=== PATIENT | male | born 1975 | race Caucasian/White ===

== ENCOUNTER 2020-02-21 22:51 | Emergency (ER) | payer MEDICAID, SELFPAY ==
--- NOTE | 2020-02-21 | XR_ITS ---
EXAMINATION: XR CHEST CLINICAL INFORMATION: Chest wall pain COMPARISON: 12/21/2005 TECHNIQUE: 2 views of the chest were obtained. FINDINGS: No significant abnormality is noted involving the heart, lungs, mediastinum, bony thorax or soft tissues. A linear scar or atelectasis is present at the left lung base, new since 2005. XR/XR chest 2V IMPRESSION: Unremarkable examination. Left basilar scar or atelectasis.
[2020-02-21 23:09] VITALS: BP 125/94; PULSE 109; RESP 16; TEMP 37.1; O2SAT 96; BMI 30.7
--- NOTE | 2020-02-21 23:28 | ECG_ITS ---
Test Reason : CHEST PAIN Blood Pressure : / mmHG Vent. Rate : 124 BPM Atrial Rate : 124 BPM P-R Int : 138 ms QRS Dur : 078 ms QT Int : 310 ms P-R-T Axes : 068 022 043 degrees QTc Int : 445 ms Sinus tachycardia Possible Left atrial enlargement Borderline ECG No previous ECGs available Referred By: Generic ED Physician Electronically Signed By:FLAVIA EUBANKS MD
[2020-02-21 23:59] LABS: MANUAL DIFF FLAG NO
[2020-02-22 00:01] LABS: Basophils Percent Auto 0.5 % (0-2); Eosinophils Absolute Auto 0.8 X10*3/uL (0.0-0.4); Eosinophils Percent Auto 9.7 % (0-4); Hematocrit 41.8 % (42-52); Hemoglobin 14.1 g/dl (14.0-18.0); Imm Gran Abs Auto 0.05 X10*3/uL (0.00-0.03); Imm Gran Pct Auto 0.6 % (0.0-0.4); Lymphocytes Absolute Auto 2.1 X10*3/uL (1.2-4.9); Lymphocytes Percent Auto 26.5 % (20-40); Mean Corpuscular HGB Conc 33.7 g/dl (31.0-36.0); Mean Corpuscular Volume 83.1 fL (80-98); Mean Platelet Volume 9.7 fL (9.4-12.4); Monocytes Absolute Auto 0.7 X10*3/uL (0.1-1.2); Monocytes Percent Auto 8.6 % (2-11); Neutrophils Absolute Auto 4.2 X10*3/uL (2.0-8.3); Neutrophils Percent Auto 54.1 % (45-73); Platelet Count 261 X10*3/uL (160-400); Red Blood Count 5.03 X10*6/uL (4.60-5.80); White Blood Count 7.8 X10*3/uL (4.8-10.8)
[2020-02-22 00:30] LABS: Anion Gap 15 (12-20); Blood Urea Nitrogen 15 mg/dL (9-16); Calcium 8.7 mg/dL (8.4-10.2); Carbon Dioxide 24 mmol/L (22-29); Chloride 105 mmol/L (96-108); Estimated Glomerular Filt Rate > 60; Glucose Random 114 mg/dL (60-115); Potassium 4.6 mmol/l (3.3-5.1); Sodium 139 mmol/L (135-145)
[2020-02-22 01:03] LABS: Troponin-I High Sensitivity < 3.5 ng/L (<3.5-35.0)
--- NOTE | 2020-02-22 03:35 | ED.GENADULT ---
HPI - General Adult General Chief complaint: General Medical Stated complaint: CHEST PAIN Time Seen by Provider: 02/22/20 03:34 Source: patient Mode of arrival: ambulatory History of Present Illness HPI narrative: This is a 44-year-old male with significant history of IVDA who presents with sudden onset of right upper chest pain increased with palpation, nonradiating, but stating that he had difficulty breathing that has since improved and states that this does not feel like his asthma. He denies any cough, fever, sore throat, chills, and denies any trauma to the area. Related Data Allergies Allergy/AdvReac Type Severity Reaction Status Date / Time fish derived [FISH] Allergy Unknown UNKNOWN Verified 02/21/20 23:08 Review of Systems Review of Systems: Pertinent positives and negatives as stated in HPI 10 point review systems is otherwise negative. [facility] Past Medical History Source: nursing notes reviewed Medical History Asthma Social History Social History Advance Directives: No Advance Directives Information Provided: No Physical Exam Vital Signs: Vital Signs: Last Vital Signs Temp 98.3 F 02/22/20 04:00 Pulse 82 02/22/20 07:40 Resp 16 02/22/20 07:40 BP 109/71 02/22/20 07:40 Pulse Ox 94 02/22/20 07:40 Body Mass Index 30.7 VITAL SIGNS: Reviewed. GENERAL: Well developed, well nourished, in no acute distress. HEAD: Normocephalic/atraumatic, EYES: PERRLA, EOMI EARS: Ext canals without abnormality, TMs non-bulging and non-erythematous NOSE: Nares patent bilateral OROPHARYNX: no oral lesions noted, posterior pharynx clear and non-erythematous without noted tonsillar enlargement/erythema/exudates NECK: Supple, no adenopathy LUNGS: Normal breath sounds. No adventitious sounds or accessory muscle use. SpO2<94> CARDIOVASCULAR: Regular rate and rhythm without noted murmurs, no JVD or lower extremity edema. ABDOMEN: Soft, non-tender, non-distended with bowel sounds. No rigidity. No guarding. No palpable masses or hernias noted MUSCULOSKELETAL: No tenderness, deformities, or effusions noted on gross inspection. EXTREMITIES: No cyanosis, clubbing or edema. SKIN: Inspection of the skin reveals multiple track bills and scarring consistent with history of IVDA NEUROLOGIC: Alert and oriented x 4. Strength and sensation to light touch were grossly intact x 4. Course Course Course Narrative: This is a 44-year-old male with history and clinical presentation concerning for pneumonia, cardiac ischemia, PE given his history of IVDA. Review of all investigations is significant for an elevated D-dimer and in conjunction with oxygenation of 94% and complaints of right-sided chest discomfort will pursue evaluation by imaging for PE. Unable to obtain adequate IV access for CTA of the chest with PE protocol, therefore will pursue V/Q scan and if negative patient can be discharged. Signed out to Dr. Moralez with plan to f/u V/Q scan and if negative can be discharged with Atypical chest pain . Medical Decision Making Lab Data Result diagrams: 02/21/20 23:53 02/21/20 23:53 Labs: Lab Results 02/21/20 02/21/20 02/21/20 Range/Units 23:53 23:53 23:53 WBC 7.8 (4.8-10.8) X10*3/uL RBC 5.03 (4.60-5.80) X10*6/uL Hgb 14.1 (14.0-18.0) g/dl Hct 41.8 L (42-52) % MCV 83.1 (80-98) fL MCH 28.0 (27.0-33.0) pg MCHC 33.7 (31.0-36.0) g/dl RDW 14.0 (11.0-16.0) % Plt Count 261 (160-400) X10*3/uL MPV 9.7 (9.4-12.4) fL Immature Gran % (Auto) 0.6 H (0.0-0.4) % Neut % (Auto) 54.1 (45-73) % Lymph % (Auto) 26.5 (20-40) % Garden % (Auto) 8.6 (2-11) % Eos % (Auto) 9.7 H (0-4) % Baso % (Auto) 0.5 (0-2) % Lymph # (Auto) 2.1 (1.2-4.9) X10*3/uL Garden # (Auto) 0.7 (0.1-1.2) X10*3/uL Eos # (Auto) 0.8 H (0.0-0.4) X10*3/uL Baso # (Auto) 0.0 (0.0-0.2) X10*3/uL Abs Immat Gran (auto) 0.05 H (0.00-0.03) X10*3/uL Absolute Neuts (auto) 4.2 (2.0-8.3) X10*3/uL Absolute Nucleated RBC 0.000 (0.0-0.012) X10*3/uL Nucleated RBC % (auto) 0.0 (0.0-0.2) /100WBC D-Dimer 441 NG/ML Hold Blue Top SEE NOTE Sodium 139 (135-145) mmol/L Potassium 4.6 (3.3-5.1) mmol/l Chloride 105 (96-108) mmol/L Carbon Dioxide 24 (22-29) mmol/L Anion Gap 15 (12-20) BUN 15 (9-16) mg/dL Creatinine 1.01 (0.5-1.4) mg/dL Estim Creat Clear Calc 97.0 Estimated GFR > 60 Random Glucose 114 (60-115) mg/dL Calcium 8.7 (8.4-10.2) mg/dL Troponin I High Sens (<3.5-35.0) ng/L 02/21/20 Range/Units 23:53 WBC (4.8-10.8) X10*3/uL RBC (4.60-5.80) X10*6/uL Hgb (14.0-18.0) g/dl Hct (42-52) % MCV (80-98) fL MCH (27.0-33.0) pg MCHC (31.0-36.0) g/dl RDW (11.0-16.0) % Plt Count (160-400) X10*3/uL MPV (9.4-12.4) fL Immature Gran % (Auto) (0.0-0.4) % Neut % (Auto) (45-73) % Lymph % (Auto) (20-40) % Garden % (Auto) (2-11) % Eos % (Auto) (0-4) % Baso % (Auto) (0-2) % Lymph # (Auto) (1.2-4.9) X10*3/uL Garden # (Auto) (0.1-1.2) X10*3/uL Eos # (Auto) (0.0-0.4) X10*3/uL Baso # (Auto) (0.0-0.2) X10*3/uL Abs Immat Gran (auto) (0.00-0.03) X10*3/uL Absolute Neuts (auto) (2.0-8.3) X10*3/uL Absolute Nucleated RBC (0.0-0.012) X10*3/uL Nucleated RBC % (auto) (0.0-0.2) /100WBC D-Dimer NG/ML Hold Blue Top Sodium (135-145) mmol/L Potassium (3.3-5.1) mmol/l Chloride (96-108) mmol/L Carbon Dioxide (22-29) mmol/L Anion Gap (12-20) BUN (9-16) mg/dL Creatinine (0.5-1.4) mg/dL Estim Creat Clear Calc Estimated GFR Random Glucose (60-115) mg/dL Calcium (8.4-10.2) mg/dL Troponin I High Sens < 3.5 (<3.5-35.0) ng/L ECG Data Attestation: I personally reviewed and interpreted this ECG as follows: Prior ECG tracings: not available for review Interpretation: Sinus tachycardia, HR-124, no evidence of acute ischemia, NE/QRS/QTC are within normal limits.
[2020-02-22 03:55] LABS: D Dimer 441 NG/ML
[2020-02-22 04:00] VITALS: BP 108/60; PULSE 91; RESP 12; TEMP 36.8; O2SAT 94
--- NOTE | 2020-02-22 05:27 | PC.NURSE ---
DR RUELAS AT BEDSIDE TO ATTEMPT US GUIDED LINE AFTER 2 FAILED PERIPHAL IVS.
--- NOTE | 2020-02-22 06:00 | PC.NURSE ---
IV ESTABLISHED. WENT TO CT IV INFILTRATED ON TEST INJECTION.
--- NOTE | 2020-02-22 06:45 | NM_ITS ---
EXAMINATION: NM LUNG IMAGE PERFUSION CLINICAL INFORMATION: Shortness of breath and chest pain. COMPARISON: Previous chest x-ray from yesterday. TECHNIQUE: Perfusion imaging was performed. The patient was administered 4 mCi technetium 99m labeled MAA and perfusion imaging was performed in multiple projections. No ventilation imaging was performed. FINDINGS: No perfusion defect is seen to suggest pulmonary embolism. NM/NM pul perfusion IMPRESSION: No perfusion defect seen to suggest pulmonary embolism.
[2020-02-22] MEDS: 0.9 % Sodium Chloride 1,000 ML 999 ML IV (06:51)
[2020-02-22 07:40] VITALS: BP 109/71; PULSE 82; RESP 16; O2SAT 94
== END 2020-02-22 10:46 | disposition home or self-care (01) ==
PROVIDERS: Emergency Provider Student in an Organized Health Care Education/Training Program
DX: R07.9 Chest pain, unspecified (principal); R06.02 Shortness of breath; Z20.822 Contact with and (suspected) exposure to COVID-19
CPT/HCPCS: 36415; 71046; 78580; 80048; 84484; 85025; 85379; 93005; 96360; 99283; 99284; A9540

== ENCOUNTER 2023-01-16 10:48 | Inpatient (IN) | payer MEDICAID, SELFPAY ==
[2023-01-16] VITALS (10 sets, daily range): BP systolic 100–138; BP diastolic 63–83; PULSE 100–126; RESP 14–20; TEMP 35.7–37.2; O2SAT 98–100; BMI 19.5
--- NOTE | ~2023-01-16 | CT_ITS ---
EXAMINATION: CT HEAD WITHOUT CONTRAST CLINICAL INFORMATION: HIV with headache COMPARISON: None available. TECHNIQUE: Contiguous axial imaging was performed from the skull base to vertex without intravenous administration of contrast. This CT examination was performed using dose optimization techniques as appropriate, variously including the following: *Automated exposure control *Adjustment of mA and/or kV according to patient size (this includes techniques or standardized protocols for targeted exams where dose is matched to indication/reason for exam; i.e. extremities or head) *Use of iterative reconstruction technique DLP: 707 mGy-cm FINDINGS: Schmitz-white matter differentiation is preserved. No evolving infarct, mass lesion, mass effect or midline shift. No intracranial hemorrhage or extra-axial fluid collections. Disconjugate gaze. Partially calcified total opacification of the left frontal sinus. Near total opacification right maxillary antrum. Sinus mucosal disease sphenoid and left maxillary sinuses. Mastoids are free of disease. Bony structures are intact. Soft tissues are unremarkable. CT/CT head/brain wo IV con IMPRESSION: No acute intracranial pathology. Extensive sinus disease, especially left frontal and right maxillary sinuses.
--- NOTE | ~2023-01-16 | CT_ITS ---
EXAMINATION: CT CHEST WITHOUT CONTRAST CLINICAL INFORMATION: 1.4 cm subpleural density left upper lobe. COMPARISON: CT abdomen and pelvis 01/16/2023. TECHNIQUE: Multidetector volumetric CT imaging of the chest was done. Axial MIP volume rendering provided. Sagittal and coronal reformatted images were obtained. This CT examination was performed using dose optimization techniques as appropriate, variously including the following: *Automated exposure control *Adjustment of mA and/or kV according to patient size (this includes techniques or standardized protocols for targeted exams where dose is matched to indication/reason for exam; i.e. extremities or head) *Use of iterative reconstruction technique DLP: 187 mGy-cm FINDINGS: The exam is suboptimal as there is continuos breathing artifact during the entire exam. BOX WORKER: Well-expanded lungs. LUNGS: The lungs are expanded with a groundglass density a 1.5 cm with a central solid nodule measuring 5 mm right upper lobe axial image 99/5. There is a 1.4 cm pleural-based nodule left upper lobe axial image 29/4. Some nodules seen. The lungs are otherwise clear.. Focal atelectatic changes seen in the superior segment of right lower lobe. There is dependent bibasilar atelectasis. MEDIASTINUM: Heart size and the great vessels are normal caliber. There is no pericardial effusion. The central trachea and the bronchi widely patent. Thyroid lobes are symmetrical and normal. Small shotty lymph nodes are seen in the mediastinum. CORONARY ARTERY CALCIFICATION: None visualized on this study. PLEURA: There are small bilateral pleural effusions. AXILLA: There are small bilateral axillary lymph nodes. Chest wall is unremarkable. UPPER ABDOMEN: Liver is normal size and diffusely attenuated. No focal lesion is seen. Spleen is mildly enlarged. OSSEOUS STRUCTURES: No aggressive lytic or sclerotic process seen. CT/CT chest wo IV con IMPRESSION: 1. Bilateral upper lobe pulmonary nodules as described above. The largest subpleural nodule is 1.4 cm pleural-based and a 5 mm nodule in the right upper lobe. Per the 2017 revised Fleischner Society guidelines, recommend CT follow-up at 3-6 months. If stable, consider CT at 2 and 4 years. 2. Small bilateral pleural effusions with dependent bibasilar atelectasis. 3. Mild splenomegaly. 4. Diffuse fatty infiltration of liver without focal lesion. Fleischner guidelines were followed.
--- NOTE | ~2023-01-16 | CT_ITS ---
EXAMINATION: CT ABDOMEN AND PELVIS WITHOUT CONTRAST CLINICAL INFORMATION: Evaluate for renal obstruction. COMPARISON: Abdominal ultrasound 11/02/2009 TECHNIQUE: Multidetector volumetric imaging was performed from the superior aspect of the liver through the pubic symphysis. Sagittal and coronal reformatted images were obtained on the technologist's workstation. This CT examination was performed using dose optimization techniques as appropriate, variously including the following: *Automated exposure control *Adjustment of mA and/or kV according to patient size (this includes techniques or standardized protocols for targeted exams where dose is matched to indication/reason for exam; i.e. extremities or head) *Use of iterative reconstruction technique DLP: 569 mGy-cm FINDINGS: Motion artifact technically degrades image quality. LUNG BASES: 1.4 cm subpleural density in the left upper lobe on image 1 of series 7. LIVER, GALLBLADDER, AND BILIARY TREE: The noncontrast liver is enlarged and diffusely decreased in attenuation. No biliary ductal dilatation is present. Gallstones. PANCREAS: No ductal dilatation. SPLEEN: Enlarged. ADRENAL GLANDS: Left adrenal thickening. KIDNEYS AND URETERS: The kidneys are symmetric in size. 3 mm nonobstructing right renal calculus. No hydronephrosis or perinephric stranding. BLADDER: Unremarkable. GASTROINTESTINAL TRACT: The colon is distended with fluid and gas. No small bowel obstruction. ABDOMINAL WALL: No significant hernia is appreciated. LYMPH NODES: Enlarged bilateral inguinal lymph nodes. Enlarged portacaval lymph node measures 2.5 x 2.3 x 3.4 cm.. VASCULAR: Normal caliber abdominal aorta. PELVIC VISCERA: Unremarkable. OSSEOUS STRUCTURES: No destructive bone lesions. CT/CT abdomen pelvis wo IV con IMPRESSION: Colonic distention with gas and fluid. This may represent colitis. Evaluation is limited by motion artifact. Advise clinical correlation. Hepatosplenomegaly. Hepatic steatosis. Enlarged portacaval lymph node is possibly reactive basis. Cholelithiasis. 3 mm nonobstructing right renal calculus. No hydronephrosis. 1.4 cm subpleural density in the left upper lobe. Dedicated chest CT is recommended for further characterization.
--- NOTE | ~2023-01-16 | XR_ITS ---
EXAMINATION: XR FOOT, LEFT CLINICAL INFORMATION: Left ankle pain COMPARISON: None available. TECHNIQUE: AP, lateral, and oblique views of the left foot. FINDINGS: The small calcaneal heel enthesophyte. No visible acute fracture or dislocation seen. Ankle mortise and subtalar joints are normal. The soft tissues are normal. XR/XR foot LT 2V IMPRESSION: Small calcaneal heel enthesophyte. No visible acute fracture or dislocation seen.
--- NOTE | ~2023-01-16 | XR_ITS ---
EXAMINATION: XR CHEST CLINICAL INFORMATION: Bilateral rib pain. COMPARISON: Chest radiograph dated 02/21/2020. TECHNIQUE: Frontal view of the chest was obtained. FINDINGS: The lungs are clear. The cardiomediastinal silhouette is normal in size. There is no pleural effusion or pneumothorax. No acute osseous abnormality. XR/XR chest 1V IMPRESSION: No acute cardiopulmonary findings.
--- NOTE | ~2023-01-16 | CT_ITS ---
EXAMINATION: CT EXTREMITY WITHOUT CONTRAST, LEFT LOWER CLINICAL INFORMATION: Left lower extremity pain COMPARISON: None available. TECHNIQUE: Multidetector CT imaging of the left lower extremity was performed without the use of intravenous contrast. Coronal and sagittal reformats created on an independent workstation were reviewed. This CT examination was performed using dose optimization techniques as appropriate, variously including the following: *Automated exposure control *Adjustment of mA and/or kV according to patient size (this includes techniques or standardized protocols for targeted exams where dose is matched to indication/reason for exam; i.e. extremities or head) *Use of iterative reconstruction technique DLP: 382 mGy-cm FINDINGS: No fractures. No periosteal reaction or cortical destruction to suggest osteomyelitis. There is subcutaneous fat stranding anterior and lateral to the calf along the anterior tibialis and peroneal musculature. This subcutaneous fat stranding extends inferiorly along the medial and lateral aspects of the ankle and along the dorsum of the foot where the edema becomes coalescent. No drainable collection. No soft tissue gas to suggest necrotizing fasciitis. There is no fluid deep to the superficial muscular fascia. No intramuscular or intermuscular fluid collections. CT/CT lower leg LT wo IV con IMPRESSION: * No acute osseous abnormalities. * No evidence of osteomyelitis. * Subcutaneous fat stranding along the anterior and lateral aspects of the calf extending inferiorly along the medial and lateral aspects of the ankle and along the dorsum of the foot where the edema becomes coalescent. No drainable collection. * No intermuscular fluid or soft tissue gas to suggest necrotizing fasciitis.
--- NOTE | ~2023-01-16 | US_ITS ---
EXAMINATION: US VENOUS ULTRASOUND WITH DOPPLER LOWER EXTREMITY, LEFT CLINICAL INFORMATION: Left lower extremity edema and pain COMPARISON: CT abdomen pelvis 01/16/2023 TECHNIQUE: Ultrasound of the deep veins is performed from the hip to the calf with compression sonography and color and pulse Doppler assessment. Spectral analysis with color-flow imaging is performed. FINDINGS: There is normal venous compression and respiratory variation and augmented flow. The visualized common femoral vein, superficial femoral vein, profunda femoral vein, popliteal vein, and the trifurcation region shows no evidence of deep venous thrombosis. There is no significant popliteal fossa cyst. The contralateral right common femoral vein appears normal. There are some mildly prominent left groin lymph nodes present that appear morphologically normal, similar to the CT scan performed earlier today. If the patient's symptoms persist, followup ultrasound in 5 days 7 days might be of value to exclude proximal propagation from a non-visualized calf vein. US/US venous duplex LE LT IMPRESSION: No DVT demonstrated in the left lower extremity.
--- NOTE | ~2023-01-16 | XR_ITS ---
EXAMINATION: XR FOOT, LEFT CLINICAL INFORMATION: Pain COMPARISON: None available. TECHNIQUE: AP, lateral, and oblique views of the left foot. FINDINGS: No acute visible fracture or dislocation. Slight enthesopathy at the Achilles tendon insertion site. Joint spaces and alignment are maintained. Prominent soft tissue swelling along the dorsum of the forefoot. XR/XR foot LT min 3V IMPRESSION: 1. No acute visible fracture or dislocation. 2. Slight enthesopathy at the Achilles tendon insertion site. 3. Prominent soft tissue swelling along the dorsum of the forefoot.
--- NOTE | 2023-01-16 11:22 | ED.EXTPRO ---
HPI - Extremity Problem General Chief complaint: Extremity Problem Stated complaint: L leg infection Time Seen by Provider: 01/16/23 13:19 Source: patient Mode of arrival: ambulatory Limitations: no limitations History of Present Illness HPI Narrative: Patient comes to the emergency room accompanied by his mother and brother. Patient reports that for 4 days, patient has been having left lower extremity pain. Patient admits to IV drug use. Patient states that his foot and extremity below the knee on the left side has gradually become more red swollen and very painful to touch. Patient denies any fever or chills. However, patient states that the pain is intolerable. Patient also states that for couple of days he has been having bilateral rib pain. Patient denies any falls or injuries Related Data Allergies Allergy/AdvReac Type Severity Reaction Status Date / Time fish derived [FISH] Allergy Unknown UNKNOWN Verified 01/16/23 11:09 Review of Systems Review of Systems: Constitutional : No Weight loss, No Fever, No Chills, No Night Sweats, No Fatigue, No Malaise ENT/Mouth : No Hearing loss, No Ear Pain, No Nasal Congestion, No Sinus Pain, No Hoarseness, No sore throat, No Rhinorrhea, No Swallowing Difficulty Eyes: No Eye Pain, No Swelling, No Redness, No Foreign Body, No Discharge, No Vision Changes Cardiovascular : No Chest Pain, No SOB, No Dyspnea on Exertion, No Orthopnea, No Edema, No Palpitations Respiratory : No Cough, No Sputum, No Wheezing, No Smoke Exposure, No Dyspnea Gastrointestinal : No Nausea, No Vomiting, No Diarrhea, No Constipation, No abdominal Pain, No Hematochezia, No Melena Genitourinary : no irregular bleeding, No Dysuria, No Urinary Frequency, No Hematuria, No Urinary Incontinence, No Urgency, No Flank Pain, No Urinary Flow Changes, No Hesitancy Musculoskeletal : Complaining of bilateral rib pain, no joint pain, No Myalgias, No Joint Swelling Skin : Complaining of left lower extremity pain, swelling, erythema Neuro : No Weakness, No Numbness, No Paresthesias, No Loss of Consciousness, No Dizziness, No Headache Psych : No Anxiety/Panic, No Depression, No SI/HI/AH/VH, No Social Issues, Heme/Lymph: No Bruising, No Bleeding,No Lymphadenopathy Endocrine : No Polyuria, No Polydipsia, No Temperature Intolerance PMFSH Past Medical History Medical History Asthma Social History Social History Smoked in Last 30 Days: Yes Use of substances other than those prescribed or required for medical reasons: Yes Substance Use Type: Heroin Substance Use Frequency: Daily Last Used Substance: Hours (ago) Advance Directives: No Physical Exam Vital Signs: Vital Signs: Last Vital Signs Temp 98.3 F 01/16/23 14:35 Pulse 100 01/16/23 14:35 Resp 18 01/16/23 14:35 BP 112/70 01/16/23 14:35 Pulse Ox 100 01/16/23 14:35 O2 Del Method Room Air 01/16/23 14:35 BMI result Body Mass Index 19.5 Const: Other: Appearance: Alert. Oriented X3. No acute distress. Eyes: Pupils equal, round and reactive to light. ENT: Pharynx normal. Neck: Normal inspection. Neck supple. No lymph nodes noted. No crepitus CVS: Normal heart rate and rhythm. Pulses normal. Normal S1 and S2 Respiratory: No respiratory distress. Breath sounds normal. No Wheezing. No rales Abdomen: Soft and nontender. No rigidity. No distention. Skin: Skin warm and dry. Normal skin color. Normal skin turgor. Extremities: Patient's left foot is swollen, erythematous from the toes to below the knee, pain to palpation on the calf, +2 pitting edema Neuro: Oriented X 3. No motor deficit. No sensory deficit. Moving all extremities. No slurred speech. CN 2 through 12 grossly intact Psych: calm, cooperative, normal affect Course Course Course Narrative: I did not see this patient but I ordered the labs based on the description of patient history and brief exam comes from the nurse who described the patient experiencing left foot pain and swelling for several days as well as a pulse of 130 in triage but no fever recorded here x-ray and labs ordered by me The patient was seen by the nurse prior to my arrival in the ER who asked me to do with lab entry as she had no computer at that time Medications Administered Discontinued Medications Generic Name Dose Route Start Last Admin Trade Name Freq PRN Reason Stop Dose Admin Sodium Chloride 2,000 mls @ 999 mls/hr 01/16/23 13:40 01/16/23 16:20 Ns IVCONT 01/16/23 15:40 Infused .Q2H1M ONE Infusion Vancomycin HCl 1,250 mg/ 250 mls @ 166.667 mls/hr 01/16/23 13:40 01/16/23 16:50 Sodium Chloride IV 01/16/23 15:09 Infused ONCE ONE Infusion Piperacillin Sod/Tazobactam 50 mls @ 100 mls/hr 01/16/23 13:43 01/16/23 15:15 Sod 3.375 gm/ Sodium Chloride IV 01/16/23 14:12 Infused ONCE ONE Infusion Medical Decision Making Medical Decision Making [facility] Narrative: -all of patient's labs pending -my interpretation of x-ray of the foot: No obvious fracture, soft tissue swelling on the dorsum of the foot -ultrasound of the Left lower extremity is pending -patients hemoglobin level is 7.1. Patient states that he does not recall seeing any black stool or blood in the stool. Patient agreeable to a digital rectal exam. -also, patient's creatinine 4.28. Patient states that he has never had any kidney inches to his knowledge. However, patient states that he has noted bilateral back pain/flank pain for a few days now. CT scan of the abdomen pelvis pending -fluids and antibiotics ordered empirically for lower extremity cellulitis, at this time, 140, sepsis is not suspected. -patient receiving IV fluids, vancomycin, Zosyn, patient likely has cellulitis of left lower extremity, no fever, no hypotension. It was reported the patient's temperature is 96.2 degrees with a forehead thermometer, we will obtai also a rectal temperature -patient requested to get tested for HIV and hepatitis. Patient states that he has lost about 20 lb in the last couple of months. Patient requesting to not tell his family that he is being tested for HIV and hepatitis -patient has CT scan done of the chest and abdomen -patient looks pale, weak, I discussed the hemoglobin levels with the patient, patient agreeable to get a blood transfusion. The only previous hemoglobin that we have from the patient was approximately 2 years ago which was 14.1. I discussed with the patient risks versus benefits of a blood transfusion, patient agreeable, consent signed. -radiology report of the CT scan shows a mass in the lung. Patient will need a dedicated CT scan of the lung. However, patient's creatinine is too elevated at this time to do a CT scan with contrast. Discussed this issue with Radiology, recommendations, patient will be hydrated first, then if the creatinine levels improve, contrast may be used. Otherwise, alternative imaging/MRI may have to be used. -my interpretation of ultrasound of the lower extremity negative for DVT -discussed with the patient that he will be admitted, patient agreeable with plan. -I discussed the patient with Dr. Liu, patient to be admitted Differential Diagnosis Differential Diagnoses: The differential diagnosis associated with the presentation includes (Acute kidney injury, upper GI bleed, lower GI bleed, iron deficiency anemia, HIV, hepatitis, lung cancer) Admission/Observation Consideration of admission/observation: Escalation of care including admission/observation considered Consult Healthcare Provider Management of the patient was discussed with: Hospitalist Lab Data MDM Lab Attestation statement: I reviewed the patient's lab results. 01/16/23 13:11 01/16/23 13:11 Labs: Lab Results 01/16/23 01/16/23 01/16/23 Range/Units 13:11 14:14 14:29 WBC 5.7 (4.8-10.8) X10*3/uL RBC 2.54 L (4.60-5.80) X10*6/uL Hgb 7.1 L (14.0-18.0) g/dl Hct 23.3 L (42.0-52.0) % MCV 91.7 (80.0-98.0) fL MCH 28.0 (27.0-33.0) pg MCHC 30.5 L (31.0-36.0) g/dl RDW 22.0 H (11.0-16.0) % Plt Count 135 L (160-400) X10*3/uL MPV 10.9 (9.4-12.4) fL Immature Gran % (Auto) Cancelled Neut % (Auto) Cancelled Lymph % (Auto) Cancelled Newton % (Auto) Cancelled Eos % (Auto) Cancelled Baso % (Auto) Cancelled Lymph # (Auto) Cancelled Newton # (Auto) Cancelled Eos # (Auto) Cancelled Baso # (Auto) Cancelled Abs Immat Gran (auto) Cancelled Absolute Neuts (auto) Cancelled Absolute Nucleated RBC 0.000 (0.0-0.012) X10*3/uL Nucleated RBC % (auto) 0.0 (0.0-0.2) /100WBC Neutrophils % (Manual) 73 (45-73) % Band Neutrophils % 19 H (3-5) % Lymphocytes % (Manual) 3 L (20-40) % Monocytes % (Manual) 5 (2-11) % Abs Neuts (Manual) 5.2 (2.0-8.3) X10*3/uL Lymphocytes # (Manual) 0.2 L (1.2-4.9) X10*3/uL Monocytes # (Manual) 0.3 (0.1-1.2) X10*3/uL Toxic Vacuolation PRESENT Dohle Bodies PRESENT Platelet Estimate SLIGHTLY DECREASED (NORMAL) Plt Morphology Comment NORMAL RBC Morphology NOTED Polychromasia 1+ (0-2) /OIF Hypochromasia 1+ (5-14) /OIF Rouleaux PRESENT ESR > 140 H (0-15) MM/HR Sodium 137 (135-145) mmol/L Potassium 3.5 (3.3-5.1) mmol/L Chloride 106 (96-108) mmol/L Carbon Dioxide 19 L (22-29) mmol/L Anion Gap 16 (12-20) BUN 75 H (9-16) mg/dL Creatinine 4.28 H* (0.5-1.4) mg/dL Estim Creat Clear Calc 16.6 Estimated GFR 15 Random Glucose 129 H (60-115) mg/dL Lactic Acid 2.3 H* (0.5-2.0) mmol/L Lactic Acid F/U @ 2Hr (0.5-2.0) mmol/L Calcium 8.1 L D (8.4-10.2) mg/dL Magnesium 1.8 (1.6-2.6) mg/dL C-Reactive Protein 19.63 H (< or = 0.50) mg/dL Stool Occult Blood NEGATIVE (NEGATIVE) Ethyl Alcohol < 10 mg/dL Crossmatch 01/16/23 01/16/23 Range/Units 15:08 18:23 WBC (4.8-10.8) X10*3/uL RBC (4.60-5.80) X10*6/uL Hgb (14.0-18.0) g/dl Hct (42.0-52.0) % MCV (80.0-98.0) fL MCH (27.0-33.0) pg MCHC (31.0-36.0) g/dl RDW (11.0-16.0) % Plt Count (160-400) X10*3/uL MPV (9.4-12.4) fL Immature Gran % (Auto) Neut % (Auto) Lymph % (Auto) Newton % (Auto) Eos % (Auto) Baso % (Auto) Lymph # (Auto) Newton # (Auto) Eos # (Auto) Baso # (Auto) Abs Immat Gran (auto) Absolute Neuts (auto) Absolute Nucleated RBC (0.0-0.012) X10*3/uL Nucleated RBC % (auto) (0.0-0.2) /100WBC Neutrophils % (Manual) (45-73) % Band Neutrophils % (3-5) % Lymphocytes % (Manual) (20-40) % Monocytes % (Manual) (2-11) % Abs Neuts (Manual) (2.0-8.3) X10*3/uL Lymphocytes # (Manual) (1.2-4.9) X10*3/uL Monocytes # (Manual) (0.1-1.2) X10*3/uL Toxic Vacuolation Dohle Bodies Platelet Estimate (NORMAL) Plt Morphology Comment RBC Morphology Polychromasia /OIF Hypochromasia /OIF Rouleaux ESR (0-15) MM/HR Sodium (135-145) mmol/L Potassium (3.3-5.1) mmol/L Chloride (96-108) mmol/L Carbon Dioxide (22-29) mmol/L Anion Gap (12-20) BUN (9-16) mg/dL Creatinine (0.5-1.4) mg/dL Estim Creat Clear Calc Estimated GFR Random Glucose (60-115) mg/dL Lactic Acid (0.5-2.0) mmol/L Lactic Acid F/U @ 2Hr 0.7 (0.5-2.0) mmol/L Calcium (8.4-10.2) mg/dL Magnesium (1.6-2.6) mg/dL C-Reactive Protein (< or = 0.50) mg/dL Stool Occult Blood (NEGATIVE) Ethyl Alcohol mg/dL Crossmatch See Detail Independent Interpretation I performed an independent interpretation of an: Ultrasound and CT Scan Radiology Impression Discussion of test interpretation with radiology: I have reviewed the radiologist's reading. Radiologist Impression: FINDINGS: Motion artifact technically degrades image quality. LUNG BASES: 1.4 cm subpleural density in the left upper lobe on image 1 of series 7. LIVER, GALLBLADDER, AND BILIARY TREE: The noncontrast liver is enlarged and diffusely decreased in attenuation. No biliary ductal dilatation is present. Gallstones. PANCREAS: No ductal dilatation. SPLEEN: Enlarged. ADRENAL GLANDS: Left adrenal thickening. KIDNEYS AND URETERS: The kidneys are symmetric in size. 3 mm nonobstructing right renal calculus. No hydronephrosis or perinephric stranding. BLADDER: Unremarkable. GASTROINTESTINAL TRACT: The colon is distended with fluid and gas. No small bowel obstruction. ABDOMINAL WALL: No significant hernia is appreciated. LYMPH NODES: Enlarged bilateral inguinal lymph nodes. Enlarged portacaval lymph node measures 2.5 x 2.3 x 3.4 cm.. VASCULAR: Normal caliber abdominal aorta. PELVIC VISCERA: Unremarkable. OSSEOUS STRUCTURES: No destructive bone lesions. CT/CT abdomen pelvis wo IV con IMPRESSION: Colonic distention with gas and fluid. This may represent colitis. Evaluation is limited by motion artifact. Advise clinical correlation. Hepatosplenomegaly. Hepatic steatosis. Enlarged portacaval lymph node is possibly reactive basis. Cholelithiasis. 3 mm nonobstructing right renal calculus. No hydronephrosis. 1.4 cm subpleural density in the left upper lobe. Dedicated chest CT is recommended for further characterization. FINDINGS: There is normal venous compression and respiratory variation and augmented flow. The visualized common femoral vein, superficial femoral vein, profunda femoral vein, popliteal vein, and the trifurcation region shows no evidence of deep venous thrombosis. There is no significant popliteal fossa cyst. The contralateral right common femoral vein appears normal. There are some mildly prominent left groin lymph nodes present that appear morphologically normal, similar to the CT scan performed earlier today. If the patient's symptoms persist, followup ultrasound in 5 days 7 days might be of value to exclude proximal propagation from a non-visualized calf vein. US/US venous duplex LE LT IMPRESSION: No DVT demonstrated in the left lower extremity. Critical Care Time Critical Care Time Critical Care Time: Yes Total Critical Care Time: 90 Attestation: I have personally provided critical care time. Time includes review of lab data, radiology results, discussion with consultants, and monitoring for potential decompensation. Intervention performed as documented. Discharge Plan Discharge Clinical Impression: Cellulitis of lower leg, Anemia, Acute kidney injury, Abnormal weight loss, Lung mass Patient Disposition: Admitted As Inpatient
--- NOTE | 2023-01-16 13:02 | PC.NURSE ---
pt from home reporting 10/10 left foot pain. pt reports this pain started 3 days ago. pt denies trauma to the area. pt reports that he is unable to bear wait on the foot. pt reports pain upon palpation to the area. pt denies fevers and chills. positive pedal pulses noted.
[2023-01-16 13:17] LABS: Hematocrit 23.3 % (42.0-52.0); Hemoglobin 7.1 g/dl (14.0-18.0); Mean Corpuscular HGB Conc 30.5 g/dl (31.0-36.0); Mean Corpuscular Volume 91.7 fL (80.0-98.0); Red Blood Count 2.54 X10*6/uL (4.60-5.80); White Blood Count 5.7 X10*3/uL (4.8-10.8)
[2023-01-16 13:35] LABS: Mean Platelet Volume 10.9 fL (9.4-12.4); Platelet Count 135 X10*3/uL (160-400)
[2023-01-16 13:37] LABS: Anion Gap 16 (12-20); Blood Urea Nitrogen 75 mg/dL (9-16); Calcium 8.1 mg/dL (8.4-10.2); Carbon Dioxide 19 mmol/L (22-29); Chloride 106 mmol/L (96-108); Creatinine Clr Calc Pharmacy 16.6; Estimated Glomerular Filt Rate 15; Glucose Random 129 mg/dL (60-115); Lactic Acid 2.3 mmol/L (0.5-2.0); Potassium 3.5 mmol/L (3.3-5.1); Sodium 137 mmol/L (135-145)
[2023-01-16 13:41] LABS: Band Neutrophils Percent 19 % (3-5); Lymphocytes Absolute Manual 0.2 X10*3/uL (1.2-4.9); Lymphocytes Percent Manual 3 % (20-40); Monocytes Absolute Manual 0.3 X10*3/uL (0.1-1.2); Monocytes Percent Manual 5 % (2-11); Neutrophils Absolute Manual 5.2 X10*3/uL (2.0-8.3)
[2023-01-16 13:42] LABS: Dohle Bodies PRESENT; Hypochromasia 1+ (5-14) /OIF; Platelet Estimate SLIGHTLY DECREASED (NORMAL); Platelet Morphology Comment NORMAL; Polychromasia 1+ (0-2) /OIF; RBC Morphology NOTED; Rouleau PRESENT
[2023-01-16 13:43] LABS: Neutrophils Percent Manual 73 % (45-73); Toxic Vacuolation PRESENT
--- NOTE | 2023-01-16 14:17 | PC.NURSE ---
Patient is difficult stick, IV established with US guidance by Edward CEE.
[2023-01-16] MEDS: 0.9 % Sodium Chloride 2,000 ML 999 ML IVCONT (14:19)
[2023-01-16] MEDS: Piperacillin Sodium/Tazobactam 3.375 GM in 0.9 % Sodium Chloride 50 ML IV (14:21)
--- NOTE | 2023-01-16 14:32 | PC.NURSE ---
this rn at bedside with dr. Goodson. stool occult obtained and sent to lab. pt tolerated well.
[2023-01-16 14:36] LABS: C Reactive Protein 19.63 mg/dL (< or = 0.50)
[2023-01-16 14:38] LABS: OBS Int Ctl Valid YES; OBS1 NEGATIVE (NEGATIVE)
[2023-01-16 14:42] LABS: Ethanol < 10 mg/dL; Magnesium 1.8 mg/dL (1.6-2.6)
--- NOTE | 2023-01-16 14:46 | PC.NURSE ---
US at the bedside at this time.
--- NOTE | 2023-01-16 14:50 | PC.NURSE ---
Patient refusing US at this time.
[2023-01-16 15:14] LABS: Reflex Lactate? Lactic Acid Added
[2023-01-16] MEDS: vancomycin HCL 1,250 MG in 0.9 % Sodium Chloride 250 ML 166.67 MG IV (15:16)
--- NOTE | 2023-01-16 15:16 | PC.NURSE ---
pt medicated per mar.
[2023-01-16 15:29] LABS: Erythrocyte Sedimentation Rate > 140 MM/HR (0-15)
--- NOTE | 2023-01-16 16:54 | PC.NURSE ---
pt type and screen rejected x2 by blood bank. lactic rejected for accidental unsaved scan by tech. pt hard stick, already has on ultrasound guided IV. was advised by special agent in charge not to draw off existing IV line. awaiting for Dr. Goodson or DHARA Dowell to put another ultrasound guided line or IJ in. provider, tech, and special agent in charge aware.
--- NOTE | 2023-01-16 18:27 | PC.NURSE ---
barney tech able to obtain labs/type and screen on pt. still waiting for ultrasound guided line by provider.
--- NOTE | 2023-01-16 18:40 | PC.NURSE ---
DHARA joya able to place 20G IV to left bicep. pt now has bilateral 20s to ACs. pt resting quietly on stretcher in no apparent distress. visitor at bedside. rr even/unlabored. call mckeon within reach. plan of care ongoing.
[2023-01-16 18:45] LABS: ~Lactic Acid-LAB USE ONLY 0.7 mmol/L (0.5-2.0)
--- NOTE | 2023-01-16 19:25 | PHA.MEDREC ---
Pharmacy Consult ? Medication Reconciliation Pharmacy has completed the medication reconciliation. Patient reported ne medications. Elsie Reeder, MaryD
--- NOTE | 2023-01-16 19:32 | PC.NURSE ---
ASSUMED CARE OF PT
[2023-01-16 19:48] LABS: Appearance Urine Clear; Color Urine Dark Yellow; Glucose Urine UA Negative (Negative); Leukocyte Esterase Urine Trace (Negative); Nitrite Urine Negative (Negative); PH 7.5 (5.0-9.0); Specific Gravity - Urine 1.015 (1.005-1.025); UMIC TRIGGER UACC YES; Urine Blood Trace (Negative); Urine Ketones Negative (Negative); Urine Protein 100 (2+) mg/dL (Neg-Trace)
[2023-01-16 19:50] LABS: Bacteria Urine None Seen (None Seen); RBC Urine 0-2 /HPF (0-2); WBC Urine 0-5 /HPF (0-5)
[2023-01-16 19:54] LABS: Amphetamine Screen Urine Not Detected (Not Detect); Barbiturates, Urine Not Detected (Not Detect); Benzodiazepines Screen Urine Not Detected (Not Detect); Cannabinoid Screen Urine Not Detected (Not Detect); Cocaine Screen Urine POSITIVE (Not Detect); Fentanyl, urine POSITIVE (Not Detect); Opiate Screen Urine POSITIVE (Not Detect); Phencyclidine Screen Urine Not Detected (Not Detect)
[2023-01-16] MEDS: Docusate Sodium 100 MG CAPSULE PO (22:19)
--- NOTE | 2023-01-16 22:28 | PHA.PROG ---
Admission Date/Time: January 16, 2023 21:05 Indication: cellulitis Weight in k.683 kg Adjusted body weight in Kg: [place] body weight in Kg: Obesity Dosing Indication % IBW: n/a Serum Creatinine - Last 168 Hours 01/16/23 13:11 Creatinine 4.28 H* Estimated CrCl and GFR - Last 168 Hours 01/16/23 13:11 Estim Creat Clear Calc 16.6 Estimated GFR 15 Vancomycin Loading Dose: 1250 mg Current Vancomycin Dosing Regimen: 500 mg Q24H (pending AM random and SCr) Date and Time for next Vancomycin Level to be drawn: 01/17 @ 0500 Pharmacist Comments on Vancomycin Plan: patient received an adequate load dose in the ER 01/16 @ 1516 Dose pended due to renal function. Will wait for random level and updated SCr. Based on current value, vanco 500 mg Q24H is predicted to have an AUC of 516 with a trough of 18.3 Patient currently with GIL - patient reported to provider no history of kidney issues Since no history of renal disfunction, will have a random level first thing is the morning. If level is subtherapeutic and renal function improves, next dose can be started earlier. However, if renal function continues to be the same or worsens, random level will most likely but supratherpaeutic and dose can re-evaluated with potentially being held another 24 hours with random levels daily. Elsie Reeder PharmD Vancomycin dosing will take advantage of [employer] as a clinical decision support tool that uses Bayesian modeling to calculate individual patient's pharmacokinetic parameters and forecast the patient's drug concentration time course with the target goal AUC 24 range of 400 - 600 mg/L/hr.
[2023-01-16] MEDS: 0.9 % Sodium Chloride Flush 3 ML SYRINGE IVFLUSH (23:17)
--- NOTE | 2023-01-17 00:01 | PM.IMHP ---
History of Present Illness Date of Service: 01/16/23 Attending physician on admission: Rajinder Patterson Chief Complaint: Pain in the lef leg x 4 days Patient is a 47-year-old Pashto-speaking man who is an active IV heroin and cocaine abuse and who otherwise has no other medical problems who presented to the emergency room accompanied by his mother and brother complaining of severe pain involving his left leg - from the knee to the foot - for the last 3-4 days. He admits to injecting drugs everyday in all his extremities including the left leg. He describes spontaneous onset of his symptoms that have become progressively worse to a point where he cannot bear weight. He denies any preceding trauma or any associated fever or chills. Initial vital signs obtained on arrival to the emergency room ere notable for tachycardia with a heart rate of 104 beats per minute. He however is afebrile. Initial blood work revealed a bandemia of 19%, elevated ESR of >140, CRP of 19.63, elevated lactic acid at 2.3, mild hypokalemia with a serum potassium of 3.5 and severe renal insufficiency a BUN of 75 and serum creatinine of 4.28. Of note, he has no known history of renal injury. A plain x-ray of the affected limb showed prominent soft tissue swelling along the dorsum of the forefoot. He was was started on intravenous vancomycin and Zosyn and admission request. Review of Systems Review of Systems: Yes all other systems are reviewed and are negative [facility] Medical History (Updated 01/17/23 @ 00:34 by Rajinder Patterson MD) Polysubstance (including opioids) dependence w/o physiol dependence Asthma Pertinent family history: This was reviewed with the patient and is not relevant to current admission. Social History Patient Tobacco Use Status: Tobacco use Unknown Smoked in Last 30 Days: Yes Use of substances other than those prescribed or required for medical reasons: Yes Substance Use Type: Heroin Substance Use Frequency: Daily Last Used Substance: Hours (ago) Advance Directives: No Nutrition Risks: No Nutritional Risk Meds Allergies Allergy/AdvReac Type Severity Reaction Status Date / Time fish derived [FISH] Allergy Unknown UNKNOWN Verified 01/16/23 11:09 Home Medications Medication Instructions Recorded Confirmed Last Taken Type No Known Home Meds 01/16/23 01/16/23 Unknown History Physical Exam Vital Signs and Narrative: Vital Signs: Last Vital Signs Temp 97.8 F 01/16/23 23:15 Pulse 104 H 01/16/23 23:15 Resp 15 01/16/23 23:15 BP 107/64 01/16/23 23:15 Pulse Ox 100 01/16/23 22:11 O2 Del Method Room Air 01/16/23 22:11 BMI result Body Mass Index 19.5 General: Welll nourished. Awake, alert and oriented x 4. No apparent distress Eyes: No pallor or jaundice. PERRLA, EOMI HENT: Moist oral mucus membranes. No oropharyngeal lesions. Neck: Supple. No cervical adenopathy. No JVD Cardiovascular: Regular rate and rhythm. Normal heart sounds. No murmurs, rubs or gallops. No JVD. No peripheral edema. Respiratory: Normal respiratory effort with no accessory muscle use. CTAB. Gastrointestinal: Abdomen is soft, non-tender, non-distended. Normoactive bowel sounds. No hepatosplenomegaly Extremities: LLE is swollen and exquisitely tender to touch plus with limited ROM. Good peripheral pulses Skin: Warm/Dry. No rashes. No mottling. Capillary refill is < 2 seconds Neurological: AAOx4. Intact speech & cognition. Normal gait & balance. CN II - XII grossly intact but not individually tested. No motor or sensory deficits Hematologic: No bleeding. No ecchymosis. No swollen or tender lymph nodes. Psychiatric: Cooperative. Appropriate mood and affect . Results Labs 01/16/23 13:11 01/16/23 13:11 Labs: Laboratory Results - last 24 hr 01/16/23 01/16/23 01/16/23 13:11 14:14 14:29 MCV 91.7 MCH 28.0 MCHC 30.5 L RDW 22.0 H Plt Count 135 L MPV 10.9 Immature Gran % (Auto) Cancelled Neut % (Auto) Cancelled Lymph % (Auto) Cancelled [place] % (Auto) Cancelled Eos % (Auto) Cancelled Baso % (Auto) Cancelled Lymph # (Auto) Cancelled [place] # (Auto) Cancelled Eos # (Auto) Cancelled Baso # (Auto) Cancelled Abs Immat Gran (auto) Cancelled Absolute Neuts (auto) Cancelled Absolute Nucleated RBC 0.000 Nucleated RBC % (auto) 0.0 Neutrophils % (Manual) 73 Band Neutrophils % 19 H Lymphocytes % (Manual) 3 L Monocytes % (Manual) 5 Abs Neuts (Manual) 5.2 Lymphocytes # (Manual) 0.2 L Monocytes # (Manual) 0.3 Toxic Vacuolation PRESENT Dohle Bodies PRESENT Platelet Estimate SLIGHTLY DECREASED Plt Morphology Comment NORMAL RBC Morphology NOTED Polychromasia 1+ (0-2) Hypochromasia 1+ (5-14) Rouleaux PRESENT ESR > 140 H Anion Gap 16 Estim Creat Clear Calc 16.6 Estimated GFR 15 Random Glucose 129 H Lactic Acid 2.3 H* Lactic Acid F/U @ 2Hr Calcium 8.1 L D Magnesium 1.8 Total Creatine Kinase 30 L C-Reactive Protein 19.63 H Urine Color Urine Appearance Urine pH Ur Specific [place] Urine Protein Urine Glucose (UA) Urine Ketones Urine Blood Urine Nitrite Ur Leukocyte Esterase Urine RBC Urine WBC Ur Squamous Epith Cells Urine Bacteria Hyaline Casts Stool Occult Blood NEGATIVE Urine Opiates Screen Urine Fentanyl Screen Ur Barbiturates Screen Ur Phencyclidine Scrn Ur Amphetamines Screen U Benzodiazepines Scrn Urine Cocaine Screen U Marijuana (THC) Screen Ethyl Alcohol < 10 Blood Type Antibody Screen Crossmatch 01/16/23 01/16/23 01/16/23 18:23 18:26 19:37 MCV MCH MCHC RDW Plt Count MPV Immature Gran % (Auto) Neut % (Auto) Lymph % (Auto) [place] % (Auto) Eos % (Auto) Baso % (Auto) Lymph # (Auto) [place] # (Auto) Eos # (Auto) Baso # (Auto) Abs Immat Gran (auto) Absolute Neuts (auto) Absolute Nucleated RBC Nucleated RBC % (auto) Neutrophils % (Manual) Band Neutrophils % Lymphocytes % (Manual) Monocytes % (Manual) Abs Neuts (Manual) Lymphocytes # (Manual) Monocytes # (Manual) Toxic Vacuolation Dohle Bodies Platelet Estimate Plt Morphology Comment RBC Morphology Polychromasia Hypochromasia Rouleaux ESR Anion Gap Estim Creat Clear Calc Estimated GFR Random Glucose Lactic Acid Lactic Acid F/U @ 2Hr 0.7 Calcium Magnesium Total Creatine Kinase C-Reactive Protein Urine Color Dark Yellow Urine Appearance Clear Urine pH 7.5 Ur Specific [place] 1.015 Urine Protein 100 (2+) H Urine Glucose (UA) Negative Urine Ketones Negative Urine Blood Trace H Urine Nitrite Negative Ur Leukocyte Esterase Trace H Urine RBC 0-2 Urine WBC 0-5 Ur Squamous Epith Cells 3-5 Urine Bacteria None Seen Hyaline Casts 3-5 Stool Occult Blood Urine Opiates Screen Urine Fentanyl Screen Ur Barbiturates Screen Ur Phencyclidine Scrn Ur Amphetamines Screen U Benzodiazepines Scrn Urine Cocaine Screen U Marijuana (THC) Screen Ethyl Alcohol Blood Type A Positive Antibody Screen NEGATIVE Crossmatch See Detail 01/16/23 19:38 MCV MCH MCHC RDW Plt Count MPV Immature Gran % (Auto) Neut % (Auto) Lymph % (Auto) [place] % (Auto) Eos % (Auto) Baso % (Auto) Lymph # (Auto) [place] # (Auto) Eos # (Auto) Baso # (Auto) Abs Immat Gran (auto) Absolute Neuts (auto) Absolute Nucleated RBC Nucleated RBC % (auto) Neutrophils % (Manual) Band Neutrophils % Lymphocytes % (Manual) Monocytes % (Manual) Abs Neuts (Manual) Lymphocytes # (Manual) Monocytes # (Manual) Toxic Vacuolation Dohle Bodies Platelet Estimate Plt Morphology Comment RBC Morphology Polychromasia Hypochromasia Rouleaux ESR Anion Gap Estim Creat Clear Calc Estimated GFR Random Glucose Lactic Acid Lactic Acid F/U @ 2Hr Calcium Magnesium Total Creatine Kinase C-Reactive Protein Urine Color Urine Appearance Urine pH Ur Specific [place] Urine Protein Urine Glucose (UA) Urine Ketones Urine Blood Urine Nitrite Ur Leukocyte Esterase Urine RBC Urine WBC Ur Squamous Epith Cells Urine Bacteria Hyaline Casts Stool Occult Blood Urine Opiates Screen POSITIVE H Urine Fentanyl Screen POSITIVE H Ur Barbiturates Screen Not Detected Ur Phencyclidine Scrn Not Detected Ur Amphetamines Screen Not Detected U Benzodiazepines Scrn Not Detected Urine Cocaine Screen POSITIVE H U Marijuana (THC) Screen Not Detected Ethyl Alcohol Blood Type Antibody Screen Crossmatch Imaging Radiologist's Impressions: Impressions Foot X-Ray 01/16/23 11:44 IMPRESSION: 1. No acute visible fracture or dislocation. 2. Slight enthesopathy at the Achilles tendon insertion site. 3. Prominent soft tissue swelling along the dorsum of the forefoot. Chest X-Ray 01/16/23 13:48 IMPRESSION: No acute cardiopulmonary findings. Abdomen/Pelvis CT 01/16/23 14:06 IMPRESSION: Colonic distention with gas and fluid. This may represent colitis. Evaluation is limited by motion artifact. Advise clinical correlation. Hepatosplenomegaly. Hepatic steatosis. Enlarged portacaval lymph node is possibly reactive basis. Cholelithiasis. 3 mm nonobstructing right renal calculus. No hydronephrosis. 1.4 cm subpleural density in the left upper lobe. Dedicated chest CT is recommended for further characterization. Venous Duplex 01/16/23 17:00 IMPRESSION: No DVT demonstrated in the left lower extremity. Assessment and Plan (1) Cellulitis of lower leg: Status: Acute (2) Acute kidney injury: Status: Acute (3) Anemia: Status: Acute (4) Abnormal weight loss: Status: Acute (5) Lung mass: Status: Acute (6) Smoker unmotivated to quit: Status: Acute Plan 47-year-old Pashto-speaking man who is an active IV heroin and cocaine abuse here with: 1. Cellulites of left leg - likely secondary to IV drug injection - admit for IV antibiotics - CT to r/o deep seated abscesses - consider 2 D echo 2. Acute renal failure - noted with elevated BUN and creatinine to 75 and 4.28 respectively - he has no h/o renal failure - CT scan with normal renal morphology - consult Nephhrology 3. Anemia - noted with significant anemia with hemoglobin of 7.1 and hematocrit of 23.3 - likely with AOCD - will however need to r/o GI blood loss especially given significant unintentional weight loss - recheck in Am and if still low transfuse to keep Hct >24 4. Unintentional weight loss - he reports 20 lb unintentional weight loss in several weeks - encourage caloric intake and discourage drug use - 5. Active IVDA - currently actively injecting Heroine and Cocaine - will benefit from SATP consult - consider starting on Methadone while admitted 6. Active smoker - unmotivated to quit - declines NRT DVT: SC Lovenox CODE STATUS: Full code Admission for at least 2 midnights for management of cellulitis of the left leg, acute renal failure and anemia Total time managing care of this patient today: 75 minutes. Quality Stroke Does the patient have a stroke diagnosis?: No VTE Prior VTE?: No VTE Risk Level:: Medical - moderate - high VTE Device Contraindication: Treatment Not Tolerated VTE Drug Contraindication: N/A - Med Ordered
--- NOTE | 2023-01-17 00:38 | PC.NURSE ---
Found needle found on patient when helping him change, called security and they searched the pt where another needle was found in his blanket . All belongings searched and placed in bag. New blankets given
[2023-01-17 02:00] VITALS: BP 142/85; PULSE 96; RESP 18; TEMP 36.3; O2SAT 100
[2023-01-17] MEDS: Piperacillin Sodium/Tazobactam 4.5 GM in 0.9 % Sodium Chloride 100 ML IV ×2 (03:00→14:45)
[2023-01-17 03:30] VITALS: BP 135/82; PULSE 92; RESP 18; TEMP 36.4; O2SAT 96
[2023-01-17 05:25] VITALS: BMI 20.4
--- NOTE | 2023-01-17 05:58 | PC.NURSE ---
Pt arrived to the unit around 1am. Finished blood transfusion that was started in ED. Pt tolerated well. Refused heparin shot this morning and morning labs.
[2023-01-17 07:30] VITALS: BP 92/52; PULSE 86; RESP 16; TEMP 36.3; O2SAT 98
[2023-01-17 07:47] LABS: Hematocrit 28.2 % (42.0-52.0); Hemoglobin 8.8 g/dl (14.0-18.0); Mean Corpuscular HGB Conc 31.2 g/dl (31.0-36.0); Mean Corpuscular Hemoglobin 27.6 pg (27.0-33.0); Mean Corpuscular Volume 88.4 fL (80.0-98.0); Mean Platelet Volume 10.8 fL (9.4-12.4); Platelet Count 118 X10*3/uL (160-400); Red Blood Count 3.19 X10*6/uL (4.60-5.80); Red Cell Distribution Width 21.4 % (11.0-16.0)
[2023-01-17 07:50] LABS: WBC ABN SCTR FOR CBC 1
[2023-01-17 07:57] LABS: Vancomycin Random 18.5 mcg/mL (15-20)
[2023-01-17 08:09] LABS: Anion Gap 10 (12-20); Blood Urea Nitrogen 60 mg/dL (9-16); Calcium 7.5 mg/dL (8.4-10.2); Carbon Dioxide 20 mmol/L (22-29); Chloride 112 mmol/L (96-108); Creatinine Clr Calc Pharmacy 29.2; Estimated Glomerular Filt Rate 27; Glucose Random 120 mg/dL (60-115); Iron 39 mcg/dL (45-160); Percent Iron Saturation 45 % (15-50); Potassium 3.3 mmol/L (3.3-5.1); Sodium 139 mmol/L (135-145); Total Iron Binding Capacity 87 mcg/dL (228-428); Unsaturated Iron Binding 48 ug/dL
[2023-01-17 08:26] LABS: Ferritin 970 ng/mL (20-250)
[2023-01-17 08:39] LABS: HBS Num1 266.63 mIU/mL (0-7.99); HBc Num1 0.45 S/CO (0.00-0.79); HBsAGNum1 0.33 S/CO (0.00-0.99); Hepatitis A Antibody IgM 0.21 Index (0-0.79); Hepatitis B Core Antibody Nonreactive (Nonreactive); Hepatitis B Surface Antigen Negative (Negative); ~HepC Num1 9.07 S/CO (0.00-0.79); ~Hepatitis A Antibody IgM Nonreactive (Nonreactive); ~Hepatitis B Surface Antibody REACTIVE (Nonreactive); ~Hepatitis C Antibody Reactive (Nonreactive)
--- NOTE | 2023-01-17 08:42 | HE.PHANOTE ---
RE BRITTNEY TROUGH WAS 18.5. TROUGH SUSPECTED FROM INSIGHT WAS 15. WILL LOWER DOSE TO START TONIGHT. PATIENT IS STILL THERAPUETIC SO HAS TIME TO CLEAR MEDICATION. PUT IN A RANDOM LEVEL FOR TOMORROW. PATIENTS RENAL FUNCTION IS RAPIDLY CHANGING WILD
--- NOTE | 2023-01-17 08:45 | PC.NURSE ---
Upon assessment of patient found to be incontinent of stool, Upon cleaning Pt up with VACCINE KEY CUSTOMER LEADER, this nurse found a needle under the patient when rolling, security was called to search patient and room, additional paraphernalia was found by security and confiscated. Camera was put in patients room. Judit Muir EYEWEAR CONSULTANT and commercial center manager notified, per EYEWEAR CONSULTANT, Pt is no longer allowed to have visitors, family at bedside escorted out.
[2023-01-17] MEDS: 0.9 % Sodium Chloride 1,000 ML 100 ML IVCONT ×2 (09:18→19:29)
[2023-01-17] MEDS: Docusate Sodium 100 MG CAPSULE PO ×2 (09:23→19:36)
[2023-01-17 09:53] LABS: Band Neutrophils Percent 17 % (3-5); Lymphocytes Percent Manual 4 % (20-40); Metamyelocytes Percent 5 %; Monocytes Percent Manual 4 % (2-11); Neutrophils Percent Manual 70 % (45-73)
[2023-01-17 09:58] LABS: RBC Morphology NOTED
[2023-01-17 09:59] LABS: Burr Cells 2+ (3-5) /OIF; Dohle Bodies PRESENT; Hypochromasia 1+ (5-14) /OIF; Platelet Estimate DECREASED (NORMAL); Platelet Morphology Comment NORMAL; Polychromasia 1+ (0-2) /OIF; Rouleau PRESENT; Toxic Vacuolation PRESENT
[2023-01-17 10:00] LABS: Lymphocytes Absolute Manual 0.2 X10*3/uL (1.2-4.9); Metamyelocytes Absolute 0.2 X10*3/uL; Monocytes Absolute Manual 0.2 X10*3/uL (0.1-1.2); Neutrophils Absolute Manual 3.9 X10*3/uL (2.0-8.3); White Blood Count 4.5 X10*3/uL (4.8-10.8)
[2023-01-17 10:01] LABS: HIV Num 3 653.79 S/CO
[2023-01-17] MEDS: HYDROmorphone HCl 1 MG/ML SYRINGE IVPUSH (10:25)
--- NOTE | 2023-01-17 10:47 | MHC.CM.PN ---
CM MET WITH PATIENT AT BEDSIDE. PT LIVES ALONE. +THRIVE ASSESSMENT, RESOURCE GUIDE GIVEN. NO PCP, [facility] BROCHURE PROVIDED. INDEPENDENT AT BASELINE. WILLING TO COMPLETE A HCP. WOULD ALSO LIKE TO START METHADONE WHILE HERE. PT STATES HE ACTIVELY USES IV DRUGS. DP: HOME, NO SERVICES. PT HAS OWN RIDE HOME. CM WILL CONTINUE TO FOLLOW FOR ANY CHANGE IN DC NEEDS/PLAN
[2023-01-17 11:09] LABS: HIV AB/AG Reactive (Nonreactive)
--- NOTE | 2023-01-17 14:18 | P.PNIM_ITS ---
Subjective Subjective Date of Service: 01/17/23 Review of Systems Follow up cellulitis, GIL. Anemia Agitated, had episode of stool incont Physical Exam 2 Vital Signs: Vital Signs: Last Vital Signs Temp 97.3 F 01/17/23 07:30 Pulse 86 01/17/23 07:30 Resp 16 01/17/23 07:30 BP 92/52 L 01/17/23 07:30 Pulse Ox 98 01/17/23 07:30 O2 Del Method Room Air 01/17/23 07:30 BMI result Body Mass Index 20.4 Appearing in no acute distress, thin and frail lung sounds are clear to auscultation heart regular rate rhythm, clear S1, S2 positive bowel sounds, abdomen is soft, nontender neuro patient is alert , some agitation noted Left LE edema Objective Data Active Medications Acetaminophen (Acetaminophen 325 Mg Tablet) 650 mg PO Q6H PRN PRN Reason: Pain, Mild (Pain Scale 1-3) Al Hydroxide/Mg Hydroxide (Magnesium Hydrox/Alum Hydrox 30 Ml Oral.Susp) 30 ml PO Q4H PRN PRN Reason: Heartburn/Nausea Docusate Sodium (Docusate Sodium 100 Mg Capsule) 100 mg PO BID [facility] Last Admin: 01/17/23 09:23 Dose: 100 mg Documented By: NONA Heparin Sodium (Porcine) (Heparin Sodium,Porcine 5,000 Unit/Ml Vial) 5,000 unit SUBCUT Q8H [facility] Last Admin: 01/17/23 14:04 Dose: Not Given Documented By: NONA Non-Admin Reason: Patient Refused Hydromorphone HCl (Hydromorphone Hcl 1 Mg/Ml Syringe) 1 mg IVPUSH Q4H PRN; Protocol PRN Reason: Pain, Severe (Pain Scale 7-10) Last Admin: 01/17/23 10:25 Dose: 1 mg Documented By: NONA Piperacillin Sod/Tazobactam (Sod 4.5 gm/ Sodium Chloride) 100 mls @ 200 mls/hr IV Q12H [facility] Last Infusion: 01/17/23 03:40 Dose: Infused Documented By: LISETTE Vancomycin HCl 500 mg/ Sodium (Chloride) 110 mls @ 110 mls/hr IV Q24H [facility] Sodium Chloride (Ns) 1,000 mls @ 100 mls/hr IVCONT .Q10H [facility] Last Admin: 01/17/23 09:18 Dose: 100 mls/hr Documented By: NONA Naloxone HCl (Naloxone Hcl 0.4 Mg/Ml Vial) 0.1 mg IVPUSH Q2M PRN PRN Reason: Respiratory Rate < 10 Ondansetron HCl (Ondansetron Hcl 4 Mg/2 Ml Vial) 4 mg IVPUSH Q8H PRN PRN Reason: Nausea and Vomiting Oxycodone HCl (Oxycodone Hcl Immed Release 5 Mg Tablet) 5 mg PO Q6H PRN PRN Reason: Pain, Moderate(Pain Scale 4-6) Pharmacy Consult (Consult Rx Vancomycin Dosing) 1 each MISCELLANE DAILY PRN PRN Reason: Consult order Senna (Sennosides 8.6 Mg Tablet) 17.2 mg PO BEDTIME PRN PRN Reason: Constipation Sodium Chloride (0.9 % Sodium Chloride Flush 3 Ml Syringe) 3 ml IVFLUSH QSHIFT [facility] Last Admin: 01/17/23 08:36 Dose: Not Given Documented By: NONA Non-Admin Reason: IV Running Temazepam (Temazepam 15 Mg Capsule) 15 mg PO BEDTIME PRN PRN Reason: Insomnia Labs 01/17/23 07:29 01/17/23 07:29 Labs: Laboratory Results - last 24 hr 01/16/23 01/16/23 01/16/23 13:11 14:14 14:29 MCV MCH MCHC RDW Plt Count MPV Immature Gran % (Auto) Neut % (Auto) Lymph % (Auto) [place] % (Auto) Eos % (Auto) Baso % (Auto) Lymph # (Auto) [place] # (Auto) Eos # (Auto) Baso # (Auto) Abs Immat Gran (auto) Absolute Neuts (auto) Absolute Nucleated RBC Nucleated RBC % (auto) Neutrophils % (Manual) Band Neutrophils % Lymphocytes % (Manual) Monocytes % (Manual) Metamyelocytes % Abs Neuts (Manual) Lymphocytes # (Manual) Monocytes # (Manual) Metamyelocytes # Toxic Vacuolation Dohle Bodies Platelet Estimate Plt Morphology Comment RBC Morphology Polychromasia Hypochromasia [place] Cells Rouleaux ESR > 140 H Anion Gap Estim Creat Clear Calc Estimated GFR Random Glucose Lactic Acid F/U @ 2Hr Calcium Magnesium 1.8 Iron TIBC % Saturation Unsat Iron Binding Ferritin Total Creatine Kinase 30 L C-Reactive Protein 19.63 H Urine Color Urine Appearance Urine pH Ur Specific [place] Urine Protein Urine Glucose (UA) Urine Ketones Urine Blood Urine Nitrite Ur Leukocyte Esterase Urine RBC Urine WBC Ur Squamous Epith Cells Urine Bacteria Hyaline Casts Stool Occult Blood NEGATIVE Random Vancomycin Urine Opiates Screen Urine Fentanyl Screen Ur Barbiturates Screen Ur Phencyclidine Scrn Ur Amphetamines Screen U Benzodiazepines Scrn Urine Cocaine Screen U Marijuana (THC) Screen Ethyl Alcohol < 10 Hepatitis A IgM Ab Hep Bs Antigen Hep Bs Antibody Hep B Core Total Ab Hepatitis C Ab (EIA) HIV 1&2 Ab/P24 Ag 4thGn Blood Type Antibody Screen Crossmatch 01/16/23 01/16/23 01/16/23 15:08 18:23 18:26 MCV MCH MCHC RDW Plt Count MPV Immature Gran % (Auto) Neut % (Auto) Lymph % (Auto) [place] % (Auto) Eos % (Auto) Baso % (Auto) Lymph # (Auto) [place] # (Auto) Eos # (Auto) Baso # (Auto) Abs Immat Gran (auto) Absolute Neuts (auto) Absolute Nucleated RBC Nucleated RBC % (auto) Neutrophils % (Manual) Band Neutrophils % Lymphocytes % (Manual) Monocytes % (Manual) Metamyelocytes % Abs Neuts (Manual) Lymphocytes # (Manual) Monocytes # (Manual) Metamyelocytes # Toxic Vacuolation Dohle Bodies Platelet Estimate Plt Morphology Comment RBC Morphology Polychromasia Hypochromasia [place] Cells Rouleaux ESR Anion Gap Estim Creat Clear Calc Estimated GFR Random Glucose Lactic Acid F/U @ 2Hr 0.7 Calcium Magnesium Iron TIBC % Saturation Unsat Iron Binding Ferritin Total Creatine Kinase C-Reactive Protein Urine Color Urine Appearance Urine pH Ur Specific [place] Urine Protein Urine Glucose (UA) Urine Ketones Urine Blood Urine Nitrite Ur Leukocyte Esterase Urine RBC Urine WBC Ur Squamous Epith Cells Urine Bacteria Hyaline Casts Stool Occult Blood Random Vancomycin Urine Opiates Screen Urine Fentanyl Screen Ur Barbiturates Screen Ur Phencyclidine Scrn Ur Amphetamines Screen U Benzodiazepines Scrn Urine Cocaine Screen U Marijuana (THC) Screen Ethyl Alcohol Hepatitis A IgM Ab Nonreactive Hep Bs Antigen Negative Hep Bs Antibody REACTIVE Hep B Core Total Ab Nonreactive Hepatitis C Ab (EIA) Reactive H HIV 1&2 Ab/P24 Ag 4thGn Reactive H Blood Type A Positive Antibody Screen NEGATIVE Crossmatch See Detail 01/16/23 01/16/23 01/17/23 19:37 19:38 07:29 MCV 88.4 MCH 27.6 MCHC 31.2 RDW 21.4 H Plt Count 118 L MPV 10.8 Immature Gran % (Auto) Cancelled Neut % (Auto) Cancelled Lymph % (Auto) Cancelled [place] % (Auto) Cancelled Eos % (Auto) Cancelled Baso % (Auto) Cancelled Lymph # (Auto) Cancelled [place] # (Auto) Cancelled Eos # (Auto) Cancelled Baso # (Auto) Cancelled Abs Immat Gran (auto) Cancelled Absolute Neuts (auto) Cancelled Absolute Nucleated RBC 0.000 Nucleated RBC % (auto) 0.0 Neutrophils % (Manual) 70 Band Neutrophils % 17 H Lymphocytes % (Manual) 4 L Monocytes % (Manual) 4 Metamyelocytes % 5 Abs Neuts (Manual) 3.9 Lymphocytes # (Manual) 0.2 L Monocytes # (Manual) 0.2 Metamyelocytes # 0.2 Toxic Vacuolation PRESENT Dohle Bodies PRESENT Platelet Estimate DECREASED Plt Morphology Comment NORMAL RBC Morphology NOTED Polychromasia 1+ (0-2) Hypochromasia 1+ (5-14) [place] Cells 2+ (3-5) Rouleaux PRESENT ESR Anion Gap Cancelled Estim Creat Clear Calc Estimated GFR Random Glucose Lactic Acid F/U @ 2Hr Calcium Magnesium Iron TIBC % Saturation Unsat Iron Binding Ferritin Total Creatine Kinase C-Reactive Protein Urine Color Dark Yellow Urine Appearance Clear Urine pH 7.5 Ur Specific [place] 1.015 Urine Protein 100 (2+) H Urine Glucose (UA) Negative Urine Ketones Negative Urine Blood Trace H Urine Nitrite Negative Ur Leukocyte Esterase Trace H Urine RBC 0-2 Urine WBC 0-5 Ur Squamous Epith Cells 3-5 Urine Bacteria None Seen Hyaline Casts 3-5 Stool Occult Blood Random Vancomycin Urine Opiates Screen POSITIVE H Urine Fentanyl Screen POSITIVE H Ur Barbiturates Screen Not Detected Ur Phencyclidine Scrn Not Detected Ur Amphetamines Screen Not Detected U Benzodiazepines Scrn Not Detected Urine Cocaine Screen POSITIVE H U Marijuana (THC) Screen Not Detected Ethyl Alcohol Hepatitis A IgM Ab Hep Bs Antigen Hep Bs Antibody Hep B Core Total Ab Hepatitis C Ab (EIA) HIV 1&2 Ab/P24 Ag 4thGn Blood Type Antibody Screen Crossmatch 01/17/23 01/17/23 01/17/23 07:29 07:29 07:29 MCV MCH MCHC RDW Plt Count MPV Immature Gran % (Auto) Neut % (Auto) Lymph % (Auto) [place] % (Auto) Eos % (Auto) Baso % (Auto) Lymph # (Auto) [place] # (Auto) Eos # (Auto) Baso # (Auto) Abs Immat Gran (auto) Absolute Neuts (auto) Absolute Nucleated RBC Nucleated RBC % (auto) Neutrophils % (Manual) Band Neutrophils % Lymphocytes % (Manual) Monocytes % (Manual) Metamyelocytes % Abs Neuts (Manual) Lymphocytes # (Manual) Monocytes # (Manual) Metamyelocytes # Toxic Vacuolation Dohle Bodies Platelet Estimate Plt Morphology Comment RBC Morphology Polychromasia Hypochromasia [place] Cells Rouleaux ESR Anion Gap 10 L Estim Creat Clear Calc Cancelled 29.2 Estimated GFR Cancelled 27 Random Glucose Cancelled Lactic Acid F/U @ 2Hr Calcium Magnesium Iron TIBC % Saturation Unsat Iron Binding Ferritin Total Creatine Kinase C-Reactive Protein Urine Color Urine Appearance Urine pH Ur Specific [place] Urine Protein Urine Glucose (UA) Urine Ketones Urine Blood Urine Nitrite Ur Leukocyte Esterase Urine RBC Urine WBC Ur Squamous Epith Cells Urine Bacteria Hyaline Casts Stool Occult Blood Random Vancomycin Urine Opiates Screen Urine Fentanyl Screen Ur Barbiturates Screen Ur Phencyclidine Scrn Ur Amphetamines Screen U Benzodiazepines Scrn Urine Cocaine Screen U Marijuana (THC) Screen Ethyl Alcohol Hepatitis A IgM Ab Hep Bs Antigen Hep Bs Antibody Hep B Core Total Ab Hepatitis C Ab (EIA) HIV 1&2 Ab/P24 Ag 4thGn Blood Type Antibody Screen Crossmatch 01/17/23 01/17/23 07:29 07:29 MCV MCH MCHC RDW Plt Count MPV Immature Gran % (Auto) Neut % (Auto) Lymph % (Auto) [place] % (Auto) Eos % (Auto) Baso % (Auto) Lymph # (Auto) [place] # (Auto) Eos # (Auto) Baso # (Auto) Abs Immat Gran (auto) Absolute Neuts (auto) Absolute Nucleated RBC Nucleated RBC % (auto) Neutrophils % (Manual) Band Neutrophils % Lymphocytes % (Manual) Monocytes % (Manual) Metamyelocytes % Abs Neuts (Manual) Lymphocytes # (Manual) Monocytes # (Manual) Metamyelocytes # Toxic Vacuolation Dohle Bodies Platelet Estimate Plt Morphology Comment RBC Morphology Polychromasia Hypochromasia [place] Cells Rouleaux ESR Anion Gap Estim Creat Clear Calc Estimated GFR Random Glucose 120 H Lactic Acid F/U @ 2Hr Calcium Cancelled 7.5 L D Magnesium Iron 39 L TIBC 87 L % Saturation 45 Unsat Iron Binding 48 Ferritin 970 H Total Creatine Kinase C-Reactive Protein Urine Color Urine Appearance Urine pH Ur Specific [place] Urine Protein Urine Glucose (UA) Urine Ketones Urine Blood Urine Nitrite Ur Leukocyte Esterase Urine RBC Urine WBC Ur Squamous Epith Cells Urine Bacteria Hyaline Casts Stool Occult Blood Random Vancomycin 18.5 Urine Opiates Screen Urine Fentanyl Screen Ur Barbiturates Screen Ur Phencyclidine Scrn Ur Amphetamines Screen U Benzodiazepines Scrn Urine Cocaine Screen U Marijuana (THC) Screen Ethyl Alcohol Hepatitis A IgM Ab Hep Bs Antigen Hep Bs Antibody Hep B Core Total Ab Hepatitis C Ab (EIA) HIV 1&2 Ab/P24 Ag 4thGn Blood Type Antibody Screen Crossmatch Assessment and Plan (1) Cellulitis of lower leg: Status: Acute Plan 47-year-old Beninese-speaking man who is an active IV heroin and cocaine abuse admitted with cellulitis GPC bacteremia 1/2 continue Vancomycin echo ordered ID following Cellulites of left leg likely secondary to IV drug injection Continue vancomycin and Zosyn CT neg for abscess blood cx pending Id consult Unintentional weight loss, new HIV, Hep C he reports 20 lb unintentional weight loss in several weeks encourage caloric intake and discourage drug use HIV positive, looks like new diagnosis, ID consult Acute renal failure ? GN secondary to Hep c Creatinine down significantly after IV fluids CT scan with normal renal morphology consult Nephrology Anemia, unspecified noted with significant anemia with hemoglobin of 7.1 and hematocrit of 23.3 on admission s/p 2 units PRBC GI consult Active IVDA currently actively injecting Heroine and Cocaine Addiction med team consult Active smoker declines NRT DVT: SC Lovenox Attending Dr. Hernandez CODE STATUS: Full code continue hospital stay for management of cellulitis of the left leg, acute renal failure and anemia requiring close monitoring and because patient is an active IV drug user and homeless he is likely to decompensate quickly without hospital level treatment Quality Stroke Does the patient have a stroke diagnosis?: No VTE Prior VTE?: No VTE Risk Level:: Medical - moderate - high VTE Device Contraindication: Treatment Not Tolerated VTE Drug Contraindication: N/A - Med Ordered
--- NOTE | 2023-01-17 14:59 | P.CONNP_ITS ---
History of Present Illness Reason for Consult Consult date: 01/17/23 Reason for consult: GIL Chief Complaint Chief complaint: Severe sepsis; cellulitis of left leg; IVDA History of Present Illness Narrative: 47-year-old Northern Irish-speaking man who is an active IV heroin and cocaine abuse and who otherwise has no other medical problems who presented to the emergency room accompanied by his mother and brother complaining of severe pain involving his left leg - from the knee to the foot - for the last 3-4 days. He admits to injecting drugs everyday in all his extremities including the left leg. He describes spontaneous onset of his symptoms that have become progressively worse to a point where he cannot bear weight. He denies any preceding trauma or any associated fever or chills. Initial vital signs obtained on arrival to the emergency room ere notable for tachycardia with a heart rate of 104 beats per minute. He however is afebrile. Initial blood work revealed a bandemia of 19%, elevated ESR of >140, CRP of 19.63, elevated lactic acid at 2.3, mild hypokalemia with a serum potassium of 3.5 and severe renal insufficiency a BUN of 75 and serum creatinine of 4.28. Of note, he has no known history of renal injury. A plain x-ray of the affected limb showed prominent soft tissue swelling along the dorsum of the forefoot. Review of Systems Constitutional: Reports as per HPI, Reports fatigue, Denies fever(s) and Reports weakness Cardiovascular: Denies chest pain, Denies rapid heart rate, Denies lightheadedness and Denies dyspnea Respiratory: Denies pain on inspiration and Denies dyspnea Gastrointestinal: Denies loose stools, Reports nausea and Denies vomiting Reports weakness Endocrine: Reports fatigue PMFSH Past Medical History Medical History (Updated 01/17/23 @ 00:34 by Rajinder Patterson MD) Polysubstance (including opioids) dependence w/o physiol dependence Asthma Social History Social History Household Members: Family Unable to assess alcohol history related to: Refusing to respond Patient Tobacco Use Status: Tobacco use Unknown Substance Use Type: Heroin service: No Meds Allergies Allergy/AdvReac Type Severity Reaction Status Date / Time fish derived [FISH] Allergy Unknown UNKNOWN Verified 01/16/23 11:09 Active Medications: Current Medications Acetaminophen (Acetaminophen 325 Mg Tablet) 650 mg PO Q6H PRN PRN Reason: Pain, Mild (Pain Scale 1-3) Al Hydroxide/Mg Hydroxide (Magnesium Hydrox/Alum Hydrox 30 Ml Oral.Susp) 30 ml PO Q4H PRN PRN Reason: Heartburn/Nausea Docusate Sodium (Docusate Sodium 100 Mg Capsule) 100 mg PO BID [facility] Last Admin: 01/17/23 09:23 Dose: 100 mg Heparin Sodium (Porcine) (Heparin Sodium,Porcine 5,000 Unit/Ml Vial) 5,000 unit SUBCUT Q8H [facility] Last Admin: 01/17/23 14:04 Dose: Not Given Hydromorphone HCl (Hydromorphone Hcl 1 Mg/Ml Syringe) 1 mg IVPUSH Q4H PRN; Protocol PRN Reason: Pain, Severe (Pain Scale 7-10) Last Admin: 01/17/23 10:25 Dose: 1 mg Piperacillin Sod/Tazobactam (Sod 4.5 gm/ Sodium Chloride) 100 mls @ 200 mls/hr IV Q12H [facility] Last Admin: 01/17/23 14:45 Dose: 200 mls/hr Vancomycin HCl 500 mg/ Sodium (Chloride) 110 mls @ 110 mls/hr IV Q24H [facility] Sodium Chloride (Ns) 1,000 mls @ 100 mls/hr IVCONT .Q10H [facility] Last Admin: 01/17/23 09:18 Dose: 100 mls/hr Naloxone HCl (Naloxone Hcl 0.4 Mg/Ml Vial) 0.1 mg IVPUSH Q2M PRN PRN Reason: Respiratory Rate < 10 Ondansetron HCl (Ondansetron Hcl 4 Mg/2 Ml Vial) 4 mg IVPUSH Q8H PRN PRN Reason: Nausea and Vomiting Oxycodone HCl (Oxycodone Hcl Immed Release 5 Mg Tablet) 5 mg PO Q6H PRN PRN Reason: Pain, Moderate(Pain Scale 4-6) Pharmacy Consult (Consult Rx Vancomycin Dosing) 1 each MISCELLANE DAILY PRN PRN Reason: Consult order Senna (Sennosides 8.6 Mg Tablet) 17.2 mg PO BEDTIME PRN PRN Reason: Constipation Sodium Chloride (0.9 % Sodium Chloride Flush 3 Ml Syringe) 3 ml IVFLUSH QSHIFT [facility] Last Admin: 01/17/23 08:36 Dose: Not Given Temazepam (Temazepam 15 Mg Capsule) 15 mg PO BEDTIME PRN PRN Reason: Insomnia Home Medications Medication Instructions Recorded Confirmed Last Taken Type No Known Home Meds 01/16/23 01/16/23 Unknown History Physical Exam Vital Signs: Last Vital Signs Temp 97.3 F 01/17/23 07:30 Pulse 86 01/17/23 07:30 Resp 16 01/17/23 07:30 BP 92/52 L 01/17/23 07:30 Pulse Ox 98 01/17/23 07:30 O2 Del Method Room Air 01/17/23 07:30 BMI result Body Mass Index 20.4 Ill-appearing. Cachectic. Mucosa dry. Lungs are scattered rhonchi. Heart S1-S2 heard no gallop. Abdomen soft nontender. Extremity with trace edema. This note is constructed using voice recognition software. While every effort has been made to ensure accuracy, hog feeder errors may have been included. Results Lab Results 01/17/23 07:29 01/17/23 07:29 Lab results: Chemistry 01/16/23 01/17/23 01/17/23 13:11 07:29 07:29 Sodium 137 Cancelled 139 Potassium 3.5 Cancelled Carbon Dioxide 19 L BUN 75 H Creatinine 4.28 H* Calcium 8.1 L D 01/17/23 01/17/23 01/17/23 07:29 07:29 07:29 Sodium Potassium 3.3 Carbon Dioxide Cancelled 20 L BUN Cancelled 60 H Creatinine Cancelled Calcium 01/17/23 01/17/23 07:29 07:29 Sodium Potassium Carbon Dioxide BUN Creatinine 2.55 H Calcium Cancelled 7.5 L D Hematology 01/16/23 01/17/23 13:11 07:29 WBC 5.7 4.5 L Hgb 7.1 L 8.8 L D Plt Count 135 L 118 L Urinalysis 01/16/23 19:37 Urine Color Dark Yellow Urine Appearance Clear Urine pH 7.5 Ur Specific [place] 1.015 Urine Protein 100 (2+) H Urine Glucose (UA) Negative Urine Ketones Negative Urine Blood Trace H Urine Nitrite Negative Ur Leukocyte Esterase Trace H Urine RBC 0-2 Urine WBC 0-5 Ur Squamous Epith Cells 3-5 Hyaline Casts 3-5 Assessment and Plan (1) Acute kidney injury: Status: Acute Plan 47-year-old man with IV drug abuse and a history of hep C and recently diagnosed HIV positivity now with acute kidney injury. There is a wide fluctuation in serum creatinine. Acute lumbar nephritis should be ruled out. Other possibilities including hypoperfusion will be considered. No evidence of obstructive uropathy based on the CT scan done on Recommendation Check urine for protein creatinine ratio. Ordered. Repeat urinalysis. I ordered Check serum complement C3 and C4 along with serologies. For now I would our nephrotoxic agents including NSAIDs. Keep intake more the output. Monitor urine output. No absolute indication for dialysis. Further workup will be based on the outcome of the above based indications and will follow him closely. Procedures Date of Service Date of Service: 01/17/23
--- NOTE | 2023-01-17 15:09 | PM.GICN ---
History of Present Illness Data of Consult Service Date: 01/17/23 Primary Care Provider: None Physician HPI Reason for consult: anemia 47-year-old m w/ hx of active active IV heroin and cocaine abuse, Hep C who I am seeing for anemia evaluation Patient intially presented with severe left foot pain for last several days, worse with pressure and walking along with whole body aches and chills. He last injected drugs few days ago. His initial lab work revealed significant anemia HGB 7, having been 14 g/dl few yrs back, he is also found to be HIV pos. with severe renal insufficiency and BUN of 75 and serum creatinine of 4.28. HIV was also pos--not known to have this in the past He denies melena, rectal bleeding, hematuria, nose or gum bleeding. He had EGD in [place] several years ago but has no idea on the findings and why it was done. Review of Systems Review of Systems: Constitutional : + Weight loss, + Fever, No Chills ENT/Mouth : No sore throat, No Rhinorrhea Eyes: No Swelling, No Redness Cardiovascular : No Chest Pain, No SOB, No Edema Respiratory : No Cough, No Sputum, No Wheezing Gastrointestinal : see HPI Genitourinary : NO Dysuria, No Urinary Frequency, No Hematuria, No Urgency Musculoskeletal : No joint pain, + Myalgias, No Joint Swelling Skin : No Skin Lesions, No rash Neuro : + Weakness, No Numbness, No Dizziness, No Headache Psych : No Anxiety/Panic, No Depression Heme/Lymph: No Bruising, No Lymphadenopathy Endocrine : No Polyuria, No Polydipsia All other systems reviewed and are negative. [facility], [facility] Past Medical History Medical History (Updated 01/17/23 @ 18:47 by Alexa Angel MD) Polysubstance (including opioids) dependence w/o physiol dependence Asthma Family History Pertinent family history: denies fh of crc or GI malignancy Social History Social History Household Members: Family Unable to assess alcohol history related to: Refusing to respond Patient Tobacco Use Status: Tobacco use Unknown Substance Use Type: Heroin service: No Meds Allergies Allergy/AdvReac Type Severity Reaction Status Date / Time fish derived [FISH] Allergy Unknown UNKNOWN Verified 01/16/23 11:09 Active Medications: Current Medications Acetaminophen (Acetaminophen 325 Mg Tablet) 650 mg PO Q6H PRN PRN Reason: Pain, Mild (Pain Scale 1-3) Al Hydroxide/Mg Hydroxide (Magnesium Hydrox/Alum Hydrox 30 Ml Oral.Susp) 30 ml PO Q4H PRN PRN Reason: Heartburn/Nausea Docusate Sodium (Docusate Sodium 100 Mg Capsule) 100 mg PO BID [facility] Last Admin: 01/17/23 09:23 Dose: 100 mg Heparin Sodium (Porcine) (Heparin Sodium,Porcine 5,000 Unit/Ml Vial) 5,000 unit SUBCUT Q8H [facility] Last Admin: 01/17/23 14:04 Dose: Not Given Hydromorphone HCl (Hydromorphone Hcl 1 Mg/Ml Syringe) 1 mg IVPUSH Q4H PRN; Protocol PRN Reason: Pain, Severe (Pain Scale 7-10) Last Admin: 01/17/23 10:25 Dose: 1 mg Piperacillin Sod/Tazobactam (Sod 4.5 gm/ Sodium Chloride) 100 mls @ 200 mls/hr IV Q12H [facility] Last Admin: 01/17/23 14:45 Dose: 200 mls/hr Vancomycin HCl 500 mg/ Sodium (Chloride) 110 mls @ 110 mls/hr IV Q24H [facility] Sodium Chloride (Ns) 1,000 mls @ 100 mls/hr IVCONT .Q10H [facility] Last Admin: 01/17/23 09:18 Dose: 100 mls/hr Naloxone HCl (Naloxone Hcl 0.4 Mg/Ml Vial) 0.1 mg IVPUSH Q2M PRN PRN Reason: Respiratory Rate < 10 Ondansetron HCl (Ondansetron Hcl 4 Mg/2 Ml Vial) 4 mg IVPUSH Q8H PRN PRN Reason: Nausea and Vomiting Oxycodone HCl (Oxycodone Hcl Immed Release 5 Mg Tablet) 5 mg PO Q6H PRN PRN Reason: Pain, Moderate(Pain Scale 4-6) Pharmacy Consult (Consult Rx Vancomycin Dosing) 1 each MISCELLANE DAILY PRN PRN Reason: Consult order Senna (Sennosides 8.6 Mg Tablet) 17.2 mg PO BEDTIME PRN PRN Reason: Constipation Sodium Chloride (0.9 % Sodium Chloride Flush 3 Ml Syringe) 3 ml IVFLUSH QSHIFT [facility] Last Admin: 01/17/23 08:36 Dose: Not Given Temazepam (Temazepam 15 Mg Capsule) 15 mg PO BEDTIME PRN PRN Reason: Insomnia Home Medications Medication Instructions Recorded Confirmed Last Taken Type No Known Home Meds 01/16/23 01/16/23 Unknown History Physical Exam Vital Signs: Vital Signs: Last Vital Signs Temp 97.3 F 01/17/23 07:30 Pulse 86 01/17/23 07:30 Resp 16 01/17/23 07:30 BP 92/52 L 01/17/23 07:30 Pulse Ox 98 01/17/23 07:30 O2 Del Method Room Air 01/17/23 07:30 BMI result Body Mass Index 20.4 EXAM: GENERAL: The patient is frail and weak VITAL SIGNS:see workflow HEENT: Nonicteric sclerae, PERRLA, EOMI. Oropharynx clear. Moist mucous membranes. Conjunctivae appear well perfused. No thyroid mass. CHEST: Chest wall is nontender. HEART: Regular rate and rhythm without murmurs. LUNGS: Clear to auscultation bilaterally. ABDOMEN: Soft, positive bowel sounds, nontender, no organomegaly.no flank tenderness SKIN: left foot swollen with bruising and dry skin NEUROLOGIC: Cranial nerves II-XII intact without motor/sensory deficit. Psych-nml Results Labs 01/17/23 07:29 01/17/23 07:29 Labs: Short CBC 01/17/23 Range/Units 07:29 WBC 4.5 L (4.8-10.8) X10*3/uL Hgb 8.8 L D (14.0-18.0) g/dl Hct 28.2 L D (42.0-52.0) % Plt Count 118 L (160-400) X10*3/uL BMP 01/17/23 01/17/23 01/17/23 07:29 07:29 07:29 Sodium Cancelled 139 Potassium Cancelled 3.3 Chloride Cancelled Carbon Dioxide BUN Creatinine Calcium 01/17/23 01/17/23 01/17/23 07:29 07:29 07:29 Sodium Potassium Chloride 112 H Carbon Dioxide Cancelled 20 L BUN Cancelled 60 H Creatinine Cancelled Calcium 01/17/23 01/17/23 07:29 07:29 Sodium Potassium Chloride Carbon Dioxide BUN Creatinine 2.55 H Calcium Cancelled 7.5 L D Cardiac Enzymes 01/16/23 Range/Units 14:14 Total Creatine Kinase 30 L (38-174) U/L Urine 01/16/23 Range/Units 19:37 Urine Color Dark Yellow Urine Appearance Clear Urine pH 7.5 (5.0-9.0) Ur Specific [place] 1.015 (1.005-1.025) Urine Protein 100 (2+) H (Neg-Trace) mg/dL Urine Glucose (UA) Negative (Negative) mg/dL Imaging CT scan - abdomen: Attestation: I personally reviewed and interpreted this imaging study as follows: (hepatomegaly, thickened stomach and colon ) Assessment and Plan (1) Anemia: Qualifiers: Anemia type: other cause Status: Acute Plan 1/ Anemia, likely chronic and multifactorial from CKD< anemia of chronic disease, malnutrition and hepatosplenomegal from Hep C. No evidence of overt GI bleeding at this time, and HGB incremented appropriately with 2 units of PRBC PLAN: 1/ await ID consult for HIV assessment 2/ EGD and colonoscopy at future date once stabilized unless he has overt GI bleeding 3/ check hemolysis screen Procedures Date of Service Date of Service: 01/17/23
[2023-01-17 15:15] VITALS: BP 105/64; PULSE 92; RESP 18; TEMP 37; O2SAT 97
--- NOTE | 2023-01-17 16:06 | MHC.RECOVRN ---
T/W checked in on pt. per provider Roseanne Carter's request. Pt was sitting up in bed. He was twitching in his upper extremities and increasingly agitated. He was reporting severe discomfort. He did have difficulty staying awake at times during the conversation but woke easily and continues to become increasingly uncomfortable/agitated with conversation. T/W reported back to Roseanne Carter for medication recommendations. Pt is requesting methadone for W/D.
[2023-01-17] MEDS: methADONE HCl 20 MG/2 ML ORAL.CONC 10 MG PO ×2 (18:13→22:53)
[2023-01-17 19:35] VITALS: BP 112/65; PULSE 92; RESP 18; TEMP 36.4; O2SAT 98
[2023-01-17] MEDS: 0.9 % Sodium Chloride Flush 3 ML SYRINGE IVFLUSH (19:36)
[2023-01-17] MEDS: vancomycin HCL 500 MG in 0.9 % Sodium Chloride 100 ML 110 MG IV (19:36)
[2023-01-17] MEDS: oxyCODONE HCl Immed Release 5 MG TABLET PO (19:45)
--- NOTE | 2023-01-17 19:46 | HO.ADDICT_ITS ---
History of Present Illness Date of Service: 01/17/23 Chief Complaint: Severe sepsis; cellulitis of left leg; IVDA Reason for Consult: opiate use Sources of Information: patient interviewed and chart reviewed HPI Narrative: Patient is a 47 year old male currently medically admitted with cellulitis of the leg and mass on lung found via ultrasound. Labwork showed anemia (improving with transfusion), GIL, and HIV and Hepatitis C positive. UDS + fentanyl, opiates and cocaine. Chart review shows that a needle was found in patient bed. Patient seen in room 353. Sitting up in bed, covers pulled over his head,initially not responding to this appeals writer, until covers were moved from his head. Patient appearing quite thin and frail. Most of his head shaved with random pieces much longer than the rest. Irritable, but providing brief responses to questions. Long pauses btwn responses. He states he has been using 1/2 to 1 bundle IV daily. Unsure when he last used. He reports being on methadone about a year ago when he was [place]. Unsure of his dose. Required prompting several times during interview as he appeared to nod off. He reports withdrawal sx, but unable to identify what he is feeling. No overt sx of withdrawal appreciated during interview. He would like to start methadone. Review of Systems Review of Systems Yes Unobtainable due to mental status Diagnostics Vital Signs (24Hr): Vital Signs - 24 hr 01/16/23 20:07 01/16/23 22:11 01/16/23 22:47 Temperature 98.8 F 98.4 F 98.8 F Pulse Rate 107 H 105 H 109 H Respiratory Rate 15 18 16 Blood Pressure 124/76 130/83 130/83 Pulse Oximetry 100 Oxygen Delivery Method Room Air 01/16/23 22:48 01/16/23 22:55 01/16/23 23:15 Temperature 98.3 F 98.9 F 97.8 F Pulse Rate 107 H 102 H 104 H Respiratory Rate 16 15 15 Blood Pressure 130/83 138/80 107/64 Pulse Oximetry Oxygen Delivery Method 01/17/23 02:00 01/17/23 02:00 01/17/23 03:30 Temperature 97.4 F 97.5 F Pulse Rate 96 92 Respiratory Rate 18 18 Blood Pressure 142/85 H 135/82 Pulse Oximetry 100 96 Oxygen Delivery Method Room Air Room Air 01/17/23 07:30 01/17/23 15:15 01/17/23 19:35 Temperature 97.3 F 98.6 F 97.6 F Pulse Rate 86 92 92 Respiratory Rate 16 18 18 Blood Pressure 92/52 L 105/64 112/65 Pulse Oximetry 98 97 98 Oxygen Delivery Method Room Air Room Air Room Air BMI result Body Mass Index 20.4 Labs 01/17/23 07:29 01/17/23 07:29 Labs: Laboratory Results - last 48 hr 01/16/23 01/16/23 01/16/23 13:11 14:14 14:29 WBC 5.7 RBC 2.54 L Hgb 7.1 L Hct 23.3 L MCV 91.7 MCH 28.0 MCHC 30.5 L RDW 22.0 H Plt Count 135 L MPV 10.9 Immature Gran % (Auto) Cancelled Neut % (Auto) Cancelled Lymph % (Auto) Cancelled [place] % (Auto) Cancelled Eos % (Auto) Cancelled Baso % (Auto) Cancelled Lymph # (Auto) Cancelled [place] # (Auto) Cancelled Eos # (Auto) Cancelled Baso # (Auto) Cancelled Abs Immat Gran (auto) Cancelled Absolute Neuts (auto) Cancelled Absolute Nucleated RBC 0.000 Nucleated RBC % (auto) 0.0 Neutrophils % (Manual) 73 Band Neutrophils % 19 H Lymphocytes % (Manual) 3 L Monocytes % (Manual) 5 Metamyelocytes % Abs Neuts (Manual) 5.2 Lymphocytes # (Manual) 0.2 L Monocytes # (Manual) 0.3 Metamyelocytes # Toxic Vacuolation PRESENT Dohle Bodies PRESENT Platelet Estimate SLIGHTLY DECREASED Plt Morphology Comment NORMAL RBC Morphology NOTED Polychromasia 1+ (0-2) Hypochromasia 1+ (5-14) [place] Cells Rouleaux PRESENT ESR > 140 H Sodium 137 Potassium 3.5 Chloride 106 Carbon Dioxide 19 L Anion Gap 16 BUN 75 H Creatinine 4.28 H* Estim Creat Clear Calc 16.6 Estimated GFR 15 Random Glucose 129 H Lactic Acid 2.3 H* Lactic Acid F/U @ 2Hr Calcium 8.1 L D Magnesium 1.8 Iron TIBC % Saturation Unsat Iron Binding Ferritin Total Creatine Kinase 30 L C-Reactive Protein 19.63 H Urine Color Urine Appearance Urine pH Ur Specific [place] Urine Protein Urine Glucose (UA) Urine Ketones Urine Blood Urine Nitrite Ur Leukocyte Esterase Urine RBC Urine WBC Ur Squamous Epith Cells Urine Bacteria Hyaline Casts Stool Occult Blood NEGATIVE Random Vancomycin Urine Opiates Screen Urine Fentanyl Screen Ur Barbiturates Screen Ur Phencyclidine Scrn Ur Amphetamines Screen U Benzodiazepines Scrn Urine Cocaine Screen U Marijuana (THC) Screen Ethyl Alcohol < 10 Hepatitis A IgM Ab Hep Bs Antigen Hep Bs Antibody Hep B Core Total Ab Hepatitis C Ab (EIA) HIV 1&2 Ab/P24 Ag 4thGn Blood Type Antibody Screen Crossmatch 01/16/23 01/16/23 01/16/23 15:08 18:23 18:26 WBC RBC Hgb Hct MCV MCH MCHC RDW Plt Count MPV Immature Gran % (Auto) Neut % (Auto) Lymph % (Auto) [place] % (Auto) Eos % (Auto) Baso % (Auto) Lymph # (Auto) [place] # (Auto) Eos # (Auto) Baso # (Auto) Abs Immat Gran (auto) Absolute Neuts (auto) Absolute Nucleated RBC Nucleated RBC % (auto) Neutrophils % (Manual) Band Neutrophils % Lymphocytes % (Manual) Monocytes % (Manual) Metamyelocytes % Abs Neuts (Manual) Lymphocytes # (Manual) Monocytes # (Manual) Metamyelocytes # Toxic Vacuolation Dohle Bodies Platelet Estimate Plt Morphology Comment RBC Morphology Polychromasia Hypochromasia Shaina Cells Rouleaux ESR Sodium Potassium Chloride Carbon Dioxide Anion Gap BUN Creatinine Estim Creat Clear Calc Estimated GFR Random Glucose Lactic Acid Lactic Acid F/U @ 2Hr 0.7 Calcium Magnesium Iron TIBC % Saturation Unsat Iron Binding Ferritin Total Creatine Kinase C-Reactive Protein Urine Color Urine Appearance Urine pH Ur Specific [place] Urine Protein Urine Glucose (UA) Urine Ketones Urine Blood Urine Nitrite Ur Leukocyte Esterase Urine RBC Urine WBC Ur Squamous Epith Cells Urine Bacteria Hyaline Casts Stool Occult Blood Random Vancomycin Urine Opiates Screen Urine Fentanyl Screen Ur Barbiturates Screen Ur Phencyclidine Scrn Ur Amphetamines Screen U Benzodiazepines Scrn Urine Cocaine Screen U Marijuana (THC) Screen Ethyl Alcohol Hepatitis A IgM Ab Nonreactive Hep Bs Antigen Negative Hep Bs Antibody REACTIVE Hep B Core Total Ab Nonreactive Hepatitis C Ab (EIA) Reactive H HIV 1&2 Ab/P24 Ag 4thGn Reactive H Blood Type A Positive Antibody Screen NEGATIVE Crossmatch See Detail 01/16/23 01/16/23 01/17/23 19:37 19:38 07:29 WBC 4.5 L RBC 3.19 L D Hgb 8.8 L D Hct 28.2 L D MCV 88.4 MCH 27.6 MCHC 31.2 RDW 21.4 H Plt Count 118 L MPV 10.8 Immature Gran % (Auto) Cancelled Neut % (Auto) Cancelled Lymph % (Auto) Cancelled [place] % (Auto) Cancelled Eos % (Auto) Cancelled Baso % (Auto) Cancelled Lymph # (Auto) Cancelled [place] # (Auto) Cancelled Eos # (Auto) Cancelled Baso # (Auto) Cancelled Abs Immat Gran (auto) Cancelled Absolute Neuts (auto) Cancelled Absolute Nucleated RBC 0.000 Nucleated RBC % (auto) 0.0 Neutrophils % (Manual) 70 Band Neutrophils % 17 H Lymphocytes % (Manual) 4 L Monocytes % (Manual) 4 Metamyelocytes % 5 Abs Neuts (Manual) 3.9 Lymphocytes # (Manual) 0.2 L Monocytes # (Manual) 0.2 Metamyelocytes # 0.2 Toxic Vacuolation PRESENT Dohle Bodies PRESENT Platelet Estimate DECREASED Plt Morphology Comment NORMAL RBC Morphology NOTED Polychromasia 1+ (0-2) Hypochromasia 1+ (5-14) [place] Cells 2+ (3-5) Rouleaux PRESENT ESR Sodium Cancelled Potassium Chloride Carbon Dioxide Anion Gap BUN Creatinine Estim Creat Clear Calc Estimated GFR Random Glucose Lactic Acid Lactic Acid F/U @ 2Hr Calcium Magnesium Iron TIBC % Saturation Unsat Iron Binding Ferritin Total Creatine Kinase C-Reactive Protein Urine Color Dark Yellow Urine Appearance Clear Urine pH 7.5 Ur Specific [place] 1.015 Urine Protein 100 (2+) H Urine Glucose (UA) Negative Urine Ketones Negative Urine Blood Trace H Urine Nitrite Negative Ur Leukocyte Esterase Trace H Urine RBC 0-2 Urine WBC 0-5 Ur Squamous Epith Cells 3-5 Urine Bacteria None Seen Hyaline Casts 3-5 Stool Occult Blood Random Vancomycin Urine Opiates Screen POSITIVE H Urine Fentanyl Screen POSITIVE H Ur Barbiturates Screen Not Detected Ur Phencyclidine Scrn Not Detected Ur Amphetamines Screen Not Detected U Benzodiazepines Scrn Not Detected Urine Cocaine Screen POSITIVE H U Marijuana (THC) Screen Not Detected Ethyl Alcohol Hepatitis A IgM Ab Hep Bs Antigen Hep Bs Antibody Hep B Core Total Ab Hepatitis C Ab (EIA) HIV 1&2 Ab/P24 Ag 4thGn Blood Type Antibody Screen Crossmatch 01/17/23 01/17/23 01/17/23 07:29 07:29 07:29 WBC RBC Hgb Hct MCV MCH MCHC RDW Plt Count MPV Immature Gran % (Auto) Neut % (Auto) Lymph % (Auto) [place] % (Auto) Eos % (Auto) Baso % (Auto) Lymph # (Auto) [place] # (Auto) Eos # (Auto) Baso # (Auto) Abs Immat Gran (auto) Absolute Neuts (auto) Absolute Nucleated RBC Nucleated RBC % (auto) Neutrophils % (Manual) Band Neutrophils % Lymphocytes % (Manual) Monocytes % (Manual) Metamyelocytes % Abs Neuts (Manual) Lymphocytes # (Manual) Monocytes # (Manual) Metamyelocytes # Toxic Vacuolation Dohle Bodies Platelet Estimate Plt Morphology Comment RBC Morphology Polychromasia Hypochromasia Shaina Cells Rouleaux ESR Sodium 139 Potassium Cancelled 3.3 Chloride Cancelled 112 H Carbon Dioxide Cancelled Anion Gap BUN Creatinine Estim Creat Clear Calc Estimated GFR Random Glucose Lactic Acid Lactic Acid F/U @ 2Hr Calcium Magnesium Iron TIBC % Saturation Unsat Iron Binding Ferritin Total Creatine Kinase C-Reactive Protein Urine Color Urine Appearance Urine pH Ur Specific [place] Urine Protein Urine Glucose (UA) Urine Ketones Urine Blood Urine Nitrite Ur Leukocyte Esterase Urine RBC Urine WBC Ur Squamous Epith Cells Urine Bacteria Hyaline Casts Stool Occult Blood Random Vancomycin Urine Opiates Screen Urine Fentanyl Screen Ur Barbiturates Screen Ur Phencyclidine Scrn Ur Amphetamines Screen U Benzodiazepines Scrn Urine Cocaine Screen U Marijuana (THC) Screen Ethyl Alcohol Hepatitis A IgM Ab Hep Bs Antigen Hep Bs Antibody Hep B Core Total Ab Hepatitis C Ab (EIA) HIV 1&2 Ab/P24 Ag 4thGn Blood Type Antibody Screen Crossmatch 01/17/23 01/17/23 01/17/23 07:29 07:29 07:29 WBC RBC Hgb Hct MCV MCH MCHC RDW Plt Count MPV Immature Gran % (Auto) Neut % (Auto) Lymph % (Auto) [place] % (Auto) Eos % (Auto) Baso % (Auto) Lymph # (Auto) [place] # (Auto) Eos # (Auto) Baso # (Auto) Abs Immat Gran (auto) Absolute Neuts (auto) Absolute Nucleated RBC Nucleated RBC % (auto) Neutrophils % (Manual) Band Neutrophils % Lymphocytes % (Manual) Monocytes % (Manual) Metamyelocytes % Abs Neuts (Manual) Lymphocytes # (Manual) Monocytes # (Manual) Metamyelocytes # Toxic Vacuolation Dohle Bodies Platelet Estimate Plt Morphology Comment RBC Morphology Polychromasia Hypochromasia Shaina Cells Rouleaux ESR Sodium Potassium Chloride Carbon Dioxide 20 L Anion Gap Cancelled 10 L BUN Cancelled 60 H Creatinine Cancelled Estim Creat Clear Calc Estimated GFR Random Glucose Lactic Acid Lactic Acid F/U @ 2Hr Calcium Magnesium Iron TIBC % Saturation Unsat Iron Binding Ferritin Total Creatine Kinase C-Reactive Protein Urine Color Urine Appearance Urine pH Ur Specific [place] Urine Protein Urine Glucose (UA) Urine Ketones Urine Blood Urine Nitrite Ur Leukocyte Esterase Urine RBC Urine WBC Ur Squamous Epith Cells Urine Bacteria Hyaline Casts Stool Occult Blood Random Vancomycin Urine Opiates Screen Urine Fentanyl Screen Ur Barbiturates Screen Ur Phencyclidine Scrn Ur Amphetamines Screen U Benzodiazepines Scrn Urine Cocaine Screen U Marijuana (THC) Screen Ethyl Alcohol Hepatitis A IgM Ab Hep Bs Antigen Hep Bs Antibody Hep B Core Total Ab Hepatitis C Ab (EIA) HIV 1&2 Ab/P24 Ag 4thGn Blood Type Antibody Screen Crossmatch 01/17/23 01/17/23 01/17/23 07:29 07:29 07:29 WBC RBC Hgb Hct MCV MCH MCHC RDW Plt Count MPV Immature Gran % (Auto) Neut % (Auto) Lymph % (Auto) [place] % (Auto) Eos % (Auto) Baso % (Auto) Lymph # (Auto) [place] # (Auto) Eos # (Auto) Baso # (Auto) Abs Immat Gran (auto) Absolute Neuts (auto) Absolute Nucleated RBC Nucleated RBC % (auto) Neutrophils % (Manual) Band Neutrophils % Lymphocytes % (Manual) Monocytes % (Manual) Metamyelocytes % Abs Neuts (Manual) Lymphocytes # (Manual) Monocytes # (Manual) Metamyelocytes # Toxic Vacuolation Dohle Bodies Platelet Estimate Plt Morphology Comment RBC Morphology Polychromasia Hypochromasia Shaina Cells Rouleaux ESR Sodium Potassium Chloride Carbon Dioxide Anion Gap BUN Creatinine 2.55 H Estim Creat Clear Calc Cancelled 29.2 Estimated GFR Cancelled 27 Random Glucose Cancelled Lactic Acid Lactic Acid F/U @ 2Hr Calcium Magnesium Iron TIBC % Saturation Unsat Iron Binding Ferritin Total Creatine Kinase C-Reactive Protein Urine Color Urine Appearance Urine pH Ur Specific [place] Urine Protein Urine Glucose (UA) Urine Ketones Urine Blood Urine Nitrite Ur Leukocyte Esterase Urine RBC Urine WBC Ur Squamous Epith Cells Urine Bacteria Hyaline Casts Stool Occult Blood Random Vancomycin Urine Opiates Screen Urine Fentanyl Screen Ur Barbiturates Screen Ur Phencyclidine Scrn Ur Amphetamines Screen U Benzodiazepines Scrn Urine Cocaine Screen U Marijuana (THC) Screen Ethyl Alcohol Hepatitis A IgM Ab Hep Bs Antigen Hep Bs Antibody Hep B Core Total Ab Hepatitis C Ab (EIA) HIV 1&2 Ab/P24 Ag 4thGn Blood Type Antibody Screen Crossmatch 01/17/23 01/17/23 07:29 07:29 WBC RBC Hgb Hct MCV MCH MCHC RDW Plt Count MPV Immature Gran % (Auto) Neut % (Auto) Lymph % (Auto) [place] % (Auto) Eos % (Auto) Baso % (Auto) Lymph # (Auto) [place] # (Auto) Eos # (Auto) Baso # (Auto) Abs Immat Gran (auto) Absolute Neuts (auto) Absolute Nucleated RBC Nucleated RBC % (auto) Neutrophils % (Manual) Band Neutrophils % Lymphocytes % (Manual) Monocytes % (Manual) Metamyelocytes % Abs Neuts (Manual) Lymphocytes # (Manual) Monocytes # (Manual) Metamyelocytes # Toxic Vacuolation Dohle Bodies Platelet Estimate Plt Morphology Comment RBC Morphology Polychromasia Hypochromasia Shaina Cells Rouleaux ESR Sodium Potassium Chloride Carbon Dioxide Anion Gap BUN Creatinine Estim Creat Clear Calc Estimated GFR Random Glucose 120 H Lactic Acid Lactic Acid F/U @ 2Hr Calcium Cancelled 7.5 L D Magnesium Iron 39 L TIBC 87 L % Saturation 45 Unsat Iron Binding 48 Ferritin 970 H Total Creatine Kinase C-Reactive Protein Urine Color Urine Appearance Urine pH Ur Specific [place] Urine Protein Urine Glucose (UA) Urine Ketones Urine Blood Urine Nitrite Ur Leukocyte Esterase Urine RBC Urine WBC Ur Squamous Epith Cells Urine Bacteria Hyaline Casts Stool Occult Blood Random Vancomycin 18.5 Urine Opiates Screen Urine Fentanyl Screen Ur Barbiturates Screen Ur Phencyclidine Scrn Ur Amphetamines Screen U Benzodiazepines Scrn Urine Cocaine Screen U Marijuana (THC) Screen Ethyl Alcohol Hepatitis A IgM Ab Hep Bs Antigen Hep Bs Antibody Hep B Core Total Ab Hepatitis C Ab (EIA) HIV 1&2 Ab/P24 Ag 4thGn Blood Type Antibody Screen Crossmatch Imaging Radiology Impressions: ITS Impressions Foot X-Ray 01/16/23 11:44 IMPRESSION: 1. No acute visible fracture or dislocation. 2. Slight enthesopathy at the Achilles tendon insertion site. 3. Prominent soft tissue swelling along the dorsum of the forefoot. Chest X-Ray 01/16/23 13:48 IMPRESSION: No acute cardiopulmonary findings. Abdomen/Pelvis CT 01/16/23 14:06 IMPRESSION: Colonic distention with gas and fluid. This may represent colitis. Evaluation is limited by motion artifact. Advise clinical correlation. Hepatosplenomegaly. Hepatic steatosis. Enlarged portacaval lymph node is possibly reactive basis. Cholelithiasis. 3 mm nonobstructing right renal calculus. No hydronephrosis. 1.4 cm subpleural density in the left upper lobe. Dedicated chest CT is recommended for further characterization. Venous Duplex 01/16/23 17:00 IMPRESSION: No DVT demonstrated in the left lower extremity. Lower Extremity CT 01/16/23 22:23 IMPRESSION: * No acute osseous abnormalities. * No evidence of osteomyelitis. * Subcutaneous fat stranding along the anterior and lateral aspects of the calf extending inferiorly along the medial and lateral aspects of the ankle and along the dorsum of the foot where the edema becomes coalescent. No drainable collection. * No intermuscular fluid or soft tissue gas to suggest necrotizing fasciitis. Mental Status Exam Mental Status Exam Patient Appearance: Unkempt (frail, weak ) Level of Consciousness: Drowsy Patient Behavior: Guarded Medications Medications Current Medications Acetaminophen (Acetaminophen 325 Mg Tablet) 650 mg PO Q6H PRN PRN Reason: Pain, Mild (Pain Scale 1-3) Al Hydroxide/Mg Hydroxide (Magnesium Hydrox/Alum Hydrox 30 Ml Oral.Susp) 30 ml PO Q4H PRN PRN Reason: Heartburn/Nausea Docusate Sodium (Docusate Sodium 100 Mg Capsule) 100 mg PO BID [facility] Last Admin: 01/17/23 19:36 Dose: 100 mg Heparin Sodium (Porcine) (Heparin Sodium,Porcine 5,000 Unit/Ml Vial) 5,000 unit SUBCUT Q8H [facility] Last Admin: 01/17/23 14:04 Dose: Not Given Hydromorphone HCl (Hydromorphone Hcl 1 Mg/Ml Syringe) 1 mg IVPUSH Q4H PRN; Protocol PRN Reason: Pain, Severe (Pain Scale 7-10) Last Admin: 01/17/23 10:25 Dose: 1 mg Piperacillin Sod/Tazobactam (Sod 4.5 gm/ Sodium Chloride) 100 mls @ 200 mls/hr IV Q12H [facility] Last Infusion: 01/17/23 15:21 Dose: Infused Vancomycin HCl 500 mg/ Sodium (Chloride) 110 mls @ 110 mls/hr IV Q24H [facility] Last Admin: 01/17/23 19:36 Dose: 110 mls/hr Sodium Chloride (Ns) 1,000 mls @ 100 mls/hr IVCONT .Q10H [facility] Last Admin: 01/17/23 19:29 Dose: 100 mls/hr Methadone HCl (Methadone Hcl 20 Mg/2 Ml Oral.Conc) 10 mg PO Q4H PRN PRN Reason: Opiate Withdrawal Last Admin: 01/17/23 18:13 Dose: 10 mg Naloxone HCl (Naloxone Hcl 0.4 Mg/Ml Vial) 0.1 mg IVPUSH Q2M PRN PRN Reason: Respiratory Rate < 10 Ondansetron HCl (Ondansetron Hcl 4 Mg/2 Ml Vial) 4 mg IVPUSH Q8H PRN PRN Reason: Nausea and Vomiting Oxycodone HCl (Oxycodone Hcl Immed Release 5 Mg Tablet) 5 mg PO Q6H PRN PRN Reason: Pain, Moderate(Pain Scale 4-6) Pharmacy Consult (Consult Rx Vancomycin Dosing) 1 each MISCELLANE DAILY PRN PRN Reason: Consult order Senna (Sennosides 8.6 Mg Tablet) 17.2 mg PO BEDTIME PRN PRN Reason: Constipation Sodium Chloride (0.9 % Sodium Chloride Flush 3 Ml Syringe) 3 ml IVFLUSH QSHIFT [facility] Last Admin: 01/17/23 19:36 Dose: 3 ml Temazepam (Temazepam 15 Mg Capsule) 15 mg PO BEDTIME PRN PRN Reason: Insomnia Allergies Allergies Allergy/AdvReac Type Severity Reaction Status Date / Time fish derived [FISH] Allergy Unknown UNKNOWN Verified 01/16/23 11:09 Assessment & Plan Assessment & Plan (1) Opioid use disorder: Status: Acute Code(s): F11.90 - Opioid use, unspecified, uncomplicated Assessment and Plan: * based on difficulty remaining awake, methadone 10mg q4H PRN ordered * will continue to follow and increase dose as necessary * once more alert, will collect more complete [place] history. Total time managing care of this patient today __30__ minutes. PMFSH Past Medical History Medical History (Updated 01/17/23 @ 20:14 by Roseanne Carter CNP) Polysubstance (including opioids) dependence w/o physiol dependence Asthma Social History Social History Household Members: Family Unable to assess alcohol history related to: Refusing to respond Patient Tobacco Use Status: Tobacco use Unknown Substance Use Type: Heroin service: No
[2023-01-17] MEDS: Temazepam 15 MG CAPSULE PO (22:53)
[2023-01-17 22:57] LABS: Creatinine Urine 77.56 mg/dL; Sodium Urine Random < 20.0 mmol/L; Total Protein Urine Random 75 mg/dL (<12)
[2023-01-18] MEDS: Piperacillin Sodium/Tazobactam 4.5 GM in 0.9 % Sodium Chloride 100 ML IV ×2 (03:11→14:35)
[2023-01-18 03:17] VITALS: BP 124/73; PULSE 92; RESP 18; TEMP 36.5; O2SAT 100
[2023-01-18] MEDS: methADONE HCl 20 MG/2 ML ORAL.CONC 10 MG PO ×2 (04:43→09:24)
[2023-01-18] MEDS: 0.9 % Sodium Chloride 1,000 ML 100 ML IVCONT ×2 (05:42→19:31)
[2023-01-18 05:58] LABS: Appearance Urine Turbid; Color Urine Dark Yellow; Glucose Urine UA Negative (Negative); Leukocyte Esterase Urine Negative (Negative); Nitrite Urine Negative (Negative); PH 7.5 (5.0-9.0); UMIC TRIGGER UA YES; Urine Blood Negative (Negative); Urine Ketones Negative (Negative); Urine Protein 30 (1+) mg/dL (Neg-Trace)
[2023-01-18 06:12] LABS: Bacteria Urine None Seen (None Seen); Hyaline Casts Urine 0-2 /LPF (0-2); Other Crystals Urine Present; RBC Urine 0-2 /HPF (0-2); Squamous Epithelial Cell Urine 0-2 /HPF (0-2); WBC Urine 0-5 /HPF (0-5)
--- NOTE | 2023-01-18 07:00 | CA_ITS ---
Transthoracic Echocardiogram Patient (Last, First, Middle): Casey Da Silva, Gender: Male Date of : 1975 Age: 47 Procedure Date: 01/18/2023 Procedure Type: Transthoracic Echocardiogram Location: S3E Height: 167.64 cm Weight: 57.15 kg BSA: 1.64 m2 Heart Rate: bpm BP: 124 / 73 mmHg Steward/Stewardess Bath: TO Referring MD: Judit Muir NP Symptoms: GPC bacteremia Study Quality: Technically Difficult Conclusions: - Normal left ventricular size, thickness, systolic function, and wall motion. The visually estimated ejection fraction is between 55-60%. Diastolic function is normal for age. - Normal right ventricular cavity size and systolic function. - There is mild dilatation of the sinuses of Valsalva measuring 3.77 cm. Findings Procedure Information The study quality is limited by the patients inability to tolerate the test and an uncooperative patient. Left Ventricle Normal left ventricular size, thickness, systolic function, and wall motion. The visually estimated ejection fraction is between 55-60%. Diastolic function is normal for age. Right Ventricle Normal right ventricular cavity size and systolic function. Atria The left atrium is normal in size. The right atrium is normal in size. Aortic Valve Normal aortic valve structure and function. There is no aortic valve stenosis. There is no aortic valve regurgitation. Mitral Valve Normal mitral valve structure and function. There is no mitral valve regurgitation. There is no mitral valve stenosis. Pulmonic Valve Normal pulmonic valve structure and function. Tricuspid Valve Normal tricuspid valve structure and function. There is trace tricuspid valve regurgitation. Tricuspid regurgitation envelope is inadequate for calculation of right ventricular systolic pressure. Indeterminate right atrial pressure. Great Vessels There is mild dilatation of the sinuses of Valsalva measuring 3.77 cm. The visualized portions of the pulmonary artery and branches are normal. Venous The inferior vena cava was not well visualized. Pericardium/Pleural There is no evidence of pericardial effusion. Prior Study Comparison No prior study available for comparison. Measurements 2D Linear Measurements IVSd: 0.87 0.6-0.9/0.6-1.0 cm LVIDd: 4.75 3.9-5.3/4.2-5.9 cm LVIDd Index: 2.90 2.4-3.2/2.2-3.1 cm/m2 LVIDs: 3.12 2.0-3.6 cm LVPWd: 0.88 0.7-1.1 cm LA Diam: 3.20 2.7-3.8/3.0-4.0 cm LAIDs Index: 1.95 1.5-2.3 cm/m2 LV Mass: 173.49 67-162/88-224 g LV Mass Index: 105.79 43-95/49-115 g/m2 LVOT Diam: 2.40 3.0+(-)1.3 cm Mitral Valve MV Pk E: 0.64 MV PK A: 0.42 MV Decel Time: 230.00 E/A: 1.50 E'Lateral: 13.70 E'Medial: 9.25 E/E' Med: 6.90 E/E' Lat: 4.70 PHT: 67.00 MVA PHT: 3.28 Decel [place]: 2.78 Aortic Valve AoV Pk Aditya: 1.13 AoV Mn Aditya: 0.77 AoV VTI: 0.23 AoV Pk Grad: 5.00 Aov Mn Grad: 3.00 SUDHAKAR Cont.VTI: 3.44 LVOT LVOT Pk Aditya: 0.83 LVOT Mn Aditya: 0.56 LVOT VTI: 0.17 LVOT Pk Grad: 3.00 LVOT Mn Grad: 1.00 LVOT Diam: 2.40 LVOT Area: 4.52 Diastolic Function MV Pk E: 0.64 MV Pk A: 0.42 E/A: 1.50 E'Medial: 9.25 E/E' Med: 6.90 E' Laterial: 13.70 E/E' Lat: 4.70 Right Ventricle TAPSE (mm): 25.20 Tricuspid Valve TR Pk Aditya: 1.38 TR Pk Grad: 8.00 Great Vessels Aorta Sinus of Valsalva: 3.77 2.0-3.[address] [place]: 2.46 1.7-3.4 cm Ao Asc: 3.30 2.1-3.4 cm Updated in Other Vendor System with Status of Final [employer] MD electronically signed on 01/18/2023 1:35:20 PM with status of Final
[2023-01-18 07:52] VITALS: BP 117/70; PULSE 75; RESP 16; TEMP 37; O2SAT 99
[2023-01-18 08:00] VITALS: PULSE 75
--- NOTE | 2023-01-18 10:06 | MHC.RECOVRN ---
Met with pt to check in after receiving 4 10 mg doses of methadone throughout the night and this morning. Pt sitting in bed, awake but appears drowsy, does not speak to t/w only responds with a so so hand gesture when asked how he is feeling and then closes his eyes. Will continue to follow.
--- NOTE | 2023-01-18 11:26 | P.PNIM_ITS ---
Subjective Subjective Date of Service: 01/18/23 Interval History: No acute issues overnight. Still complaining diffuse leg pain Review of Systems Denies chest pain Denies shortness of breath Denies nausea vomiting diarrhea Admits to left leg pain Physical Exam 2 Vital Signs: Vital Signs: Last Vital Signs Temp 98.6 F 01/18/23 07:52 Pulse 75 01/18/23 07:52 Resp 16 01/18/23 07:52 BP 117/70 01/18/23 07:52 Pulse Ox 99 01/18/23 07:52 O2 Del Method Room Air 01/18/23 07:52 BMI result Body Mass Index 20.4 Const: Other: Ill-appearing; no acute distress Resp: Other: Clear to auscultation bilaterally no rales rhonchi or wheezes Cardio: Other: No S4; positive S1-S2; no S3 murmurs rubs or gallops GI: Other: Soft nontender nondistended normoactive bowel sounds Extrem: Other: See admission photos Objective Data Active Medications Acetaminophen (Acetaminophen 325 Mg Tablet) 650 mg PO Q6H PRN PRN Reason: Pain, Mild (Pain Scale 1-3) Al Hydroxide/Mg Hydroxide (Magnesium Hydrox/Alum Hydrox 30 Ml Oral.Susp) 30 ml PO Q4H PRN PRN Reason: Heartburn/Nausea Docusate Sodium (Docusate Sodium 100 Mg Capsule) 100 mg PO BID [facility] Last Admin: 01/18/23 09:05 Dose: Not Given Documented By: ALE Non-Admin Reason: loose stools Heparin Sodium (Porcine) (Heparin Sodium,Porcine 5,000 Unit/Ml Vial) 5,000 unit SUBCUT Q8H [facility] Last Admin: 01/18/23 05:43 Dose: Not Given Documented By: LISETTE Non-Admin Reason: Patient Refused Hydromorphone HCl (Hydromorphone Hcl 1 Mg/Ml Syringe) 1 mg IVPUSH Q4H PRN; Protocol PRN Reason: Pain, Severe (Pain Scale 7-10) Last Admin: 01/17/23 10:25 Dose: 1 mg Documented By: NONA Piperacillin Sod/Tazobactam (Sod 4.5 gm/ Sodium Chloride) 100 mls @ 200 mls/hr IV Q12H [facility] Last Infusion: 01/18/23 03:55 Dose: Infused Documented By: LISETTE Vancomycin HCl 500 mg/ Sodium (Chloride) 110 mls @ 110 mls/hr IV Q24H [facility] Last Infusion: 01/17/23 20:50 Dose: Infused Documented By: LISETTE Sodium Chloride (Ns) 1,000 mls @ 100 mls/hr IVCONT .Q10H [facility] Last Admin: 01/18/23 05:42 Dose: 100 mls/hr Documented By: LISETTE Naloxone HCl (Naloxone Hcl 0.4 Mg/Ml Vial) 0.1 mg IVPUSH Q2M PRN PRN Reason: Respiratory Rate < 10 Ondansetron HCl (Ondansetron Hcl 4 Mg/2 Ml Vial) 4 mg IVPUSH Q8H PRN PRN Reason: Nausea and Vomiting Oxycodone HCl (Oxycodone Hcl Immed Release 5 Mg Tablet) 5 mg PO Q6H PRN PRN Reason: Pain, Moderate(Pain Scale 4-6) Last Admin: 01/17/23 19:45 Dose: 5 mg Documented By: LISETTE Pharmacy Consult (Consult Rx Vancomycin Dosing) 1 each MISCELLANE DAILY PRN PRN Reason: Consult order Senna (Sennosides 8.6 Mg Tablet) 17.2 mg PO BEDTIME PRN PRN Reason: Constipation Sodium Chloride (0.9 % Sodium Chloride Flush 3 Ml Syringe) 3 ml IVFLUSH QSHIFT [facility] Last Admin: 01/18/23 09:05 Dose: Not Given Documented By: ALE Non-Admin Reason: IV Running Temazepam (Temazepam 15 Mg Capsule) 15 mg PO BEDTIME PRN PRN Reason: Insomnia Last Admin: 01/17/23 22:53 Dose: 15 mg Documented By: LISETTE Labs 01/17/23 07:29 01/17/23 07:29 Labs: Laboratory Results - last 24 hr 01/17/23 01/18/23 22:24 Unknown Urine Color Dark Yellow Urine Appearance Turbid Urine pH 7.5 Ur Specific [place] 1.020 Urine Protein 30 (1+) H Urine Glucose (UA) Negative Urine Ketones Negative Urine Blood Negative Urine Nitrite Negative Ur Leukocyte Esterase Negative Urine RBC 0-2 Urine WBC 0-5 Ur Squamous Epith Cells 0-2 Other Crystals Present Urine Bacteria None Seen Hyaline Casts 0-2 U Random Total Protein 75 H Ur Random Sodium < 20.0 Urine Creatinine 77.56 Microbiology Microbiology Results: Microbiology 01/16/23 13:11 Blood Culture - Preliminary Blood - Venous Gram positive cocci 01/16/23 14:14 Blood Culture - Preliminary Blood - Venous No growth after 24 hours. Assessment and Plan (1) Cellulitis of lower leg: Status: Acute (2) Acute kidney injury: Status: Acute Plan 47-year-old Welsh-speaking man who is an active IV heroin and cocaine abuse admitted with cellulitis; minimal improvement since admission 1.GPC bacteremia /Sepsis(resolved) -/2 positive; await formal ID -Vancomycin/Zosyn (2) -echo pending -ID consult pending 2.Cellulites of left leg -Vancomycin/Zosyn (2) -CT neg for abscess 3.HIV/ Hep C (new diagnosis) -ID consult pending 4.Acute renal failure -responded to volume -renal input appreciated -follow renals/divalents 5.Anemia, unspecified -appropriate response to transfusion -follow daily CBC -GI consult 6.Active IVDA -Addiction med team consult appreciated [place] Ancelmo Full code continue hospital stay for management of cellulitis of the left leg, acute renal failure and anemia requiring close monitoring and because patient is an active IV drug user and homeless he is likely to decompensate quickly without hospital level treatment Quality Stroke Does the patient have a stroke diagnosis?: No VTE Prior VTE?: No VTE Risk Level:: Medical - moderate - high VTE Device Contraindication: Treatment Not Tolerated VTE Drug Contraindication: N/A - Med Ordered
--- NOTE | 2023-01-18 11:29 | PM.PNNEP ---
Subjective Subjective Date of Service: 01/19/23 Interval history: Events noted Feels cold Physical Exam Vital Signs: Vital Signs: Last Vital Signs Temp 98.6 F 01/18/23 07:52 Pulse 75 01/18/23 07:52 Resp 16 01/18/23 07:52 BP 117/70 01/18/23 07:52 Pulse Ox 99 01/18/23 07:52 O2 Del Method Room Air 01/18/23 07:52 BMI result Body Mass Index 20.4 Awake. Comfortable. Neck is supple. Mucosa moist. Lungs AE equali. Heart S1-S2 heard no gallop. Abdomen soft. Extremities 1+ edema. No involuntary movements. No myoclonus. Const: Other: Appearance: Alert. Oriented X3. No acute distress. Eyes: Pupils equal, round and reactive to light. ENT: Pharynx normal. Neck: Normal inspection. Neck supple. No lymph nodes noted. No crepitus CVS: Normal heart rate and rhythm. Pulses normal. Normal S1 and S2 Respiratory: No respiratory distress. Breath sounds normal. No Wheezing. No rales Abdomen: Soft and nontender. No rigidity. No distention. Skin: Skin warm and dry. Normal skin color. Normal skin turgor. Extremities: Patient's left foot is swollen, erythematous from the toes to below the knee, pain to palpation on the calf, +2 pitting edema Neuro: Oriented X 3. No motor deficit. No sensory deficit. Moving all extremities. No slurred speech. CN 2 through 12 grossly intact Psych: calm, cooperative, normal affect Objective Data Labs 01/19/23 05:26 01/19/23 05:26 Labs: Laboratory Results - last 24 hr 01/17/23 01/18/23 22:24 Unknown Urine Color Dark Yellow Urine Appearance Turbid Urine pH 7.5 Ur Specific [place] 1.020 Urine Protein 30 (1+) H Urine Glucose (UA) Negative Urine Ketones Negative Urine Blood Negative Urine Nitrite Negative Ur Leukocyte Esterase Negative Urine RBC 0-2 Urine WBC 0-5 Ur Squamous Epith Cells 0-2 Other Crystals Present Urine Bacteria None Seen Hyaline Casts 0-2 U Random Total Protein 75 H Ur Random Sodium < 20.0 Urine Creatinine 77.56 Microbiology Microbiology Results: Microbiology 01/16/23 13:11 Blood - Venous Blood Culture - Preliminary Gram positive cocci 01/16/23 14:14 Blood - Venous Blood Culture - Preliminary No growth after 24 hours. Procedures Date of Service Date of Service: 01/19/23 Assessment & Plan Assessment and plan (1) Acute kidney injury: Status: Acute Plan 47-year-old man with IV drug abuse and a history of hep C and recently diagnosed HIV positivity now with acute kidney injury. There is a wide fluctuation in serum creatinine. Acute Glomerulonephritis should be ruled out. Other possibilities including hypoperfusion will be considered. No evidence of obstructive uropathy based on the CT scan done on urine for protein creatinine ratio. = 1gm. Recommendation Check serum complement C3 and C4 along with serologies. For now continue to avoid nephrotoxic agents including NSAIDs. Keep intake more the output. Monitor urine output. No absolute indication for dialysis. Further workup will be based on the outcome of the above based indications and will follow him closely. Concur with other management Time Spent With Patient Time: Total time managing care of this patient today ____ minutes. Progress Note: Quality Stroke Does the patient have a stroke diagnosis?: No
[2023-01-18 13:17] LABS: OBS Int Ctl Valid YES; OBS1 NEGATIVE (NEGATIVE)
--- NOTE | 2023-01-18 13:41 | MHC.CM.PN ---
EMR REVIEWED AND PER MD ROUNDS, PT IS NOT MEDICALLY CLEARED FOR DC (GIL, HIV+, LEFT LEG CELLULITIS AND PAIN, HIGH RISK TO DECOMPENSATE) CM WILL CONTINUE TO FOLLOW FOR ANY CHANGES TO DC PLAN/NEEDS.
--- NOTE | 2023-01-18 13:47 | HE.PHANOTE ---
RE DAPTOMYCIN WE ARE UNABLE TO OBTAIN LABS FOR THE PATIENT WHO HAS RAPIDLY CHANGING RENAL FUNCTION. UNABLE TO OBTAIN TROUGH. RECOMMENDED DAPTOMYCIN TO DR MARSHALL AT [facility] 8 MG/KG. WILL GO WITH 48 HOUR DOSING FOR NOW, BUT WILL KEEP A CLOSE EYE. I SUSPECT RENAL FUNCTION MIGHT BE >30, BUT OF COURSE WE CANNOT GET SCR. IF LABS RETURN TOMORROW, CHANGE DOSING INTERVAL ACCORDINGLY.
[2023-01-18] MEDS: methADONE HCl 20 MG/2 ML ORAL.CONC 15 MG PO ×2 (14:34→20:50)
--- NOTE | 2023-01-18 14:37 | PC.NURSE ---
Mother visiting with pt. Cleared by Dr Jiménez for mother only to visit pt. Telesitter camera in room
[2023-01-18] MEDS: DAPTOmycin 500 MG in 0.9 % Sodium Chloride 50 ML 120 MG IV (15:12)
[2023-01-18] MEDS: oxyCODONE HCl Immed Release 5 MG TABLET PO ×2 (15:14→18:40)
--- NOTE | 2023-01-18 15:15 | PM.EVENT ---
Event Note Date of Service: 01/18/23 Event Note: Addiction follow up Seen by auto brake mechanic and chart reviewed -has taken 4 doses of methadone 10mg -per RN loose stools x3 today and c/o pain all over -auto brake mechanic reported that he was having difficulty remaining awake and minimally responsive to questions (verbally) Discussed with attending provider and decided to schedule methadone throughout the day 15mg TID to decrease risk of oversedation with larger doses at once. *please hold if patient appears over sedated Time Spent With Patient Time: Total time managing care of this patient today ____ minutes.
[2023-01-18 15:31] VITALS: BP 122/70; PULSE 90; RESP 16; TEMP 37.2; O2SAT 100
[2023-01-18 20:00] VITALS: BP 102/55; PULSE 88; RESP 18; TEMP 36.3; O2SAT 98
[2023-01-18] MEDS: Docusate Sodium 100 MG CAPSULE PO (20:50)
--- NOTE | 2023-01-18 23:43 | P.CNID_ITS ---
History of Present Illness Data of Consult Service Date: 01/18/23 Requesting physician: Isiah Jiménez Primary Care Provider: None Physician HPI Reason for consult: probable AIDS,wt loss He presents with weakness,alopecia and weight loss ,with acute frequent urination and pain. He asks for AIDS test and screening positive. He has gram positive cocci in blood. He injects IV drugs I talked to Veronica at [facility] who says he has had syphilis,hepatitis C and GC/chlamydia workups at [facility] since 1999 and no HIV test at all. So far, no positive prior test and this is a new diagnosis. He mentions living in [place], [place]. Review of Systems 2 Review of Systems: Yes all other systems are reviewed and are negative Constitutional: Constitutional: Reports daytime sleepiness and Reports weight loss Cardiovascular: Cardiovascular: Reports Abdominal Cramping after Meds PMFSH Past Medical History Medical History Polysubstance (including opioids) dependence w/o physiol dependence Asthma Family History Family history: reviewed and not pertinent Social History Social History Household Members: Family Unable to assess alcohol history related to: Refusing to respond Patient Tobacco Use Status: Tobacco use Unknown Substance Use Type: Heroin service: No Meds Allergies Allergy/AdvReac Type Severity Reaction Status Date / Time fish derived [FISH] Allergy Unknown UNKNOWN Verified 01/16/23 11:09 Active Medications: Current Medications Acetaminophen (Acetaminophen 325 Mg Tablet) 650 mg PO Q6H PRN PRN Reason: Pain, Mild (Pain Scale 1-3) Al Hydroxide/Mg Hydroxide (Magnesium Hydrox/Alum Hydrox 30 Ml Oral.Susp) 30 ml PO Q4H PRN PRN Reason: Heartburn/Nausea Docusate Sodium (Docusate Sodium 100 Mg Capsule) 100 mg PO BID [facility] Last Admin: 01/18/23 20:50 Dose: 100 mg Heparin Sodium (Porcine) (Heparin Sodium,Porcine 5,000 Unit/Ml Vial) 5,000 unit SUBCUT Q8H [facility] Last Admin: 01/18/23 22:10 Dose: Not Given Hydromorphone HCl (Hydromorphone Hcl 1 Mg/Ml Syringe) 1 mg IVPUSH Q4H PRN; Protocol PRN Reason: Pain, Severe (Pain Scale 7-10) Last Admin: 01/17/23 10:25 Dose: 1 mg Piperacillin Sod/Tazobactam (Sod 4.5 gm/ Sodium Chloride) 100 mls @ 200 mls/hr IV Q12H [facility] Last Infusion: 01/18/23 15:05 Dose: Infused Sodium Chloride (Ns) 1,000 mls @ 100 mls/hr IVCONT .Q10H [facility] Last Admin: 01/18/23 19:31 Dose: 100 mls/hr Daptomycin 500 mg/ Sodium (Chloride) 60 mls @ 120 mls/hr IV Q48H [facility] Last Infusion: 01/18/23 15:55 Dose: Infused Methadone HCl (Methadone Hcl 20 Mg/2 Ml Oral.Conc) 15 mg PO TID [facility] Last Admin: 01/18/23 20:50 Dose: 15 mg Naloxone HCl (Naloxone Hcl 0.4 Mg/Ml Vial) 0.1 mg IVPUSH Q2M PRN PRN Reason: Respiratory Rate < 10 Nicotine (Nicotine 21 Mg Patch.Td24) 21 mg TRANSDERMA DAILY [facility] Nicotine Polacrilex (Nicotine Polacrilex 2 Mg Gum) 2 mg BUCCAL Q2H PRN PRN Reason: Nicotine Cravings Ondansetron HCl (Ondansetron Hcl 4 Mg/2 Ml Vial) 4 mg IVPUSH Q8H PRN PRN Reason: Nausea and Vomiting Oxycodone HCl (Oxycodone Hcl Immed Release 5 Mg Tablet) 5 mg PO Q6H PRN PRN Reason: Pain, Moderate(Pain Scale 4-6) Last Admin: 01/18/23 15:14 Dose: 5 mg Pharmacy Consult (Consult Rx Vancomycin Dosing) 1 each MISCELLANE DAILY PRN PRN Reason: Consult order Senna (Sennosides 8.6 Mg Tablet) 17.2 mg PO BEDTIME PRN PRN Reason: Constipation Sodium Chloride (0.9 % Sodium Chloride Flush 3 Ml Syringe) 3 ml IVFLUSH QSHIFT [facility] Last Admin: 01/18/23 15:12 Dose: Not Given Temazepam (Temazepam 15 Mg Capsule) 15 mg PO BEDTIME PRN PRN Reason: Insomnia Last Admin: 01/17/23 22:53 Dose: 15 mg Home Medications Medication Instructions Recorded Confirmed Last Taken Type No Known Home Meds 01/16/23 01/16/23 Unknown History Physical Exam 2 Vital Signs: Vital Signs: Last Vital Signs Temp 97.4 F 01/18/23 20:00 Pulse 88 01/18/23 20:00 Resp 18 01/18/23 20:00 BP 102/55 L 01/18/23 20:00 Pulse Ox 98 01/18/23 20:00 O2 Del Method Room Air 01/18/23 20:00 BMI result Body Mass Index 20.4 Const: Other: cachectic man Nutritional Appearance: thin and underweight Back/Spine/Pelvis: Other: mild lower back pain Results Labs 01/17/23 07:29 01/17/23 07:29 Labs: Urine 01/18/23 Range/Units Unknown Urine Color Dark Yellow Urine Appearance Turbid Urine pH 7.5 (5.0-9.0) Ur Specific [place] 1.020 (1.005-1.025) Urine Protein 30 (1+) H (Neg-Trace) mg/dL Urine Glucose (UA) Negative (Negative) mg/dL Microbiology Microbiology Results: Microbiology 01/16/23 14:14 Blood - Venous Blood Culture - Preliminary No growth after 48 hours. 01/16/23 13:11 Blood - Venous Blood Culture - Preliminary Gram positive cocci Assessment and Plan (1) Opioid use disorder: Status: Acute (2) Abnormal weight loss: Status: Acute Await final HIV results. Await blood culture and adjust antibiotics as needed. Mepron for PJP prophylaxis. Lung mass workup prn need
[2023-01-19] MEDS: oxyCODONE HCl Immed Release 5 MG TABLET PO (00:40)
[2023-01-19] MEDS: Piperacillin Sodium/Tazobactam 4.5 GM in 0.9 % Sodium Chloride 100 ML IV (02:49)
[2023-01-19 03:06] VITALS: BP 106/56; PULSE 90; RESP 16; TEMP 36.9; O2SAT 98
[2023-01-19 06:22] LABS: Hematocrit 22.9 % (42.0-52.0); Hemoglobin 7.4 g/dl (14.0-18.0); Mean Corpuscular HGB Conc 32.3 g/dl (31.0-36.0); Mean Corpuscular Hemoglobin 28.1 pg (27.0-33.0); Mean Corpuscular Volume 87.1 fL (80.0-98.0); Mean Platelet Volume 11.4 fL (9.4-12.4); Red Blood Count 2.63 X10*6/uL (4.60-5.80); Red Cell Distribution Width 21.8 % (11.0-16.0)
[2023-01-19 06:25] LABS: WBC ABN SCTR FOR CBC 1; White Blood Count 2.9 X10*3/uL (4.8-10.8)
[2023-01-19 06:40] LABS: Alanine Aminotransferase 7 U/L (0-40); Albumin Level 1.3 g/dL (3.5-5.0); Alkaline Phosphatase 559 U/L (39-117); Anion Gap 8 (12-20); Aspartate Amino Transferase 28 U/L (5-37); Bilirubin Total 0.7 mg/dL (0.0-1.0); Blood Urea Nitrogen 31 mg/dL (9-16); Calcium 6.6 mg/dL (8.4-10.2); Carbon Dioxide 19 mmol/L (22-29); Chloride 116 mmol/L (96-108); Creatinine Clr Calc Pharmacy 68.5; Estimated Glomerular Filt Rate > 60; Glucose Fasting 85 mg/dL (60-99); Potassium 3.1 mmol/L (3.3-5.1); Sodium 140 mmol/L (135-145); Total Protein 6.1 g/dL (6.5-8.0)
[2023-01-19 06:44] LABS: Platelet Count 89 X10*3/uL (160-400)
[2023-01-19 06:55] LABS: Band Neutrophils Percent 28 % (3-5); Lymphocytes Absolute Manual 0.2 X10*3/uL (1.2-4.9); Lymphocytes Percent Manual 7 % (20-40); Metamyelocytes Percent 1 %; Monocytes Absolute Manual 0.3 X10*3/uL (0.1-1.2); Monocytes Percent Manual 9 % (2-11); Neutrophils Absolute Manual 2.4 X10*3/uL (2.0-8.3); Neutrophils Percent Manual 55 % (45-73)
[2023-01-19 06:57] LABS: Acanthocytes 2+ (3-5) /OIF; Dohle Bodies PRESENT; Large Platelet PRESENT; Platelet Estimate DECREASED (NORMAL); Platelet Morphology Comment NOTED; Polychromasia 1+ (0-2) /OIF; RBC Morphology NOTED; Rouleau PRESENT; Tear Drop Cells 1+ (0-2) /OIF; Toxic Granulation PRESENT; Toxic Vacuolation PRESENT
[2023-01-19 07:58] VITALS: BP 104/57; PULSE 66; RESP 16; TEMP 37; O2SAT 97
[2023-01-19 08:00] VITALS: PULSE 66
[2023-01-19 08:02] LABS: Magnesium 1.2 mg/dL (1.6-2.6)
[2023-01-19] MEDS: 0.9 % Sodium Chloride Flush 3 ML SYRINGE IVFLUSH ×3 (08:06→20:07)
[2023-01-19] MEDS: Nicotine 21 MG PATCH.TD24 TRANSDERMA (08:06)
[2023-01-19] MEDS: Atovaquone 750 MG/5 ML ORAL.SUSP 1500 MG PO (08:06)
[2023-01-19] MEDS: methADONE HCl 20 MG/2 ML ORAL.CONC 15 MG PO ×3 (08:06→20:07)
[2023-01-19] MEDS: Potassium Chloride Packet 20 MEQ PACKET 40 MEQ PO (08:07)
[2023-01-19] MEDS: Magnesium Sulfate/H2O 2 GM/50 ML PIGGYBACK IV (09:16)
--- NOTE | 2023-01-19 09:22 | P.PNNP_ITS ---
Subjective Subjective Date of Service: 01/19/23 Interval history: Feeling better today Physical Exam 2 Vital Signs: Vital Signs: Last Vital Signs Temp 98.6 F 01/19/23 07:58 Pulse 66 01/19/23 07:58 Resp 16 01/19/23 07:58 BP 104/57 L 01/19/23 07:58 Pulse Ox 97 01/19/23 07:58 O2 Del Method Room Air 01/19/23 07:58 BMI result Body Mass Index 20.4 Const: Other: Appearance: Alert. Oriented X3. No acute distress. Eyes: Pupils equal, round and reactive to light. ENT: Pharynx normal. Neck: Normal inspection. Neck supple. No lymph nodes noted. No crepitus CVS: Normal heart rate and rhythm. Pulses normal. Normal S1 and S2 Respiratory: No respiratory distress. Breath sounds normal. No Wheezing. No rales Abdomen: Soft and nontender. No rigidity. No distention. Skin: Skin warm and dry. Normal skin color. Normal skin turgor. Extremities: Patient's left foot is swollen, erythematous from the toes to below the knee, pain to palpation on the calf, +2 pitting edema Neuro: Oriented X 3. No motor deficit. No sensory deficit. Moving all extremities. No slurred speech. CN 2 through 12 grossly intact Psych: calm, cooperative, normal affect Objective Data Labs 01/19/23 05:26 01/19/23 05:26 Labs: Laboratory Results - last 24 hr 01/18/23 01/19/23 12:25 05:26 WBC 2.9 L RBC 2.63 L Hgb 7.4 L Hct 22.9 L MCV 87.1 MCH 28.1 MCHC 32.3 RDW 21.8 H Plt Count 89 L MPV 11.4 Immature Gran % (Auto) Cancelled Neut % (Auto) Cancelled Lymph % (Auto) Cancelled [place] % (Auto) Cancelled Eos % (Auto) Cancelled Baso % (Auto) Cancelled Lymph # (Auto) Cancelled [place] # (Auto) Cancelled Eos # (Auto) Cancelled Baso # (Auto) Cancelled Abs Immat Gran (auto) Cancelled Absolute Neuts (auto) Cancelled Absolute Nucleated RBC 0.000 Nucleated RBC % (auto) 0.0 Neutrophils % (Manual) 55 Band Neutrophils % 28 H Lymphocytes % (Manual) 7 L Monocytes % (Manual) 9 Metamyelocytes % 1 Abs Neuts (Manual) 2.4 Lymphocytes # (Manual) 0.2 L Monocytes # (Manual) 0.3 Toxic Granulation PRESENT Toxic Vacuolation PRESENT Dohle Bodies PRESENT Platelet Estimate DECREASED Large Platelets PRESENT Plt Morphology Comment NOTED RBC Morphology NOTED Polychromasia 1+ (0-2) Tear Drop Cells 1+ (0-2) Acanthocytes (Spur) 2+ (3-5) Rouleaux PRESENT Smear Path Review SEE NOTE Sodium 140 Potassium 3.1 L Chloride 116 H Carbon Dioxide 19 L Anion Gap 8 L BUN 31 H Creatinine 1.09 Estim Creat Clear Calc 68.5 Estimated GFR > 60 Fasting Glucose 85 Calcium 6.6 L D Magnesium 1.2 L* Total Bilirubin 0.7 AST 28 ALT 7 Alkaline Phosphatase 559 H Total Protein 6.1 L Albumin 1.3 L Stool Occult Blood NEGATIVE Microbiology Microbiology Results: Microbiology 01/16/23 13:11 Blood - Venous Blood Culture - Final Staphylococcus aureus 01/16/23 14:14 Blood - Venous Blood Culture - Preliminary No growth after 48 hours. Procedures Date of Service Date of Service: 01/19/23 Assessment & Plan Assessment and plan (1) Acute kidney injury: Status: Acute Plan 47-year-old man with IV drug abuse and a history of hep C and recently diagnosed HIV positivity now with acute kidney injury. There is a wide fluctuation in serum creatinine. Acute Glomerulonephritis should be ruled out. Other possibilities including hypoperfusion based on the clicinal course No evidence of obstructive uropathy based on the CT scan done on urine for protein creatinine ratio. = 1gm. Creatinine is trending down Recommendation Serologies pending/Cocaine + For now continue to avoid nephrotoxic agents including NSAIDs. Keep intake more the output. Monitor urine output. No absolute indication for dialysis. Further workup will be based on the outcome of the above based indications and will follow him closely. Concur with other management Time Spent With Patient Time: Total time managing care of this patient today ____ minutes. Progress Note: Quality Stroke Does the patient have a stroke diagnosis?: No
[2023-01-19] MEDS: DAPTOmycin 500 MG in 0.9 % Sodium Chloride 50 ML 120 MG IV (14:59)
[2023-01-19 15:22] VITALS: BP 117/76; PULSE 90; RESP 16; TEMP 37.6; O2SAT 100
--- NOTE | 2023-01-19 16:08 | HO.PM.IMPN ---
Subjective Subjective Date of Service: 01/19/23 Interval History: seen and examined this morning follow up for cellulitis, bacteremia history obtained with assistance of log sorting supervisor no specific complaints Review of Systems Review of Systems: Yes all other systems are reviewed and are negative Constitutional Constitutional: Denies chills and Denies fever(s) Cardiovascular Cardiovascular: Denies chest pain Physical Exam Vital Signs: Vital Signs: Last Vital Signs Temp 99.6 F 01/19/23 15:22 Pulse 90 01/19/23 15:22 Resp 16 01/19/23 15:22 BP 117/76 01/19/23 15:22 Pulse Ox 100 01/19/23 15:22 O2 Del Method Room Air 01/19/23 15:22 BMI result Body Mass Index 20.4 Const: Other: ill appearing, thin General: alert and awake Orientation/consciousness: patient oriented x3 Resp: Effort & Inspection: normal respiratory effort, no respiratory distress and no use of accessory muscles Cardio: Rate: regular rate GI: Inspection: No distended Palpation (GI): Soft to palpation and nontender Skin: Other: left leg with swelling to foot and erythema Neuro: General: patient oriented x3, moves all extremities and CN's II-XI intact bilaterally Objective Data Active Medications Acetaminophen (Acetaminophen 325 Mg Tablet) 650 mg PO Q6H PRN PRN Reason: Pain, Mild (Pain Scale 1-3) Al Hydroxide/Mg Hydroxide (Magnesium Hydrox/Alum Hydrox 30 Ml Oral.Susp) 30 ml PO Q4H PRN PRN Reason: Heartburn/Nausea Atovaquone (Atovaquone 750 Mg/5 Ml Oral.Susp) 1,500 mg PO DAILY [facility] Last Admin: 01/19/23 08:06 Dose: 1,500 mg Documented By: ALCIDES Docusate Sodium (Docusate Sodium 100 Mg Capsule) 100 mg PO BID [facility] Last Admin: 01/19/23 08:07 Dose: Not Given Documented By: ALCIDES Non-Admin Reason: Patient Refused Heparin Sodium (Porcine) (Heparin Sodium,Porcine 5,000 Unit/Ml Vial) 5,000 unit SUBCUT Q8H [facility] Last Admin: 01/19/23 13:23 Dose: Not Given Documented By: ALCIDES Non-Admin Reason: Patient Refused Hydromorphone HCl (Hydromorphone Hcl 1 Mg/Ml Syringe) 1 mg IVPUSH Q4H PRN; Protocol PRN Reason: Pain, Severe (Pain Scale 7-10) Last Admin: 01/17/23 10:25 Dose: 1 mg Documented By: NONA Daptomycin 500 mg/ Sodium (Chloride) 60 mls @ 120 mls/hr IV Q24H [facility] Last Admin: 01/19/23 14:59 Dose: 120 mls/hr Documented By: ALCIDES Methadone HCl (Methadone Hcl 20 Mg/2 Ml Oral.Conc) 15 mg PO TID [facility] Last Admin: 01/19/23 14:58 Dose: 15 mg Documented By: ALCIDES Naloxone HCl (Naloxone Hcl 0.4 Mg/Ml Vial) 0.1 mg IVPUSH Q2M PRN PRN Reason: Respiratory Rate < 10 Nicotine (Nicotine 21 Mg Patch.Td24) 21 mg TRANSDERMA DAILY [facility] Last Admin: 01/19/23 08:06 Dose: 21 mg Documented By: ALCIDES Nicotine Polacrilex (Nicotine Polacrilex 2 Mg Gum) 2 mg BUCCAL Q2H PRN PRN Reason: Nicotine Cravings Ondansetron HCl (Ondansetron Hcl 4 Mg/2 Ml Vial) 4 mg IVPUSH Q8H PRN PRN Reason: Nausea and Vomiting Oxycodone HCl (Oxycodone Hcl Immed Release 5 Mg Tablet) 5 mg PO Q6H PRN PRN Reason: Pain, Moderate(Pain Scale 4-6) Last Admin: 01/19/23 00:40 Dose: 5 mg Documented By: SU Pharmacy Consult (Consult Rx Vancomycin Dosing) 1 each MISCELLANE DAILY PRN PRN Reason: Consult order Senna (Sennosides 8.6 Mg Tablet) 17.2 mg PO BEDTIME PRN PRN Reason: Constipation Sodium Chloride (0.9 % Sodium Chloride Flush 3 Ml Syringe) 3 ml IVFLUSH QSHIFT [facility] Last Admin: 01/19/23 15:00 Dose: 3 ml Documented By: ALCIDES Temazepam (Temazepam 15 Mg Capsule) 15 mg PO BEDTIME PRN PRN Reason: Insomnia Last Admin: 01/17/23 22:53 Dose: 15 mg Documented By: RADHAYESAN Labs 01/19/23 05:26 01/19/23 05:26 Labs: Laboratory Results - last 24 hr 01/19/23 05:26 MCV 87.1 MCH 28.1 MCHC 32.3 RDW 21.8 H Plt Count 89 L MPV 11.4 Immature Gran % (Auto) Cancelled Neut % (Auto) Cancelled Lymph % (Auto) Cancelled [place] % (Auto) Cancelled Eos % (Auto) Cancelled Baso % (Auto) Cancelled Lymph # (Auto) Cancelled [place] # (Auto) Cancelled Eos # (Auto) Cancelled Baso # (Auto) Cancelled Abs Immat Gran (auto) Cancelled Absolute Neuts (auto) Cancelled Absolute Nucleated RBC 0.000 Nucleated RBC % (auto) 0.0 Neutrophils % (Manual) 55 Band Neutrophils % 28 H Lymphocytes % (Manual) 7 L Monocytes % (Manual) 9 Metamyelocytes % 1 Abs Neuts (Manual) 2.4 Lymphocytes # (Manual) 0.2 L Monocytes # (Manual) 0.3 Toxic Granulation PRESENT Toxic Vacuolation PRESENT Dohle Bodies PRESENT Platelet Estimate DECREASED Large Platelets PRESENT Plt Morphology Comment NOTED RBC Morphology NOTED Polychromasia 1+ (0-2) Tear Drop Cells 1+ (0-2) Acanthocytes (Spur) 2+ (3-5) Rouleaux PRESENT Smear Path Review SEE NOTE Anion Gap 8 L Estim Creat Clear Calc 68.5 Estimated GFR > 60 Fasting Glucose 85 Calcium 6.6 L D Magnesium 1.2 L* Total Bilirubin 0.7 AST 28 ALT 7 Alkaline Phosphatase 559 H Total Protein 6.1 L Albumin 1.3 L Microbiology Microbiology Results: Microbiology 01/16/23 13:11 Blood Culture - Final Blood - Venous Staphylococcus aureus 01/16/23 14:14 Blood Culture - Preliminary Blood - Venous No growth after 48 hours. Assessment and Plan (1) Anemia: Status: Acute (2) Acute kidney injury: Status: Acute (3) Cellulitis: Status: Acute Plan 47-year-old Hungarian-speaking man who is an active IV heroin and cocaine abuse admitted with cellulitis; minimal improvement since admission GPC bacteremia 1/2 growing MSSA was initially treated with vanco/zosyn, changed to dapto 01/18 due to inability to get labs to follow vanco trough - will change to kefzol echo with no obvious vegetation ID follwing sepsis due to cellulitis of left leg will change to kefzol as above US neg for DVT CT neg for any drainable fluid collection keep leg elevated anaplasma peripheral smear intracytoplasmic inclusions are identified, suggestive of Anaplasma will start doxy - will need 10 days ID aware HIV/ Hep C (new diagnosis) seen by ID mepron started for PJP ppx hypokalemia/hypomagnesemia replace and follow daily Acute renal failure resolved with IVF lung mass chest CT pending pancytopenia no evidence of bleeding likely due to chronic dz/acute illness/hepatosplenomegaly from HCV less likely hemolysis, bili wnl; will check haptoglobin, LDH trending back down follow daily CBC, transfuse prn seen by GI - will need egd/colonoscopy likely as outpatient unless has overt GI bleeding polysubstance abuse seen by Addiction med, started on methadone nicotine dependence smoking cessation advised NRT DVT ppx -heparin Full code attending - Dr. Hernandez continued hospital stay for management of cellulitis of the left leg, acute renal failure and anemia requiring close monitoring and because patient is an active IV drug user and homeless he is likely to decompensate quickly without hospital level treatment Quality Stroke Does the patient have a stroke diagnosis?: No VTE Prior VTE?: No VTE Risk Level:: Medical - moderate - high VTE Device Contraindication: Treatment Not Tolerated VTE Drug Contraindication: N/A - Med Ordered
--- NOTE | 2023-01-19 16:22 | MHC.RECOVRN ---
Met with pt to follow up and provide support. Pt laying in bed, awake, alert, smiles. When asked how pt is doing, pt gives thumbs up. Pt denies current withdrawal symptoms, is comfortable with 15 mg methadone TID. Pt denies questions or concerns for t/w. Roseanne Carter APRN, aware.
--- NOTE | 2023-01-19 16:32 | P.CDIM_ITS ---
PROVIDER RESPONSE TEXT: To clarify, the appropriate diagnosis supported by the clinical indicators: Malnutrition: mild QUERY TEXT: PHYSICIAN'S DOCUMENTATION REQUEST Date of Query: 01/19/2023 07:55 AM EST Patient Name: TIMI PILLAI Admit Date: 01/17/2023 Dear Samanta Whitten, A review of the medical record indicates additional documentation may be needed. Please review below and update the documentation accordingly. Clinical Indicators: Unintentional weight loss, underweight, thin, frail, weakness. BMI 19.5 57.2kg Albumin 1.3 Total protein 6.1 If possible, please provide an associated diagnosis related to the abnormal BMI, such as: Malnutrition mild, moderate, severe Other etiology of the weight loss Other (explain) Clinically unable to determine (explain) Thank you, Katnia Dominguez, CCS, CDIS Use of terms such as suspected, likely, concern for, or probable (associated with a specific diagnosi s that is being evaluated, monitored, or treated as if it exists) are acceptable and can be coded in the inpatient se tting, when documented at the time of discharge. Please use your independent medical judgment in providing your response. THIS QUERY IS PART OF THE PERMANENT MEDICAL RECORD
[2023-01-19] MEDS: ceFAZolin Sodium/Dextrose,Iso 2 GM/50 ML PIGGYBACK IV ×2 (17:10→23:16)
[2023-01-19] MEDS: Doxycycline Monohydrate 100 MG CAPSULE PO (17:10)
[2023-01-19 19:47] VITALS: BP 118/69; PULSE 98; RESP 18; TEMP 37.2; O2SAT 100
--- NOTE | 2023-01-19 21:44 | P.PNID_ITS ---
Subjective Subjective Date of Service: 01/19/23 Critical Care Time (minutes): 15 Comment: he feels much better today his mother is here with him Objective Data Labs 01/19/23 05:26 01/19/23 05:26 Labs: Laboratory Results - last 24 hr 01/19/23 05:26 WBC 2.9 L RBC 2.63 L Hgb 7.4 L Hct 22.9 L MCV 87.1 MCH 28.1 MCHC 32.3 RDW 21.8 H Plt Count 89 L MPV 11.4 Immature Gran % (Auto) Cancelled Neut % (Auto) Cancelled Lymph % (Auto) Cancelled [place] % (Auto) Cancelled Eos % (Auto) Cancelled Baso % (Auto) Cancelled Lymph # (Auto) Cancelled [place] # (Auto) Cancelled Eos # (Auto) Cancelled Baso # (Auto) Cancelled Abs Immat Gran (auto) Cancelled Absolute Neuts (auto) Cancelled Absolute Nucleated RBC 0.000 Nucleated RBC % (auto) 0.0 Neutrophils % (Manual) 55 Band Neutrophils % 28 H Lymphocytes % (Manual) 7 L Monocytes % (Manual) 9 Metamyelocytes % 1 Abs Neuts (Manual) 2.4 Lymphocytes # (Manual) 0.2 L Monocytes # (Manual) 0.3 Toxic Granulation PRESENT Toxic Vacuolation PRESENT Dohle Bodies PRESENT Platelet Estimate DECREASED Large Platelets PRESENT Plt Morphology Comment NOTED RBC Morphology NOTED Polychromasia 1+ (0-2) Tear Drop Cells 1+ (0-2) Acanthocytes (Spur) 2+ (3-5) Rouleaux PRESENT Smear Path Review SEE NOTE Sodium 140 Potassium 3.1 L Chloride 116 H Carbon Dioxide 19 L Anion Gap 8 L BUN 31 H Creatinine 1.09 Estim Creat Clear Calc 68.5 Estimated GFR > 60 Fasting Glucose 85 Calcium 6.6 L D Magnesium 1.2 L* Total Bilirubin 0.7 AST 28 ALT 7 Alkaline Phosphatase 559 H Total Protein 6.1 L Albumin 1.3 L Microbiology Microbiology Results: Microbiology 01/16/23 13:11 Blood - Venous Blood Culture - Final Staphylococcus aureus 01/16/23 14:14 Blood - Venous Blood Culture - Preliminary No growth after 48 hours. Physical Exam 2 Vital Signs: Vital Signs: Last Vital Signs Temp 98.9 F 01/19/23 19:47 Pulse 98 01/19/23 19:47 Resp 18 01/19/23 19:47 BP 118/69 01/19/23 19:47 Pulse Ox 100 01/19/23 19:47 O2 Del Method Room Air 01/19/23 19:47 BMI result Body Mass Index 20.4 Const: General: cooperative HEENT: Head: Yes normal to inspection Mouth: Normal oral and palatal mucosa present Resp: Effort & Inspection: normal respiratory effort Cardio: Rate: regular rate Rhythm: regular rhythm GI: Inspection: Yes normal to inspection Assessment and Plan Assessment and plan (1) MSSA bacteremia: Problem details: likely IVDU source Status: Acute Assessment and Plan: Kefzol for four weeks (2) Anaplasmosis: Problem details: seen by pathologist shonna Pradhan Status: Acute Assessment and Plan: Doxycycline for 10 days (3) HIV MAY positive: Status: Acute Assessment and Plan: Awaiting HIV confirmatory antibody start Biktarvy if found to be positive. Time Spent With Patient Time: Total time managing care of this patient today ____ minutes.
[2023-01-20] VITALS (10 sets, daily range): BP systolic 113–128; BP diastolic 67–84; PULSE 83–98; RESP 16–18; TEMP 36.7–37.7; O2SAT 96–99; BMI 20.4
[2023-01-20] MEDS: Doxycycline Monohydrate 100 MG CAPSULE PO ×2 (05:02→15:49)
[2023-01-20] MEDS: oxyCODONE HCl Immed Release 5 MG TABLET PO (05:02)
[2023-01-20 06:53] LABS: Hematocrit 23.7 % (42.0-52.0); Hemoglobin 7.2 g/dl (14.0-18.0); Mean Corpuscular HGB Conc 30.4 g/dl (31.0-36.0); Mean Corpuscular Volume 88.8 fL (80.0-98.0); PLT CLUMP 1; Red Blood Count 2.67 X10*6/uL (4.60-5.80); Red Cell Distribution Width 21.7 % (11.0-16.0)
[2023-01-20 07:15] LABS: Alanine Aminotransferase 5 U/L (0-40); Albumin Level 1.2 g/dL (3.5-5.0); Alkaline Phosphatase 619 U/L (39-117); Anion Gap 9 (12-20); Aspartate Amino Transferase 27 U/L (5-37); Bilirubin Direct 0.3 mg/dL (0.0-0.5); Bilirubin Total 0.5 mg/dL (0.0-1.0); Blood Urea Nitrogen 23 mg/dL (9-16); Calcium 6.9 mg/dL (8.4-10.2); Carbon Dioxide 19 mmol/L (22-29); Chloride 113 mmol/L (96-108); Creatinine Clr Calc Pharmacy 69.7; Estimated Glomerular Filt Rate > 60; Glucose Random 107 mg/dL (60-115); Lactate Dehydrogenase 237 U/L (118-273); Potassium 3.7 mmol/L (3.3-5.1); Sodium 137 mmol/L (135-145); Total Protein 6.1 g/dL (6.5-8.0)
[2023-01-20 07:18] LABS: Platelet Count 83 X10*3/uL (160-400); White Blood Count 2.6 X10*3/uL (4.8-10.8)
[2023-01-20 08:10] LABS: Magnesium 1.4 mg/dL (1.6-2.6)
[2023-01-20] MEDS: Magnesium Sulfate/H2O 2 GM/50 ML PIGGYBACK IV (08:35)
[2023-01-20] MEDS: 0.9 % Sodium Chloride Flush 3 ML SYRINGE IVFLUSH ×3 (08:36→21:10)
[2023-01-20] MEDS: Magnesium Oxide 400 MG TABLET PO ×2 (09:16→17:35)
[2023-01-20] MEDS: methADONE HCl 20 MG/2 ML ORAL.CONC 15 MG PO ×3 (09:16→21:09)
[2023-01-20] MEDS: Atovaquone 750 MG/5 ML ORAL.SUSP 1500 MG PO (09:16)
[2023-01-20 09:17] LABS: HIV 2 Antibody NEGATIVE
[2023-01-20 09:18] LABS: HIV 1 Antibody POSITIVE (Abnormal)
[2023-01-20] MEDS: Nicotine 21 MG PATCH.TD24 TRANSDERMA (09:18)
[2023-01-20] MEDS: ceFAZolin Sodium/Dextrose,Iso 2 GM/50 ML PIGGYBACK IV ×2 (10:23→17:37)
--- NOTE | 2023-01-20 11:10 | MHC.CM.PN ---
EMR REVIEWED AND PER MD ROUNDS, PT IS NOT MEDICALLY CLEARED FOR DC ( IV ABT, MSSA BACTEREMIA, HIV W/U) CM WILL CONTINUE TO FOLLOW FOR ANY CHANGE IN DC NEEDS/PLAN.
[2023-01-20] MEDS: Acetaminophen 325 MG TABLET 650 MG PO (11:34)
--- NOTE | 2023-01-20 12:27 | HO.PM.IMPN ---
Subjective Subjective Date of Service: 01/20/23 Interval History: seen and examined this morning follow up for bacteremia having some cough, swelling and pain to right leg improving no sob Review of Systems Review of Systems: Yes all other systems are reviewed and are negative Constitutional Constitutional: Denies chills and Denies fever(s) Cardiovascular Cardiovascular: Denies chest pain, Denies palpitations and Denies dyspnea Respiratory Respiratory: Denies cough and Denies dyspnea Gastrointestinal Gastrointestinal: Denies abdominal pain Endocrine Endocrine: Denies palpitations Physical Exam Vital Signs: Vital Signs: Last Vital Signs Temp 98.1 F 01/20/23 11:41 Pulse 89 01/20/23 11:41 Resp 17 01/20/23 11:41 BP 116/69 01/20/23 11:41 Pulse Ox 96 01/20/23 10:48 O2 Del Method Room Air 01/20/23 10:48 BMI result Body Mass Index 20.4 Const: Other: ill appearing, thin General: alert and awake Orientation/consciousness: patient oriented x3 Resp: Effort & Inspection: normal respiratory effort, no respiratory distress and no use of accessory muscles Cardio: Rate: regular rate GI: Inspection: No distended Palpation (GI): Soft to palpation and nontender Skin: Other: erythema and swelling of left leg improving Neuro: General: patient oriented x3, moves all extremities and CN's II-XI intact bilaterally Objective Data Active Medications Acetaminophen (Acetaminophen 325 Mg Tablet) 650 mg PO Q6H PRN PRN Reason: Pain, Mild (Pain Scale 1-3) Last Admin: 01/20/23 11:34 Dose: 650 mg Documented By: NYA Al Hydroxide/Mg Hydroxide (Magnesium Hydrox/Alum Hydrox 30 Ml Oral.Susp) 30 ml PO Q4H PRN PRN Reason: Heartburn/Nausea Atovaquone (Atovaquone 750 Mg/5 Ml Oral.Susp) 1,500 mg PO DAILY [facility] Last Admin: 01/20/23 09:16 Dose: 1,500 mg Documented By: NYA Docusate Sodium (Docusate Sodium 100 Mg Capsule) 100 mg PO BID [facility] Last Admin: 01/20/23 09:16 Dose: Not Given Documented By: NYA Non-Admin Reason: Patient Refused Doxycycline Monohydrate (Doxycycline Monohydrate 100 Mg Capsule) 100 mg PO Q12H [facility] Stop: 01/29/23 16:29 Last Admin: 01/20/23 05:02 Dose: 100 mg Documented By: AZAM Heparin Sodium (Porcine) (Heparin Sodium,Porcine 5,000 Unit/Ml Vial) 5,000 unit SUBCUT Q8H [facility] Last Admin: 01/20/23 05:03 Dose: Not Given Documented By: AZAM Non-Admin Reason: Patient Refused Hydromorphone HCl (Hydromorphone Hcl 1 Mg/Ml Syringe) 1 mg IVPUSH Q4H PRN; Protocol PRN Reason: Pain, Severe (Pain Scale 7-10) Last Admin: 01/17/23 10:25 Dose: 1 mg Documented By: NONA Cefazolin Sodium/Dextrose (Ancef) 2 gm in 50 mls @ 100 mls/hr IV Q8H [facility] Last Infusion: 01/20/23 11:35 Dose: Infused Documented By: NYA Magnesium Oxide (Magnesium Oxide 400 Mg Tablet) 400 mg PO BIDPC [facility] Last Admin: 01/20/23 09:16 Dose: 400 mg Documented By: NYA Methadone HCl (Methadone Hcl 20 Mg/2 Ml Oral.Conc) 15 mg PO TID [facility] Last Admin: 01/20/23 09:16 Dose: 15 mg Documented By: NYA Naloxone HCl (Naloxone Hcl 0.4 Mg/Ml Vial) 0.1 mg IVPUSH Q2M PRN PRN Reason: Respiratory Rate < 10 Nicotine (Nicotine 21 Mg Patch.Td24) 21 mg TRANSDERMA DAILY [facility] Last Admin: 01/20/23 09:18 Dose: 21 mg Documented By: NYA Nicotine Polacrilex (Nicotine Polacrilex 2 Mg Gum) 2 mg BUCCAL Q2H PRN PRN Reason: Nicotine Cravings Ondansetron HCl (Ondansetron Hcl 4 Mg/2 Ml Vial) 4 mg IVPUSH Q8H PRN PRN Reason: Nausea and Vomiting Oxycodone HCl (Oxycodone Hcl Immed Release 5 Mg Tablet) 5 mg PO Q6H PRN PRN Reason: Pain, Moderate(Pain Scale 4-6) Last Admin: 01/20/23 05:02 Dose: 5 mg Documented By: AZAM Pharmacy Consult (Consult Rx Vancomycin Dosing) 1 each MISCELLANE DAILY PRN PRN Reason: Consult order Senna (Sennosides 8.6 Mg Tablet) 17.2 mg PO BEDTIME PRN PRN Reason: Constipation Sodium Chloride (0.9 % Sodium Chloride Flush 3 Ml Syringe) 3 ml IVFLUSH QSHIFT [facility] Last Admin: 01/20/23 08:36 Dose: 3 ml Documented By: NYA Temazepam (Temazepam 15 Mg Capsule) 15 mg PO BEDTIME PRN PRN Reason: Insomnia Last Admin: 01/17/23 22:53 Dose: 15 mg Documented By: LISETTE Labs 01/20/23 05:37 01/20/23 05:37 Labs: Laboratory Results - last 24 hr 01/16/23 01/20/23 01/20/23 15:08 05:37 07:49 MCV 88.8 MCH 27.0 MCHC 30.4 L RDW 21.7 H Plt Count 83 L MPV 11.0 Absolute Nucleated RBC 0.000 Nucleated RBC % (auto) 0.0 Anion Gap 9 L Estim Creat Clear Calc 69.7 Estimated GFR > 60 Random Glucose 107 Calcium 6.9 L Magnesium 1.4 L* Total Bilirubin 0.5 Direct Bilirubin 0.3 AST 27 ALT 5 Alkaline Phosphatase 619 H Lactate Dehydrogenase 237 Total Protein 6.1 L Albumin 1.2 L HIV-1 Antibody POSITIVE (Abnormal) HIV-1 RNA, Qual (TMA) TNP HIV-2 Antibody NEGATIVE Blood Type A Positive Antibody Screen NEGATIVE Crossmatch See Detail Microbiology Microbiology Results: Microbiology 01/16/23 13:11 Blood Culture - Final Blood - Venous Staphylococcus aureus Assessment and Plan (1) Anaplasmosis: Status: Acute (2) MSSA bacteremia: Status: Acute (3) Cellulitis: Status: Acute (4) HIV MAY positive: Status: Acute Plan 47-year-old Swedish-speaking man who is an active IV heroin and cocaine abuse admitted with cellulitis; minimal improvement since admission GPC bacteremia 1/2 growing MSSA was initially treated with vanco/zosyn, changed to kefzol, 01/19 echo with no obvious vegetation ID following - rec 4 weeks of IV kefzol repeat blood cultures pending, will need PICC line/rehab placement sepsis due to cellulitis of left leg. improving. will change to kefzol as above US neg for DVT CT neg for any drainable fluid collection keep leg elevated anaplasma peripheral smear intracytoplasmic inclusions are identified, suggestive of Anaplasma will start doxy - will need 10 days ID following HIV/ Hep C (new diagnosis) seen by ID mepron started for PJP ppx awaiting HIV confirmatory antibody hypokalemia resolved with replacement hypomagnesemia likely due to poor po intake mag 1.4 replace IV and po follow daily Acute renal failure resolved with IVF lung mass chest CT pending pancytopenia no evidence of bleeding likely due to chronic dz/acute illness/hepatosplenomegaly from HCV less likely hemolysis, LDH, bili wnl, haptoglobin pending seen by GI - will need egd/colonoscopy likely as outpatient unless has overt GI bleeding H/H trending down, will transfuse 1U rbc follow CBC polysubstance abuse seen by Addiction med, started on methadone nicotine dependence smoking cessation advised NRT mild protein calorie malnutrition BMI 20 supplements added to diet DVT ppx -heparin Full code attending - Dr. Hernandez continued hospital stay for management of cellulitis of the left leg, acute renal failure and anemia requiring close monitoring and because patient is an active IV drug user and homeless he is likely to decompensate quickly without hospital level treatment Quality Stroke Does the patient have a stroke diagnosis?: No VTE Prior VTE?: No VTE Risk Level:: Medical - moderate - high VTE Device Contraindication: Treatment Not Tolerated VTE Drug Contraindication: N/A - Med Ordered
--- NOTE | 2023-01-20 12:45 | P.PNADD_ITS ---
Subjective Subjective Date of Service: 01/20/23 Reason For Visit: Severe sepsis; cellulitis of left leg; IVDA Interim History: Patient seen this morning Has been receiving methadone 15mg TID Patient awake, alert, and engaged in interview. Much improved since last seen by this press writer on . Reports withdrawal sx are well managed. He reports over 20 year history of using opiates and cocaine IV He has been on methadone in the past and states his dose has been up to 100mg. He would like to remain on methadone. He expressed gratitude multiple times for the care he has been receiving from all clinical staff while here. He was reflecting on how ill he was prior to coming to the ED Discussed rationale for TID dosing and he verbalized understanding. Discussed plan to change to BID and eventually QD dosing. Patient agreeable. Review of Systems Constitutional: Reports as per HPI Mental Status Exam Mental Status Exam Level of Consciousness: Awake, Appropriate and Alert Patient Behavior: Appropriate and Talkative Mood Description: Calm and Cheerful Speech Pattern: Clear (coughing at times when speaking ) Diagnostics Vital Signs (24Hr): Vital Signs - 24 hr 01/19/23 15:22 01/19/23 19:47 01/20/23 03:49 Temperature 99.6 F 98.9 F 99.9 F Pulse Rate 90 98 98 Respiratory Rate 16 18 18 Blood Pressure 117/76 118/69 115/67 Pulse Oximetry 100 100 98 Oxygen Delivery Method Room Air Room Air Room Air 01/20/23 07:52 01/20/23 10:48 01/20/23 11:25 Temperature 98.4 F 98.1 F 98.1 F Pulse Rate 96 95 95 Respiratory Rate 18 16 16 Blood Pressure 122/74 116/68 116/68 Pulse Oximetry 99 96 Oxygen Delivery Method Room Air Room Air 01/20/23 11:41 Temperature 98.1 F Pulse Rate 89 Respiratory Rate 17 Blood Pressure 116/69 Pulse Oximetry Oxygen Delivery Method BMI result Body Mass Index 20.4 Labs 01/20/23 05:37 01/20/23 05:37 Labs: Laboratory Results - last 48 hr 01/16/23 01/18/23 01/19/23 15:08 12:25 05:26 WBC 2.9 L RBC 2.63 L Hgb 7.4 L Hct 22.9 L MCV 87.1 MCH 28.1 MCHC 32.3 RDW 21.8 H Plt Count 89 L MPV 11.4 Immature Gran % (Auto) Cancelled Neut % (Auto) Cancelled Lymph % (Auto) Cancelled Riley % (Auto) Cancelled Eos % (Auto) Cancelled Baso % (Auto) Cancelled Lymph # (Auto) Cancelled Riley # (Auto) Cancelled Eos # (Auto) Cancelled Baso # (Auto) Cancelled Abs Immat Gran (auto) Cancelled Absolute Neuts (auto) Cancelled Absolute Nucleated RBC 0.000 Nucleated RBC % (auto) 0.0 Neutrophils % (Manual) 55 Band Neutrophils % 28 H Lymphocytes % (Manual) 7 L Monocytes % (Manual) 9 Metamyelocytes % 1 Abs Neuts (Manual) 2.4 Lymphocytes # (Manual) 0.2 L Monocytes # (Manual) 0.3 Toxic Granulation PRESENT Toxic Vacuolation PRESENT Dohle Bodies PRESENT Platelet Estimate DECREASED Large Platelets PRESENT Plt Morphology Comment NOTED RBC Morphology NOTED Polychromasia 1+ (0-2) Tear Drop Cells 1+ (0-2) Acanthocytes (Spur) 2+ (3-5) Rouleaux PRESENT Smear Path Review SEE NOTE Sodium 140 Potassium 3.1 L Chloride 116 H Carbon Dioxide 19 L Anion Gap 8 L BUN 31 H Creatinine 1.09 Estim Creat Clear Calc 68.5 Estimated GFR > 60 Random Glucose Fasting Glucose 85 Calcium 6.6 L D Magnesium 1.2 L* Total Bilirubin 0.7 Direct Bilirubin AST 28 ALT 7 Alkaline Phosphatase 559 H Lactate Dehydrogenase Total Protein 6.1 L Albumin 1.3 L Stool Occult Blood NEGATIVE HIV-1 Antibody POSITIVE (Abnormal) HIV-1 RNA, Qual (TMA) TNP HIV-2 Antibody NEGATIVE Blood Type Antibody Screen Crossmatch 01/20/23 01/20/23 05:37 07:49 WBC 2.6 L RBC 2.67 L Hgb 7.2 L Hct 23.7 L MCV 88.8 MCH 27.0 MCHC 30.4 L RDW 21.7 H Plt Count 83 L MPV 11.0 Immature Gran % (Auto) Neut % (Auto) Lymph % (Auto) Riley % (Auto) Eos % (Auto) Baso % (Auto) Lymph # (Auto) Riley # (Auto) Eos # (Auto) Baso # (Auto) Abs Immat Gran (auto) Absolute Neuts (auto) Absolute Nucleated RBC 0.000 Nucleated RBC % (auto) 0.0 Neutrophils % (Manual) Band Neutrophils % Lymphocytes % (Manual) Monocytes % (Manual) Metamyelocytes % Abs Neuts (Manual) Lymphocytes # (Manual) Monocytes # (Manual) Toxic Granulation Toxic Vacuolation Dohle Bodies Platelet Estimate Large Platelets Plt Morphology Comment RBC Morphology Polychromasia Tear Drop Cells Acanthocytes (Spur) Rouleaux Smear Path Review Sodium 137 Potassium 3.7 Chloride 113 H Carbon Dioxide 19 L Anion Gap 9 L BUN 23 H Creatinine 1.07 Estim Creat Clear Calc 69.7 Estimated GFR > 60 Random Glucose 107 Fasting Glucose Calcium 6.9 L Magnesium 1.4 L* Total Bilirubin 0.5 Direct Bilirubin 0.3 AST 27 ALT 5 Alkaline Phosphatase 619 H Lactate Dehydrogenase 237 Total Protein 6.1 L Albumin 1.2 L Stool Occult Blood HIV-1 Antibody HIV-1 RNA, Qual (TMA) HIV-2 Antibody Blood Type A Positive Antibody Screen NEGATIVE Crossmatch See Detail Imaging Radiology Impressions: ITS Impressions Foot X-Ray 01/16/23 11:44 IMPRESSION: 1. No acute visible fracture or dislocation. 2. Slight enthesopathy at the Achilles tendon insertion site. 3. Prominent soft tissue swelling along the dorsum of the forefoot. Chest X-Ray 01/16/23 13:48 IMPRESSION: No acute cardiopulmonary findings. Abdomen/Pelvis CT 01/16/23 14:06 IMPRESSION: Colonic distention with gas and fluid. This may represent colitis. Evaluation is limited by motion artifact. Advise clinical correlation. Hepatosplenomegaly. Hepatic steatosis. Enlarged portacaval lymph node is possibly reactive basis. Cholelithiasis. 3 mm nonobstructing right renal calculus. No hydronephrosis. 1.4 cm subpleural density in the left upper lobe. Dedicated chest CT is recommended for further characterization. Venous Duplex 01/16/23 17:00 IMPRESSION: No DVT demonstrated in the left lower extremity. Lower Extremity CT 01/16/23 22:23 IMPRESSION: * No acute osseous abnormalities. * No evidence of osteomyelitis. * Subcutaneous fat stranding along the anterior and lateral aspects of the calf extending inferiorly along the medial and lateral aspects of the ankle and along the dorsum of the foot where the edema becomes coalescent. No drainable collection. * No intermuscular fluid or soft tissue gas to suggest necrotizing fasciitis. Medications Medications Current Medications Acetaminophen (Acetaminophen 325 Mg Tablet) 650 mg PO Q6H PRN PRN Reason: Pain, Mild (Pain Scale 1-3) Last Admin: 01/20/23 11:34 Dose: 650 mg Al Hydroxide/Mg Hydroxide (Magnesium Hydrox/Alum Hydrox 30 Ml Oral.Susp) 30 ml PO Q4H PRN PRN Reason: Heartburn/Nausea Atovaquone (Atovaquone 750 Mg/5 Ml Oral.Susp) 1,500 mg PO DAILY [facility] Last Admin: 01/20/23 09:16 Dose: 1,500 mg Docusate Sodium (Docusate Sodium 100 Mg Capsule) 100 mg PO BID [facility] Last Admin: 01/20/23 09:16 Dose: Not Given Doxycycline Monohydrate (Doxycycline Monohydrate 100 Mg Capsule) 100 mg PO Q12H [facility] Stop: 01/29/23 16:29 Last Admin: 01/20/23 05:02 Dose: 100 mg Heparin Sodium (Porcine) (Heparin Sodium,Porcine 5,000 Unit/Ml Vial) 5,000 unit SUBCUT Q8H [facility] Last Admin: 01/20/23 05:03 Dose: Not Given Hydromorphone HCl (Hydromorphone Hcl 1 Mg/Ml Syringe) 1 mg IVPUSH Q4H PRN; Protocol PRN Reason: Pain, Severe (Pain Scale 7-10) Last Admin: 01/17/23 10:25 Dose: 1 mg Cefazolin Sodium/Dextrose (Ancef) 2 gm in 50 mls @ 100 mls/hr IV Q8H [facility] Last Infusion: 01/20/23 11:35 Dose: Infused Magnesium Oxide (Magnesium Oxide 400 Mg Tablet) 400 mg PO BIDPC [facility] Last Admin: 01/20/23 09:16 Dose: 400 mg Methadone HCl (Methadone Hcl 20 Mg/2 Ml Oral.Conc) 15 mg PO TID [facility] Last Admin: 01/20/23 09:16 Dose: 15 mg Naloxone HCl (Naloxone Hcl 0.4 Mg/Ml Vial) 0.1 mg IVPUSH Q2M PRN PRN Reason: Respiratory Rate < 10 Nicotine (Nicotine 21 Mg Patch.Td24) 21 mg TRANSDERMA DAILY [facility] Last Admin: 01/20/23 09:18 Dose: 21 mg Nicotine Polacrilex (Nicotine Polacrilex 2 Mg Gum) 2 mg BUCCAL Q2H PRN PRN Reason: Nicotine Cravings Ondansetron HCl (Ondansetron Hcl 4 Mg/2 Ml Vial) 4 mg IVPUSH Q8H PRN PRN Reason: Nausea and Vomiting Oxycodone HCl (Oxycodone Hcl Immed Release 5 Mg Tablet) 5 mg PO Q6H PRN PRN Reason: Pain, Moderate(Pain Scale 4-6) Last Admin: 01/20/23 05:02 Dose: 5 mg Pharmacy Consult (Consult Rx Vancomycin Dosing) 1 each MISCELLANE DAILY PRN PRN Reason: Consult order Senna (Sennosides 8.6 Mg Tablet) 17.2 mg PO BEDTIME PRN PRN Reason: Constipation Sodium Chloride (0.9 % Sodium Chloride Flush 3 Ml Syringe) 3 ml IVFLUSH QSHIFT JASON Last Admin: 01/20/23 08:36 Dose: 3 ml Temazepam (Temazepam 15 Mg Capsule) 15 mg PO BEDTIME PRN PRN Reason: Insomnia Last Admin: 01/17/23 22:53 Dose: 15 mg Allergies Allergies Allergy/AdvReac Type Severity Reaction Status Date / Time fish derived [FISH] Allergy Unknown UNKNOWN Verified 01/16/23 11:09 Assessment & Plan Assessment & Plan (1) Opioid use disorder: Status: Acute Code(s): F11.90 - Opioid use, unspecified, uncomplicated Assessment and Plan: * continue methadone at current dose --plan to change to BID dosing then QD dosing (will leave as is for the weekend) * salesperson [employer] to coordinate OTP referral Total time managing care of this patient today _30___ minutes.
--- NOTE | 2023-01-20 13:24 | MHC.CLN ---
NUTRITION CONSULT FOR WEIGHT LOSS. DIET=REGULAR. CURRENT INTAKE APPEARS POOR. DID NOT EAT BREAKFAST TODAY. ASLEEP AT LUNCH VISIT. ADDING ENSURE BID TO INCREASE NUTRITIONAL INTAKE. PROVIDES 700 KCALS, 40 G PROTEIN. REPORTED WEIGHT LOSS BUT NO RECENT WEIGHTS VIEWED. WEIGHT LOSS X 3 YEARS -33%. RESULT OF HIV TESTING PENDING. FOLLOW FOR INTAKE AND TEST RESULTS. SEE CLINICAL NUTRITION ASSESSMENT 01/20/23.
--- NOTE | 2023-01-20 13:58 | P.PNNP_ITS ---
Subjective Subjective Date of Service: 01/20/23 Interval history: seen and examined this morning. All recent data reviewed. Renal functions better Physical Exam 2 Vital Signs: Vital Signs: Last Vital Signs Temp 98.1 F 01/20/23 11:41 Pulse 89 01/20/23 11:41 Resp 17 01/20/23 11:41 BP 116/69 01/20/23 11:41 Pulse Ox 96 01/20/23 10:48 O2 Del Method Room Air 01/20/23 10:48 BMI result Body Mass Index 20.4 Const: General: no acute distress Eyes: EOM: EOMs intact bilaterally Neck: Neck: Yes supple Resp: Auscultation: diminished lung sounds Cardio: Jugular venous distension: no JVD GI: Palpation (GI): Soft to palpation Neuro: General: moves all extremities Objective Data Labs 01/20/23 05:37 01/20/23 05:37 Labs: Laboratory Results - last 24 hr 01/16/23 01/20/23 01/20/23 15:08 05:37 07:49 WBC 2.6 L RBC 2.67 L Hgb 7.2 L Hct 23.7 L MCV 88.8 MCH 27.0 MCHC 30.4 L RDW 21.7 H Plt Count 83 L MPV 11.0 Absolute Nucleated RBC 0.000 Nucleated RBC % (auto) 0.0 Sodium 137 Potassium 3.7 Chloride 113 H Carbon Dioxide 19 L Anion Gap 9 L BUN 23 H Creatinine 1.07 Estim Creat Clear Calc 69.7 Estimated GFR > 60 Random Glucose 107 Calcium 6.9 L Magnesium 1.4 L* Total Bilirubin 0.5 Direct Bilirubin 0.3 AST 27 ALT 5 Alkaline Phosphatase 619 H Lactate Dehydrogenase 237 Total Protein 6.1 L Albumin 1.2 L HIV-1 Antibody POSITIVE (Abnormal) HIV-1 RNA, Qual (TMA) TNP HIV-2 Antibody NEGATIVE Blood Type A Positive Antibody Screen NEGATIVE Crossmatch See Detail Microbiology Microbiology Results: Microbiology 01/16/23 13:11 Blood - Venous Blood Culture - Final Staphylococcus aureus 01/16/23 14:14 Blood - Venous Blood Culture - Preliminary No growth after 48 hours. Procedures Date of Service Date of Service: 01/20/23 Assessment & Plan Assessment and plan (1) Acute kidney injury: Status: Acute Plan 47-year-old man with IV drug abuse and a history of hep C and recently diagnosed HIV positivity now with acute kidney injury. GIL likely from tubular injury Renal function close to baseline Concur with other management Needs F/U with us when D/Adán Time Spent With Patient Time: . Progress Note: Quality Stroke Does the patient have a stroke diagnosis?: No
--- NOTE | 2023-01-20 15:11 | W.PM.IDCN ---
History of Present Illness Data of Consult Primary Care Provider: None [facility] Past Medical History Medical History (Updated 01/27/23 @ 12:58 by Yudy Alvarez MD) HIV MAY positive Anaplasmosis MSSA bacteremia Polysubstance (including opioids) dependence w/o physiol dependence Asthma Family History Family history: reviewed and not pertinent Social History Social History Household Members: Family Unable to assess alcohol history related to: Refusing to respond Patient Tobacco Use Status: Tobacco use Unknown Substance Use Type: Heroin service: No Meds Allergies Allergy/AdvReac Type Severity Reaction Status Date / Time fish derived [FISH] Allergy Unknown UNKNOWN Verified 01/16/23 11:09 Active Medications: Current Medications Acetaminophen (Acetaminophen 325 Mg Tablet) 650 mg PO Q6H PRN PRN Reason: Pain, Mild (Pain Scale 1-3) Last Admin: 01/20/23 11:34 Dose: 650 mg Al Hydroxide/Mg Hydroxide (Magnesium Hydrox/Alum Hydrox 30 Ml Oral.Susp) 30 ml PO Q4H PRN PRN Reason: Heartburn/Nausea Atovaquone (Atovaquone 750 Mg/5 Ml Oral.Susp) 1,500 mg PO DAILY [facility] Last Admin: 01/20/23 09:16 Dose: 1,500 mg Docusate Sodium (Docusate Sodium 100 Mg Capsule) 100 mg PO BID [facility] Last Admin: 01/20/23 09:16 Dose: Not Given Doxycycline Monohydrate (Doxycycline Monohydrate 100 Mg Capsule) 100 mg PO Q12H [facility] Stop: 01/29/23 16:29 Last Admin: 01/20/23 05:02 Dose: 100 mg Heparin Sodium (Porcine) (Heparin Sodium,Porcine 5,000 Unit/Ml Vial) 5,000 unit SUBCUT Q8H [facility] Last Admin: 01/20/23 13:03 Dose: Not Given Hydromorphone HCl (Hydromorphone Hcl 1 Mg/Ml Syringe) 1 mg IVPUSH Q4H PRN; Protocol PRN Reason: Pain, Severe (Pain Scale 7-10) Last Admin: 01/17/23 10:25 Dose: 1 mg Cefazolin Sodium/Dextrose (Ancef) 2 gm in 50 mls @ 100 mls/hr IV Q8H [facility] Last Infusion: 01/20/23 11:35 Dose: Infused Magnesium Oxide (Magnesium Oxide 400 Mg Tablet) 400 mg PO BIDPC [facility] Last Admin: 01/20/23 09:16 Dose: 400 mg Methadone HCl (Methadone Hcl 20 Mg/2 Ml Oral.Conc) 15 mg PO TID [facility] Last Admin: 01/20/23 09:16 Dose: 15 mg Naloxone HCl (Naloxone Hcl 0.4 Mg/Ml Vial) 0.1 mg IVPUSH Q2M PRN PRN Reason: Respiratory Rate < 10 Nicotine (Nicotine 21 Mg Patch.Td24) 21 mg TRANSDERMA DAILY [facility] Last Admin: 01/20/23 09:18 Dose: 21 mg Nicotine Polacrilex (Nicotine Polacrilex 2 Mg Gum) 2 mg BUCCAL Q2H PRN PRN Reason: Nicotine Cravings Ondansetron HCl (Ondansetron Hcl 4 Mg/2 Ml Vial) 4 mg IVPUSH Q8H PRN PRN Reason: Nausea and Vomiting Oxycodone HCl (Oxycodone Hcl Immed Release 5 Mg Tablet) 5 mg PO Q6H PRN PRN Reason: Pain, Moderate(Pain Scale 4-6) Last Admin: 01/20/23 05:02 Dose: 5 mg Pharmacy Consult (Consult Rx Vancomycin Dosing) 1 each MISCELLANE DAILY PRN PRN Reason: Consult order Senna (Sennosides 8.6 Mg Tablet) 17.2 mg PO BEDTIME PRN PRN Reason: Constipation Sodium Chloride (0.9 % Sodium Chloride Flush 3 Ml Syringe) 3 ml IVFLUSH QSHIFT [facility] Last Admin: 01/20/23 08:36 Dose: 3 ml Temazepam (Temazepam 15 Mg Capsule) 15 mg PO BEDTIME PRN PRN Reason: Insomnia Last Admin: 01/17/23 22:53 Dose: 15 mg Home Medications Medication Instructions Recorded Confirmed Last Taken Type No Known Home Meds 01/16/23 01/16/23 Unknown History Physical Exam Vital Signs: Vital Signs: Last Vital Signs Temp 98.0 F 01/20/23 15:01 Pulse 83 01/20/23 15:01 Resp 18 01/20/23 15:01 BP 113/70 01/20/23 15:01 Pulse Ox 97 01/20/23 15:01 O2 Del Method Room Air 01/20/23 15:01 BMI result Body Mass Index 20.4 Results Labs 01/27/23 06:22 01/27/23 10:00 Labs: Short CBC 01/20/23 Range/Units 05:37 WBC 2.6 L (4.8-10.8) X10*3/uL Hgb 7.2 L (14.0-18.0) g/dl Hct 23.7 L (42.0-52.0) % Plt Count 83 L (160-400) X10*3/uL BMP 01/20/23 05:37 Sodium 137 Potassium 3.7 Chloride 113 H Carbon Dioxide 19 L BUN 23 H Creatinine 1.07 Calcium 6.9 L Liver Function 01/20/23 Range/Units 05:37 Total Bilirubin 0.5 (0.0-1.0) mg/dL Direct Bilirubin 0.3 (0.0-0.5) mg/dL AST 27 (5-37) U/L ALT 5 (0-40) U/L Alkaline Phosphatase 619 H (39-117) U/L Albumin 1.2 L (3.5-5.0) g/dL Microbiology Microbiology Results: Microbiology 01/16/23 13:11 Blood - Venous Blood Culture - Final Staphylococcus aureus 01/16/23 14:14 Blood - Venous Blood Culture - Preliminary No growth after 48 hours.
[2023-01-20 19:29] LABS: HIV RNA PCR Qn Copies 2980000 copies/mL (NOT DETECTED); HIV RNA PCR Qn Log Copies 6.47 (NOT DETECTED)
[2023-01-20] MEDS: Docusate Sodium 100 MG CAPSULE PO (21:09)
[2023-01-20] MEDS: HYDROmorphone HCl 1 MG/ML SYRINGE IVPUSH (21:09)
[2023-01-20] MEDS: Heparin Sodium,Porcine 5,000 UNIT/ML VIAL 5000 UNIT SUBCUT (21:10)
[2023-01-21] VITALS: PULSE 89
[2023-01-21 01:04] LABS: Haptoglobin 132 MG/DL ((30-200))
[2023-01-21] MEDS: ceFAZolin Sodium/Dextrose,Iso 2 GM/50 ML PIGGYBACK IV ×3 (02:03→17:44)
[2023-01-21 04:00] VITALS: BP 116/74; PULSE 95; RESP 18; TEMP 36.9; O2SAT 98
[2023-01-21] MEDS: Doxycycline Monohydrate 100 MG CAPSULE PO ×2 (04:19→17:43)
[2023-01-21 05:39] LABS: Hematocrit 27.6 % (42.0-52.0); Hemoglobin 8.8 g/dl (14.0-18.0); Mean Corpuscular HGB Conc 31.9 g/dl (31.0-36.0); Mean Corpuscular Hemoglobin 27.9 pg (27.0-33.0); Mean Corpuscular Volume 87.6 fL (80.0-98.0); Mean Platelet Volume 10.6 fL (9.4-12.4); Red Blood Count 3.15 X10*6/uL (4.60-5.80); Red Cell Distribution Width 20.4 % (11.0-16.0); White Blood Count 2.7 X10*3/uL (4.8-10.8)
[2023-01-21 05:49] LABS: Platelet Count 92 X10*3/uL (160-400)
[2023-01-21 05:50] LABS: Anion Gap 9 (12-20); Blood Urea Nitrogen 20 mg/dL (9-16); Calcium 7.2 mg/dL (8.4-10.2); Carbon Dioxide 21 mmol/L (22-29); Chloride 114 mmol/L (96-108); Creatinine Clr Calc Pharmacy 85.8; Estimated Glomerular Filt Rate > 60; Glucose Random 89 mg/dL (60-115); Magnesium 1.6 mg/dL (1.6-2.6); Potassium 4.1 mmol/L (3.3-5.1); Sodium 140 mmol/L (135-145)
[2023-01-21 07:14] VITALS: BP 125/68; PULSE 91; RESP 18; TEMP 37.4; O2SAT 93
[2023-01-21 07:58] LABS: Absolute CD3 Count 194 cells/uL (840-3060); Absolute CD4 Count <20 cells/uL (490-1740); Absolute CD8 Count 167 cells/uL (180-1170); Absolute Lymphocytes 254 cells/uL (850-3900); CD4 CD8 Ratio 0.07 (0.86-5.00); Percent CD3 Cells 76 % (57-85); Percent CD4 Cells 5 % (30-61); Percent CD8 Cells 66 % (12-42)
[2023-01-21 08:00] VITALS: PULSE 91
--- NOTE | 2023-01-21 09:20 | P.PNIM_ITS ---
Subjective Subjective Date of Service: 01/21/23 Interval History: seen and examined this morning follow up for bacteremia having some nausea and vomiting, no abdominal pain Review of Systems Review of Systems: Yes all other systems are reviewed and are negative Constitutional Constitutional: Denies chills and Denies fever(s) Cardiovascular Cardiovascular: Denies chest pain, Denies palpitations and Denies dyspnea Respiratory Respiratory: Denies cough and Denies dyspnea Endocrine Endocrine: Denies palpitations Physical Exam 2 Vital Signs: Vital Signs: Last Vital Signs Temp 99.3 F 01/21/23 07:14 Pulse 91 01/21/23 07:14 Resp 18 01/21/23 07:14 BP 125/68 01/21/23 07:14 Pulse Ox 93 01/21/23 07:14 O2 Del Method Room Air 01/21/23 07:14 BMI result Body Mass Index 20.4 Const: Other: ill appearing, thin General: alert and awake Orientation/consciousness: patient oriented x3 Resp: Effort & Inspection: normal respiratory effort, no respiratory distress and no use of accessory muscles Auscultation: clear to auscultation bilaterally Cardio: Rate: regular rate GI: Inspection: No distended Palpation (GI): Soft to palpation and nontender Skin: Other: erythema and swelling of left leg improving Neuro: General: patient oriented x3, moves all extremities and CN's II-XI intact bilaterally Objective Data Active Medications Acetaminophen (Acetaminophen 325 Mg Tablet) 650 mg PO Q6H PRN PRN Reason: Pain, Mild (Pain Scale 1-3) Last Admin: 01/20/23 11:34 Dose: 650 mg Documented By: NYA Al Hydroxide/Mg Hydroxide (Magnesium Hydrox/Alum Hydrox 30 Ml Oral.Susp) 30 ml PO Q4H PRN PRN Reason: Heartburn/Nausea Atovaquone (Atovaquone 750 Mg/5 Ml Oral.Susp) 1,500 mg PO DAILY [facility] Last Admin: 01/20/23 09:16 Dose: 1,500 mg Documented By: NYA Docusate Sodium (Docusate Sodium 100 Mg Capsule) 100 mg PO BID [facility] Last Admin: 01/20/23 21:09 Dose: 100 mg Documented By: BEN Doxycycline Monohydrate (Doxycycline Monohydrate 100 Mg Capsule) 100 mg PO Q12H [facility] Stop: 01/29/23 16:29 Last Admin: 01/21/23 04:19 Dose: 100 mg Documented By: BEN Heparin Sodium (Porcine) (Heparin Sodium,Porcine 5,000 Unit/Ml Vial) 5,000 unit SUBCUT Q8H [facility] Last Admin: 01/21/23 05:42 Dose: Not Given Documented By: BEN Non-Admin Reason: Patient Refused Hydromorphone HCl (Hydromorphone Hcl 1 Mg/Ml Syringe) 1 mg IVPUSH Q4H PRN; Protocol PRN Reason: Pain, Severe (Pain Scale 7-10) Last Admin: 01/20/23 21:09 Dose: 1 mg Documented By: BEN Cefazolin Sodium/Dextrose (Ancef) 2 gm in 50 mls @ 100 mls/hr IV Q8H [facility] Last Infusion: 01/21/23 02:37 Dose: Infused Documented By: BEN Magnesium Oxide (Magnesium Oxide 400 Mg Tablet) 400 mg PO BIDPC [facility] Last Admin: 01/20/23 17:35 Dose: 400 mg Documented By: NYA Methadone HCl (Methadone Hcl 20 Mg/2 Ml Oral.Conc) 15 mg PO TID [facility] Last Admin: 01/20/23 21:09 Dose: 15 mg Documented By: BEN Naloxone HCl (Naloxone Hcl 0.4 Mg/Ml Vial) 0.1 mg IVPUSH Q2M PRN PRN Reason: Respiratory Rate < 10 Nicotine (Nicotine 21 Mg Patch.Td24) 21 mg TRANSDERMA DAILY [facility] Last Admin: 01/20/23 09:18 Dose: 21 mg Documented By: NYA Nicotine Polacrilex (Nicotine Polacrilex 2 Mg Gum) 2 mg BUCCAL Q2H PRN PRN Reason: Nicotine Cravings Ondansetron HCl (Ondansetron Hcl 4 Mg/2 Ml Vial) 4 mg IVPUSH Q8H PRN PRN Reason: Nausea and Vomiting Oxycodone HCl (Oxycodone Hcl Immed Release 5 Mg Tablet) 5 mg PO Q6H PRN PRN Reason: Pain, Moderate(Pain Scale 4-6) Last Admin: 01/20/23 05:02 Dose: 5 mg Documented By: AZAM Pharmacy Consult (Consult Rx Vancomycin Dosing) 1 each MISCELLANE DAILY PRN PRN Reason: Consult order Senna (Sennosides 8.6 Mg Tablet) 17.2 mg PO BEDTIME PRN PRN Reason: Constipation Sodium Chloride (0.9 % Sodium Chloride Flush 3 Ml Syringe) 3 ml IVFLUSH QSHIFT JASON Last Admin: 01/20/23 21:10 Dose: 3 ml Documented By: OZORALB Temazepam (Temazepam 15 Mg Capsule) 15 mg PO BEDTIME PRN PRN Reason: Insomnia Last Admin: 01/17/23 22:53 Dose: 15 mg Documented By: LISETTE Labs 01/21/23 05:24 01/21/23 05:24 Labs: Laboratory Results - last 24 hr 01/19/23 01/20/23 01/20/23 05:26 05:37 07:49 MCV MCH MCHC RDW Plt Count MPV Absolute Nucleated RBC Nucleated RBC % (auto) Haptoglobin 132 Anion Gap Estim Creat Clear Calc Estimated GFR Random Glucose Calcium Magnesium Total Lymphocytes 254 L % CD3 Cells 76 Absolute CD3 Count 194 L % CD4 Cells 5 L Absolute CD4 Count <20 L CD4/CD8 Ratio 0.07 L % CD8 Cells 66 H Absolute CD8 Count 167 L HIV-1 RNA copies/mL [id number] H HIV-1 RNA logcopies/mL 6.47 H Blood Type A Positive Antibody Screen NEGATIVE Crossmatch See Detail 01/21/23 05:24 MCV 87.6 MCH 27.9 MCHC 31.9 RDW 20.4 H Plt Count 92 L MPV 10.6 Absolute Nucleated RBC 0.000 Nucleated RBC % (auto) 0.0 Haptoglobin Anion Gap 9 L Estim Creat Clear Calc 85.8 Estimated GFR > 60 Random Glucose 89 Calcium 7.2 L Magnesium 1.6 Total Lymphocytes % CD3 Cells Absolute CD3 Count % CD4 Cells Absolute CD4 Count CD4/CD8 Ratio % CD8 Cells Absolute CD8 Count HIV-1 RNA copies/mL HIV-1 RNA logcopies/mL Blood Type Antibody Screen Crossmatch Microbiology Microbiology Results: Microbiology 01/19/23 16:39 Blood Culture - Preliminary Blood - Venous No growth after 24 hours. 01/19/23 16:39 Blood Culture - Preliminary Blood - Venous No growth after 24 hours. Assessment and Plan (1) Anaplasmosis: Status: Acute (2) HIV MAY positive: Status: Acute (3) MSSA bacteremia: Status: Acute (4) Cellulitis: Status: Acute (5) Opioid use disorder: Status: Acute Plan 47-year-old Italian-speaking man who is an active IV heroin and cocaine abuse admitted with cellulitis; minimal improvement since admission MSSA Bacteremia likely r/t IVDU was initially treated with vanco/zosyn, changed to kefzol, 01/19 echo with no obvious vegetation ID following - rec 4 weeks of IV kefzol repeat blood cultures negative, will need PICC line/rehab placement sepsis due to cellulitis of left leg. improving. continue kefzol as above US neg for DVT CT neg for any drainable fluid collection keep leg elevated anaplasma peripheral smear intracytoplasmic inclusions are identified, suggestive of Anaplasma will start doxy - plan for 10 days per ID HIV/ Hep C (new diagnosis) mepron started for PJP ppx HIV confirmatory antibody + CD4 count pending ID following HCV viral load pending hypokalemia resolved with replacement hypomagnesemia likely due to poor po intake improving with replacement Acute renal failure resolved with IVF ?lung mass dedicated Chest CT with bilateral upper lobe pulmonary nodules, outpatient follow up pancytopenia no evidence of bleeding (heme neg x2) likely due to chronic dz/acute illness/hepatosplenomegaly from HCV less likely hemolysis, LDH, bili wnl, haptoglobin pending seen by GI - will need egd/colonoscopy likely as outpatient unless has overt GI bleeding s/p 1U rbc 01/16 and then 1U on 01/21 with improvement in H/H follow CBC polysubstance abuse seen by Addiction med, started on methadone nicotine dependence smoking cessation advised NRT mild protein calorie malnutrition BMI 20 supplements added to diet DVT ppx -heparin Full code attending - Dr. Mitchell continued hospital stay for management of cellulitis of the left leg, IV antibiotics for bacteremia, PICC line placement, patient is an active IV drug user and homeless he is likely to decompensate quickly without hospital level treatment Quality Stroke Does the patient have a stroke diagnosis?: No VTE Prior VTE?: No VTE Risk Level:: Medical - moderate - high VTE Device Contraindication: Treatment Not Tolerated VTE Drug Contraindication: N/A - Med Ordered
[2023-01-21] MEDS: Atovaquone 750 MG/5 ML ORAL.SUSP 1500 MG PO (09:33)
[2023-01-21] MEDS: Docusate Sodium 100 MG CAPSULE PO (09:33)
[2023-01-21] MEDS: methADONE HCl 20 MG/2 ML ORAL.CONC 15 MG PO ×3 (09:33→19:38)
[2023-01-21] MEDS: Magnesium Oxide 400 MG TABLET PO ×2 (09:33→17:43)
[2023-01-21] MEDS: Nicotine 21 MG PATCH.TD24 TRANSDERMA (09:34)
[2023-01-21] MEDS: 0.9 % Sodium Chloride Flush 3 ML SYRINGE IVFLUSH ×3 (09:34→19:40)
[2023-01-21] MEDS: ondansetron HCL 4 MG/2 ML VIAL IVPUSH (09:41)
--- NOTE | 2023-01-21 14:17 | MHC.RECOVRN ---
Met with pt in 353 to follow up and provide support. Pt sitting in bed, awake, alert, easily engages in conversation. Mother at bedside. Pt reports feeling good in regards to methadone dose, denies withdrawal symptoms. Pt does report n/v and difficulty eating and drinking due to this, RN aware. Pt looking forward to recovery and continuing methadone. Denies questions or concerns for t/w at this time. Roseanne Carter APRN, aware.
[2023-01-21 14:24] LABS: HCV Log PCR <1.18 NOT DETECTED Log IU/mL (NOT DETECTED); HepC Viral Load <15 NOT DETECTED IU/mL (NOT DETECTED)
[2023-01-21 15:14] VITALS: BP 114/75; PULSE 96; RESP 18; TEMP 37.3; O2SAT 96
[2023-01-21] MEDS: Heparin Sodium,Porcine 5,000 UNIT/ML VIAL 5000 UNIT SUBCUT (15:23)
[2023-01-21] MEDS: oxyCODONE HCl Immed Release 5 MG TABLET PO (18:26)
[2023-01-21 19:15] VITALS: BP 107/76; PULSE 99; RESP 18; TEMP 37.4; O2SAT 98
[2023-01-21] MEDS: Temazepam 15 MG CAPSULE PO (19:39)
--- NOTE | 2023-01-21 19:54 | MHC.PIE ---
p; pt angry complaining he has not seen a dr today or yesterday and he needs to be seen for his swallowing difficulty issues.... note; pt seems unable to remember many things prior to today or yesterday i; dr williamson notified e will cont to monitor
--- NOTE | 2023-01-22 | ECG_ITS ---
Test Reason : check QTc Blood Pressure : / mmHG Vent. Rate : 105 BPM Atrial Rate : 105 BPM P-R Int : 138 ms QRS Dur : 078 ms QT Int : 332 ms P-R-T Axes : 053 011 044 degrees QTc Int : 438 ms Sinus tachycardia Otherwise normal ECG When compared with ECG of 21-FEB-2020 23:21, T wave amplitude has decreased in Anterior leads Referred By: Perez Liu Electronically Signed By:[employer]
[2023-01-22 03:34] VITALS: BP 126/80; PULSE 101; RESP 18; TEMP 36.9; O2SAT 100
[2023-01-22] MEDS: Doxycycline Monohydrate 100 MG CAPSULE PO ×2 (04:03→15:41)
[2023-01-22] MEDS: ceFAZolin Sodium/Dextrose,Iso 2 GM/50 ML PIGGYBACK IV ×3 (04:03→17:37)
[2023-01-22 06:50] LABS: Anion Gap 8 (12-20); Blood Urea Nitrogen 18 mg/dL (9-16); Carbon Dioxide 23 mmol/L (22-29); Chloride 111 mmol/L (96-108); Creatinine Clr Calc Pharmacy 83.9; Estimated Glomerular Filt Rate > 60; Glucose Random 102 mg/dL (60-115); Magnesium 1.4 mg/dL (1.6-2.6); Potassium 3.9 mmol/L (3.3-5.1); Sodium 138 mmol/L (135-145)
[2023-01-22 06:51] LABS: Hematocrit 25.5 % (42.0-52.0); Mean Corpuscular HGB Conc 31.4 g/dl (31.0-36.0); Mean Corpuscular Hemoglobin 28.3 pg (27.0-33.0); Mean Corpuscular Volume 90.1 fL (80.0-98.0); Mean Platelet Volume 11.4 fL (9.4-12.4); Platelet Count 104 X10*3/uL (160-400); Red Blood Count 2.83 X10*6/uL (4.60-5.80); Red Cell Distribution Width 19.7 % (11.0-16.0)
[2023-01-22 06:52] LABS: WBC ABN SCTR FOR CBC 1; White Blood Count 1.8 X10*3/uL (4.8-10.8)
[2023-01-22 07:57] VITALS: BP 120/70; PULSE 103; RESP 18; TEMP 36.7; O2SAT 97
[2023-01-22 08:00] LABS: Band Neutrophils Percent 12 % (3-5); Basophils Percent Manual 1 % (0-2); Eosinophils Percent Manual 1 % (0-4); Lymphocytes Absolute Manual 0.1 X10*3/uL (1.2-4.9); Lymphocytes Percent Manual 3 % (20-40); Metamyelocytes Percent 1 %; Monocytes Percent Manual 2 % (2-11); Myelocytes Percent 1 %; Neutrophils Absolute Manual 1.6 X10*3/uL (2.0-8.3); Neutrophils Percent Manual 79 % (45-73)
[2023-01-22 08:02] LABS: Platelet Estimate DECREASED (NORMAL); Platelet Morphology Comment NORMAL; RBC Morphology NORMAL
[2023-01-22] MEDS: Magnesium Sulfate/H2O 2 GM/50 ML PIGGYBACK IV (08:58)
[2023-01-22] MEDS: 0.9 % Sodium Chloride Flush 3 ML SYRINGE IVFLUSH ×3 (09:03→20:43)
[2023-01-22] MEDS: Nicotine 21 MG PATCH.TD24 TRANSDERMA (09:54)
[2023-01-22] MEDS: Docusate Sodium 100 MG CAPSULE PO ×2 (09:55→20:43)
[2023-01-22] MEDS: methADONE HCl 20 MG/2 ML ORAL.CONC 15 MG PO ×3 (09:55→20:43)
[2023-01-22] MEDS: Magnesium Oxide 400 MG TABLET 800 MG PO ×2 (09:55→17:36)
[2023-01-22] MEDS: Sulfamethox/Trimeth 800/160 TABLET 1 TAB PO (09:55)
--- NOTE | 2023-01-22 10:47 | HO.PM.IMPN ---
Subjective Subjective Date of Service: 01/22/23 Interval History: Has appetite but difficulty swallowing. Leg infection improved. No fever. Mother at bedside so we did not discuss HIV-related matters. Review of Systems Review of Systems: Yes all other systems are reviewed and are negative Physical Exam Vital Signs: Vital Signs: Last Vital Signs Temp 98.0 F 01/22/23 07:57 Pulse 103 H 01/22/23 07:57 Resp 18 01/22/23 07:57 BP 120/70 01/22/23 07:57 Pulse Ox 97 01/22/23 07:57 O2 Del Method Room Air 01/22/23 07:57 BMI result Body Mass Index 20.4 Gen: cachectic/chronically ill-appearing HEENT: sclera anicteric, moist mucus membranes with extensive thrush Neck: supple Lungs: clear to auscultation bilaterally Heart: regular rate and rhythm, no murmurs Abd: soft, non-tender, non-distended Ext: no edema Skin: warm/well-perfused, faint L calf erythema Neuro: alert and oriented x3, no focal findings Psych: appropriate affect Objective Data Active Medications Acetaminophen (Acetaminophen 325 Mg Tablet) 650 mg PO Q6H PRN PRN Reason: Pain, Mild (Pain Scale 1-3) Last Admin: 01/20/23 11:34 Dose: 650 mg Documented By: NYA Al Hydroxide/Mg Hydroxide (Magnesium Hydrox/Alum Hydrox 30 Ml Oral.Susp) 30 ml PO Q4H PRN PRN Reason: Heartburn/Nausea Bictegravir/Emtricitabine/Tenofovir (Bictegrav/Emtricit/Tenofov Ala Tablet) 1 tab PO DAILY [facility] Docusate Sodium (Docusate Sodium 100 Mg Capsule) 100 mg PO BID [facility] Last Admin: 01/22/23 09:55 Dose: 100 mg Documented By: ERNESTINE Doxycycline Monohydrate (Doxycycline Monohydrate 100 Mg Capsule) 100 mg PO Q12H [facility] Stop: 01/29/23 16:29 Last Admin: 01/22/23 04:03 Dose: 100 mg Documented By: CARLOS Heparin Sodium (Porcine) (Heparin Sodium,Porcine 5,000 Unit/Ml Vial) 5,000 unit SUBCUT Q8H [facility] Last Admin: 01/22/23 04:07 Dose: Not Given Documented By: CARLOS Non-Admin Reason: Patient Refused Cefazolin Sodium/Dextrose (Ancef) 2 gm in 50 mls @ 100 mls/hr IV Q8H [facility] Last Infusion: 01/22/23 05:10 Dose: Infused Documented By: CARLOS Magnesium Oxide (Magnesium Oxide 400 Mg Tablet) 800 mg PO BIDPC [facility] Last Admin: 01/22/23 09:55 Dose: 800 mg Documented By: ERNESTINE Methadone HCl (Methadone Hcl 20 Mg/2 Ml Oral.Conc) 15 mg PO TID [facility] Last Admin: 01/22/23 09:55 Dose: 15 mg Documented By: ERNESTINE Naloxone HCl (Naloxone Hcl 0.4 Mg/Ml Vial) 0.1 mg IVPUSH Q2M PRN PRN Reason: Respiratory Rate < 10 Nicotine (Nicotine 21 Mg Patch.Td24) 21 mg TRANSDERMA DAILY [facility] Last Admin: 01/22/23 09:54 Dose: 21 mg Documented By: ERNESTINE Nicotine Polacrilex (Nicotine Polacrilex 2 Mg Gum) 2 mg BUCCAL Q2H PRN PRN Reason: Nicotine Cravings Ondansetron HCl (Ondansetron Hcl 4 Mg/2 Ml Vial) 4 mg IVPUSH Q8H PRN PRN Reason: Nausea and Vomiting Last Admin: 01/21/23 09:41 Dose: 4 mg Documented By: VIOLA Oxycodone HCl (Oxycodone Hcl Immed Release 5 Mg Tablet) 5 mg PO Q6H PRN PRN Reason: Pain, Moderate(Pain Scale 4-6) Last Admin: 01/21/23 18:26 Dose: 5 mg Documented By: VIOLA Senna (Sennosides 8.6 Mg Tablet) 17.2 mg PO BEDTIME PRN PRN Reason: Constipation Sodium Chloride (0.9 % Sodium Chloride Flush 3 Ml Syringe) 3 ml IVFLUSH QSHIFT [facility] Last Admin: 01/22/23 09:03 Dose: 3 ml Documented By: ERNESTINE Temazepam (Temazepam 15 Mg Capsule) 15 mg PO BEDTIME PRN PRN Reason: Insomnia Last Admin: 01/21/23 19:39 Dose: 15 mg Documented By: CARLOS Trimethoprim/Sulfamethoxazole (Sulfamethox/Trimeth 800/160 Tablet) 1 tab PO DAILY [facility] Last Admin: 01/22/23 09:55 Dose: 1 tab Documented By: ERNESTINE Labs 01/22/23 05:58 01/22/23 05:58 Labs: Laboratory Results - last 24 hr 01/19/23 01/22/23 05:26 05:58 MCV 90.1 MCH 28.3 MCHC 31.4 RDW 19.7 H Plt Count 104 L MPV 11.4 Immature Gran % (Auto) Cancelled Neut % (Auto) Cancelled Lymph % (Auto) Cancelled Ector % (Auto) Cancelled Eos % (Auto) Cancelled Baso % (Auto) Cancelled Lymph # (Auto) Cancelled Ector # (Auto) Cancelled Eos # (Auto) Cancelled Baso # (Auto) Cancelled Abs Immat Gran (auto) Cancelled Absolute Neuts (auto) Cancelled Absolute Nucleated RBC 0.000 Nucleated RBC % (auto) 0.0 Neutrophils % (Manual) 79 H Band Neutrophils % 12 H Lymphocytes % (Manual) 3 L Monocytes % (Manual) 2 Eosinophils % (Manual) 1 Basophils % (Manual) 1 Metamyelocytes % 1 Myelocytes % 1 Abs Neuts (Manual) 1.6 L Lymphocytes # (Manual) 0.1 L WBC Morphology Comment SEE NOTE Platelet Estimate DECREASED Plt Morphology Comment NORMAL RBC Morphology NORMAL Anion Gap 8 L Estim Creat Clear Calc 83.9 Estimated GFR > 60 Random Glucose 102 Calcium 7.0 L Magnesium 1.4 L* Hep C Viral Load <15 NOT DETECTED Hep C Viral Load Log <1.18 NOT DETECTED Microbiology Microbiology Results: Microbiology 01/19/23 16:39 Blood Culture - Preliminary Blood - Venous No growth after 48 hours. 01/19/23 16:39 Blood Culture - Preliminary Blood - Venous No growth after 48 hours. 01/16/23 14:14 Blood Culture - Final Blood - Venous No growth after 5 days. Assessment and Plan (1) Anaplasmosis: Status: Acute (2) HIV MAY positive: Status: Acute (3) MSSA bacteremia: Status: Acute (4) Cellulitis: Status: Acute (5) Opioid use disorder: Status: Acute Plan d7 47yo M with hx injection heroin + cocaine abuse admitted with sepsis due to cellulitis, found to have MSSA bacteremia, new diagnosis of HIV/AIDS, anaplasmosis, and candidiasis sepsis due to cellulitis with MSSA bacteremia - vanco/pip-kelli -> cefazolin 01/19/23, TTE with no vegetation and BCx cleared, ID consulted, total 4 wk from negative BCx 01/19/23 so end date 02/16/23, PICC ordered for tomorrow HIV/AIDS (CD4 <20, RNA 2.98 million) - check genotype and then start Biktarvy - screen for cryptococcosis with serum antigen given lung nodules + low CD4; also CHRISTY with AFB blood culture given cytopenias, low CD4, weight loss, and splenomegaly - PJP prophylaxis: started atovaquone due to GIL; once Cr normalized, switched to TMP-SMX - screen for syphilis + GC/CT - HCV antibody positive, viral load negative; HBV immune - will need ID follow-up oral/esophageal candidiasis - fluconazole 200 mg IV today then 100 mg daily, total 14 days, check QTc now and periodically during therapy due to interaction with methadone 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; doxycycline 01/19-01/29/23 bilateral upper lobe pulmonary nodules - serum cryptococcal antigen as above, repeat CT in 3-6 mo pancytopenia - due to HIV/AIDS - transfused 1u pRBCS 01/16 + 1u pRBCs 01/21/23 - seen by GI, outpt EGD/C-scope in absence of overt bleeding hypoMg - replete IV, increase PO maintenance dose, recheck level in AM hypoK - repleted GIL, prerenal - resolved with IV fluids polysubstance abuse - Addiction Medicine consulted, started methadone tobacco abuse - NRT mild protein-calorie malnutrition - supplements VTE ppx - LMWH dispo - will need STR for IV ABX In my clinical judgment, the patient requires continued inpatient hospitalization for the following reasons: IV ABX Total time managing care of this patient today: 50 minutes. Quality Stroke Does the patient have a stroke diagnosis?: No VTE Prior VTE?: No VTE Risk Level:: Medical - moderate - high VTE Device Contraindication: Treatment Not Tolerated VTE Drug Contraindication: N/A - Med Ordered
[2023-01-22] MEDS: Enoxaparin Sodium 40 MG/0.4 ML SYRINGE SUBCUT (11:33)
[2023-01-22] MEDS: Fluconazole in NaCl,Iso-Osm 200 MG/100 ML PIGGYBACK 100 MG IV (12:50)
--- NOTE | 2023-01-22 13:55 | MHC.RECOVRN ---
Met with pt to check in and provide support. Pt awake, alert, easily engages in conversation. Watching TV, smiling and pleasant. Discussed possibility of STR for usp IV abx, pt declines to transfer to any other facility. Pt only open to methadone continuation upon dc from [facility]. Pt would like to be [facility] to [facility]. Discussed importance of completing tx if needed, pt adamant he does not want to go to another facility. Pt reports he would be willing to stay at [facility]. Pt denies withdrawal symptoms, content with current methadone plan. Denies questions or concerns for t/w. Discussed with RN.
[2023-01-22 15:33] VITALS: BP 120/74; PULSE 97; RESP 18; TEMP 36.4; O2SAT 95
[2023-01-22 20:00] VITALS: BP 109/64; PULSE 100; RESP 18; TEMP 37.1; O2SAT 95
[2023-01-23] MEDS: ceFAZolin Sodium/Dextrose,Iso 2 GM/50 ML PIGGYBACK IV ×3 (02:59→18:09)
[2023-01-23 03:10] VITALS: BP 129/66; PULSE 100; RESP 17; TEMP 36.9; O2SAT 94
[2023-01-23] MEDS: Doxycycline Monohydrate 100 MG CAPSULE PO ×2 (03:50→16:42)
[2023-01-23 04:08] LABS: Syphilis Screen Nonreactive (Nonreactive)
[2023-01-23 08:00] VITALS: BP 116/70; PULSE 104; RESP 18; TEMP 37.3; O2SAT 97
[2023-01-23] MEDS: Sulfamethox/Trimeth 800/160 TABLET 1 TAB PO (09:13)
[2023-01-23] MEDS: methADONE HCl 20 MG/2 ML ORAL.CONC 15 MG PO ×2 (09:13→14:46)
[2023-01-23] MEDS: Docusate Sodium 100 MG CAPSULE PO (09:13)
[2023-01-23] MEDS: 0.9 % Sodium Chloride Flush 3 ML SYRINGE IVFLUSH ×2 (09:13→16:42)
[2023-01-23] MEDS: Bictegrav/Emtricit/Tenofov Ala TABLET 1 TAB PO (09:14)
[2023-01-23] MEDS: Magnesium Oxide 400 MG TABLET 800 MG PO ×2 (09:14→16:42)
[2023-01-23] MEDS: Nicotine 21 MG PATCH.TD24 TRANSDERMA ×2 (09:14→14:46)
[2023-01-23 09:18] LABS: Hematocrit 25.7 % (42.0-52.0); Hemoglobin 8.1 g/dl (14.0-18.0); Mean Corpuscular HGB Conc 31.5 g/dl (31.0-36.0); Mean Corpuscular Hemoglobin 28.9 pg (27.0-33.0); Mean Corpuscular Volume 91.8 fL (80.0-98.0); Mean Platelet Volume 12.6 fL (9.4-12.4); Red Cell Distribution Width 19.1 % (11.0-16.0)
[2023-01-23 09:19] LABS: White Blood Count 1.5 X10*3/uL (4.8-10.8)
[2023-01-23 09:33] LABS: Anion Gap 8 (12-20); Blood Urea Nitrogen 15 mg/dL (9-16); Calcium 7.3 mg/dL (8.4-10.2); Carbon Dioxide 20 mmol/L (22-29); Chloride 111 mmol/L (96-108); Creatinine Clr Calc Pharmacy 82.9; Estimated Glomerular Filt Rate > 60; Glucose Random 109 mg/dL (60-115); Magnesium 1.8 mg/dL (1.6-2.6); Potassium 4.2 mmol/L (3.3-5.1); Sodium 135 mmol/L (135-145)
[2023-01-23 09:52] LABS: Platelet Count 60 X10*3/uL (160-400)
--- NOTE | 2023-01-23 10:40 | HO.MIDLINE_ITS ---
Midline Insertion MIDLINE INSERTION Diagnosis: Sepsis, cellulitis Indication: 4 wk ABT Pertinent Labs: reviewed Technique: Using sterile technique including cap and mask, glove and drape, the left arm was prepped and draped in the usual sterile fashion of full barrier technique with CHG. Using ultrasound guidance, left basilic vein access was obtained . 20G x 8cm midline catheter was positioned. The procedure was performed in room 272. Ultrasound was used to document vein patency and for needle entry. A formal ultrasound picture was recorded. [facility] [employer] has released the line for use and it is currently dressed with a StatLock, Tegaderm, and CHG disc. Verification has been performed for blood return and line patency. Arm Circumference: 20cm Equipment: BARD PowerGlideST non PASV midline catheter Catheter Type: 20G x 8cm Lot #: [id number]
[2023-01-23] MEDS: Enoxaparin Sodium 40 MG/0.4 ML SYRINGE SUBCUT (11:22)
[2023-01-23] MEDS: Fluconazole in NaCl,Iso-Osm 100 MG in Container,Empty 0 ML 50 MG IV (11:57)
--- NOTE | 2023-01-23 12:40 | HO.PM.IMPN ---
Subjective Subjective Date of Service: 01/23/23 Interval History: Has appetite but difficulty swallowing. Leg infection improved. No fever. Review of Systems Review of Systems: Yes all other systems are reviewed and are negative Physical Exam Vital Signs: Vital Signs: Last Vital Signs Temp 99.1 F 01/23/23 08:00 Pulse 104 H 01/23/23 08:00 Resp 18 01/23/23 08:00 BP 116/70 01/23/23 08:00 Pulse Ox 97 01/23/23 08:00 O2 Del Method Room Air 01/23/23 08:00 BMI result Body Mass Index 20.4 Appearing in no acute distress lung sounds are clear to auscultation heart regular rate rhythm, clear S1, S2 positive bowel sounds, abdomen is soft, nontender neuro patient is alert x3, no focal deficits Objective Data Active Medications Acetaminophen (Acetaminophen 325 Mg Tablet) 650 mg PO Q6H PRN PRN Reason: Pain, Mild (Pain Scale 1-3) Last Admin: 01/20/23 11:34 Dose: 650 mg Documented By: NYA Al Hydroxide/Mg Hydroxide (Magnesium Hydrox/Alum Hydrox 30 Ml Oral.Susp) 30 ml PO Q4H PRN PRN Reason: Heartburn/Nausea Bictegravir/Emtricitabine/Tenofovir (Bictegrav/Emtricit/Tenofov Ala Tablet) 1 tab PO DAILY [facility] Last Admin: 01/23/23 09:14 Dose: 1 tab Documented By: KAZ Docusate Sodium (Docusate Sodium 100 Mg Capsule) 100 mg PO BID [facility] Last Admin: 01/23/23 09:13 Dose: 100 mg Documented By: KAZ Doxycycline Monohydrate (Doxycycline Monohydrate 100 Mg Capsule) 100 mg PO Q12H [facility] Stop: 01/29/23 16:29 Last Admin: 01/23/23 03:50 Dose: 100 mg Documented By: KONSTANTIN Enoxaparin Sodium (Enoxaparin Sodium 40 Mg/0.4 Ml Syringe) 40 mg SUBCUT Q24H [facility] Last Admin: 01/23/23 11:22 Dose: 40 mg Documented By: NYA Heparin Sodium (Porcine) (Heparin Sodium,Porcine Flush 50 Units/5 Ml Syringe) 50 units IVFLUSH QSHIFT [facility] Cefazolin Sodium/Dextrose (Ancef) 2 gm in 50 mls @ 100 mls/hr IV Q8H [facility] Last Infusion: 01/23/23 12:04 Dose: Infused Documented By: NYA Fluconazole 100 mg/ IV (Miscellaneous Supplies) 50 mls @ 50 mls/hr IV Q24H [facility] Last Admin: 01/23/23 11:57 Dose: 50 mls/hr Documented By: NYA Magnesium Oxide (Magnesium Oxide 400 Mg Tablet) 800 mg PO BIDPC [facility] Last Admin: 01/23/23 09:14 Dose: 800 mg Documented By: KAZ Methadone HCl (Methadone Hcl 20 Mg/2 Ml Oral.Conc) 15 mg PO TID [facility] Last Admin: 01/23/23 09:13 Dose: 15 mg Documented By: KAZ Naloxone HCl (Naloxone Hcl 0.4 Mg/Ml Vial) 0.1 mg IVPUSH Q2M PRN PRN Reason: Respiratory Rate < 10 Nicotine (Nicotine 21 Mg Patch.Td24) 21 mg TRANSDERMA DAILY [facility] Last Admin: 01/23/23 09:14 Dose: 21 mg Documented By: KAZ Nicotine Polacrilex (Nicotine Polacrilex 2 Mg Gum) 2 mg BUCCAL Q2H PRN PRN Reason: Nicotine Cravings Ondansetron HCl (Ondansetron Hcl 4 Mg/2 Ml Vial) 4 mg IVPUSH Q8H PRN PRN Reason: Nausea and Vomiting Last Admin: 01/21/23 09:41 Dose: 4 mg Documented By: VIOLA Oxycodone HCl (Oxycodone Hcl Immed Release 5 Mg Tablet) 5 mg PO Q6H PRN PRN Reason: Pain, Moderate(Pain Scale 4-6) Last Admin: 01/21/23 18:26 Dose: 5 mg Documented By: VIOLA Senna (Sennosides 8.6 Mg Tablet) 17.2 mg PO BEDTIME PRN PRN Reason: Constipation Sodium Chloride (0.9 % Sodium Chloride Flush 3 Ml Syringe) 3 ml IVFLUSH QSHIFT [facility] Last Admin: 01/23/23 09:13 Dose: 3 ml Documented By: KAZ Temazepam (Temazepam 15 Mg Capsule) 15 mg PO BEDTIME PRN PRN Reason: Insomnia Last Admin: 01/21/23 19:39 Dose: 15 mg Documented By: CARLOS Trimethoprim/Sulfamethoxazole (Sulfamethox/Trimeth 800/160 Tablet) 1 tab PO DAILY [facility] Last Admin: 01/23/23 09:13 Dose: 1 tab Documented By: KAZ Labs 01/23/23 09:01 01/23/23 09:01 Labs: Laboratory Results - last 24 hr 01/22/23 01/23/23 09:38 09:01 MCV 91.8 MCH 28.9 MCHC 31.5 RDW 19.1 H Plt Count 60 L D MPV 12.6 H Absolute Nucleated RBC 0.000 Nucleated RBC % (auto) 0.0 Anion Gap 8 L Estim Creat Clear Calc 82.9 Estimated GFR > 60 Random Glucose 109 Calcium 7.3 L Magnesium 1.8 T.pallidum Ab (EIA) Nonreactive Assessment and Plan (1) Anaplasmosis: Status: Acute (2) HIV MAY positive: Status: Acute (3) MSSA bacteremia: Status: Acute (4) Cellulitis: Status: Acute (5) Opioid use disorder: Status: Acute Plan 47yo M with hx injection heroin + cocaine abuse, admitted with sepsis due to cellulitis, found to have MSSA bacteremia, new diagnosis of HIV/AIDS, anaplasmosis, and candidiasis sepsis due to cellulitis with MSSA bacteremia vanco/pip-kelli -> cefazolin 01/19/23 TTE with no vegetation and BCx cleared ID consulted total 4 wk from negative BCx 01/19/23 so end date 02/16/23, Mid line placed HIV/AIDS (CD4 <20, RNA 2.98 million) check genotype and then start Biktarvy screen for cryptococcosis with serum antigen given lung nodules + low CD4, pending; also CHRISTY with AF[employer] blood culture given cytopenias, low CD4, weight loss, and splenomegaly PJP prophylaxis: started with atovaquone due to GIL; once Cr normalized, switched to TMP-SMX screen for syphilis + GC/CT HCV antibody positive, viral load negative; HBV immune will need ID follow-up oral/esophageal candidiasis fluconazole 200 mg IV today then 100 mg daily total 14 days check QTc now and periodically during therapy due to interaction with methadone 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 Resolved replete IV increase PO maintenance dose hypoK. Resolved repleted GIL, prerenal resolved with IV fluids polysubstance abuse Addiction Medicine consulted, started methadone tobacco abuse NRT mild protein-calorie malnutrition supplements VTE ppx LMWH Attending Dr. David mar will need STR for IV ABX total 4 weeks In my clinical judgment, the patient requires continued inpatient hospitalization for the following reasons: IV ABX Total time managing care of this patient today: 50 minutes. Quality Stroke Does the patient have a stroke diagnosis?: No VTE Prior VTE?: No VTE Risk Level:: Medical - moderate - high VTE Device Contraindication: Treatment Not Tolerated VTE Drug Contraindication: N/A - Med Ordered
--- NOTE | 2023-01-23 13:07 | HO.WOUND ---
Wound Consult: Initial 47yr old male admitted to [facility] on? 01/16/23 21:05- See progress notes and H&P for detailed history. Wound consult placed for Left Leg Cellulitis. Pt agreeable to assessment and photo documentation. No open wounds noted -Pt reports significant decrease in swelling and pain over the last 48hrs. There are resurfaced hypo and hypoerpigmented tissue that remains intact indicative of old injury but currently intact and resurfaced. The overall appearance of this tissue is dry and will benefit from the addition of moisture. Vaseline applied to his lower leg - pt reports comfort. Topical intervention for continued moisturizer application twice daily. Topical Recommendations: Left Leg : Elevate left leg - Cleanse with routine cleansing, apply cream / lotion twice daily. Re-consult wound care Nurse for wound deterioration or wound changes.
--- NOTE | 2023-01-23 13:54 | MHC.CLN ---
F/U DIET=REGULAR. ENSURE BID TO INCREASE NUTRITIONAL INTAKE. PROVIDES 700 KCALS, 40 G PROTEIN. INTAKE APPEARS IMPROVED X 2 DAYS. NEW DX HIV. CONTINUE REGULAR DIET WITH ENSURE BID. FOLLOW FOR PO INTAKE AND WEIGHTS.
--- NOTE | 2023-01-23 15:04 | MHC.CM.PN ---
EMR REVIEWED. PER MD ROUNDS PATIENT DECLINING STR/LT IV ABX. CM MET WITH PATIENT AT BEDSIDE. REVIEWED REASONING FOR LT IV ABX AND STR. PATIENT VERBALIZED UNDERSTANDING AND IS NOW AGREEABLE TO PLAN. [facility] IS FOLLOWING AND REQUESTING PASRR, MDS, GUEST DOSING. PASRR AND MDS COMPLETE AND FAXED TO [facility] AT [phone]. GUEST DOSING WILL BE SET UP BY [employer] TOMORROW MORNING. PER [facility] we will need guest dosing at [facility] in [place]...Send last dose letter and clinical reasons for his methadone necessity send to Gill at [email or web address] She will have to send it for acceptance at clinic.? [employer] AWARE. GOAL IS DC TOMORROW 01/24. CM WILL CONTINUE TO FOLLOW.
[2023-01-23 16:00] VITALS: BP 99/60; PULSE 97; RESP 18; TEMP 36.8; O2SAT 95
--- NOTE | 2023-01-23 16:25 | HO.ADDICTPRO ---
Subjective Subjective Date of Service: 01/23/23 Reason For Visit: Severe sepsis; cellulitis of left leg; IVDA Interim History: Patient will be discharging to SNF to complete IV abx very soon Bright affect, no withdrawal sx. Feeling good with current dose Discussed dose change to 35mg in AM and 10mg in evening with goal of 45mg daily given in one dose patient agreeable Review of Systems Constitutional: Reports as per HPI Diagnostics Vital Signs (24Hr): Vital Signs - 24 hr 01/22/23 20:00 01/23/23 03:10 01/23/23 08:00 Temperature 98.8 F 98.5 F 99.1 F Pulse Rate 100 100 104 H Respiratory Rate 18 17 18 Blood Pressure 109/64 129/66 116/70 Pulse Oximetry 95 94 97 Oxygen Delivery Method Room Air Room Air Room Air BMI result Body Mass Index 20.4 Labs 01/23/23 09:01 01/23/23 09:01 Labs: Laboratory Results - last 48 hr 01/22/23 01/22/23 01/23/23 05:58 09:38 09:01 WBC 1.8 L 1.5 L RBC 2.83 L 2.80 L Hgb 8.0 L 8.1 L Hct 25.5 L 25.7 L MCV 90.1 91.8 MCH 28.3 28.9 MCHC 31.4 31.5 RDW 19.7 H 19.1 H Plt Count 104 L 60 L D MPV 11.4 12.6 H Immature Gran % (Auto) Cancelled Neut % (Auto) Cancelled Lymph % (Auto) Cancelled [place] % (Auto) Cancelled Eos % (Auto) Cancelled Baso % (Auto) Cancelled Lymph # (Auto) Cancelled [place] # (Auto) Cancelled Eos # (Auto) Cancelled Baso # (Auto) Cancelled Abs Immat Gran (auto) Cancelled Absolute Neuts (auto) Cancelled Absolute Nucleated RBC 0.000 0.000 Nucleated RBC % (auto) 0.0 0.0 Neutrophils % (Manual) 79 H Band Neutrophils % 12 H Lymphocytes % (Manual) 3 L Monocytes % (Manual) 2 Eosinophils % (Manual) 1 Basophils % (Manual) 1 Metamyelocytes % 1 Myelocytes % 1 Abs Neuts (Manual) 1.6 L Lymphocytes # (Manual) 0.1 L WBC Morphology Comment SEE NOTE Platelet Estimate DECREASED Plt Morphology Comment NORMAL RBC Morphology NORMAL Sodium 138 135 Potassium 3.9 4.2 Chloride 111 H 111 H Carbon Dioxide 23 20 L Anion Gap 8 L 8 L BUN 18 H 15 Creatinine 0.89 0.90 Estim Creat Clear Calc 83.9 82.9 Estimated GFR > 60 > 60 Random Glucose 102 109 Calcium 7.0 L 7.3 L Magnesium 1.4 L* 1.8 T.pallidum Ab (EIA) Nonreactive Imaging Radiology Impressions: ITS Impressions Foot X-Ray 01/16/23 11:44 IMPRESSION: 1. No acute visible fracture or dislocation. 2. Slight enthesopathy at the Achilles tendon insertion site. 3. Prominent soft tissue swelling along the dorsum of the forefoot. Chest X-Ray 01/16/23 13:48 IMPRESSION: No acute cardiopulmonary findings. Abdomen/Pelvis CT 01/16/23 14:06 IMPRESSION: Colonic distention with gas and fluid. This may represent colitis. Evaluation is limited by motion artifact. Advise clinical correlation. Hepatosplenomegaly. Hepatic steatosis. Enlarged portacaval lymph node is possibly reactive basis. Cholelithiasis. 3 mm nonobstructing right renal calculus. No hydronephrosis. 1.4 cm subpleural density in the left upper lobe. Dedicated chest CT is recommended for further characterization. Venous Duplex 01/16/23 17:00 IMPRESSION: No DVT demonstrated in the left lower extremity. Lower Extremity CT 01/16/23 22:23 IMPRESSION: * No acute osseous abnormalities. * No evidence of osteomyelitis. * Subcutaneous fat stranding along the anterior and lateral aspects of the calf extending inferiorly along the medial and lateral aspects of the ankle and along the dorsum of the foot where the edema becomes coalescent. No drainable collection. * No intermuscular fluid or soft tissue gas to suggest necrotizing fasciitis. Chest CT 01/19/23 18:13 IMPRESSION: 1. Bilateral upper lobe pulmonary nodules as described above. The largest subpleural nodule is 1.4 cm pleural-based and a 5 mm nodule in the right upper lobe. Per the 2017 revised Fleischner Society guidelines, recommend CT follow-up at 3-6 months. If stable, consider CT at 2 and 4 years. 2. Small bilateral pleural effusions with dependent bibasilar atelectasis. 3. Mild splenomegaly. 4. Diffuse fatty infiltration of liver without focal lesion. Fleischner guidelines were followed. Medications Medications Current Medications Acetaminophen (Acetaminophen 325 Mg Tablet) 650 mg PO Q6H PRN PRN Reason: Pain, Mild (Pain Scale 1-3) Last Admin: 01/20/23 11:34 Dose: 650 mg Al Hydroxide/Mg Hydroxide (Magnesium Hydrox/Alum Hydrox 30 Ml Oral.Susp) 30 ml PO Q4H PRN PRN Reason: Heartburn/Nausea Bictegravir/Emtricitabine/Tenofovir (Bictegrav/Emtricit/Tenofov Ala Tablet) 1 tab PO DAILY [facility] Last Admin: 01/23/23 09:14 Dose: 1 tab Docusate Sodium (Docusate Sodium 100 Mg Capsule) 100 mg PO BID [facility] Last Admin: 01/23/23 09:13 Dose: 100 mg Doxycycline Monohydrate (Doxycycline Monohydrate 100 Mg Capsule) 100 mg PO Q12H [facility] Stop: 01/29/23 16:29 Last Admin: 01/23/23 03:50 Dose: 100 mg Enoxaparin Sodium (Enoxaparin Sodium 40 Mg/0.4 Ml Syringe) 40 mg SUBCUT Q24H [facility] Last Admin: 01/23/23 11:22 Dose: 40 mg Heparin Sodium (Porcine) (Heparin Sodium,Porcine Flush 50 Units/5 Ml Syringe) 50 units IVFLUSH QSHIFT [facility] Cefazolin Sodium/Dextrose (Ancef) 2 gm in 50 mls @ 100 mls/hr IV Q8H [facility] Last Infusion: 01/23/23 12:04 Dose: Infused Fluconazole 100 mg/ IV (Miscellaneous Supplies) 50 mls @ 50 mls/hr IV Q24H [facility] Last Infusion: 01/23/23 13:16 Dose: Infused Magnesium Oxide (Magnesium Oxide 400 Mg Tablet) 800 mg PO BIDPC [facility] Last Admin: 01/23/23 09:14 Dose: 800 mg Methadone HCl (Methadone Hcl 20 Mg/2 Ml Oral.Conc) 35 mg PO DAILY [facility] [place] Methadone HCl (Methadone Hcl 20 Mg/2 Ml Oral.Conc) 10 mg PO BEDTIME [facility] Naloxone HCl (Naloxone Hcl 0.4 Mg/Ml Vial) 0.1 mg IVPUSH Q2M PRN PRN Reason: Respiratory Rate < 10 Nicotine (Nicotine 21 Mg Patch.Td24) 21 mg TRANSDERMA DAILY [facility] [place] Last Admin: 01/23/23 09:14 Dose: 21 mg Nicotine Polacrilex (Nicotine Polacrilex 2 Mg Gum) 2 mg BUCCAL Q2H PRN PRN Reason: Nicotine Cravings Ondansetron HCl (Ondansetron Hcl 4 Mg/2 Ml Vial) 4 mg IVPUSH Q8H PRN PRN Reason: Nausea and Vomiting Last Admin: 01/21/23 09:41 Dose: 4 mg Oxycodone HCl (Oxycodone Hcl Immed Release 5 Mg Tablet) 5 mg PO Q6H PRN PRN Reason: Pain, Moderate(Pain Scale 4-6) Last Admin: 01/21/23 18:26 Dose: 5 mg Senna (Sennosides 8.6 Mg Tablet) 17.2 mg PO BEDTIME PRN PRN Reason: Constipation Sodium Chloride (0.9 % Sodium Chloride Flush 3 Ml Syringe) 3 ml IVFLUSH QSHIFT [facility] Last Admin: 01/23/23 09:13 Dose: 3 ml Temazepam (Temazepam 15 Mg Capsule) 15 mg PO BEDTIME PRN PRN Reason: Insomnia Last Admin: 01/21/23 19:39 Dose: 15 mg Trimethoprim/Sulfamethoxazole (Sulfamethox/Trimeth 800/160 Tablet) 1 tab PO DAILY [facility] Last Admin: 01/23/23 09:13 Dose: 1 tab Allergies Allergies Allergy/AdvReac Type Severity Reaction Status Date / Time fish derived [FISH] Allergy Unknown UNKNOWN Verified 01/16/23 11:09 Assessment & Plan Assessment & Plan (1) Opioid use disorder: Status: Acute Code(s): F11.90 - Opioid use, unspecified, uncomplicated Assessment and Plan: methadone 35mg in AM and 10mg at bedtime following day 45mg QD director of women's services to coordinate OTP referral prior to transfer Total time managing care of this patient today __25__ minutes.
[2023-01-23] MEDS: Heparin Sodium,Porcine Flush 50 UNITS/5 ML SYRINGE IVFLUSH (16:42)
[2023-01-23 19:41] VITALS: BP 111/79; PULSE 100; RESP 18; TEMP 36.6; O2SAT 96
[2023-01-23] MEDS: methADONE HCl 20 MG/2 ML ORAL.CONC 10 MG PO (20:13)
[2023-01-23 23:34] VITALS: PULSE 100
[2023-01-24] VITALS (7 sets, daily range): BP systolic 102–145; BP diastolic 72–77; PULSE 78–113; RESP 16–18; TEMP 36.4–36.8; O2SAT 97–99
[2023-01-24] MEDS: ondansetron HCL 4 MG/2 ML VIAL IVPUSH (02:04)
[2023-01-24] MEDS: ceFAZolin Sodium/Dextrose,Iso 2 GM/50 ML PIGGYBACK IV ×3 (02:05→18:34)
[2023-01-24] MEDS: 0.9 % Sodium Chloride Flush 3 ML SYRINGE IVFLUSH ×4 (02:05→21:08)
[2023-01-24] MEDS: Heparin Sodium,Porcine Flush 50 UNITS/5 ML SYRINGE IVFLUSH ×2 (02:05→17:10)
[2023-01-24] MEDS: oxyCODONE HCl Immed Release 5 MG TABLET PO ×3 (04:21→21:08)
[2023-01-24] MEDS: Doxycycline Monohydrate 100 MG CAPSULE PO ×2 (04:21→17:00)
--- NOTE | 2023-01-24 09:11 | MHC.RECOVRN ---
Addendum entered by Grisel Paige 01/24/23 12:00: Letter has been sent from [facility] to [facility]. Original Note: Pts referral sent to [facility]. Letter requested from [facility] Marie Michele to be sent to [facility] informing the OTP that upon completion of treatment at [facility], pt will dose at [facility]. Email sent to Gill at [email or web address] containing pts referral, methadone dose, as well as above information.
[2023-01-24] MEDS: methADONE HCl 20 MG/2 ML ORAL.CONC 35 MG PO (09:35)
[2023-01-24] MEDS: Bictegrav/Emtricit/Tenofov Ala TABLET 1 TAB PO (09:36)
[2023-01-24] MEDS: Nicotine 21 MG PATCH.TD24 TRANSDERMA (09:41)
--- NOTE | 2023-01-24 10:14 | HO.PM.IMPN ---
Subjective Subjective Date of Service: 01/24/23 Interval History: Has appetite but difficulty swallowing. Leg infection improved. No fever. Review of Systems Review of Systems: Yes all other systems are reviewed and are negative Physical Exam Vital Signs: Vital Signs: Last Vital Signs Temp 97.9 F 01/24/23 08:00 Pulse 91 01/24/23 08:00 Resp 18 01/24/23 08:00 BP 102/72 01/24/23 08:00 Pulse Ox 99 01/24/23 08:00 O2 Del Method Room Air 01/24/23 08:00 BMI result Body Mass Index 20.4 Appearing in no acute distress lung sounds are clear to auscultation heart regular rate rhythm, clear S1, S2 positive bowel sounds, abdomen is soft, nontender neuro patient is alert x3, no focal deficits Objective Data Active Medications Acetaminophen (Acetaminophen 325 Mg Tablet) 650 mg PO Q6H PRN PRN Reason: Pain, Mild (Pain Scale 1-3) Last Admin: 01/20/23 11:34 Dose: 650 mg Documented By: NYA Al Hydroxide/Mg Hydroxide (Magnesium Hydrox/Alum Hydrox 30 Ml Oral.Susp) 30 ml PO Q4H PRN PRN Reason: Heartburn/Nausea Bictegravir/Emtricitabine/Tenofovir (Bictegrav/Emtricit/Tenofov Ala Tablet) 1 tab PO DAILY [facility] Last Admin: 01/24/23 09:36 Dose: 1 tab Documented By: NYA Docusate Sodium (Docusate Sodium 100 Mg Capsule) 100 mg PO BID [facility] Last Admin: 01/24/23 09:36 Dose: Not Given Documented By: NYA Non-Admin Reason: pt reporting loose stools Doxycycline Monohydrate (Doxycycline Monohydrate 100 Mg Capsule) 100 mg PO Q12H [facility] Stop: 01/29/23 16:29 Last Admin: 01/24/23 04:21 Dose: 100 mg Documented By: KONSTANTIN Enoxaparin Sodium (Enoxaparin Sodium 40 Mg/0.4 Ml Syringe) 40 mg SUBCUT Q24H [facility] Last Admin: 01/23/23 11:22 Dose: 40 mg Documented By: NYA Heparin Sodium (Porcine) (Heparin Sodium,Porcine Flush 50 Units/5 Ml Syringe) 50 units IVFLUSH QSHIFT [facility] Last Admin: 01/24/23 09:34 Dose: Not Given Documented By: NYA Non-Admin Reason: IV Running Cefazolin Sodium/Dextrose (Ancef) 2 gm in 50 mls @ 100 mls/hr IV Q8H [facility] Last Infusion: 01/24/23 02:51 Dose: Infused Documented By: KONSTANTIN Fluconazole 100 mg/ IV (Miscellaneous Supplies) 50 mls @ 50 mls/hr IV Q24H [facility] Last Infusion: 01/23/23 13:16 Dose: Infused Documented By: NYA Magnesium Oxide (Magnesium Oxide 400 Mg Tablet) 800 mg PO BIDPC [facility] Last Admin: 01/24/23 09:48 Dose: Not Given Documented By: NYA Non-Admin Reason: Patient Refused Methadone HCl (Methadone Hcl 20 Mg/2 Ml Oral.Conc) 35 mg PO DAILY [facility] Last Admin: 01/24/23 09:35 Dose: 35 mg Documented By: NYA Methadone HCl (Methadone Hcl 20 Mg/2 Ml Oral.Conc) 10 mg PO BEDTIME [facility] Last Admin: 01/23/23 20:13 Dose: 10 mg Documented By: KONSTANTIN Naloxone HCl (Naloxone Hcl 0.4 Mg/Ml Vial) 0.1 mg IVPUSH Q2M PRN PRN Reason: Respiratory Rate < 10 Nicotine (Nicotine 21 Mg Patch.Td24) 21 mg TRANSDERMA DAILY [facility] Last Admin: 01/24/23 09:41 Dose: 21 mg Documented By: NYA Nicotine Polacrilex (Nicotine Polacrilex 2 Mg Gum) 2 mg BUCCAL Q2H PRN PRN Reason: Nicotine Cravings Ondansetron HCl (Ondansetron Hcl 4 Mg/2 Ml Vial) 4 mg IVPUSH Q8H PRN PRN Reason: Nausea and Vomiting Last Admin: 01/24/23 02:04 Dose: 4 mg Documented By: KONSTANTIN Oxycodone HCl (Oxycodone Hcl Immed Release 5 Mg Tablet) 5 mg PO Q6H PRN PRN Reason: Pain, Moderate(Pain Scale 4-6) Last Admin: 01/24/23 04:21 Dose: 5 mg Documented By: KONSTANTIN Senna (Sennosides 8.6 Mg Tablet) 17.2 mg PO BEDTIME PRN PRN Reason: Constipation Sodium Chloride (0.9 % Sodium Chloride Flush 3 Ml Syringe) 3 ml IVFLUSH QSHIFT [facility] Last Admin: 01/24/23 09:41 Dose: 3 ml Documented By: NYA Temazepam (Temazepam 15 Mg Capsule) 15 mg PO BEDTIME PRN PRN Reason: Insomnia Last Admin: 01/21/23 19:39 Dose: 15 mg Documented By: CARLOS Trimethoprim/Sulfamethoxazole (Sulfamethox/Trimeth 800/160 Tablet) 1 tab PO DAILY [facility] Last Admin: 01/23/23 09:13 Dose: 1 tab Documented By: KAZ Labs 01/23/23 09:01 01/23/23 09:01 Labs: Laboratory Results - last 24 hr 01/19/23 05:26 Lymphocyte Subset Cmmnt TNP Assessment and Plan (1) Anaplasmosis: Status: Acute (2) HIV MAY positive: Status: Acute (3) MSSA bacteremia: Status: Acute (4) Cellulitis: Status: Acute (5) Opioid use disorder: Status: Acute Plan 47yo M with hx injection heroin + cocaine abuse, admitted with sepsis due to cellulitis, found to have MSSA bacteremia, new diagnosis of HIV/AIDS, anaplasmosis, and candidiasis sepsis due to cellulitis with MSSA bacteremia vanco/pip-kelli -> cefazolin 01/19/23 TTE with no vegetation and BCx cleared ID consulted total 4 wk from negative BCx 01/19/23 so end date 02/16/23, Mid line placed HIV/AIDS (CD4 <20, RNA 2.98 million) check genotype and then start Biktarvy screen for cryptococcosis with serum antigen given lung nodules + low CD4, pending; also CHRISTY with AFB blood culture given cytopenias, low CD4, weight loss, and splenomegaly PJP prophylaxis: started with atovaquone due to GIL; once Cr normalized, switched to TMP-SMX screen for syphilis + GC/CT HCV antibody positive, viral load negative; HBV immune will need ID follow-up oral/esophageal candidiasis fluconazole 200 mg IV today then 100 mg daily total 14 days check QTc now and periodically during therapy due to interaction with methadone 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 Resolved replete IV increase PO maintenance dose hypoK. Resolved repleted GIL, prerenal resolved with IV fluids polysubstance abuse Addiction Medicine consulted, started methadone tobacco abuse NRT mild protein-calorie malnutrition supplements VTE ppx LMWH Attending Dr. David mar will need STR for IV ABX total 4 weeks, pending safe disposition In my clinical judgment, the patient requires continued inpatient hospitalization for the following reasons: IV ABX Total time managing care of this patient today: 50 minutes. Quality Stroke Does the patient have a stroke diagnosis?: No VTE Prior VTE?: No VTE Risk Level:: Medical - moderate - high VTE Device Contraindication: Treatment Not Tolerated VTE Drug Contraindication: N/A - Med Ordered
[2023-01-24] MEDS: Fluconazole in NaCl,Iso-Osm 100 MG in Container,Empty 0 ML 50 MG IV (10:42)
[2023-01-24] MEDS: Sulfamethox/Trimeth 800/160 TABLET 1 TAB PO (10:42)
--- NOTE | 2023-01-24 16:18 | P.EN_ITS ---
Event Note Date of Service: 01/24/23 Event Note: Addiction note Seen by refractive surgeon this morning Tolerated change in dose from 15mg TID to 35mg this morning and 10mg this evening Plan: -last bedtime dose today -tomorrow morning 45mg in AM -pending d/c -OTP referral all set Time Spent With Patient Time: Total time managing care of this patient today ____ minutes.
[2023-01-24] MEDS: Magnesium Oxide 400 MG TABLET 800 MG PO (17:00)
[2023-01-24] MEDS: methADONE HCl 20 MG/2 ML ORAL.CONC 10 MG PO (21:08)
[2023-01-25] MEDS: Heparin Sodium,Porcine Flush 50 UNITS/5 ML SYRINGE IVFLUSH ×2 (00:33→23:56)
[2023-01-25] MEDS: ceFAZolin Sodium/Dextrose,Iso 2 GM/50 ML PIGGYBACK IV ×3 (02:20→17:48)
[2023-01-25 04:00] VITALS: RESP 16
[2023-01-25] MEDS: Doxycycline Monohydrate 100 MG CAPSULE PO ×2 (05:18→16:34)
[2023-01-25 05:58] VITALS: BP 119/67; PULSE 109; RESP 16; TEMP 36.8; O2SAT 96
[2023-01-25 07:41] VITALS: BP 111/64; PULSE 106; RESP 16; TEMP 36.7; O2SAT 96
[2023-01-25] MEDS: 0.9 % Sodium Chloride Flush 3 ML SYRINGE IVFLUSH ×3 (08:51→20:54)
[2023-01-25] MEDS: Bictegrav/Emtricit/Tenofov Ala TABLET 1 TAB PO (08:51)
[2023-01-25] MEDS: Sulfamethox/Trimeth 800/160 TABLET 1 TAB PO (08:51)
[2023-01-25] MEDS: Magnesium Oxide 400 MG TABLET 800 MG PO ×2 (08:51→16:34)
[2023-01-25] MEDS: Nicotine 21 MG PATCH.TD24 TRANSDERMA (08:51)
[2023-01-25] MEDS: methADONE HCl 20 MG/2 ML ORAL.CONC 45 MG PO (08:51)
[2023-01-25] MEDS: oxyCODONE HCl Immed Release 5 MG TABLET PO ×2 (09:00→20:54)
--- NOTE | 2023-01-25 09:38 | P.PNIM_ITS ---
Subjective Subjective Date of Service: 01/25/23 Interval History: Has appetite but difficulty swallowing. Leg infection improved. No fever. Review of Systems Review of Systems: Yes all other systems are reviewed and are negative Physical Exam 2 Vital Signs: Vital Signs: Last Vital Signs Temp 98.1 F 01/25/23 07:41 Pulse 106 H 01/25/23 07:41 Resp 16 01/25/23 07:41 BP 111/64 01/25/23 07:41 Pulse Ox 96 01/25/23 07:41 O2 Del Method Room Air 01/25/23 07:41 BMI result Body Mass Index 20.4 Appearing in no acute distress lung sounds are clear to auscultation heart regular rate rhythm, clear S1, S2 positive bowel sounds, abdomen is soft, nontender neuro patient is alert x3, no focal deficits LLE edema improving Objective Data Active Medications Acetaminophen (Acetaminophen 325 Mg Tablet) 650 mg PO Q6H PRN PRN Reason: Pain, Mild (Pain Scale 1-3) Last Admin: 01/20/23 11:34 Dose: 650 mg Documented By: NYA Al Hydroxide/Mg Hydroxide (Magnesium Hydrox/Alum Hydrox 30 Ml Oral.Susp) 30 ml PO Q4H PRN PRN Reason: Heartburn/Nausea Bictegravir/Emtricitabine/Tenofovir (Bictegrav/Emtricit/Tenofov Ala Tablet) 1 tab PO DAILY [facility] Last Admin: 01/25/23 08:51 Dose: 1 tab Documented By: NONA Docusate Sodium (Docusate Sodium 100 Mg Capsule) 100 mg PO BID [facility] Last Admin: 01/25/23 08:52 Dose: Not Given Documented By: NONA Non-Admin Reason: Patient Refused Doxycycline Monohydrate (Doxycycline Monohydrate 100 Mg Capsule) 100 mg PO Q12H [facility] Stop: 01/29/23 16:29 Last Admin: 01/25/23 05:18 Dose: 100 mg Documented By: JOSE LUISORALB Enoxaparin Sodium (Enoxaparin Sodium 40 Mg/0.4 Ml Syringe) 40 mg SUBCUT Q24H [facility] Last Admin: 01/24/23 10:50 Dose: Not Given Documented By: NYA Non-Admin Reason: pt declined Heparin Sodium (Porcine) (Heparin Sodium,Porcine Flush 50 Units/5 Ml Syringe) 50 units IVFLUSH QSHIFT [facility] Last Admin: 01/25/23 08:52 Dose: Not Given Documented By: NONA Non-Admin Reason: Patient Refused Cefazolin Sodium/Dextrose (Ancef) 2 gm in 50 mls @ 100 mls/hr IV Q8H [facility] Last Infusion: 01/25/23 03:18 Dose: Infused Documented By: BEN Fluconazole 100 mg/ IV (Miscellaneous Supplies) 50 mls @ 50 mls/hr IV Q24H [facility] Last Infusion: 01/24/23 11:49 Dose: Infused Documented By: NYA Magnesium Oxide (Magnesium Oxide 400 Mg Tablet) 800 mg PO BIDPC [facility] Last Admin: 01/25/23 08:51 Dose: 800 mg Documented By: NONA Methadone HCl (Methadone Hcl 20 Mg/2 Ml Oral.Conc) 45 mg PO DAILY [facility] Last Admin: 01/25/23 08:51 Dose: 45 mg Documented By: NONA Naloxone HCl (Naloxone Hcl 0.4 Mg/Ml Vial) 0.1 mg IVPUSH Q2M PRN PRN Reason: Respiratory Rate < 10 Nicotine (Nicotine 21 Mg Patch.Td24) 21 mg TRANSDERMA DAILY [facility] Last Admin: 01/25/23 08:51 Dose: 21 mg Documented By: NONA Nicotine Polacrilex (Nicotine Polacrilex 2 Mg Gum) 2 mg BUCCAL Q2H PRN PRN Reason: Nicotine Cravings Ondansetron HCl (Ondansetron Hcl 4 Mg/2 Ml Vial) 4 mg IVPUSH Q8H PRN PRN Reason: Nausea and Vomiting Last Admin: 01/24/23 02:04 Dose: 4 mg Documented By: KONSTANTIN Oxycodone HCl (Oxycodone Hcl Immed Release 5 Mg Tablet) 5 mg PO Q6H PRN PRN Reason: Pain, Moderate(Pain Scale 4-6) Last Admin: 01/25/23 09:00 Dose: 5 mg Documented By: NONA Senna (Sennosides 8.6 Mg Tablet) 17.2 mg PO BEDTIME PRN PRN Reason: Constipation Sodium Chloride (0.9 % Sodium Chloride Flush 3 Ml Syringe) 3 ml IVFLUSH [facility] Last Admin: 01/25/23 08:51 Dose: 3 ml Documented By: NONA Temazepam (Temazepam 15 Mg Capsule) 15 mg PO BEDTIME PRN PRN Reason: Insomnia Last Admin: 01/21/23 19:39 Dose: 15 mg Documented By: CARLOS Trimethoprim/Sulfamethoxazole (Sulfamethox/Trimeth 800/160 Tablet) 1 tab PO DAILY [facility] Last Admin: 01/25/23 08:51 Dose: 1 tab Documented By: NONA Labs 01/23/23 09:01 01/23/23 09:01 Labs: Laboratory Results - last 24 hr 01/22/23 09:38 Cryptococcal Ag SEE NOTE Microbiology Microbiology Results: Microbiology 01/19/23 16:39 Blood Culture - Final Blood - Venous No growth after 5 days. 01/19/23 16:39 Blood Culture - Final Blood - Venous No growth after 5 days. Assessment and Plan (1) Anaplasmosis: Status: Acute (2) HIV MAY positive: Status: Acute (3) MSSA bacteremia: Status: Acute (4) Cellulitis: Status: Acute (5) Opioid use disorder: Status: Acute Plan 47yo M with hx injection heroin + cocaine abuse, admitted with sepsis due to cellulitis, found to have MSSA bacteremia, new diagnosis of HIV/AIDS, anaplasmosis, and candidiasis sepsis due to cellulitis with MSSA bacteremia vanco/pip-kelli -> cefazolin 01/19/23 TTE with no vegetation and BCx cleared ID consulted total 4 wk from negative BCx 01/19/23 so end date 02/16/23, Mid line placed HIV/AIDS (CD4 <20, RNA 2.98 million) now on Biktarvy screen for cryptococcosis neg PJP prophylaxis: started with atovaquone due to GIL; once Cr normalized, switched to TMP-SMX screen for syphilis + GC/CT HCV antibody positive, viral load negative; HBV immune will need ID follow-up o/p oral/esophageal candidiasis fluconazole 200 mg IV today then 100 mg daily total 14 days check QTc now and periodically during therapy due to interaction with methadone 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 Resolved replete IV increase PO maintenance dose hypoK. Resolved repleted GIL, prerenal resolved with IV fluids polysubstance abuse Addiction Medicine consulted, started methadone tobacco abuse NRT mild protein-calorie malnutrition supplements VTE ppx LMWH Attending Dr. David mar will need STR for IV ABX total 4 weeks, pending safe disposition In my clinical judgment, the patient requires continued inpatient hospitalization for the following reasons: IV ABX Total time managing care of this patient today: 50 minutes. Quality Stroke Does the patient have a stroke diagnosis?: No VTE Prior VTE?: No VTE Risk Level:: Medical - moderate - high VTE Device Contraindication: Treatment Not Tolerated VTE Drug Contraindication: N/A - Med Ordered
--- NOTE | 2023-01-25 10:00 | MHC.CLN ---
F/U DIET=REGULAR. ENSURE BID TO INCREASE NUTRITIONAL INTAKE. PROVIDES 700 KCALS, 40 G PROTEIN. INTAKE VARIABLE, 0-100%. CONTINUE REGULAR DIET WITH ENSURE BID. FOLLOW FOR PO INTAKE AND WEIGHTS.
[2023-01-25] MEDS: Fluconazole in NaCl,Iso-Osm 100 MG in Container,Empty 0 ML 50 MG IV (11:10)
--- NOTE | 2023-01-25 13:02 | MHC.RECOVRN ---
Brief check in with pt, pt sititng in bed, awake, alert, easily engages in conversation. Reports feeling good after receiving total dose of 45 mg methadone this morning (has been combined, was 15 mg TID). Pt reports ears feeling blocked, requesting to be evaluated by provider. Denies other questions or concerns for t/w. Discussed with pts RN.
[2023-01-25 16:00] VITALS: BP 126/62; PULSE 112; RESP 16; TEMP 36.9; O2SAT 94
[2023-01-25 19:56] VITALS: BP 126/75; PULSE 117; RESP 18; TEMP 37.1; O2SAT 97
[2023-01-25] MEDS: Temazepam 15 MG CAPSULE PO (20:53)
[2023-01-25 22:44] VITALS: RESP 16
[2023-01-26] VITALS (7 sets, daily range): BP systolic 103–112; BP diastolic 61–68; PULSE 98–124; RESP 16–18; TEMP 36.3–37.4; O2SAT 94–99
--- NOTE | 2023-01-26 | ECG_ITS ---
Test Reason : QT CHECK Blood Pressure : / mmHG Vent. Rate : 108 BPM Atrial Rate : 108 BPM P-R Int : 122 ms QRS Dur : 080 ms QT Int : 322 ms P-R-T Axes : 043 -01 038 degrees QTc Int : 431 ms Sinus tachycardia Otherwise normal ECG When compared with ECG of 22-JAN-2023 14:45, No significant change was found Referred By: Samanta Whitten Electronically Signed By:FLAVIA EUBANKS MD
[2023-01-26] MEDS: ceFAZolin Sodium/Dextrose,Iso 2 GM/50 ML PIGGYBACK IV ×3 (02:14→17:41)
[2023-01-26] MEDS: Doxycycline Monohydrate 100 MG CAPSULE PO ×2 (04:46→15:57)
[2023-01-26] MEDS: oxyCODONE HCl Immed Release 5 MG TABLET PO ×2 (05:00→10:55)
[2023-01-26] MEDS: methADONE HCl 20 MG/2 ML ORAL.CONC 45 MG PO (09:41)
[2023-01-26] MEDS: Docusate Sodium 100 MG CAPSULE PO (09:42)
[2023-01-26] MEDS: Bictegrav/Emtricit/Tenofov Ala TABLET 1 TAB PO (09:42)
[2023-01-26] MEDS: Magnesium Oxide 400 MG TABLET 800 MG PO ×2 (09:42→17:17)
[2023-01-26] MEDS: Sulfamethox/Trimeth 800/160 TABLET 1 TAB PO (09:42)
[2023-01-26] MEDS: Nicotine 21 MG PATCH.TD24 TRANSDERMA (09:44)
[2023-01-26] MEDS: Fluconazole in NaCl,Iso-Osm 100 MG in Container,Empty 0 ML 50 MG IV (10:32)
[2023-01-26 11:38] LABS: Mean Corpuscular HGB Conc 32.3 g/dl (31.0-36.0); Mean Corpuscular Hemoglobin 29.8 pg (27.0-33.0); Mean Corpuscular Volume 92.1 fL (80.0-98.0); Mean Platelet Volume 10.7 fL (9.4-12.4); Platelet Count 111 X10*3/uL (160-400); Red Blood Count 2.15 X10*6/uL (4.60-5.80); Red Cell Distribution Width 18.2 % (11.0-16.0)
--- NOTE | 2023-01-26 11:44 | PC.NURSE ---
informed of pt's critical labs
[2023-01-26 11:45] LABS: Hemoglobin 6.4 g/dl (14.0-18.0); White Blood Count 0.7 X10*3/uL (4.8-10.8)
[2023-01-26 11:46] LABS: Hematocrit 19.8 % (42.0-52.0)
--- NOTE | 2023-01-26 12:11 | HO.PM.IMPN ---
Subjective Subjective Date of Service: 01/26/23 Interval History: seen and examined this morning follow up for bacteremia, cellulitis leg swelling significantly improved overall, but having some tenderness to the left ankle no fever, no chills denies palpitations has been eating better Review of Systems Review of Systems: Yes all other systems are reviewed and are negative Constitutional Constitutional: Denies chills and Denies fever(s) Cardiovascular Cardiovascular: Denies chest pain and Denies dyspnea Respiratory Respiratory: Denies cough and Denies dyspnea Physical Exam Vital Signs: Vital Signs: Last Vital Signs Temp 97.8 F 01/26/23 08:00 Pulse 113 H 01/26/23 08:00 Resp 16 01/26/23 08:00 BP 103/63 01/26/23 08:00 Pulse Ox 99 01/26/23 08:00 O2 Del Method Room Air 01/26/23 08:00 BMI result Body Mass Index 20.4 Const: Other: ill appearing, thin General: alert and awake Orientation/consciousness: patient oriented x3 Resp: Effort & Inspection: normal respiratory effort, no respiratory distress and no use of accessory muscles Auscultation: clear to auscultation bilaterally Cardio: Rate: tachycardic GI: Inspection: No distended Palpation (GI): Soft to palpation and nontender Skin: Other: left leg with improvedment in swelling, no significant erythema; some tenderness and swelling noted to left medial ankle Neuro: General: patient oriented x3, moves all extremities and CN's II-XI intact bilaterally Objective Data Active Medications Acetaminophen (Acetaminophen 325 Mg Tablet) 650 mg PO Q6H PRN PRN Reason: Pain, Mild (Pain Scale 1-3) Last Admin: 01/20/23 11:34 Dose: 650 mg Documented By: NYA Al Hydroxide/Mg Hydroxide (Magnesium Hydrox/Alum Hydrox 30 Ml Oral.Susp) 30 ml PO Q4H PRN PRN Reason: Heartburn/Nausea Bictegravir/Emtricitabine/Tenofovir (Bictegrav/Emtricit/Tenofov Ala Tablet) 1 tab PO DAILY [facility] Last Admin: 01/26/23 09:42 Dose: 1 tab Documented By: SOFFASukhi Docusate Sodium (Docusate Sodium 100 Mg Capsule) 100 mg PO BID [facility] Last Admin: 01/26/23 09:42 Dose: 100 mg Documented By: HOBAYLEE Doxycycline Monohydrate (Doxycycline Monohydrate 100 Mg Capsule) 100 mg PO Q12H [facility] Stop: 01/29/23 16:29 Last Admin: 01/26/23 04:46 Dose: 100 mg Documented By: BEN Enoxaparin Sodium (Enoxaparin Sodium 40 Mg/0.4 Ml Syringe) 40 mg SUBCUT Q24H [facility] Last Admin: 01/26/23 10:28 Dose: Not Given Documented By: LIONEL Non-Admin Reason: Patient Refused Heparin Sodium (Porcine) (Heparin Sodium,Porcine Flush 50 Units/5 Ml Syringe) 50 units IVFLUSH QSHIFT [facility] Last Admin: 01/26/23 09:28 Dose: Not Given Documented By: LIONEL Non-Admin Reason: See Note Cefazolin Sodium/Dextrose (Ancef) 2 gm in 50 mls @ 100 mls/hr IV Q8H [facility] Last Infusion: 01/26/23 10:19 Dose: Infused Documented By: LIONEL Fluconazole 100 mg/ IV (Miscellaneous Supplies) 50 mls @ 50 mls/hr IV Q24H [facility] Last Infusion: 01/26/23 11:34 Dose: Infused Documented By: LIONEL Sodium Chloride (Ns) 100 mls @ 100 mls/hr IV ONCE ONE Stop: 01/26/23 12:55 Magnesium Oxide (Magnesium Oxide 400 Mg Tablet) 800 mg PO BIDPC [facility] Last Admin: 01/26/23 09:42 Dose: 800 mg Documented By: LIONEL Methadone HCl (Methadone Hcl 20 Mg/2 Ml Oral.Conc) 45 mg PO DAILY [facility] Last Admin: 01/26/23 09:41 Dose: 45 mg Documented By: LIONEL Naloxone HCl (Naloxone Hcl 0.4 Mg/Ml Vial) 0.1 mg IVPUSH Q2M PRN PRN Reason: Respiratory Rate < 10 Nicotine (Nicotine 21 Mg Patch.Td24) 21 mg TRANSDERMA DAILY [facility] Last Admin: 01/26/23 09:44 Dose: 21 mg Documented By: LIONEL Nicotine Polacrilex (Nicotine Polacrilex 2 Mg Gum) 2 mg BUCCAL Q2H PRN PRN Reason: Nicotine Cravings Ondansetron HCl (Ondansetron Hcl 4 Mg/2 Ml Vial) 4 mg IVPUSH Q8H PRN PRN Reason: Nausea and Vomiting Last Admin: 01/24/23 02:04 Dose: 4 mg Documented By: KONSTANTIN Senna (Sennosides 8.6 Mg Tablet) 17.2 mg PO BEDTIME PRN PRN Reason: Constipation Sodium Chloride (0.9 % Sodium Chloride Flush 3 Ml Syringe) 3 ml IVFLUSH QSHIFT [facility] Last Admin: 01/26/23 07:44 Dose: Not Given Documented By: LIONEL Non-Admin Reason: See Note Trimethoprim/Sulfamethoxazole (Sulfamethox/Trimeth 800/160 Tablet) 1 tab PO DAILY [facility] Last Admin: 01/26/23 09:42 Dose: 1 tab Documented By: LIONEL Labs 01/26/23 11:20 01/23/23 09:01 Labs: Laboratory Results - last 24 hr 01/26/23 11:20 MCV 92.1 MCH 29.8 MCHC 32.3 RDW 18.2 H Plt Count 111 L D MPV 10.7 Absolute Nucleated RBC 0.000 Nucleated RBC % (auto) 0.0 Assessment and Plan (1) HIV MAY positive: Status: Acute (2) Anaplasmosis: Status: Acute (3) MSSA bacteremia: Status: Acute (4) Cellulitis: Status: Acute Plan 47yo M with hx injection heroin + cocaine abuse, admitted with sepsis due to cellulitis, found to have MSSA bacteremia, new diagnosis of HIV/AIDS, anaplasmosis, and candidiasis sepsis due to cellulitis with MSSA bacteremia vanco/pip-kelli -> cefazolin 01/19/23 TTE with no vegetation and BCx cleared ID consulted total 4 wk from negative BCx 01/19/23 so end date 02/16/23, Mid line placed HIV/AIDS (CD4 <20, RNA 2.98 million) now on Biktarvy screen for cryptococcosis neg PJP prophylaxis: started with atovaquone due to GIL; once Cr normalized, switched to TMP-SMX screen for syphilis + GC/CT HCV antibody positive, viral load negative; HBV immune will need ID follow-up o/p oral/esophageal candidiasis fluconazole 100 mg daily total 14 days check QTc now and periodically during therapy due to interaction with methadone qtc 01/26 <500 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 Resolved replete IV increase PO maintenance dose hypoK. Resolved repleted GIL, prerenal resolved with IV fluids polysubstance abuse Addiction Medicine consulted, started methadone tobacco abuse NRT mild protein-calorie malnutrition supplements VTE ppx LMWH Attending Dr. David mar will need STR for IV ABX total 4 weeks, pending safe disposition In my clinical judgment, the patient requires continued inpatient hospitalization for the following reasons: IV ABX Quality Stroke Does the patient have a stroke diagnosis?: No VTE Prior VTE?: No VTE Risk Level:: Medical - moderate - high VTE Device Contraindication: Treatment Not Tolerated VTE Drug Contraindication: N/A - Med Ordered
--- NOTE | 2023-01-26 12:47 | MHC.CM.PN ---
Addendum entered by Kasey Casillas 01/26/23 16:11: [facility] HAS CONFIRMED IF PT IS READY TO DC TOMORROW THEY WILL BE ABLE TO TAKE HIM HIS GUEST DOSING HAS ALREADY BEEN ARRANGED AND THEY WILL BE ABLE TO ACCOUNTANT ASSISTANT HIS MEDS TOMORROW Original Note: PT AWAITING SNF PLACEMENT FOR IV ABX [facility] HAS CONFIRMED THEY HAVE EVERYTHING AND PTS GUEST DOSING HAS BEEN CONFIRMED ONCE PT IS MEDICALLY CLEARED, HE WILL DC TO [facility] OF NOTE: GUEST DOSING CANNOT START ON WEEKENDS OR HOLIDAYS, IF PT DOES NOT DC TODAY HE WILL HAVE TO REMAIN UNTIL Monday01/31/23
[2023-01-26 13:27] LABS: Band Neutrophils Percent 44 % (3-5); Lymphocytes Absolute Manual 0.1 X10*3/uL (1.2-4.9); Lymphocytes Percent Manual 16 % (20-40); Metamyelocytes Absolute 0.1 X10*3/uL; Metamyelocytes Percent 8 %; Monocytes Percent Manual 4 % (2-11); Neutrophils Absolute Manual 0.5 X10*3/uL (2.0-8.3); Neutrophils Percent Manual 28 % (45-73)
[2023-01-26 13:28] LABS: Platelet Estimate NORMAL (NORMAL); Platelet Morphology Comment NORMAL; RBC Morphology NORMAL
[2023-01-26] MEDS: 0.9 % Sodium Chloride Flush 3 ML SYRINGE IVFLUSH (21:07)
[2023-01-26] MEDS: Ketorolac Tromethamine 10 MG TABLET PO (22:42)
[2023-01-26] MEDS: Heparin Sodium,Porcine Flush 50 UNITS/5 ML SYRINGE IVFLUSH (23:53)
[2023-01-27] VITALS (15 sets, daily range): BP systolic 103–136; BP diastolic 58–80; PULSE 80–107; RESP 16–20; TEMP 35.4–37.3; O2SAT 97–100
[2023-01-27] MEDS: ceFAZolin Sodium/Dextrose,Iso 2 GM/50 ML PIGGYBACK IV ×2 (02:42→10:31)
[2023-01-27] MEDS: ondansetron HCL 4 MG/2 ML VIAL IVPUSH (02:59)
[2023-01-27] MEDS: Doxycycline Monohydrate 100 MG CAPSULE PO ×2 (05:16→15:48)
[2023-01-27 07:14] LABS: Mean Corpuscular HGB Conc 32.2 g/dl (31.0-36.0); PLT CLUMP 1
[2023-01-27 07:16] LABS: Mean Corpuscular Hemoglobin 29.5 pg (27.0-33.0); Mean Corpuscular Volume 91.7 fL (80.0-98.0); Red Blood Count 2.17 X10*6/uL (4.60-5.80); Red Cell Distribution Width 17.2 % (11.0-16.0)
[2023-01-27 07:45] LABS: Hemoglobin 6.4 g/dl (14.0-18.0)
[2023-01-27 07:47] LABS: Hematocrit 19.9 % (42.0-52.0); WBC ABN SCTR FOR CBC 1; White Blood Count 0.6 X10*3/uL (4.8-10.8)
[2023-01-27 07:48] LABS: Platelet Count 109 X10*3/uL (160-400)
[2023-01-27 08:00] LABS: Band Neutrophils Percent 44 % (3-5); Basophils Percent Manual 4 % (0-2); Lymphocytes Percent Manual 8 % (20-40); Metamyelocytes Percent 4 %; Monocytes Percent Manual 4 % (2-11); Neutrophils Absolute Manual 0.5 X10*3/uL (2.0-8.3); Neutrophils Percent Manual 36 % (45-73)
[2023-01-27 08:01] LABS: Platelet Estimate DECREASED (NORMAL); WBC Morphology Comment SEE
[2023-01-27 08:02] LABS: Dohle Bodies PRESENT
[2023-01-27 08:05] LABS: Microcytosis 1+ (5-14) /OIF; RBC Morphology NOTED
[2023-01-27 08:06] LABS: Platelet Morphology Comment NORM
--- NOTE | 2023-01-27 08:59 | P.CNHO_ITS ---
Subjective - Subjective Chief complaint: Lack of sleep Patient: new to practice Consult date: 01/27/23 Primary Care Provider: None Physician HPI - Consult Narrative Reason for consult: Pancytopenia/worsening neutropenia and anemia Narrative: Casey Da Silva is a 47 year old male with history of HIV and IV drug abuse who was admitted for sepsis secondary to cellulitis and MSSA bacteremia, recently diagnosed HIV/aids with Anaplasma and candidiasis. He initially presented with weakness, leg pain and swelling, alopecia and weight loss. His past history is also significant for hepatitis-C, syphilis and chlamydia. On initial presentation to emergency department, he was also noted to have acute renal insufficiency. His kidney functions have normalized. He also developed pancytopenia requiring blood transfusion. His platelet counts have improved but he remains anemic and has developed worsening neutropenia. He was diagnosed with Anaplasma infection based on intracytoplasmic inclusions in WBCs. He has been started on doxycycline. Review of Systems - Constitutional Reports anorexia, Reports malaise, Reports weight loss - Neurologic Reports weakness PMFSH Medical History: Medical History (Last Updated 01/19/23 @ 21:49 by Jana Rich MD) Anaplasmosis Asthma HIV MAY positive MSSA bacteremia Polysubstance (including opioids) dependence w/o physiol dependence Family history: reviewed and not pertinent Social History: Social History (Last Reviewed 02/22/20 @ 08:02 by Maggie Guevara MD) Living Situation History: Household Members: Family Alcohol History: Unable to assess alcohol history related to: Refusing to respond Tobacco History: Patient Tobacco Use Status: Tobacco use Unknown Substance Use History: Substance Use Type: Heroin Occupation Assessmet: service: No Home Medications and Allergies Current Medications: Current Medications Acetaminophen (Acetaminophen 325 Mg Tablet) 650 mg PO Q6H PRN PRN Reason: Pain, Mild (Pain Scale 1-3) Last Admin: 01/20/23 11:34 Dose: 650 mg Al Hydroxide/Mg Hydroxide (Magnesium Hydrox/Alum Hydrox 30 Ml Oral.Susp) 30 ml PO Q4H PRN PRN Reason: Heartburn/Nausea Bictegravir/Emtricitabine/Tenofovir (Bictegrav/Emtricit/Tenofov Ala Tablet) 1 tab PO DAILY [facility] Last Admin: 01/26/23 09:42 Dose: 1 tab Docusate Sodium (Docusate Sodium 100 Mg Capsule) 100 mg PO BID [facility] Last Admin: 01/26/23 21:06 Dose: Not Given Doxycycline Monohydrate (Doxycycline Monohydrate 100 Mg Capsule) 100 mg PO Q12H [facility] Stop: 01/29/23 16:29 Last Admin: 01/27/23 05:16 Dose: 100 mg Enoxaparin Sodium (Enoxaparin Sodium 40 Mg/0.4 Ml Syringe) 40 mg SUBCUT Q24H [facility] Last Admin: 01/26/23 10:28 Dose: Not Given Fluconazole (Fluconazole 100 Mg Tablet) 100 mg PO DAILY [facility] Heparin Sodium (Porcine) (Heparin Sodium,Porcine Flush 50 Units/5 Ml Syringe) [facility] Last Admin: 01/26/23 23:53 Dose: 50 units Cefazolin Sodium/Dextrose (Ancef) 2 gm in 50 mls @ 100 mls/hr IV Q8H [facility] Last Infusion: 01/27/23 03:12 Dose: Infused Magnesium Oxide (Magnesium Oxide 400 Mg Tablet) 800 mg PO BIDPC [facility] Last Admin: 01/26/23 17:17 Dose: 400 mg Methadone HCl (Methadone Hcl 20 Mg/2 Ml Oral.Conc) 45 mg PO DAILY [facility] Last Admin: 01/26/23 09:41 Dose: 45 mg Naloxone HCl (Naloxone Hcl 0.4 Mg/Ml Vial) 0.1 mg IVPUSH Q2M PRN PRN Reason: Respiratory Rate < 10 Nicotine (Nicotine 21 Mg Patch.Td24) 21 mg TRANSDERMA DAILY [facility] Last Admin: 01/26/23 09:44 Dose: 21 mg Nicotine Polacrilex (Nicotine Polacrilex 2 Mg Gum) 2 mg BUCCAL Q2H PRN PRN Reason: Nicotine Cravings Ondansetron HCl (Ondansetron Hcl 4 Mg/2 Ml Vial) 4 mg IVPUSH Q8H PRN PRN Reason: Nausea and Vomiting Last Admin: 01/27/23 02:59 Dose: 4 mg Senna (Sennosides 8.6 Mg Tablet) 17.2 mg PO BEDTIME PRN PRN Reason: Constipation Sodium Chloride (0.9 % Sodium Chloride Flush 3 Ml Syringe) 3 ml IVFLUSH QSHIFT [facility] Last Admin: 01/26/23 21:07 Dose: 3 ml Trimethoprim/Sulfamethoxazole (Sulfamethox/Trimeth 800/160 Tablet) 1 tab PO DAILY [facility] Home Medications Medication Instructions Recorded Confirmed Type No Known Home Meds 01/16/23 01/16/23 History Allergies Allergy/AdvReac Type Severity Reaction Status Date / Time fish derived [FISH] Allergy Unknown UNKNOWN Verified 01/16/23 11:09 Physical Exam Vital signs: Vital Signs Temp 97.7 F 01/27/23 07:32 Pulse 100 01/27/23 07:32 Resp 18 01/27/23 07:32 BP 103/65 01/27/23 07:32 Pulse Ox 98 01/27/23 07:32 O2 Del Method Room Air 01/27/23 07:32 Intake & Output 01/26/23 01/27/23 01/27/23 18:59 06:59 18:59 Intake Total 980 / 3320 2340 / 3320 Output Total 400 / 1400 1000 / 1400 Balance 580 / 1920 1340 / 1920 Urine Output (Average ml/kg/hr) 0.58 1.46 Intake: Intake, Oral Amount 480 / 2770 2290 / 2770 Intake (Blood Product) Amount 350 / 350 Red Blood Cells (E0382) Unit 350 / 350 [id number] Intake, IV Amount 150 / 200 50 / 200 Fluconazole in NaCl,Iso-Osm 100 50 / 50 mg In Container,Empty 0 ml @ 50 mls/hr IV Q24H [facility] Rx#: [id number] ceFAZolin Sodium/Dextrose,Iso 2 100 / 150 50 / 150 gm In 50 ml @ 100 mls/hr IV Q8H [facility] Rx#:[id number] Output: Output, Urine Amount 400 / 1400 1000 / 1400 Other: Meal Refused No NPO No Breakfast % Eaten 50% Lunch % Eaten 0% Dinner % Eaten 100% Number of Bowel Movements 0 Urine Urinal Urinal Urine Color Andreina Yellow Last Bowel Movement 01/24/23 01/24/23 Weight 57.2 kg - Constitutional Present: no acute distress, thin, chronically ill appearing - Routine HEENT Exam Eye: Present: conjunctivae pale - Routine Neck Exam Absent: lymphadenopathy - Routine Respiratory Exam Absent: accessory muscle use - Routine Cardiovascular Exam Cardiovascular: Present: S1, S2 Hem/Onc Consult Result - Labs CBC & Chem 7: 01/27/23 06:22 01/27/23 10:00 Labs: Short CBC 01/26/23 01/27/23 Range/Units 11:20 06:22 WBC 0.7 L* 0.6 L* (4.8-10.8) X10*3/uL Hgb 6.4 L* D 6.4 L* (14.0-18.0) g/dl Hct 19.8 L* D 19.9 L* (42.0-52.0) % Plt Count 111 L D 109 L (160-400) X10*3/uL Assessment and Plan Patient Active problem list reviewed?: Yes (1) Cytopenia Status: Acute Assessment and plan: 1. This is a 47-year-old male, IV drug abuser who has been admitted for cellulitis and MSSA bacteremia. He has been diagnosed with HIV/aids as well as candidiasis and anaplasmosis. He was found to have intracytoplasmic inclusion bodies on review of peripheral smear has been started on doxycycline on 01/19/2023. No confirmatory serological tests have been performed. During this hospitalization he was started on HIV medications. For antibiotics, he is on doxycycline, cefazolin and fluconazole. He has developed pancytopenia and worsening anemia/ neutropenia. He does not have adequate marrow response, he has reticulocytopenia. Underlying HIV, drug abuse, malnutrition could be cause of his inadequate marrow response. His CBC was normal in 2020. On presentation to hospital on the current admission he had both anemia and thrombocytopenia. His WBC count was normal. Imaging with CT abdomen/pelvis showed hepatosplenomegaly. He also has bilateral inguinal lymphadenopathy which is probably reactive. Acute worsening could be related to infection and antibiotics. He does not have significant hemolysis, his LDH is only mildly elevated. Bilirubin and haptoglobin level are normal. Direct Dale test is negative. His kidney functions have improved. Therefore myelophthisic process such as TTP/HUS is unlikely. At this time I recommend ongoing supportive care with blood transfusion as required. Monitor daily labs, CBC, LDH and CMP. Thank you for the consultation. - Time Spent With Patient Time Spent with Patient (in minutes): 20
[2023-01-27] MEDS: methADONE HCl 20 MG/2 ML ORAL.CONC 45 MG PO (09:35)
[2023-01-27] MEDS: 0.9 % Sodium Chloride Flush 3 ML SYRINGE IVFLUSH ×2 (09:36→16:32)
[2023-01-27] MEDS: Bictegrav/Emtricit/Tenofov Ala TABLET 1 TAB PO (09:36)
[2023-01-27] MEDS: Docusate Sodium 100 MG CAPSULE PO (09:36)
[2023-01-27] MEDS: Magnesium Oxide 400 MG TABLET 800 MG PO ×2 (09:36→16:33)
[2023-01-27] MEDS: Nicotine 21 MG PATCH.TD24 TRANSDERMA (09:36)
[2023-01-27] MEDS: Sulfamethox/Trimeth 800/160 TABLET 1 TAB PO (09:36)
--- NOTE | 2023-01-27 09:39 | MHC.CLN ---
F/U DIET=REGULAR. ENSURE BID TO INCREASE NUTRITIONAL INTAKE. PROVIDES 700 KCALS, 40 G PROTEIN. INTAKE CONTINUES VARIABLE, 0-100%. CONTINUE REGULAR DIET WITH ENSURE BID. FOLLOW FOR PO INTAKE AND WEIGHTS. RD TO FOLLOW UP 01/31.
[2023-01-27 09:56] LABS: Immature Retic Fraction 15.1 % (2.3-13.4); Retic HGB Equivalent 32.8 pg (30.0-35.0); Reticulocyte Percent 1.3 % (0.5-1.8)
--- NOTE | 2023-01-27 10:12 | MHC.CM.PN ---
PER MD ROUNDS, PT NOT MEDICALLY STABLE TO DC [facility] INFORMED VIA [employer] MESSAGE ALSO SENT TO CONFIRM THEY HAVE PICKED UP PTS METHADONE DOSES ALREADY, IF SO, PT MAY BE ABLE TO DC OVER THE WEEKEND AWAITING RESPONSE
[2023-01-27] MEDS: Fluconazole 100 MG TABLET PO (10:31)
[2023-01-27] MEDS: Enoxaparin Sodium 40 MG/0.4 ML SYRINGE SUBCUT (10:32)
[2023-01-27 10:37] LABS: Alanine Aminotransferase < 5 U/L (0-40); Albumin Level 1.4 g/dL (3.5-5.0); Alkaline Phosphatase 466 U/L (39-117); Anion Gap 4 (12-20); Aspartate Amino Transferase 57 U/L (5-37); Bilirubin Direct 0.6 mg/dL (0.0-0.5); Blood Urea Nitrogen 16 mg/dL (9-16); Calcium 7.3 mg/dL (8.4-10.2); Carbon Dioxide 27 mmol/L (22-29); Chloride 104 mmol/L (96-108); Estimated Glomerular Filt Rate > 60; Glucose Random 82 mg/dL (60-115); Lactate Dehydrogenase 328 U/L (118-273); Potassium 4.2 mmol/L (3.3-5.1); Sodium 131 mmol/L (135-145)
[2023-01-27 11:09] LABS: Folate 3.7 ng/mL (> or = 4.0); Vitamin B12 994 pg/mL (200-900)
[2023-01-27 12:20] LABS: Haptoglobin 84 MG/DL ((30-200))
--- NOTE | 2023-01-27 14:46 | HO.PM.IMPN ---
Subjective Subjective Date of Service: 01/27/23 Interval History: seen and examined this morning follow up for bacteremia, aids, now with neutropenia feeling well, swallowing better, no sob, leg doing well, no pain Review of Systems Review of Systems: Yes all other systems are reviewed and are negative Constitutional Constitutional: Denies chills and Denies fever(s) Cardiovascular Cardiovascular: Denies chest pain, Denies palpitations and Denies dyspnea Respiratory Respiratory: Denies cough and Denies dyspnea Gastrointestinal Gastrointestinal: Denies abdominal pain Endocrine Endocrine: Denies palpitations Physical Exam Vital Signs: Vital Signs: Last Vital Signs Temp 98.7 F 01/27/23 13:32 Pulse 107 H 01/27/23 13:32 Resp 18 01/27/23 13:32 BP 115/71 01/27/23 13:32 Pulse Ox 98 01/27/23 07:32 O2 Del Method Room Air 01/27/23 07:32 BMI result Body Mass Index 20.4 Const: Other: ill appearing, thin General: alert and awake Orientation/consciousness: patient oriented x3 Resp: Effort & Inspection: normal respiratory effort, no respiratory distress and no use of accessory muscles Auscultation: clear to auscultation bilaterally Cardio: Rate: regular rate and tachycardic GI: Inspection: No distended Palpation (GI): Soft to palpation and nontender Skin: Other: left leg with improvement in swelling, no significant erythema; no tenderness Neuro: General: patient oriented x3, moves all extremities and CN's II-XI intact bilaterally Objective Data Active Medications Acetaminophen (Acetaminophen 325 Mg Tablet) 650 mg PO Q6H PRN PRN Reason: Pain, Mild (Pain Scale 1-3) Last Admin: 01/20/23 11:34 Dose: 650 mg Documented By: NYA Al Hydroxide/Mg Hydroxide (Magnesium Hydrox/Alum Hydrox 30 Ml Oral.Susp) 30 ml PO Q4H PRN PRN Reason: Heartburn/Nausea Atovaquone (Atovaquone 750 Mg/5 Ml Oral.Susp) 1,500 mg PO DAILY [facility] Bictegravir/Emtricitabine/Tenofovir (Bictegrav/Emtricit/Tenofov Ala Tablet) 1 tab PO DAILY [facility] Last Admin: 01/27/23 09:36 Dose: 1 tab Documented By: SOFÍA Docusate Sodium (Docusate Sodium 100 Mg Capsule) 100 mg PO BID [facility] Last Admin: 01/27/23 09:36 Dose: 100 mg Documented By: SOFÍA Doxycycline Monohydrate (Doxycycline Monohydrate 100 Mg Capsule) 100 mg PO Q12H [facility] Stop: 01/29/23 16:29 Last Admin: 01/27/23 05:16 Dose: 100 mg Documented By: CONNOR Enoxaparin Sodium (Enoxaparin Sodium 40 Mg/0.4 Ml Syringe) 40 mg SUBCUT Q24H [facility] Last Admin: 01/27/23 10:32 Dose: 40 mg Documented By: SOFÍA Fluconazole (Fluconazole 100 Mg Tablet) 100 mg PO DAILY [facility] Last Admin: 01/27/23 10:31 Dose: 100 mg Documented By: SOFÍA Heparin Sodium (Porcine) (Heparin Sodium,Porcine Flush 50 Units/5 Ml Syringe) 50 units IVFLUSH QSHIFT [facility] Last Admin: 01/27/23 11:20 Dose: Not Given Documented By: SOFÍA Non-Admin Reason: IV Running Daptomycin 572 mg/ Sodium (Chloride) 61.44 mls @ 100 mls/hr IV Q24H [facility] Magnesium Oxide (Magnesium Oxide 400 Mg Tablet) 800 mg PO BIDPC [facility] Last Admin: 01/27/23 09:36 Dose: 800 mg Documented By: SOFÍA Methadone HCl (Methadone Hcl 20 Mg/2 Ml Oral.Conc) 45 mg PO DAILY [facility] Last Admin: 01/27/23 09:35 Dose: 45 mg Documented By: SOFÍA Naloxone HCl (Naloxone Hcl 0.4 Mg/Ml Vial) 0.1 mg IVPUSH Q2M PRN PRN Reason: Respiratory Rate < 10 Nicotine (Nicotine 21 Mg Patch.Td24) 21 mg TRANSDERMA DAILY [facility] Last Admin: 01/27/23 09:36 Dose: 21 mg Documented By: SOFÍA Nicotine Polacrilex (Nicotine Polacrilex 2 Mg Gum) 2 mg BUCCAL Q2H PRN PRN Reason: Nicotine Cravings Ondansetron HCl (Ondansetron Hcl 4 Mg/2 Ml Vial) 4 mg IVPUSH Q8H PRN PRN Reason: Nausea and Vomiting Last Admin: 01/27/23 02:59 Dose: 4 mg Documented By: CONNOR Senna (Sennosides 8.6 Mg Tablet) 17.2 mg PO BEDTIME PRN PRN Reason: Constipation Sodium Chloride (0.9 % Sodium Chloride Flush 3 Ml Syringe) 3 ml IVFLUSH QSHIFT JASON Last Admin: 01/27/23 09:36 Dose: 3 ml Documented By: SOFÍA Labs 01/27/23 06:22 01/27/23 10:00 Labs: Laboratory Results - last 24 hr 01/26/23 01/27/23 01/27/23 13:17 06:22 08:35 MCV 91.7 MCH 29.5 MCHC 32.2 RDW 17.2 H Plt Count 109 L MPV 11.0 Immature Gran % (Auto) Cancelled Neut % (Auto) Cancelled Lymph % (Auto) Cancelled [place] % (Auto) Cancelled Eos % (Auto) Cancelled Baso % (Auto) Cancelled Lymph # (Auto) Cancelled [place] # (Auto) Cancelled Eos # (Auto) Cancelled Baso # (Auto) Cancelled Abs Immat Gran (auto) Cancelled Absolute Neuts (auto) Cancelled Absolute Nucleated RBC 0.000 Nucleated RBC % (auto) 0.0 Neutrophils % (Manual) 36 L Band Neutrophils % 44 H Lymphocytes % (Manual) 8 L Monocytes % (Manual) 4 Basophils % (Manual) 4 H Metamyelocytes % 4 Abs Neuts (Manual) 0.5 L Dohle Bodies PRESENT WBC Morphology Comment SEE Platelet Estimate DECREASED Plt Morphology Comment NORM RBC Morphology NOTED Microcytosis 1+ (5-14) Absolute Retic 0.030 Percent Retic 1.3 Immature Retic Fraction 15.1 H Retic Hgb Equivalent 32.8 Haptoglobin 84 Hold Purple Top SEE NOTE Anion Gap Estim Creat Clear Calc Estimated GFR Random Glucose Calcium Total Bilirubin Direct Bilirubin AST ALT Alkaline Phosphatase Lactate Dehydrogenase Total Protein Albumin Vitamin B12 Folate Blood Type A Positive Antibody Screen NEGATIVE GLORIA, Polyspecific NEGATIVE Positive GLORIA Work-up TNP Crossmatch See Detail 01/27/23 10:00 MCV MCH MCHC RDW Plt Count MPV Immature Gran % (Auto) Neut % (Auto) Lymph % (Auto) [place] % (Auto) Eos % (Auto) Baso % (Auto) Lymph # (Auto) [place] # (Auto) Eos # (Auto) Baso # (Auto) Abs Immat Gran (auto) Absolute Neuts (auto) Absolute Nucleated RBC Nucleated RBC % (auto) Neutrophils % (Manual) Band Neutrophils % Lymphocytes % (Manual) Monocytes % (Manual) Basophils % (Manual) Metamyelocytes % Abs Neuts (Manual) Dohle Bodies WBC Morphology Comment Platelet Estimate Plt Morphology Comment RBC Morphology Microcytosis Absolute Retic Percent Retic Immature Retic Fraction Retic Hgb Equivalent Haptoglobin Hold Purple Top Anion Gap 4 L Estim Creat Clear Calc 82.0 Estimated GFR > 60 Random Glucose 82 Calcium 7.3 L Total Bilirubin 1.0 Direct Bilirubin 0.6 H AST 57 H ALT < 5 Alkaline Phosphatase 466 H Lactate Dehydrogenase 328 H Total Protein 7.0 Albumin 1.4 L Vitamin B12 994 H Folate 3.7 L Blood Type Antibody Screen GLORIA, Polyspecific Positive GLORIA Work-up Crossmatch Assessment and Plan (1) Cytopenia: Status: Acute (2) Anaplasmosis: Status: Acute (3) HIV MAY positive: Status: Acute (4) MSSA bacteremia: Status: Acute Plan 47yo M with hx injection heroin + cocaine abuse, admitted with sepsis due to cellulitis, found to have MSSA bacteremia, new diagnosis of HIV/AIDS, anaplasmosis, and candidiasis and now with worsening anemia and neutropenia pancytopenia/neutropenia presented with pancytopenia due to HIV/AIDS; drop in H/H and white count noted 01/26; platelets stable acute drop likely due to antibiotics. no hemolysis, TTP/HUS unlikely H/H trending down, will transfuse additional unit transfused 2 units PRBC, then 1 unit 01/26; will transfuse 2 additional units today, 01/27 seen by GI, outpt EGD/C-scope in absence of overt bleeding seen by hematology monitor daily CBC, LDH and CMP sepsis due to cellulitis with MSSA bacteremia vanco/pip-kelli -> cefazolin 01/19/23, Discussed with ID, will change to daptomycin as abx likely cause of neutropenia/anemia TTE with no vegetation and BCx cleared ID following total 4 wk from negative BCx 01/19/23 so end date 02/16/23, Mid line placed HIV/AIDS (CD4 <20, RNA 2.98 million) now on Biktarvy screen for cryptococcosis neg PJP prophylaxis: started with atovaquone due to GIL; once Cr normalized, switched to TMP-SMX. 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 Resolved replete IV increase PO maintenance dose hypoK. Resolved repleted GIL, prerenal resolved with IV fluids polysubstance abuse Addiction Medicine consulted, started methadone tobacco abuse NRT mild protein-calorie malnutrition supplements VTE ppx LMWH Attending Dr. David mar will need STR for IV ABX total 4 weeks, pending safe disposition, close monitoring of white count and H/H In my clinical judgment, the patient requires continued inpatient hospitalization for the following reasons: IV ABX Quality Stroke Does the patient have a stroke diagnosis?: No VTE Prior VTE?: No VTE Risk Level:: Medical - moderate - high VTE Device Contraindication: Treatment Not Tolerated VTE Drug Contraindication: N/A - Med Ordered
--- NOTE | 2023-01-27 16:29 | P.PNID_ITS ---
Subjective Subjective Date of Service: 01/27/23 Critical Care Time (minutes): 15 Comment: he has pancytopenia worsening Objective Data Labs 01/27/23 06:22 01/27/23 10:00 Labs: Laboratory Results - last 24 hr 01/26/23 01/27/23 01/27/23 13:17 06:22 08:35 WBC 0.6 L* RBC 2.17 L Hgb 6.4 L* Hct 19.9 L* MCV 91.7 MCH 29.5 MCHC 32.2 RDW 17.2 H Plt Count 109 L MPV 11.0 Immature Gran % (Auto) Cancelled Neut % (Auto) Cancelled Lymph % (Auto) Cancelled [place] % (Auto) Cancelled Eos % (Auto) Cancelled Baso % (Auto) Cancelled Lymph # (Auto) Cancelled [place] # (Auto) Cancelled Eos # (Auto) Cancelled Baso # (Auto) Cancelled Abs Immat Gran (auto) Cancelled Absolute Neuts (auto) Cancelled Absolute Nucleated RBC 0.000 Nucleated RBC % (auto) 0.0 Neutrophils % (Manual) 36 L Band Neutrophils % 44 H Lymphocytes % (Manual) 8 L Monocytes % (Manual) 4 Basophils % (Manual) 4 H Metamyelocytes % 4 Abs Neuts (Manual) 0.5 L Dohle Bodies PRESENT WBC Morphology Comment SEE Platelet Estimate DECREASED Plt Morphology Comment NORM RBC Morphology NOTED Microcytosis 1+ (5-14) Absolute Retic 0.030 Percent Retic 1.3 Immature Retic Fraction 15.1 H Retic Hgb Equivalent 32.8 Haptoglobin 84 Hold Purple Top SEE NOTE Sodium Potassium Chloride Carbon Dioxide Anion Gap BUN Creatinine Estim Creat Clear Calc Estimated GFR Random Glucose Calcium Total Bilirubin Direct Bilirubin AST ALT Alkaline Phosphatase Lactate Dehydrogenase Total Protein Albumin Vitamin B12 Folate Blood Type A Positive Antibody Screen NEGATIVE GLORIA, Polyspecific NEGATIVE Positive GLORIA Work-up TNP Crossmatch See Detail 01/27/23 10:00 WBC RBC Hgb Hct MCV MCH MCHC RDW Plt Count MPV Immature Gran % (Auto) Neut % (Auto) Lymph % (Auto) [place] % (Auto) Eos % (Auto) Baso % (Auto) Lymph # (Auto) [place] # (Auto) Eos # (Auto) Baso # (Auto) Abs Immat Gran (auto) Absolute Neuts (auto) Absolute Nucleated RBC Nucleated RBC % (auto) Neutrophils % (Manual) Band Neutrophils % Lymphocytes % (Manual) Monocytes % (Manual) Basophils % (Manual) Metamyelocytes % Abs Neuts (Manual) Dohle Bodies WBC Morphology Comment Platelet Estimate Plt Morphology Comment RBC Morphology Microcytosis Absolute Retic Percent Retic Immature Retic Fraction Retic Hgb Equivalent Haptoglobin Hold Purple Top Sodium 131 L Potassium 4.2 Chloride 104 Carbon Dioxide 27 Anion Gap 4 L BUN 16 Creatinine 0.91 Estim Creat Clear Calc 82.0 Estimated GFR > 60 Random Glucose 82 Calcium 7.3 L Total Bilirubin 1.0 Direct Bilirubin 0.6 H AST 57 H ALT < 5 Alkaline Phosphatase 466 H Lactate Dehydrogenase 328 H Total Protein 7.0 Albumin 1.4 L Vitamin B12 994 H Folate 3.7 L Blood Type Antibody Screen GLORIA, Polyspecific Positive GLORIA Work-up Crossmatch Microbiology Microbiology Results: Microbiology 01/19/23 16:39 Blood - Venous Blood Culture - Final No growth after 5 days. 01/19/23 16:39 Blood - Venous Blood Culture - Final No growth after 5 days. 01/16/23 14:14 Blood - Venous Blood Culture - Final No growth after 5 days. 01/16/23 13:11 Blood - Venous Blood Culture - Final Staphylococcus aureus Physical Exam 2 Vital Signs: Vital Signs: Last Vital Signs Temp 97.8 F 01/27/23 15:57 Pulse 97 01/27/23 15:57 Resp 20 01/27/23 15:57 BP 106/66 01/27/23 15:57 Pulse Ox 97 01/27/23 15:58 O2 Del Method Room Air 01/27/23 15:58 BMI result Body Mass Index 20.4 Const: General: cooperative Orientation/consciousness: patient oriented x3 HEENT: Head: Yes normal to inspection Mouth: Normal oral and palatal mucosa present Eyes: General: appearance normal, both eyes and all related structures P upils: Equal, round and reactive pupils present Resp: Effort & Inspection: normal respiratory effort Cardio: Rate: regular rate Rhythm: regular rhythm GI: Palpation (GI): Soft to palpation and nontender : General: Yes no CVA tenderness Back/Spine/Pelvis: Back: no CVA tenderness Skin: General skin exam: no rashes or lesions noted Neuro: General: patient oriented x3 Cranial nerves: Yes CN's II-XII intact bilaterally and Yes Equal, round and reactive pupils present Extrem: General: Yes normal to inspection Psych: Appearance: grossly normal Assessment and Plan Assessment and plan (1) Cytopenia: Status: Acute (2) HIV MAY positive: Status: Acute (3) Anaplasmosis: Problem details: seen by pathologist shonna Pradhan Status: Acute (4) MSSA bacteremia: Problem details: likely IVDU source Status: Acute (5) Cellulitis: Status: Acute (6) Opioid use disorder: Status: Acute (7) Smoker unmotivated to quit: Status: Acute (8) AIDS: Problem details: He has cytopenias likely related to drug reaction (either Kefzol and/or Bactrim) as well as possible CHRISTY It is too late for anaplasmosis since has been treated 8 days and shouldnt be worsening now Status: Acute Assessment and Plan: Await tick panel Finish po Doxycycline and stop it tomorrow. Stop Bactrim and Kefzol. Give IV Daptomycin untii 02/16/2023. Continue Biktarvy BM biopsy if not improved after two weeks. On discharge he needs to call Kimberly at [facility] (she is bilingual and at [phone] at [facility] so he can set up there as a new patient and see me for HIV care. Time Spent With Patient Time: Total time managing care of this patient today ____ minutes.
[2023-01-27] MEDS: Heparin Sodium,Porcine Flush 50 UNITS/5 ML SYRINGE IVFLUSH (16:32)
[2023-01-28] MEDS: Heparin Sodium,Porcine Flush 50 UNITS/5 ML SYRINGE IVFLUSH ×4 (00:01→23:36)
[2023-01-28] MEDS: 0.9 % Sodium Chloride Flush 3 ML SYRINGE IVFLUSH ×4 (00:01→20:39)
[2023-01-28 03:46] VITALS: BP 98/57; PULSE 100; RESP 18; TEMP 36.1; O2SAT 98
[2023-01-28] MEDS: Doxycycline Monohydrate 100 MG CAPSULE PO ×2 (05:36→16:44)
[2023-01-28 05:46] LABS: Mean Corpuscular HGB Conc 33.3 g/dl (31.0-36.0); Mean Corpuscular Hemoglobin 30.8 pg (27.0-33.0); Mean Corpuscular Volume 92.3 fL (80.0-98.0); Mean Platelet Volume 10.3 fL (9.4-12.4); Red Cell Distribution Width 17.2 % (11.0-16.0)
[2023-01-28 06:05] LABS: Alanine Aminotransferase < 5 U/L (0-40); Albumin Level 1.3 g/dL (3.5-5.0); Alkaline Phosphatase 505 U/L (39-117); Anion Gap 8 (12-20); Aspartate Amino Transferase 60 U/L (5-37); Bilirubin Total 1.1 mg/dL (0.0-1.0); Blood Urea Nitrogen 22 mg/dL (9-16); Calcium 7.4 mg/dL (8.4-10.2); Carbon Dioxide 25 mmol/L (22-29); Chloride 104 mmol/L (96-108); Creatinine Clr Calc Pharmacy 75.4; Estimated Glomerular Filt Rate > 60; Glucose Random 117 mg/dL (60-115); Lactate Dehydrogenase 356 U/L (118-273); Potassium 4.8 mmol/L (3.3-5.1); Sodium 132 mmol/L (135-145); Total Protein 6.6 g/dL (6.5-8.0)
[2023-01-28 06:09] LABS: Platelet Count 98 X10*3/uL (160-400); WBC ABN SCTR FOR CBC 1
[2023-01-28 06:11] LABS: White Blood Count 0.7 X10*3/uL (4.8-10.8)
[2023-01-28 06:19] LABS: Lymphocytes Absolute Manual 0.1 X10*3/uL (1.2-4.9); Lymphocytes Percent Manual 8 % (20-40); Metamyelocytes Percent 4 %; Monocytes Absolute Manual 0.1 X10*3/uL (0.1-1.2)
[2023-01-28 06:20] LABS: Band Neutrophils Percent 46 % (3-5); Monocytes Percent Manual 8 % (2-11); Neutrophils Absolute Manual 0.6 X10*3/uL (2.0-8.3); Neutrophils Percent Manual 34 % (45-73); RBC Morphology NOTED
[2023-01-28 06:25] LABS: Burr Cells 1+ (0-2) /OIF; Dohle Bodies PRESENT; Large Platelet PRESENT; Ovalocytes 1+ (5-14) /OIF; Platelet Estimate DECREASED (NORMAL)
[2023-01-28 06:27] LABS: Platelet Morphology Comment NOTE
[2023-01-28 07:39] VITALS: BP 97/57; PULSE 80; RESP 18; TEMP 36.8; O2SAT 98
[2023-01-28 08:00] VITALS: PULSE 102
[2023-01-28] MEDS: methADONE HCl 20 MG/2 ML ORAL.CONC 45 MG PO (08:17)
[2023-01-28] MEDS: Nicotine 21 MG PATCH.TD24 TRANSDERMA (08:17)
[2023-01-28] MEDS: Magnesium Oxide 400 MG TABLET 800 MG PO ×2 (08:18→16:44)
[2023-01-28] MEDS: Docusate Sodium 100 MG CAPSULE PO ×2 (08:19→20:38)
[2023-01-28] MEDS: Fluconazole 100 MG TABLET PO (08:19)
[2023-01-28] MEDS: Bictegrav/Emtricit/Tenofov Ala TABLET 1 TAB PO (08:22)
[2023-01-28] MEDS: Atovaquone 750 MG/5 ML ORAL.SUSP 1500 MG PO (08:33)
--- NOTE | 2023-01-28 10:24 | HO.PM.IMPN ---
Subjective Subjective Date of Service: 01/28/23 Interval History: seen and examined this morning follow up for bacteremia, aids, now with neutropenia feeling well, swallowing better, no sob, leg doing well, no pain Review of Systems Review of Systems: Yes all other systems are reviewed and are negative Constitutional Constitutional: Denies chills and Denies fever(s) Cardiovascular Cardiovascular: Denies chest pain, Denies palpitations and Denies dyspnea Respiratory Respiratory: Denies cough and Denies dyspnea Gastrointestinal Gastrointestinal: Denies abdominal pain Endocrine Endocrine: Denies palpitations Physical Exam Vital Signs: Vital Signs: Last Vital Signs Temp 98.2 F 01/28/23 07:39 Pulse 80 01/28/23 07:39 Resp 18 01/28/23 07:39 BP 97/57 L 01/28/23 07:39 Pulse Ox 98 01/28/23 07:39 O2 Del Method Room Air 01/28/23 07:39 BMI result Body Mass Index 20.4 Appearing in no acute distress lung sounds are clear to auscultation heart regular rate rhythm, clear S1, S2 positive bowel sounds, abdomen is soft, nontender neuro patient is alert x3, no focal deficits Objective Data Active Medications Acetaminophen (Acetaminophen 325 Mg Tablet) 650 mg PO Q6H PRN PRN Reason: Pain, Mild (Pain Scale 1-3) Last Admin: 01/20/23 11:34 Dose: 650 mg Documented By: NYA Al Hydroxide/Mg Hydroxide (Magnesium Hydrox/Alum Hydrox 30 Ml Oral.Susp) 30 ml PO Q4H PRN PRN Reason: Heartburn/Nausea Atovaquone (Atovaquone 750 Mg/5 Ml Oral.Susp) 1,500 mg PO DAILY [facility] Last Admin: 01/28/23 08:33 Dose: 1,500 mg Documented By: JATIN Bictegravir/Emtricitabine/Tenofovir (Bictegrav/Emtricit/Tenofov Ala Tablet) 1 tab PO DAILY [facility] Last Admin: 01/28/23 08:22 Dose: 1 tab Documented By: JATIN Docusate Sodium (Docusate Sodium 100 Mg Capsule) 100 mg PO BID [facility] Last Admin: 01/28/23 08:19 Dose: 100 mg Documented By: JATIN Doxycycline Monohydrate (Doxycycline Monohydrate 100 Mg Capsule) 100 mg PO Q12H [facility] Stop: 01/29/23 16:29 Last Admin: 01/28/23 05:36 Dose: 100 mg Documented By: THANH Enoxaparin Sodium (Enoxaparin Sodium 40 Mg/0.4 Ml Syringe) 40 mg SUBCUT Q24H [facility] Last Admin: 01/27/23 10:32 Dose: 40 mg Documented By: SOFÍA Fluconazole (Fluconazole 100 Mg Tablet) 100 mg PO DAILY [facility] Stop: 02/05/23 14:51 Last Admin: 01/28/23 08:19 Dose: 100 mg Documented By: JATIN Heparin Sodium (Porcine) (Heparin Sodium,Porcine Flush 50 Units/5 Ml Syringe) 50 units IVFLUSH [facility] Last Admin: 01/28/23 08:20 Dose: 50 units Documented By: JATIN Daptomycin 572 mg/ Sodium (Chloride) 61.44 mls @ 100 mls/hr IV Q24H [facility] Last Infusion: 01/27/23 17:20 Dose: Infused Documented By: OLGA Magnesium Oxide (Magnesium Oxide 400 Mg Tablet) 800 mg PO BIDPC [facility] Last Admin: 01/28/23 08:18 Dose: 800 mg Documented By: JATIN Methadone HCl (Methadone Hcl 20 Mg/2 Ml Oral.Conc) 45 mg PO DAILY [facility] Last Admin: 01/28/23 08:17 Dose: 45 mg Documented By: JATIN Naloxone HCl (Naloxone Hcl 0.4 Mg/Ml Vial) 0.1 mg IVPUSH Q2M PRN PRN Reason: Respiratory Rate < 10 Nicotine (Nicotine 21 Mg Patch.Td24) 21 mg TRANSDERMA DAILY [facility] Last Admin: 01/28/23 08:17 Dose: 21 mg Documented By: JATIN Nicotine Polacrilex (Nicotine Polacrilex 2 Mg Gum) 2 mg BUCCAL Q2H PRN PRN Reason: Nicotine Cravings Ondansetron HCl (Ondansetron Hcl 4 Mg/2 Ml Vial) 4 mg IVPUSH Q8H PRN PRN Reason: Nausea and Vomiting Last Admin: 01/27/23 02:59 Dose: 4 mg Documented By: CONNOR Senna (Sennosides 8.6 Mg Tablet) 17.2 mg PO BEDTIME PRN PRN Reason: Constipation Sodium Chloride (0.9 % Sodium Chloride Flush 3 Ml Syringe) 3 ml IVFLUSH [facility] Last Admin: 01/28/23 08:20 Dose: 3 ml Documented By: JATIN Labs 01/28/23 05:33 01/28/23 05:33 Labs: Laboratory Results - last 24 hr 01/26/23 01/27/23 01/27/23 13:17 06:22 10:00 MCV MCH MCHC RDW Plt Count MPV Immature Gran % (Auto) Neut % (Auto) Lymph % (Auto) [place] % (Auto) Eos % (Auto) Baso % (Auto) Lymph # (Auto) [place] # (Auto) Eos # (Auto) Baso # (Auto) Abs Immat Gran (auto) Absolute Neuts (auto) Absolute Nucleated RBC Nucleated RBC % (auto) Neutrophils % (Manual) Band Neutrophils % Lymphocytes % (Manual) Monocytes % (Manual) Metamyelocytes % Abs Neuts (Manual) Lymphocytes # (Manual) Monocytes # (Manual) Dohle Bodies Platelet Estimate Large Platelets Plt Morphology Comment RBC Morphology Ovalocytes [place] Cells Haptoglobin 84 Anion Gap 4 L Estim Creat Clear Calc 82.0 Estimated GFR > 60 Random Glucose 82 Calcium 7.3 L Total Bilirubin 1.0 Direct Bilirubin 0.6 H AST 57 H ALT < 5 Alkaline Phosphatase 466 H Lactate Dehydrogenase 328 H Total Protein 7.0 Albumin 1.4 L Vitamin B12 994 H Folate 3.7 L Blood Type A Positive Antibody Screen NEGATIVE Crossmatch See Detail 01/28/23 05:33 MCV 92.3 MCH 30.8 MCHC 33.3 RDW 17.2 H Plt Count 98 L MPV 10.3 Immature Gran % (Auto) Cancelled Neut % (Auto) Cancelled Lymph % (Auto) Cancelled [place] % (Auto) Cancelled Eos % (Auto) Cancelled Baso % (Auto) Cancelled Lymph # (Auto) Cancelled [place] # (Auto) Cancelled Eos # (Auto) Cancelled Baso # (Auto) Cancelled Abs Immat Gran (auto) Cancelled Absolute Neuts (auto) Cancelled Absolute Nucleated RBC 0.000 Nucleated RBC % (auto) 0.0 Neutrophils % (Manual) 34 L Band Neutrophils % 46 H Lymphocytes % (Manual) 8 L Monocytes % (Manual) 8 Metamyelocytes % 4 Abs Neuts (Manual) 0.6 L Lymphocytes # (Manual) 0.1 L Monocytes # (Manual) 0.1 Dohle Bodies PRESENT Platelet Estimate DECREASED Large Platelets PRESENT Plt Morphology Comment NOTE RBC Morphology NOTED Ovalocytes 1+ (5-14) [place] Cells 1+ (0-2) Haptoglobin Anion Gap 8 L Estim Creat Clear Calc 75.4 Estimated GFR > 60 Random Glucose 117 H Calcium 7.4 L Total Bilirubin 1.1 H Direct Bilirubin AST 60 H ALT < 5 Alkaline Phosphatase 505 H Lactate Dehydrogenase 356 H Total Protein 6.6 Albumin 1.3 L Vitamin B12 Folate Blood Type Antibody Screen Crossmatch Assessment and Plan (1) Cytopenia: Status: Acute (2) Anaplasmosis: Status: Acute (3) HIV MAY positive: Status: Acute (4) MSSA bacteremia: Status: Acute Plan 47yo M with hx injection heroin + cocaine abuse, admitted with sepsis due to cellulitis, found to have MSSA bacteremia, new diagnosis of HIV/AIDS, anaplasmosis, and candidiasis and now with worsening anemia and neutropenia Pancytopenia/neutropenia presented with pancytopenia due to HIV/AIDS; drop in H/H and white count noted 01/26; platelets stable acute drop likely due to antibiotics. no hemolysis, TTP/HUS unlikely H/H trending down, will transfuse additional unit s/p transfused 5 units PRBC seen by GI, outpt EGD/C-scope in absence of overt bleeding seen by hematology> cytopenias secondary to infections vs medications (abx), luís neg, haptoglobin normal, no hemolysis, TTP not likely monitor daily CBC, LDH and CMP Sepsis due to cellulitis with MSSA bacteremia vanco/pip-kelli -> cefazolin 01/19/23, Discussed with ID, will change to daptomycin as abx likely cause of neutropenia/anemia TTE with no vegetation and BCx cleared ID following total 4 wk from negative BCx 01/19/23 so end date 02/16/23, Mid line placed HIV/AIDS (CD4 <20, RNA 2.98 million) now on Biktarvy screen for cryptococcosis neg PJP prophylaxis: started with atovaquone due to GIL; once Cr normalized, switched to TMP-SMX. 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 Resolved replete IV increase PO maintenance dose hypoK. Resolved repleted GIL, prerenal resolved with IV fluids polysubstance abuse Addiction Medicine consulted, started methadone tobacco abuse NRT mild protein-calorie malnutrition supplements VTE ppx LMWH Attending Dr. Preciado dispo will need STR for IV ABX total 4 weeks, pending safe disposition, close monitoring of white count and H/H In my clinical judgment, the patient requires continued inpatient hospitalization for the following reasons: IV ABX Quality Stroke Does the patient have a stroke diagnosis?: No VTE Prior VTE?: No VTE Risk Level:: Medical - moderate - high VTE Device Contraindication: Treatment Not Tolerated VTE Drug Contraindication: N/A - Med Ordered
[2023-01-28] MEDS: Enoxaparin Sodium 40 MG/0.4 ML SYRINGE SUBCUT (13:05)
[2023-01-28] MEDS: Folic Acid 1 MG TABLET PO (13:06)
[2023-01-28 15:45] VITALS: BP 108/68; PULSE 94; RESP 20; TEMP 36.6; O2SAT 99
[2023-01-28 20:00] VITALS: BP 119/72; PULSE 100; RESP 16; TEMP 36.3; O2SAT 98
[2023-01-28 23:23] VITALS: PULSE 100
[2023-01-29 04:00] VITALS: BP 106/60; PULSE 108; RESP 16; TEMP 37.1; O2SAT 94
[2023-01-29] MEDS: Doxycycline Monohydrate 100 MG CAPSULE PO (04:28)
[2023-01-29 05:29] LABS: Hematocrit 24.1 % (42.0-52.0); Mean Corpuscular HGB Conc 33.2 g/dl (31.0-36.0); Mean Corpuscular Hemoglobin 31.3 pg (27.0-33.0); Mean Corpuscular Volume 94.1 fL (80.0-98.0); Mean Platelet Volume 10.1 fL (9.4-12.4); Red Blood Count 2.56 X10*6/uL (4.60-5.80); Red Cell Distribution Width 17.6 % (11.0-16.0); WBC ABN SCTR FOR CBC 1
[2023-01-29 05:37] LABS: Platelet Count 98 X10*3/uL (160-400); White Blood Count 0.6 X10*3/uL (4.8-10.8)
[2023-01-29 05:44] LABS: Alanine Aminotransferase < 5 U/L (0-40); Albumin Level 1.4 g/dL (3.5-5.0); Alkaline Phosphatase 538 U/L (39-117); Anion Gap 9 (12-20); Aspartate Amino Transferase 63 U/L (5-37); Bilirubin Total 1.4 mg/dL (0.0-1.0); Blood Urea Nitrogen 20 mg/dL (9-16); Calcium 7.6 mg/dL (8.4-10.2); Carbon Dioxide 25 mmol/L (22-29); Chloride 104 mmol/L (96-108); Creatinine Clr Calc Pharmacy 82.9; Estimated Glomerular Filt Rate > 60; Glucose Random 78 mg/dL (60-115); Lactate Dehydrogenase 384 U/L (118-273); Potassium 4.8 mmol/L (3.3-5.1); Sodium 133 mmol/L (135-145); Total Protein 6.9 g/dL (6.5-8.0)
[2023-01-29 05:54] LABS: Atypical Lymphs Percent Manual 2 % (0-6); Band Neutrophils Percent 30 % (3-5); Eosinophils Percent Manual 2 % (0-4); Lymphocytes Absolute Manual 0.1 X10*3/uL (1.2-4.9); Lymphocytes Percent Manual 12 % (20-40); Metamyelocytes Percent 4 %; Monocytes Percent Manual 5 % (2-11); Neutrophils Absolute Manual 0.5 X10*3/uL (2.0-8.3); Neutrophils Percent Manual 46 % (45-73)
[2023-01-29 05:58] LABS: Acanthocytes 1+ (0-2) /OIF; Dohle Bodies PRESENT; Platelet Estimate DECREASED (NORMAL); Platelet Morphology Comment NORMAL; Polychromasia 1+ (0-2) /OIF; RBC Morphology NOTED
[2023-01-29 05:59] LABS: Rouleau PRESENT; Toxic Vacuolation PRESENT
[2023-01-29 07:13] VITALS: BP 107/65; PULSE 131; RESP 18; TEMP 36.6; O2SAT 96
[2023-01-29 08:00] VITALS: PULSE 99
[2023-01-29] MEDS: Heparin Sodium,Porcine Flush 50 UNITS/5 ML SYRINGE IVFLUSH ×2 (09:07→17:39)
[2023-01-29] MEDS: Atovaquone 750 MG/5 ML ORAL.SUSP 1500 MG PO (09:07)
[2023-01-29] MEDS: 0.9 % Sodium Chloride Flush 3 ML SYRINGE IVFLUSH ×3 (09:07→21:21)
[2023-01-29] MEDS: Nicotine 21 MG PATCH.TD24 TRANSDERMA (09:07)
[2023-01-29] MEDS: Magnesium Oxide 400 MG TABLET 800 MG PO ×2 (09:09→17:39)
[2023-01-29] MEDS: Fluconazole 100 MG TABLET PO (09:09)
[2023-01-29] MEDS: Bictegrav/Emtricit/Tenofov Ala TABLET 1 TAB PO (09:09)
[2023-01-29] MEDS: Folic Acid 1 MG TABLET PO (09:09)
[2023-01-29] MEDS: methADONE HCl 20 MG/2 ML ORAL.CONC 45 MG PO (09:16)
--- NOTE | 2023-01-29 09:28 | P.PNIM_ITS ---
Subjective Subjective Date of Service: 01/29/23 Interval History: seen and examined this morning follow up for bacteremia, aids, now with neutropenia feeling well, swallowing better, no sob, leg doing well, no pain Review of Systems Review of Systems: Yes all other systems are reviewed and are negative Constitutional Constitutional: Denies chills and Denies fever(s) Cardiovascular Cardiovascular: Denies chest pain, Denies palpitations and Denies dyspnea Respiratory Respiratory: Denies cough and Denies dyspnea Gastrointestinal Gastrointestinal: Denies abdominal pain Endocrine Endocrine: Denies palpitations Physical Exam 2 Vital Signs: Vital Signs: Last Vital Signs Temp 97.9 F 01/29/23 07:13 Pulse 131 H 01/29/23 07:13 Resp 18 01/29/23 07:13 BP 107/65 01/29/23 07:13 Pulse Ox 96 01/29/23 07:13 O2 Del Method Room Air 01/29/23 07:13 BMI result Body Mass Index 20.4 Appearing in no acute distress lung sounds are clear to auscultation heart regular rate rhythm, clear S1, S2 positive bowel sounds, abdomen is soft, nontender neuro patient is alert x3, no focal deficits Objective Data Active Medications Acetaminophen (Acetaminophen 325 Mg Tablet) 650 mg PO Q6H PRN PRN Reason: Pain, Mild (Pain Scale 1-3) Last Admin: 01/20/23 11:34 Dose: 650 mg Documented By: NYA Al Hydroxide/Mg Hydroxide (Magnesium Hydrox/Alum Hydrox 30 Ml Oral.Susp) 30 ml PO Q4H PRN PRN Reason: Heartburn/Nausea Atovaquone (Atovaquone 750 Mg/5 Ml Oral.Susp) 1,500 mg PO DAILY [facility] Last Admin: 01/29/23 09:07 Dose: 1,500 mg Documented By: JATIN Bictegravir/Emtricitabine/Tenofovir (Bictegrav/Emtricit/Tenofov Ala Tablet) 1 tab PO DAILY [facility] Last Admin: 01/29/23 09:09 Dose: 1 tab Documented By: JATIN Docusate Sodium (Docusate Sodium 100 Mg Capsule) 100 mg PO BID [facility] Last Admin: 01/29/23 09:17 Dose: Not Given Documented By: JATIN Non-Admin Reason: Patient Refused Doxycycline Monohydrate (Doxycycline Monohydrate 100 Mg Capsule) 100 mg PO Q12H [facility] Stop: 01/29/23 16:29 Last Admin: 01/29/23 04:28 Dose: 100 mg Documented By: ZARINA Enoxaparin Sodium (Enoxaparin Sodium 40 Mg/0.4 Ml Syringe) 40 mg SUBCUT Q24H [facility] Last Admin: 01/28/23 13:05 Dose: 40 mg Documented By: JATIN Fluconazole (Fluconazole 100 Mg Tablet) 100 mg PO DAILY [facility] Stop: 02/05/23 14:51 Last Admin: 01/29/23 09:09 Dose: 100 mg Documented By: JATIN Folic Acid (Folic Acid 1 Mg Tablet) 1 mg PO DAILY [facility] Last Admin: 01/29/23 09:09 Dose: 1 mg Documented By: JATIN Heparin Sodium (Porcine) (Heparin Sodium,Porcine Flush 50 Units/5 Ml Syringe) 50 units IVFLUSH QSHIFT [facility] Last Admin: 01/29/23 09:07 Dose: 50 units Documented By: JATIN Daptomycin 572 mg/ Sodium (Chloride) 61.44 mls @ 100 mls/hr IV Q24H [facility] Last Infusion: 01/28/23 15:43 Dose: Infused Documented By: BARBRA Magnesium Oxide (Magnesium Oxide 400 Mg Tablet) 800 mg PO BIDPC [facility] Last Admin: 01/29/23 09:09 Dose: 800 mg Documented By: JATIN Methadone HCl (Methadone Hcl 20 Mg/2 Ml Oral.Conc) 45 mg PO DAILY [facility] Last Admin: 01/29/23 09:16 Dose: 45 mg Documented By: JATIN Naloxone HCl (Naloxone Hcl 0.4 Mg/Ml Vial) 0.1 mg IVPUSH Q2M PRN PRN Reason: Respiratory Rate < 10 Nicotine (Nicotine 21 Mg Patch.Td24) 21 mg TRANSDERMA DAILY [facility] Last Admin: 01/29/23 09:07 Dose: 21 mg Documented By: JATIN Nicotine Polacrilex (Nicotine Polacrilex 2 Mg Gum) 2 mg BUCCAL Q2H PRN PRN Reason: Nicotine Cravings Ondansetron HCl (Ondansetron Hcl 4 Mg/2 Ml Vial) 4 mg IVPUSH Q8H PRN PRN Reason: Nausea and Vomiting Last Admin: 01/27/23 02:59 Dose: 4 mg Documented By: CONNOR Senna (Sennosides 8.6 Mg Tablet) 17.2 mg PO BEDTIME PRN PRN Reason: Constipation Sodium Chloride (0.9 % Sodium Chloride Flush 3 Ml Syringe) 3 ml IVFLUSH QSHIFT [facility] Last Admin: 01/29/23 09:07 Dose: 3 ml Documented By: JATIN Labs 01/29/23 05:18 01/29/23 05:18 Labs: Laboratory Results - last 24 hr 01/29/23 05:18 MCV 94.1 MCH 31.3 MCHC 33.2 RDW 17.6 H Plt Count 98 L MPV 10.1 Immature Gran % (Auto) Cancelled Neut % (Auto) Cancelled Lymph % (Auto) Cancelled [place] % (Auto) Cancelled Eos % (Auto) Cancelled Baso % (Auto) Cancelled Lymph # (Auto) Cancelled [place] # (Auto) Cancelled Eos # (Auto) Cancelled Baso # (Auto) Cancelled Abs Immat Gran (auto) Cancelled Absolute Neuts (auto) Cancelled Absolute Nucleated RBC 0.000 Nucleated RBC % (auto) 0.0 Neutrophils % (Manual) 46 Band Neutrophils % 30 H Lymphocytes % (Manual) 12 L Atypical Lymphs % (Man) 2 Monocytes % (Manual) 5 Eosinophils % (Manual) 2 Metamyelocytes % 4 Abs Neuts (Manual) 0.5 L Lymphocytes # (Manual) 0.1 L Toxic Vacuolation PRESENT Dohle Bodies PRESENT Platelet Estimate DECREASED Plt Morphology Comment NORMAL RBC Morphology NOTED Polychromasia 1+ (0-2) Acanthocytes (Spur) 1+ (0-2) Rouleaux PRESENT Anion Gap 9 L Estim Creat Clear Calc 82.9 Estimated GFR > 60 Random Glucose 78 Calcium 7.6 L Total Bilirubin 1.4 H AST 63 H ALT < 5 Alkaline Phosphatase 538 H Lactate Dehydrogenase 384 H Total Protein 6.9 Albumin 1.4 L Assessment and Plan (1) Cytopenia: Status: Acute (2) Anaplasmosis: Status: Acute (3) HIV MAY positive: Status: Acute (4) MSSA bacteremia: Status: Acute Plan 47yo M with hx injection heroin + cocaine abuse, admitted with sepsis due to cellulitis, found to have MSSA bacteremia, new diagnosis of HIV/AIDS, anaplasmosis, and candidiasis and now with worsening anemia and neutropenia Pancytopenia/neutropenia presented with pancytopenia due to HIV/AIDS; drop in H/H and white count noted 01/26; platelets stable acute drop likely due to antibiotics. no hemolysis, TTP/HUS unlikely H/H trending down, will transfuse additional unit s/p transfused 5 units PRBC seen by GI, outpt EGD/C-scope in absence of overt bleeding seen by hematology> cytopenias secondary to infections vs medications (abx), luís neg, haptoglobin normal, no hemolysis, TTP not likely monitor daily CBC, LDH and CMP Sepsis due to cellulitis with MSSA bacteremia vanco/pip-kelli -> cefazolin 01/19/23, Discussed with ID, will change to daptomycin as abx likely cause of neutropenia/anemia TTE with no vegetation and BCx cleared ID following total 4 wk from negative BCx 01/19/23 so end date 02/16/23, Mid line placed HIV/AIDS (CD4 <20, RNA 2.98 million) now on Biktarvy screen for cryptococcosis neg PJP prophylaxis: started with atovaquone due to GIL; once Cr normalized, switched to TMP-SMX. 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 Resolved replete IV increase PO maintenance dose hypoK. Resolved repleted GIL, prerenal resolved with IV fluids polysubstance abuse Addiction Medicine consulted, started methadone tobacco abuse NRT mild protein-calorie malnutrition supplements VTE ppx LMWH Attending Dr. Ozzy mar will need STR for IV ABX total 4 weeks, pending safe disposition, close monitoring of white count and H/H In my clinical judgment, the patient requires continued inpatient hospitalization for the following reasons: IV ABX Quality Stroke Does the patient have a stroke diagnosis?: No VTE Prior VTE?: No VTE Risk Level:: Medical - moderate - high VTE Device Contraindication: Treatment Not Tolerated VTE Drug Contraindication: N/A - Med Ordered
[2023-01-29] MEDS: Enoxaparin Sodium 40 MG/0.4 ML SYRINGE SUBCUT (13:52)
[2023-01-29] MEDS: Tbo-Filgrastim 300 MCG/0.5 ML SYRINGE SUBCUT (14:26)
[2023-01-29 15:17] VITALS: BP 108/66; PULSE 99; RESP 16; TEMP 36.2; O2SAT 99
[2023-01-29 16:00] VITALS: PULSE 102
[2023-01-29 19:25] VITALS: BP 106/65; PULSE 118; RESP 14; TEMP 36.6; O2SAT 97
[2023-01-30] VITALS (13 sets, daily range): BP systolic 97–113; BP diastolic 61–73; PULSE 102–108; RESP 14–20; TEMP 36.3–37.2; O2SAT 96–98
[2023-01-30] MEDS: Heparin Sodium,Porcine Flush 50 UNITS/5 ML SYRINGE IVFLUSH ×3 (00:07→22:47)
--- NOTE | 2023-01-30 05:44 | PC.NURSE ---
Addendum entered by Cristiane Borja RN 01/30/23 06:38: Critical lab results came at 0635 with WBC=0.7, Hgb=6.9, Hct=20.9, Dr. Wong was notified. Original Note: Pt has been a hard stick, manufacturer representative said midline has been used to draw blood for the last few days, Dr. Wong made aware, order placed permitting blood draw through midline, labs drawn without difficulty, samples sent to lab.
[2023-01-30 06:32] LABS: Mean Corpuscular Hemoglobin 30.9 pg (27.0-33.0); Mean Corpuscular Volume 93.7 fL (80.0-98.0); Mean Platelet Volume 10.9 fL (9.4-12.4); Red Blood Count 2.23 X10*6/uL (4.60-5.80); Red Cell Distribution Width 18.1 % (11.0-16.0)
[2023-01-30 06:38] LABS: White Blood Count 0.7 X10*3/uL (4.8-10.8)
[2023-01-30 06:39] LABS: Hemoglobin 6.9 g/dl (14.0-18.0)
[2023-01-30 06:40] LABS: Hematocrit 20.9 % (42.0-52.0); Platelet Count 87 X10*3/uL (160-400)
[2023-01-30 07:05] LABS: Alanine Aminotransferase < 5 U/L (0-40); Albumin Level 1.4 g/dL (3.5-5.0); Alkaline Phosphatase 544 U/L (39-117); Anion Gap 8 (12-20); Aspartate Amino Transferase 61 U/L (5-37); Bilirubin Total 1.4 mg/dL (0.0-1.0); Blood Urea Nitrogen 19 mg/dL (9-16); Calcium 7.7 mg/dL (8.4-10.2); Carbon Dioxide 26 mmol/L (22-29); Chloride 102 mmol/L (96-108); Creatinine Clr Calc Pharmacy 84.8; Estimated Glomerular Filt Rate > 60; Glucose Random 80 mg/dL (60-115); Lactate Dehydrogenase 400 U/L (118-273); Potassium 4.4 mmol/L (3.3-5.1); Sodium 132 mmol/L (135-145); Total Protein 6.9 g/dL (6.5-8.0)
[2023-01-30] MEDS: 0.9 % Sodium Chloride Flush 3 ML SYRINGE IVFLUSH ×2 (08:51→19:57)
[2023-01-30] MEDS: Nicotine 21 MG PATCH.TD24 TRANSDERMA (08:51)
--- NOTE | 2023-01-30 08:53 | P.PNIM_ITS ---
Subjective Subjective Date of Service: 01/30/23 Interval History: seen and examined this morning follow up for bacteremia, AIDS, neutropenia feeling well, swallowing better, no sob, leg doing well, no pain Review of Systems Review of Systems: Yes all other systems are reviewed and are negative Constitutional Constitutional: Denies chills and Denies fever(s) Cardiovascular Cardiovascular: Denies chest pain, Denies palpitations and Denies dyspnea Respiratory Respiratory: Denies cough and Denies dyspnea Gastrointestinal Gastrointestinal: Denies abdominal pain Endocrine Endocrine: Denies palpitations Physical Exam 2 Vital Signs: Vital Signs: Last Vital Signs Temp 98.9 F 01/30/23 07:04 Pulse 108 H 01/30/23 07:04 Resp 20 01/30/23 07:04 BP 104/64 01/30/23 07:04 Pulse Ox 97 01/30/23 07:04 O2 Del Method Room Air 01/30/23 07:04 BMI result Body Mass Index 20.4 Appearing in no acute distress lung sounds are clear to auscultation heart regular rate rhythm, clear S1, S2 positive bowel sounds, abdomen is soft, nontender neuro patient is alert x3, no focal deficits Left ankle edema and chronic discoloration Objective Data Active Medications Acetaminophen (Acetaminophen 325 Mg Tablet) 650 mg PO Q6H PRN PRN Reason: Pain, Mild (Pain Scale 1-3) Last Admin: 01/20/23 11:34 Dose: 650 mg Documented By: NYA Al Hydroxide/Mg Hydroxide (Magnesium Hydrox/Alum Hydrox 30 Ml Oral.Susp) 30 ml PO Q4H PRN PRN Reason: Heartburn/Nausea Atovaquone (Atovaquone 750 Mg/5 Ml Oral.Susp) 1,500 mg PO DAILY [facility] Last Admin: 01/29/23 09:07 Dose: 1,500 mg Documented By: JATIN Bictegravir/Emtricitabine/Tenofovir (Bictegrav/Emtricit/Tenofov Ala Tablet) 1 tab PO DAILY [facility] Last Admin: 01/29/23 09:09 Dose: 1 tab Documented By: JATIN Docusate Sodium (Docusate Sodium 100 Mg Capsule) 100 mg PO BID [facility] Last Admin: 01/29/23 21:21 Dose: Not Given Documented By: HARI Non-Admin Reason: Patient Refused Enoxaparin Sodium (Enoxaparin Sodium 40 Mg/0.4 Ml Syringe) 40 mg SUBCUT Q24H [facility] Last Admin: 01/29/23 13:52 Dose: 40 mg Documented By: JATIN Fluconazole (Fluconazole 100 Mg Tablet) 100 mg PO DAILY [facility] Stop: 02/05/23 14:51 Last Admin: 01/29/23 09:09 Dose: 100 mg Documented By: JATIN Folic Acid (Folic Acid 1 Mg Tablet) 1 mg PO DAILY [facility] Last Admin: 01/29/23 09:09 Dose: 1 mg Documented By: JATIN Heparin Sodium (Porcine) (Heparin Sodium,Porcine Flush 50 Units/5 Ml [facility]) [facility] Last Admin: 01/30/23 00:07 Dose: 50 units Documented By: CASTILAudra Daptomycin 572 mg/ Sodium (Chloride) 61.44 mls @ 100 mls/hr IV Q24H [facility]PL[facility]ED [facility] Last Infusion: 01/29/23 14:35 Dose: Infused Documented By: JATIN Magnesium Oxide (Magnesium Oxide 400 Mg Tablet) 800 mg PO BIDPC REPLACED BY [facility] Last Admin: 01/29/23 17:39 Dose: 800 mg Documented By: JATIN Methadone HCl (Methadone Hcl 20 Mg/2 Ml Oral.Conc) 45 mg PO DAILY [facility] Last Admin: 01/29/23 09:16 Dose: 45 mg Documented By: JATIN Naloxone HCl (Naloxone Hcl 0.4 Mg/Ml Vial) 0.1 mg IVPUSH Q2M PRN PRN Reason: Respiratory Rate < 10 Nicotine (Nicotine 21 Mg Patch.Td24) 21 mg TRANSDERMA DAILY [facility] Last Admin: 01/29/23 09:07 Dose: 21 mg Documented By: JATIN Nicotine Polacrilex (Nicotine Polacrilex 2 Mg Gum) 2 mg BUCCAL Q2H PRN PRN Reason: Nicotine Cravings Ondansetron HCl (Ondansetron Hcl 4 Mg/2 Ml Vial) 4 mg IVPUSH Q8H PRN PRN Reason: Nausea and Vomiting Last Admin: 01/27/23 02:59 Dose: 4 mg Documented By: CONNOR Senna (Sennosides 8.6 Mg Tablet) 17.2 mg PO BEDTIME PRN PRN Reason: Constipation Sodium Chloride (0.9 % Sodium Chloride Flush 3 Ml [facility]ringe) [facility] Last Admin: 01/29/23 21:21 Dose: 3 ml Documented By: HARI Labs 01/30/23 06:10 01/30/23 06:10 Labs: Laboratory Results - last 24 hr 01/30/23 01/30/23 01/30/23 06:10 06:10 06:10 MCV 93.7 Cancelled MCH 30.9 Cancelled MCHC 33.0 RDW Plt Count MPV Immature Gran % (Auto) Neut % (Auto) Lymph % (Auto) [place] % (Auto) Eos % (Auto) Baso % (Auto) Lymph # (Auto) [place] # (Auto) Eos # (Auto) Baso # (Auto) Abs Immat Gran (auto) Absolute Neuts (auto) Absolute Nucleated RBC Nucleated RBC % (auto) Anion Gap Estim Creat Clear Calc Estimated GFR Random Glucose Calcium Total Bilirubin AST ALT Alkaline Phosphatase Lactate Dehydrogenase Total Protein Albumin Blood Type Antibody Screen Crossmatch Blood Bank Comment 01/30/23 01/30/23 01/30/23 06:10 06:10 06:10 MCV MCH MCHC Cancelled RDW 18.1 H Cancelled Plt Count 87 L Cancelled MPV 10.9 Immature Gran % (Auto) Neut % (Auto) Lymph % (Auto) [place] % (Auto) Eos % (Auto) Baso % (Auto) Lymph # (Auto) [place] # (Auto) Eos # (Auto) Baso # (Auto) Abs Immat Gran (auto) Absolute Neuts (auto) Absolute Nucleated RBC Nucleated RBC % (auto) Anion Gap Estim Creat Clear Calc Estimated GFR Random Glucose Calcium Total Bilirubin AST ALT Alkaline Phosphatase Lactate Dehydrogenase Total Protein Albumin Blood Type Antibody Screen Crossmatch Blood Bank Comment 01/30/23 01/30/23 01/30/23 06:10 06:10 06:10 MCV MCH MCHC RDW Plt Count MPV Cancelled Immature Gran % (Auto) Cancelled Neut % (Auto) Cancelled Lymph % (Auto) Cancelled [place] % (Auto) Cancelled Eos % (Auto) Cancelled Baso % (Auto) Cancelled Lymph # (Auto) Cancelled [place] # (Auto) Cancelled Eos # (Auto) Cancelled Baso # (Auto) Cancelled Abs Immat Gran (auto) Cancelled Absolute Neuts (auto) Cancelled Absolute Nucleated RBC 0.000 Cancelled Nucleated RBC % (auto) 0.0 Cancelled Anion Gap 8 L Estim Creat Clear Calc 84.8 Estimated GFR > 60 Random Glucose 80 Calcium 7.7 L Total Bilirubin 1.4 H AST 61 H ALT < 5 Alkaline Phosphatase 544 H Lactate Dehydrogenase 400 H Total Protein 6.9 Albumin 1.4 L Blood Type Antibody Screen Crossmatch Blood Bank Comment 01/30/23 07:10 MCV MCH MCHC RDW Plt Count MPV Immature Gran % (Auto) Neut % (Auto) Lymph % (Auto) [place] % (Auto) Eos % (Auto) Baso % (Auto) Lymph # (Auto) [place] # (Auto) Eos # (Auto) Baso # (Auto) Abs Immat Gran (auto) Absolute Neuts (auto) Absolute Nucleated RBC Nucleated RBC % (auto) Anion Gap Estim Creat Clear Calc Estimated GFR Random Glucose Calcium Total Bilirubin AST ALT Alkaline Phosphatase Lactate Dehydrogenase Total Protein Albumin Blood Type A Positive Antibody Screen POSITIVE Crossmatch See Detail Blood Bank Comment Technical Assessment and Plan (1) Cytopenia: Status: Acute (2) Anaplasmosis: Status: Acute (3) HIV MAY positive: Status: Acute (4) MSSA bacteremia: Status: Acute Plan 47yo M with hx injection heroin + cocaine abuse, admitted with sepsis due to cellulitis, found to have MSSA bacteremia, new diagnosis of HIV/AIDS, anaplasmosis, and candidiasis and now with worsening anemia and neutropenia Acute anemia HH 6.9/20.9 today tx 2 units PRBC discuss with GI re endo and colo discuss with heme re continued severe anemia Pancytopenia/neutropenia presented with pancytopenia due to HIV/AIDS; drop in H/H and white count noted 01/26; platelets stable acute drop likely due to antibiotics. no hemolysis, TTP/HUS unlikely H/H trending down, will transfuse additional unit s/p transfused 5 units PRBC seen by GI, outpt EGD/C-scope in absence of overt bleeding seen by hematology> cytopenias secondary to infections vs medications (abx), luís neg, haptoglobin normal, no hemolysis, TTP not likely monitor daily CBC, LDH and CMP Sepsis due to cellulitis with MSSA bacteremia vanco/pip-kelli -> cefazolin 01/19/23, Discussed with ID, will change to daptomycin as abx thought to be cause of neutropenia/anemia TTE with no vegetation and BCx cleared ID following total 4 wk from negative BCx 01/19/23 so end date 02/16/23, Mid line placed HIV/AIDS (CD4 <20, RNA 2.98 million) now on Biktarvy screen for cryptococcosis neg PJP prophylaxis: started with atovaquone due to GIL; once Cr normalized, switched to TMP-SMX. 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 Resolved replete IV increase PO maintenance dose hypoK. Resolved repleted GIL, prerenal resolved with IV fluids polysubstance abuse Addiction Medicine consulted, started methadone tobacco abuse NRT mild protein-calorie malnutrition supplements VTE ppx LMWH Attending Dr. Stephen mar will need STR for IV ABX total 4 weeks, pending safe disposition, close monitoring of white count and H/H In my clinical judgment, the patient requires continued inpatient hospitalization for the following reasons: IV ABX Quality Stroke Does the patient have a stroke diagnosis?: No VTE Prior VTE?: No VTE Risk Level:: Medical - moderate - high VTE Device Contraindication: Treatment Not Tolerated VTE Drug Contraindication: N/A - Med Ordered
[2023-01-30] MEDS: Magnesium Oxide 400 MG TABLET 800 MG PO ×2 (08:56→18:02)
[2023-01-30] MEDS: Folic Acid 1 MG TABLET PO (08:56)
[2023-01-30] MEDS: Atovaquone 750 MG/5 ML ORAL.SUSP 1500 MG PO (08:56)
[2023-01-30] MEDS: Fluconazole 100 MG TABLET PO (08:57)
[2023-01-30] MEDS: Bictegrav/Emtricit/Tenofov Ala TABLET 1 TAB PO (08:57)
[2023-01-30] MEDS: methADONE HCl 20 MG/2 ML ORAL.CONC 45 MG PO (09:00)
[2023-01-30] MEDS: Enoxaparin Sodium 40 MG/0.4 ML SYRINGE SUBCUT (14:00)
[2023-01-30] MEDS: ondansetron HCL 4 MG/2 ML VIAL IVPUSH (19:56)
[2023-01-31 03:16] VITALS: BP 104/65; PULSE 96; RESP 16; TEMP 36.6; O2SAT 97
[2023-01-31 07:48] VITALS: BP 101/66; PULSE 102; RESP 20; TEMP 36.8; O2SAT 96
[2023-01-31] MEDS: Heparin Sodium,Porcine Flush 50 UNITS/5 ML SYRINGE IVFLUSH ×2 (09:39→23:08)
[2023-01-31] MEDS: Atovaquone 750 MG/5 ML ORAL.SUSP 1500 MG PO (09:39)
[2023-01-31] MEDS: 0.9 % Sodium Chloride Flush 3 ML SYRINGE IVFLUSH ×3 (09:39→23:08)
[2023-01-31] MEDS: methADONE HCl 20 MG/2 ML ORAL.CONC 45 MG PO (09:39)
[2023-01-31] MEDS: Fluconazole 100 MG TABLET PO (09:40)
[2023-01-31] MEDS: Bictegrav/Emtricit/Tenofov Ala TABLET 1 TAB PO (09:40)
[2023-01-31] MEDS: Folic Acid 1 MG TABLET PO (09:40)
[2023-01-31] MEDS: Nicotine 21 MG PATCH.TD24 TRANSDERMA (09:41)
[2023-01-31] MEDS: Magnesium Oxide 400 MG TABLET 800 MG PO (09:47)
[2023-01-31 09:59] LABS: Hematocrit 26.3 % (42.0-52.0); Hemoglobin 8.8 g/dl (14.0-18.0); Mean Corpuscular HGB Conc 33.5 g/dl (31.0-36.0); Mean Corpuscular Hemoglobin 31.1 pg (27.0-33.0); Mean Corpuscular Volume 92.9 fL (80.0-98.0); Mean Platelet Volume 10.9 fL (9.4-12.4); Red Blood Count 2.83 X10*6/uL (4.60-5.80); Red Cell Distribution Width 17.4 % (11.0-16.0)
[2023-01-31 10:09] LABS: Platelet Count 76 X10*3/uL (160-400); WBC ABN SCTR FOR CBC 1
[2023-01-31 10:15] LABS: White Blood Count 0.6 X10*3/uL (4.8-10.8)
[2023-01-31 10:25] LABS: Alanine Aminotransferase 5 U/L (0-40); Albumin Level 1.4 g/dL (3.5-5.0); Alkaline Phosphatase 622 U/L (39-117); Anion Gap 10 (12-20); Aspartate Amino Transferase 61 U/L (5-37); Bilirubin Total 1.7 mg/dL (0.0-1.0); Blood Urea Nitrogen 21 mg/dL (9-16); Calcium 7.7 mg/dL (8.4-10.2); Carbon Dioxide 24 mmol/L (22-29); Chloride 102 mmol/L (96-108); Creatinine Clr Calc Pharmacy 93.3; Estimated Glomerular Filt Rate > 60; Glucose Random 102 mg/dL (60-115); Lactate Dehydrogenase 458 U/L (118-273); Magnesium 1.4 mg/dL (1.6-2.6); Potassium 4.7 mmol/L (3.3-5.1); Sodium 131 mmol/L (135-145); Total Protein 7.1 g/dL (6.5-8.0)
--- NOTE | 2023-01-31 10:44 | MHC.CM.PN ---
per gagan pt not medically ready for dc .dc plan remains rehab w/methadone
--- NOTE | 2023-01-31 11:02 | HO.PM.IMPN ---
Subjective Subjective Date of Service: 01/31/23 Interval History: seen and examined this morning follow up for bacteremia, AIDS, neutropenia feeling well, swallowing better, no sob, leg doing well, no pain Review of Systems Review of Systems: Yes all other systems are reviewed and are negative Constitutional Constitutional: Denies chills and Denies fever(s) Cardiovascular Cardiovascular: Denies chest pain, Denies palpitations and Denies dyspnea Respiratory Respiratory: Denies cough and Denies dyspnea Gastrointestinal Gastrointestinal: Denies abdominal pain Endocrine Endocrine: Denies palpitations Physical Exam Vital Signs: Vital Signs: Last Vital Signs Temp 98.3 F 01/31/23 07:48 Pulse 102 H 01/31/23 07:48 Resp 20 01/31/23 07:48 BP 101/66 01/31/23 07:48 Pulse Ox 96 01/31/23 07:48 O2 Del Method Room Air 01/31/23 07:48 BMI result Body Mass Index 20.4 Appearing in no acute distress lung sounds are clear to auscultation heart regular rate rhythm, clear S1, S2 positive bowel sounds, abdomen is soft, nontender neuro patient is alert x3, no focal deficits Objective Data Active Medications Acetaminophen (Acetaminophen 325 Mg Tablet) 650 mg PO Q6H PRN PRN Reason: Pain, Mild (Pain Scale 1-3) Last Admin: 01/20/23 11:34 Dose: 650 mg Documented By: NYA Al Hydroxide/Mg Hydroxide (Magnesium Hydrox/Alum Hydrox 30 Ml Oral.Susp) 30 ml PO Q4H PRN PRN Reason: Heartburn/Nausea Atovaquone (Atovaquone 750 Mg/5 Ml Oral.Susp) 1,500 mg PO DAILY [facility] Last Admin: 01/31/23 09:39 Dose: 1,500 mg Documented By: ERI Bictegravir/Emtricitabine/Tenofovir (Bictegrav/Emtricit/Tenofov Ala Tablet) 1 tab PO DAILY [facility] Last Admin: 01/31/23 09:40 Dose: 1 tab Documented By: ERI Docusate Sodium (Docusate Sodium 100 Mg Capsule) 100 mg PO BID [facility] Last Admin: 01/31/23 09:43 Dose: Not Given Documented By: ERI Non-Admin Reason: Patient Refused Enoxaparin Sodium (Enoxaparin Sodium 40 Mg/0.4 Ml Syringe) 40 mg SUBCUT Q24H [facility] Last Admin: 01/30/23 14:00 Dose: 40 mg Documented By: JATIN Fluconazole (Fluconazole 100 Mg Tablet) 100 mg PO DAILY [facility] Stop: 02/05/23 14:51 Last Admin: 01/31/23 09:40 Dose: 100 mg Documented By: ERI Folic Acid (Folic Acid 1 Mg Tablet) 1 mg PO DAILY [facility] Last Admin: 01/31/23 09:40 Dose: 1 mg Documented By: ERI Heparin Sodium (Porcine) (Heparin Sodium,Porcine Flush 50 Units/5 Ml Syringe) 50 units IVFLUSH QSHIFT [facility] Last Admin: 01/31/23 09:39 Dose: 50 units Documented By: ERI Daptomycin 572 mg/ Sodium (Chloride) 61.44 mls @ 100 mls/hr IV Q24H [facility] Last Infusion: 01/30/23 15:45 Dose: Infused Documented By: JATIN Magnesium Sulfate (Magnesium Sulfate/H2o) 2 gm in 50 mls @ 25 mls/hr IV ONCE ONE Stop: 01/31/23 12:59 Magnesium Oxide (Magnesium Oxide 400 Mg Tablet) 800 mg PO BIDPC [facility] Last Admin: 01/31/23 09:47 Dose: 400 mg Documented By: ERI Comments: pt refuses to take whole dose of 800mg, will only take 1 tab Methadone HCl (Methadone Hcl 20 Mg/2 Ml Oral.Conc) 45 mg PO DAILY [facility] Last Admin: 01/31/23 09:39 Dose: 45 mg Documented By: ERI Naloxone HCl (Naloxone Hcl 0.4 Mg/Ml Vial) 0.1 mg IVPUSH Q2M PRN PRN Reason: Respiratory Rate < 10 Nicotine (Nicotine 21 Mg Patch.Td24) 21 mg TRANSDERMA DAILY [facility] Last Admin: 01/31/23 09:41 Dose: 21 mg Documented By: ERI Nicotine Polacrilex (Nicotine Polacrilex 2 Mg Gum) 2 mg BUCCAL Q2H PRN PRN Reason: Nicotine Cravings Ondansetron HCl (Ondansetron Hcl 4 Mg/2 Ml Vial) 4 mg IVPUSH Q8H PRN PRN Reason: Nausea and Vomiting Last Admin: 01/30/23 19:56 Dose: 4 mg Documented By: CARLOS Mccarthy (Sennosides 8.6 Mg Tablet) 17.2 mg PO BEDTIME PRN PRN Reason: Constipation Sodium Chloride (0.9 % Sodium Chloride Flush 3 Ml Syringe) 3 ml IVFLUSH QSHIFT [facility] Last Admin: 01/31/23 09:39 Dose: 3 ml Documented By: ERI Labs 01/31/23 09:53 01/31/23 09:40 Labs: Laboratory Results - last 24 hr 01/30/23 01/31/23 01/31/23 07:10 09:40 09:53 MCV 92.9 MCH 31.1 MCHC 33.5 RDW 17.4 H Plt Count 76 L MPV 10.9 Immature Gran % (Auto) Cancelled Neut % (Auto) Cancelled Lymph % (Auto) Cancelled [place] % (Auto) Cancelled Eos % (Auto) Cancelled Baso % (Auto) Cancelled Lymph # (Auto) Cancelled [place] # (Auto) Cancelled Eos # (Auto) Cancelled Baso # (Auto) Cancelled Abs Immat Gran (auto) Cancelled Absolute Neuts (auto) Cancelled Absolute Nucleated RBC 0.000 Nucleated RBC % (auto) 0.0 Anion Gap 10 L Estim Creat Clear Calc 93.3 Estimated GFR > 60 Random Glucose 102 Calcium 7.7 L Magnesium 1.4 L* Total Bilirubin 1.7 H AST 61 H ALT 5 Alkaline Phosphatase 622 H Lactate Dehydrogenase 458 H Total Protein 7.1 Albumin 1.4 L Blood Type A Positive Antibody Screen POSITIVE Antibody Identification Anti-E GLORIA, Polyspecific POSITIVE A Positive GLORIA Work-up IgG=Pos F7q=Gdj A Crossmatch See Detail Crossmatch (AHG) See Detail Blood Bank Comment Technical Assessment and Plan (1) Cytopenia: Status: Acute (2) Anaplasmosis: Status: Acute (3) HIV MAY positive: Status: Acute (4) MSSA bacteremia: Status: Acute Plan 47yo M with hx injection heroin + cocaine abuse, admitted with sepsis due to cellulitis, found to have MSSA bacteremia, new diagnosis of HIV/AIDS, anaplasmosis, and candidiasis and now with worsening anemia and neutropenia Pancytopenia/neutropenia presented with pancytopenia due to HIV/AIDS acute drop in WBC likely due to antibiotics. s/p granix x2 s/p transfused total 7 units PRBC discuss with GI re endo and colo> no need for intervention at this time discussed with heme>GLORIA positive 01/30/23 Started steroids, initial dose IV then prednisone 1mg/kg daily HypoMg. replete IV 2gm mag on PO maintenance dose patient intermittently declining oral magnesium Sepsis due to cellulitis with MSSA bacteremia sepsis resolved vanco/pip-kelli -> cefazolin 01/19/23, Discussed with ID, will change to daptomycin as abx thought to be cause of neutropenia/anemia TTE with no vegetation and BCx cleared ID following total 4 wk from negative BCx 01/19/23 so end date 02/16/23, Mid line placed HIV/AIDS (CD4 <20, RNA 2.98 million) Biktarvy screen for cryptococcosis neg PJP prophylaxis: started with atovaquone due to GIL; once Cr normalized, switched to TMP-SMX. 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 Resolved repleted GIL, prerenal resolved with IV fluids polysubstance abuse Addiction Medicine consulted, started methadone tobacco abuse NRT mild protein-calorie malnutrition supplements VTE ppx LMWH Attending Dr. David mar will need STR for IV ABX total 4 weeks, pending safe disposition, close monitoring of white count and H/H In my clinical judgment, the patient requires continued inpatient hospitalization for the following reasons: IV ABX Quality Stroke Does the patient have a stroke diagnosis?: No VTE Prior VTE?: No VTE Risk Level:: Medical - moderate - high VTE Device Contraindication: Treatment Not Tolerated VTE Drug Contraindication: N/A - Med Ordered
[2023-01-31 11:30] LABS: Atypical Lymph Absolute Manual 0.1 x10*3/uL; Atypical Lymphs Percent Manual 10 % (0-6); Band Neutrophils Percent 40 % (3-5); Lymphocytes Absolute Manual 0.1 X10*3/uL (1.2-4.9); Lymphocytes Percent Manual 10 % (20-40); Monocytes Absolute Manual 0.1 X10*3/uL (0.1-1.2); Monocytes Percent Manual 10 % (2-11); Myelocytes Absolute 0.1 X10*/uL; Myelocytes Percent 10 %; Neutrophils Absolute Manual 0.4 X10*3/uL (2.0-8.3); Neutrophils Percent Manual 20 % (45-73); RBC Morphology NOTED
[2023-01-31 11:31] LABS: Burr Cells 2+ (3-5) /OIF; Platelet Estimate DECREASED (NORMAL); Platelet Morphology Comment NORMAL; Toxic Vacuolation PRESENT
[2023-01-31] MEDS: Enoxaparin Sodium 40 MG/0.4 ML SYRINGE SUBCUT (11:57)
[2023-01-31] MEDS: Magnesium Sulfate/H2O 2 GM/50 ML PIGGYBACK IV (11:57)
[2023-01-31] MEDS: Tbo-Filgrastim 300 MCG/0.5 ML SYRINGE SUBCUT (12:49)
[2023-01-31] MEDS: methylPREDNISolone Sod Succ 125 MG/2 ML VIAL 60 MG IVPUSH (14:35)
--- NOTE | 2023-01-31 14:58 | P.PNHO-ONC_ITS ---
Medical Summary - Medical Summary Date of Service: 01/31/23 Chief complaint: Low blood counts Primary Care Provider: None Physician Interval History Interval history: Casey Da Silva is a 47 year old male with history of HIV and IV drug abuse who was admitted for sepsis secondary to cellulitis and MSSA bacteremia, recently diagnosed HIV/aids with Anaplasma and candidiasis. He initially presented with weakness, leg pain and swelling, alopecia and weight loss. His past history is also significant for hepatitis-C, syphilis and chlamydia. On initial presentation to emergency department, he was also noted to have acute renal insufficiency. His kidney functions have normalized. He also developed pancytopenia requiring blood transfusion. His platelet counts have improved but he remains anemic and has developed worsening neutropenia. He was diagnosed with Anaplasma infection based on intracytoplasmic inclusions in WBCs. He has been started on doxycycline. He feels better today since he received blood transfusion yesterday. Review of Systems - Neurologic Reports weakness [facility] Medical History: Medical History (Last Updated 01/27/23 @ 16:30 by Jana Rich MD) AIDS Anaplasmosis Asthma HIV MAY positive MSSA bacteremia Polysubstance (including opioids) dependence w/o physiol dependence Family history: reviewed and not pertinent Social History: Social History (Last Reviewed 02/22/20 @ 08:02 by Maggie Guevara MD) Living Situation History: Household Members: Family Alcohol History: Unable to assess alcohol history related to: Refusing to respond Tobacco History: Patient Tobacco Use Status: Tobacco use Unknown Substance Use History: Substance Use Type: Heroin Occupation Assessmet: service: No Home Medications and Allergies Current Medications: Current Medications Acetaminophen (Acetaminophen 325 Mg Tablet) 650 mg PO Q6H PRN PRN Reason: Pain, Mild (Pain Scale 1-3) Last Admin: 01/20/23 11:34 Dose: 650 mg Al Hydroxide/Mg Hydroxide (Magnesium Hydrox/Alum Hydrox 30 Ml Oral.Susp) 30 ml PO Q4H PRN PRN Reason: Heartburn/Nausea Atovaquone (Atovaquone 750 Mg/5 Ml Oral.Susp) 1,500 mg PO DAILY [facility] Last Admin: 01/31/23 09:39 Dose: 1,500 mg Bictegravir/Emtricitabine/Tenofovir (Bictegrav/Emtricit/Tenofov Ala Tablet) 1 tab PO DAILY [facility] Last Admin: 01/31/23 09:40 Dose: 1 tab Docusate Sodium (Docusate Sodium 100 Mg Capsule) 100 mg PO BID [facility] Last Admin: 01/31/23 09:43 Dose: Not Given Enoxaparin Sodium (Enoxaparin Sodium 40 Mg/0.4 Ml Syringe) 40 mg SUBCUT Q24H [facility] Last Admin: 01/31/23 11:57 Dose: 40 mg Fluconazole (Fluconazole 100 Mg Tablet) 100 mg PO DAILY [facility] Stop: 02/05/23 14:51 Last Admin: 01/31/23 09:40 Dose: 100 mg Folic Acid (Folic Acid 1 Mg Tablet) 1 mg PO DAILY [facility] Last Admin: 01/31/23 09:40 Dose: 1 mg Heparin Sodium (Porcine) (Heparin Sodium,Porcine Flush 50 Units/5 Ml Syringe) 50 units IVFLUSH QSHIFT [facility] Last Admin: 01/31/23 09:39 Dose: 50 units Daptomycin 572 mg/ Sodium (Chloride) 61.44 mls @ 100 mls/hr IV Q24H [facility] Last Admin: 01/31/23 14:37 Dose: 100 mls/hr Albumin Human (Kedbumin 25 %) 100 mls @ 100 mls/hr IV Q1H [facility] Stop: 01/31/23 16:29 Magnesium Oxide (Magnesium Oxide 400 Mg Tablet) 800 mg PO BIDPC [facility] Last Admin: 01/31/23 09:47 Dose: 400 mg Methadone HCl (Methadone Hcl 20 Mg/2 Ml Oral.Conc) 45 mg PO DAILY [facility] Last Admin: 01/31/23 09:39 Dose: 45 mg Naloxone HCl (Naloxone Hcl 0.4 Mg/Ml Vial) 0.1 mg IVPUSH Q2M PRN PRN Reason: Respiratory Rate < 10 Nicotine (Nicotine 21 Mg Patch.Td24) 21 mg TRANSDERMA DAILY [facility] Last Admin: 01/31/23 09:41 Dose: 21 mg Nicotine Polacrilex (Nicotine Polacrilex 2 Mg Gum) 2 mg BUCCAL Q2H PRN PRN Reason: Nicotine Cravings Ondansetron HCl (Ondansetron Hcl 4 Mg/2 Ml Vial) 4 mg IVPUSH Q8H PRN PRN Reason: Nausea and Vomiting Last Admin: 01/30/23 19:56 Dose: 4 mg Prednisone (Prednisone 20 Mg Tablet) 60 mg PO DAILY [facility] Senna (Sennosides 8.6 Mg Tablet) 17.2 mg PO BEDTIME PRN PRN Reason: Constipation Sodium Chloride (0.9 % Sodium Chloride Flush 3 Ml Syringe) 3 ml IVFLUSH QSHIFT [facility] Last Admin: 01/31/23 09:39 Dose: 3 ml Home Medications Medication Instructions Recorded Confirmed Type No Known Home Meds 01/16/23 01/16/23 History Allergies Allergy/AdvReac Type Severity Reaction Status Date / Time fish derived [FISH] Allergy Unknown UNKNOWN Verified 01/16/23 11:09 Exam Vital signs: Vital Signs Temp 98.3 F 01/31/23 07:48 Pulse 102 H 01/31/23 07:48 Resp 20 01/31/23 07:48 BP 101/66 01/31/23 07:48 Pulse Ox 96 01/31/23 07:48 O2 Del Method Room Air 01/31/23 07:48 Intake & Output 01/30/23 01/31/23 01/31/23 18:59 06:59 18:59 Intake Total 1551.44 / 2301.44 750 / 2301.44 650 / 650 Output Total 600 / 850 250 / 850 400 / 400 Balance 951.44 / 1451.44 500 / 1451.44 250 / 250 Urine Output (Average ml/kg/hr) 0.87 0.36 0.58 Intake: Intake, Oral Amount 840 / 1240 400 / 1240 600 / 600 Intake (Blood Product) Amount 350 / 700 350 / 700 Red Blood Cells (E0382) Unit 350 / 350 [id number] Red Blood Cells (E0382) Unit 0 / 350 350 / 350 [id number] Intake, IV Amount 361.44 / 361.44 50 / 50 0.9 % Sodium Chloride 100 ml @ 300 / 300 100 mls/hr IV ONCE ONE Rx#: [id number] DAPTOmycin 572 mg In 0.9 % 61.44 / 61.44 Sodium Chloride 50 ml @ 100 mls /hr IV Q24H [facility] Rx#:[id number] Magnesium Sulfate/H2O 2 gm In 50 / 50 50 ml @ 25 mls/hr IV ONCE ONE Rx#:[id number] Output: Output, Urine Amount 600 / 850 250 / 850 400 / 400 Other: Breakfast % Eaten 25% 25% Lunch % Eaten 75% 50% Dinner % Eaten 25% Urine Urinal Urinal Urinal Urine Color Concentrated Andreina Concentrated Last Bowel Movement 01/30/23 Weight 57.2 kg BMI result Body Mass Index 20.4 - Constitutional Present: no acute distress, thin, chronically ill appearing - Routine Respiratory Exam Absent: accessory muscle use - Routine Cardiovascular Exam Cardiovascular: Present: S1, S2 Data - Labs CBC & Chem 7: 01/31/23 09:53 01/31/23 09:40 Labs: Laboratory Last Values WBC 0.6 X10*3/uL (4.8-10.8) L* 01/31/23 09:53 RBC 2.83 X10*6/uL (4.60-5.80) L D 01/31/23 09:53 Hgb 8.8 g/dl (14.0-18.0) L D 01/31/23 09:53 Hct 26.3 % (42.0-52.0) L D 01/31/23 09:53 MCV 92.9 fL (80.0-98.0) 01/31/23 09:53 MCH 31.1 pg (27.0-33.0) 01/31/23 09:53 MCHC 33.5 g/dl (31.0-36.0) 01/31/23 09:53 RDW 17.4 % (11.0-16.0) H 01/31/23 09:53 Plt Count 76 X10*3/uL (160-400) L 01/31/23 09:53 MPV 10.9 fL (9.4-12.4) 01/31/23 09:53 Immature Gran % (Auto) Cancelled 01/31/23 09:53 Neut % (Auto) Cancelled 01/31/23 09:53 Lymph % (Auto) Cancelled 01/31/23 09:53 [place] % (Auto) Cancelled 01/31/23 09:53 Eos % (Auto) Cancelled 01/31/23 09:53 Baso % (Auto) Cancelled 01/31/23 09:53 Lymph # (Auto) Cancelled 01/31/23 09:53 [place] # (Auto) Cancelled 01/31/23 09:53 Eos # (Auto) Cancelled 01/31/23 09:53 Baso # (Auto) Cancelled 01/31/23 09:53 Abs Immat Gran (auto) Cancelled 01/31/23 09:53 Absolute Neuts (auto) Cancelled 01/31/23 09:53 Absolute Nucleated RBC 0.000 X10*3/uL (0.0-0.012) 01/31/23 09:53 Nucleated RBC % (auto) 0.0 /100WBC (0.0-0.2) 01/31/23 09:53 Neutrophils % (Manual) 20 % (45-73) L 01/31/23 09:53 Band Neutrophils % 40 % (3-5) H 01/31/23 09:53 Lymphocytes % (Manual) 10 % (20-40) L 01/31/23 09:53 Atypical Lymphs % (Man) 10 % (0-6) H 01/31/23 09:53 Monocytes % (Manual) 10 % (2-11) 01/31/23 09:53 Eosinophils % (Manual) 2 % (0-4) 01/29/23 05:18 Basophils % (Manual) 4 % (0-2) H 01/27/23 06:22 Metamyelocytes % 4 % 01/29/23 05:18 Myelocytes % 10 % 01/31/23 09:53 Abs Neuts (Manual) 0.4 X10*3/uL (2.0-8.3) L 01/31/23 09:53 Lymphocytes # (Manual) 0.1 X10*3/uL (1.2-4.9) L 01/31/23 09:53 Atyp Lymphs # (Manual) 0.1 x10*3/uL 01/31/23 09:53 Monocytes # (Manual) 0.1 X10*3/uL (0.1-1.2) 01/31/23 09:53 Metamyelocytes # 0.1 X10*3/uL 01/26/23 11:20 Myelocytes # 0.1 X10*/uL 01/31/23 09:53 Toxic Granulation PRESENT 01/19/23 05:26 Toxic Vacuolation PRESENT 01/31/23 09:53 Dohle Bodies PRESENT 01/29/23 05:18 WBC Morphology Comment SEE 01/27/23 06:22 Platelet Estimate DECREASED (NORMAL) 01/31/23 09:53 Large Platelets PRESENT 01/28/23 05:33 Plt Morphology Comment NORMAL 01/31/23 09:53 RBC Morphology NOTED 01/31/23 09:53 Polychromasia 1+ (0-2) /OIF 01/29/23 05:18 Hypochromasia 1+ (5-14) /OIF 01/17/23 07:29 Microcytosis 1+ (5-14) /OIF 01/27/23 06:22 Tear Drop Cells 1+ (0-2) /OIF 01/19/23 05:26 Ovalocytes 1+ (5-14) /OIF 01/28/23 05:33 Shaina Cells 2+ (3-5) /OIF 01/31/23 09:53 Acanthocytes (Spur) 1+ (0-2) /OIF 01/29/23 05:18 Rouleaux PRESENT 01/29/23 05:18 Smear Path Review SEE NOTE 01/19/23 05:26 ESR > 140 MM/HR (0-15) H 01/16/23 13:11 Absolute Retic 0.030 X10*6/uL (0.026-0.095) 01/27/23 08:35 Percent Retic 1.3 % (0.5-1.8) 01/27/23 08:35 Immature Retic Fraction 15.1 % (2.3-13.4) H 01/27/23 08:35 Retic Hgb Equivalent 32.8 pg (30.0-35.0) 01/27/23 08:35 Haptoglobin 84 MG/DL ((30-200)) 01/27/23 06:22 Hold Purple Top SEE NOTE 01/27/23 06:22 Sodium 131 mmol/L (135-145) L 01/31/23 09:40 Potassium 4.7 mmol/L (3.3-5.1) 01/31/23 09:40 Chloride 102 mmol/L (96-108) 01/31/23 09:40 Carbon Dioxide 24 mmol/L (22-29) 01/31/23 09:40 Anion Gap 10 (12-20) L 01/31/23 09:40 BUN 21 mg/dL (9-16) H 01/31/23 09:40 Creatinine 0.80 mg/dL (0.5-1.4) 01/31/23 09:40 Estim Creat Clear Calc 93.3 01/31/23 09:40 Estimated GFR > 60 12/26/23 09:40 Random Glucose 102 mg/dL (60-115) 01/31/23 09:40 Fasting Glucose 85 mg/dL (60-99) 01/19/23 05:26 Lactic Acid 2.3 mmol/L (0.5-2.0) H* 01/16/23 13:11 Lactic Acid F/U @ 2Hr 0.7 mmol/L (0.5-2.0) 01/16/23 18:23 Calcium 7.7 mg/dL (8.4-10.2) L 01/31/23 09:40 Magnesium 1.4 mg/dL (1.6-2.6) L* 01/31/23 09:40 Iron 39 mcg/dL (45-160) L 01/17/23 07:29 TIBC 87 mcg/dL (228-428) L 01/17/23 07:29 % Saturation 45 % (15-50) 01/17/23 07:29 Unsat Iron Binding 48 ug/dL 01/17/23 07:29 Ferritin 970 ng/mL (20-250) H 01/17/23 07:29 Total Bilirubin 1.7 mg/dL (0.0-1.0) H 01/31/23 09:40 Direct Bilirubin 0.6 mg/dL (0.0-0.5) H 01/27/23 10:00 AST 61 U/L (5-37) H 01/31/23 09:40 ALT 5 U/L (0-40) 01/31/23 09:40 Alkaline Phosphatase 622 U/L (39-117) H 01/31/23 09:40 Lactate Dehydrogenase 458 U/L (118-273) H 01/31/23 09:40 Total Creatine Kinase 30 U/L (38-174) L 01/16/23 14:14 C-Reactive Protein 19.63 mg/dL (< or = 0.50) H 01/16/23 13:11 Total Protein 7.1 g/dL (6.5-8.0) 01/31/23 09:40 Albumin 1.4 g/dL (3.5-5.0) L 01/31/23 09:40 Vitamin B12 994 pg/mL (200-900) H 01/27/23 10:00 Folate 3.7 ng/mL (> or = 4.0) L 01/27/23 10:00 Urine Color Dark Yellow 01/18/23 Unknown Urine Appearance Turbid 01/18/23 Unknown Urine pH 7.5 (5.0-9.0) 01/18/23 Unknown Ur Specific [place] 1.020 (1.005-1.025) 01/18/23 Unknown Urine Protein 30 (1+) mg/dL (Neg-Trace) H 01/18/23 Unknown Urine Glucose (UA) Negative mg/dL (Negative) 01/18/23 Unknown Urine Ketones Negative mg/dL (Negative) 01/18/23 Unknown Urine Blood Negative (Negative) 01/18/23 Unknown Urine Nitrite Negative (Negative) 01/18/23 Unknown Ur Leukocyte Esterase Negative (Negative) 01/18/23 Unknown Urine RBC 0-2 /HPF (0-2) 01/18/23 Unknown Urine WBC 0-5 /HPF (0-5) 01/18/23 Unknown Ur Squamous Epith Cells 0-2 /HPF (0-2) 01/18/23 Unknown Other Crystals Present 01/18/23 Unknown Urine Bacteria None Seen (None Seen) 01/18/23 Unknown Hyaline Casts 0-2 /LPF (0-2) 01/18/23 Unknown U Random Total Protein 75 mg/dL (<12) H 01/17/23 22:24 Ur Random Sodium < 20.0 mmol/L 01/17/23 22:24 Urine Creatinine 77.56 mg/dL 01/17/23 22:24 Stool Occult Blood NEGATIVE (NEGATIVE) 01/18/23 12:25 Random Vancomycin 18.5 mcg/mL (15-20) 01/17/23 07:29 Urine Opiates Screen POSITIVE (Not Detect) H 01/16/23 19:38 Urine Fentanyl Screen POSITIVE (Not Detect) H 01/16/23 19:38 Ur Barbiturates Screen Not Detected (Not Detect) 01/16/23 19:38 Ur Phencyclidine Scrn Not Detected (Not Detect) 01/16/23 19:38 Ur Amphetamines Screen Not Detected (Not Detect) 01/16/23 19:38 U Benzodiazepines Scrn Not Detected (Not Detect) 01/16/23 19:38 Urine Cocaine Screen POSITIVE (Not Detect) H 01/16/23 19:38 U Marijuana (THC) Screen Not Detected (Not Detect) 01/16/23 19:38 Ethyl Alcohol < 10 mg/dL 01/16/23 14:14 Lymphocyte Subset Cmmnt TNP 01/19/23 05:26 Total Lymphocytes 254 cells/uL (850-3900) L 01/19/23 05:26 % CD3 Cells 76 % (57-85) 01/19/23 05:26 Absolute CD3 Count 194 cells/uL (840-3060) L 01/19/23 05:26 % CD4 Cells 5 % (30-61) L 01/19/23 05:26 Absolute CD4 Count <20 cells/uL (490-1740) L 01/19/23 05:26 CD4/CD8 Ratio 0.07 (0.86-5.00) L 01/19/23 05:26 % CD8 Cells 66 % (12-42) H 01/19/23 05:26 Absolute CD8 Count 167 cells/uL (180-1170) L 01/19/23 05:26 T.pallidum Ab (EIA) Nonreactive (Nonreactive) 01/22/23 09:38 Hepatitis A IgM Ab Nonreactive (Nonreactive) 01/16/23 15:08 Hep Bs Antigen Negative (Negative) 01/16/23 15:08 Hep Bs Antibody REACTIVE (Nonreactive) 01/16/23 15:08 Hep B Core Total Ab Nonreactive (Nonreactive) 01/16/23 15:08 Hepatitis C Ab (EIA) Reactive (Nonreactive) H 01/16/23 15:08 Hep C Viral Load <15 NOT DETECTED IU/mL (NOT DETECTED) 01/19/23 05:26 Hep C Viral Load Log <1.18 NOT DETECTED Log IU/mL (NOT DETECTED) 01/19/23 05:26 HIV-1 Antibody POSITIVE (Abnormal) 01/16/23 15:08 HIV-1 RNA copies/mL [id number] copies/mL (NOT DETECTED) H 01/19/23 05:26 HIV-1 RNA logcopies/mL 6.47 (NOT DETECTED) H 01/19/23 05:26 HIV-1 RNA, Qual (TMA) TNP 01/16/23 15:08 HIV-2 Antibody NEGATIVE 01/16/23 15:08 HIV 1&2 Ab/P24 Ag 4thGn Reactive (Nonreactive) H 12/11/23 15:08 Cryptococcal Ag SEE NOTE 12/17/23 09:38 Ref Lab Test Result Cancelled 01/27/23 Unknown Blood Type A Positive 01/30/23 07:10 Antibody Screen POSITIVE 01/30/23 07:10 Antibody Identification Anti-E 01/30/23 07:10 GLORIA, Polyspecific POSITIVE A 01/30/23 07:10 Positive GLORIA Work-up IgG=Pos C9o=Szz A 01/30/23 07:10 Crossmatch See Detail 01/30/23 07:10 Crossmatch (AHG) See Detail 01/30/23 07:10 Blood Bank Comment Technical 01/30/23 07:10 - Imaging Radiologist's impression: ITS Impressions Foot X-Ray 01/16/23 11:44 IMPRESSION: 1. No acute visible fracture or dislocation. 2. Slight enthesopathy at the Achilles tendon insertion site. 3. Prominent soft tissue swelling along the dorsum of the forefoot. Chest X-Ray 01/16/23 13:48 IMPRESSION: No acute cardiopulmonary findings. Abdomen/Pelvis CT 01/16/23 14:06 IMPRESSION: Colonic distention with gas and fluid. This may represent colitis. Evaluation is limited by motion artifact. Advise clinical correlation. Hepatosplenomegaly. Hepatic steatosis. Enlarged portacaval lymph node is possibly reactive basis. Cholelithiasis. 3 mm nonobstructing right renal calculus. No hydronephrosis. 1.4 cm subpleural density in the left upper lobe. Dedicated chest CT is recommended for further characterization. Venous Duplex 01/16/23 17:00 IMPRESSION: No DVT demonstrated in the left lower extremity. Lower Extremity CT 01/16/23 22:23 IMPRESSION: * No acute osseous abnormalities. * No evidence of osteomyelitis. * Subcutaneous fat stranding along the anterior and lateral aspects of the calf extending inferiorly along the medial and lateral aspects of the ankle and along the dorsum of the foot where the edema becomes coalescent. No drainable collection. * No intermuscular fluid or soft tissue gas to suggest necrotizing fasciitis. Chest CT 01/19/23 18:13 IMPRESSION: 1. Bilateral upper lobe pulmonary nodules as described above. The largest subpleural nodule is 1.4 cm pleural-based and a 5 mm nodule in the right upper lobe. Per the 2017 revised Fleischner Society guidelines, recommend CT follow-up at 3-6 months. If stable, consider CT at 2 and 4 years. 2. Small bilateral pleural effusions with dependent bibasilar atelectasis. 3. Mild splenomegaly. 4. Diffuse fatty infiltration of liver without focal lesion. Fleischner guidelines were followed. Foot X-Ray 01/26/23 15:16 IMPRESSION: Small calcaneal heel enthesophyte. No visible acute fracture or dislocation seen. Assessment and Plan Patient Active problem list reviewed?: Yes (1) Cytopenia Status: Acute Assessment and plan: 1. This is a 47-year-old male, IV drug abuser who has been admitted for cellulitis and MSSA bacteremia. He has been diagnosed with HIV/aids as well as candidiasis and anaplasmosis. He was found to have intracytoplasmic inclusion bodies on review of peripheral smear has been started on doxycycline on 01/19/2023. No confirmatory serological tests have been performed. During this hospitalization he was started on HIV medications. For antibiotics, he was on doxycycline, cefazolin and fluconazole and bactrim. He has developed pancytopenia and worsening anemia/ neutropenia. He does not have adequate marrow response, he has reticulocytopenia. Underlying HIV, drug abuse, malnutrition could be cause of his inadequate marrow response. His CBC was normal in 2020. On presentation to hospital on the current admission he had both anemia and thrombocytopenia. His WBC count was normal. Imaging with CT abdomen/pelvis showed hepatosplenomegaly. He also has bilateral inguinal lymphadenopathy which is probably reactive. Acute worsening could be related to infection and antibiotics. Serial blood work showed rising LDH as well as bilirubin. He also developed worsening anemia requiring multiple units of blood transfusions. He has been taken off of few antibiotics. 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 This can be seen with cephalosporins. Agree with starting steroids. For neutropenia, I have recommended Granix 300 mcg subQ daily until his WBC count is over 1000. - Time Spent With Patient Time Spent with Patient (in minutes): 10
--- NOTE | 2023-01-31 15:10 | MHC.CLN ---
F/U DIET=REGULAR. ENSURE BID TO INCREASE NUTRITIONAL INTAKE. PROVIDES 700 KCALS, 40 G PROTEIN. INTAKE CONTINUES VARIABLE, 25-75%. CONTINUE REGULAR DIET WITH ENSURE BID. FOLLOW FOR PO INTAKE AND WEIGHTS.
[2023-01-31 15:21] VITALS: BP 109/72; PULSE 96; RESP 18; TEMP 36.8; O2SAT 96
[2023-01-31] MEDS: Albumin Human 25 % 100 ML IV ×2 (15:52→16:50)
[2023-01-31 19:16] VITALS: BP 113/73; PULSE 97; RESP 20; TEMP 37.2; O2SAT 97
--- NOTE | 2023-01-31 19:23 | PC.NURSE ---
Per VALUER Judit Muir pt not allowed to have visitors or any belongings brought to the bedside, due to a previous incident this hospital stay where drugs were brought to the bedside. Pt asked this RN if family could bring in food to the bedside. Due to previous conversation with VALUER this RN did not allow food or belongings to bedside, pt became upset with this answer and verbalized that he was not happy with this decision. Pt stated he wanted to walk out of the facility. This RN provided education to patient regarding topic and explained decision was implemented for safety reasons only. VALUER made aware pt refusing PO mag dose, and will only take one PO tab as opposed to the ordered two tabs, and refused pm mag dose all together.
[2023-02-01 03:59] VITALS: BP 89/55; PULSE 104; RESP 20; TEMP 36.4; O2SAT 95
[2023-02-01 04:24] VITALS: BP 105/61
--- NOTE | 2023-02-01 04:31 | PC.NURSE ---
this morning pt had some blood on tissue paper while wiping his stool. stool color was yellow . notified
[2023-02-01 07:11] LABS: Hematocrit 25.7 % (42.0-52.0); Hemoglobin 8.8 g/dl (14.0-18.0); Mean Corpuscular HGB Conc 34.2 g/dl (31.0-36.0); Mean Corpuscular Hemoglobin 31.1 pg (27.0-33.0); Mean Corpuscular Volume 90.8 fL (80.0-98.0); Mean Platelet Volume 10.4 fL (9.4-12.4); Platelet Count 72 X10*3/uL (160-400); Red Blood Count 2.83 X10*6/uL (4.60-5.80); Red Cell Distribution Width 17.2 % (11.0-16.0); WBC ABN SCTR FOR CBC 1; White Blood Count 1.1 X10*3/uL (4.8-10.8)
[2023-02-01 07:34] LABS: Alanine Aminotransferase < 5 U/L (0-40); Albumin Level 1.8 g/dL (3.5-5.0); Alkaline Phosphatase 575 U/L (39-117); Anion Gap 9 (12-20); Aspartate Amino Transferase 41 U/L (5-37); Bilirubin Direct 0.8 mg/dL (0.0-0.5); Bilirubin Total 1.5 mg/dL (0.0-1.0); Blood Urea Nitrogen 22 mg/dL (9-16); Carbon Dioxide 24 mmol/L (22-29); Chloride 103 mmol/L (96-108); Creatinine Clr Calc Pharmacy 99.5; Estimated Glomerular Filt Rate > 60; Glucose Random 122 mg/dL (60-115); Lactate Dehydrogenase 347 U/L (118-273); Potassium 4.2 mmol/L (3.3-5.1); Sodium 132 mmol/L (135-145)
[2023-02-01 07:48] VITALS: BP 90/62; PULSE 88; RESP 16; TEMP 36.4; O2SAT 97
[2023-02-01] MEDS: Magnesium Oxide 400 MG TABLET 800 MG PO (08:38)
[2023-02-01] MEDS: Bictegrav/Emtricit/Tenofov Ala TABLET 1 TAB PO (08:38)
[2023-02-01] MEDS: Docusate Sodium 100 MG CAPSULE PO (08:38)
[2023-02-01] MEDS: predniSONE 20 MG TABLET 60 MG PO (08:38)
[2023-02-01] MEDS: Folic Acid 1 MG TABLET PO (08:38)
[2023-02-01] MEDS: Fluconazole 100 MG TABLET PO (08:39)
[2023-02-01] MEDS: Atovaquone 750 MG/5 ML ORAL.SUSP 1500 MG PO (08:40)
[2023-02-01] MEDS: 0.9 % Sodium Chloride Flush 3 ML SYRINGE IVFLUSH ×2 (08:41→14:14)
[2023-02-01] MEDS: Heparin Sodium,Porcine Flush 50 UNITS/5 ML SYRINGE IVFLUSH ×2 (08:41→14:56)
[2023-02-01] MEDS: Nicotine 21 MG PATCH.TD24 TRANSDERMA (08:41)
[2023-02-01] MEDS: methADONE HCl 20 MG/2 ML ORAL.CONC 45 MG PO (08:42)
--- NOTE | 2023-02-01 09:08 | MHC.CLN ---
F/U DIET=REGULAR. INCREASE ENSURE TO TID. PROVIDES 1050 KCALS, 60 G PROTEIN. INTAKE CONTINUES VARIABLE, 25-75%. CONTINUE REGULAR DIET, NEUTROPENIC PRECAUTIONS, WITH ENSURE TID. FOLLOW FOR PO INTAKE AND WEIGHTS.
[2023-02-01 09:23] LABS: Atypical Lymphs Percent Manual 2 % (0-6); Band Neutrophils Percent 32 % (3-5); Lymphocytes Absolute Manual 0.1 X10*3/uL (1.2-4.9); Lymphocytes Percent Manual 12 % (20-40); Metamyelocytes Absolute 0.1 X10*3/uL; Metamyelocytes Percent 6 %; Monocytes Absolute Manual 0.1 X10*3/uL (0.1-1.2); Monocytes Percent Manual 6 % (2-11); Myelocytes Percent 4 %; Neutrophils Absolute Manual 0.8 X10*3/uL (2.0-8.3); Neutrophils Percent Manual 38 % (45-73)
[2023-02-01 09:30] LABS: Burr Cells 1+ (0-2) /OIF; Dohle Bodies PRESENT; RBC Morphology NOTED; Schistocytes 1+ (0-2) /OIF; Spherocytes 2+ (3-5) /OIF
[2023-02-01 09:32] LABS: Platelet Estimate DECREASED (NORMAL); Platelet Morphology Comment NORMAL
[2023-02-01] MEDS: Enoxaparin Sodium 40 MG/0.4 ML SYRINGE SUBCUT (12:10)
--- NOTE | 2023-02-01 12:55 | MHC.CM.PN ---
[facility]
--- NOTE | 2023-02-01 14:01 | P.PNHO-ONC_ITS ---
Medical Summary - Medical Summary Date of Service: 02/01/23 Chief complaint: Impaired hearing,? Tinnitus Primary Care Provider: None Physician Interval History Interval history: Casey Da Silva is a 47 year old male with history of HIV and IV drug abuse who was admitted for sepsis secondary to cellulitis and MSSA bacteremia, recently diagnosed HIV/aids with Anaplasma and candidiasis. He initially presented with weakness, leg pain and swelling, alopecia and weight loss. His past history is also significant for hepatitis-C, syphilis and chlamydia. On initial presentation to emergency department, he was also noted to have acute renal insufficiency. His kidney functions have normalized. He also developed pancytopenia requiring blood transfusion. His platelet counts have improved but he remains anemic and has developed worsening neutropenia. He was diagnosed with Anaplasma infection based on intracytoplasmic inclusions in WBCs. He has been started on doxycycline. Patient is complaining of impaired hearing for the last 4-5 days. He states that he feels his ears are blocked. He reports no headache or dizziness. No focal weakness or numbness. Review of Systems - Constitutional Reports as per HPI - Neurologic Reports weakness PMFSH Medical History: Medical History (Last Updated 01/27/23 @ 16:30 by Jana Rich MD) AIDS Anaplasmosis Asthma HIV MAY positive MSSA bacteremia Polysubstance (including opioids) dependence w/o physiol dependence Family history: reviewed and not pertinent Social History: Social History (Last Reviewed 02/22/20 @ 08:02 by Maggie Guevara MD) Living Situation History: Household Members: Family Alcohol History: Unable to assess alcohol history related to: Refusing to respond Tobacco History: Patient Tobacco Use Status: Tobacco use Unknown Substance Use History: Substance Use Type: Heroin Occupation Assessmet: service: No Home Medications and Allergies Current Medications: Current Medications Acetaminophen (Acetaminophen 325 Mg Tablet) 650 mg PO Q6H PRN PRN Reason: Pain, Mild (Pain Scale 1-3) Last Admin: 01/20/23 11:34 Dose: 650 mg Al Hydroxide/Mg Hydroxide (Magnesium Hydrox/Alum Hydrox 30 Ml Oral.Susp) 30 ml PO Q4H PRN PRN Reason: Heartburn/Nausea Atovaquone (Atovaquone 750 Mg/5 Ml Oral.Susp) 1,500 mg PO DAILY JASON Last Admin: 02/01/23 08:40 Dose: 1,500 mg Bictegravir/Emtricitabine/Tenofovir (Bictegrav/Emtricit/Tenofov Ala Tablet) 1 tab PO DAILY [facility] Last Admin: 02/01/23 08:38 Dose: 1 tab Docusate Sodium (Docusate Sodium 100 Mg Capsule) 100 mg PO BID [facility] Last Admin: 02/01/23 08:38 Dose: 100 mg Enoxaparin Sodium (Enoxaparin Sodium 40 Mg/0.4 Ml Syringe) 40 mg SUBCUT Q24H [facility] Last Admin: 02/01/23 12:10 Dose: 40 mg Fluconazole (Fluconazole 100 Mg Tablet) 100 mg PO DAILY [facility] Stop: 02/05/23 14:51 Last Admin: 02/01/23 08:39 Dose: 100 mg Folic Acid (Folic Acid 1 Mg Tablet) 1 mg PO DAILY [facility] Last Admin: 02/01/23 08:38 Dose: 1 mg Heparin Sodium (Porcine) (Heparin Sodium,Porcine Flush 50 Units/5 Ml Syringe) 50 units IVFLUSH QSHIFT [facility] Last Admin: 02/01/23 08:41 Dose: 50 units Daptomycin 572 mg/ Sodium (Chloride) 61.44 mls @ 100 mls/hr IV Q24H [facility] Last Infusion: 01/31/23 15:14 Dose: Infused Magnesium Oxide (Magnesium Oxide 400 Mg Tablet) 800 mg PO BIDPC [facility] Last Admin: 02/01/23 08:38 Dose: 800 mg Methadone HCl (Methadone Hcl 20 Mg/2 Ml Oral.Conc) 45 mg PO DAILY [facility] Last Admin: 02/01/23 08:42 Dose: 45 mg Naloxone HCl (Naloxone Hcl 0.4 Mg/Ml Vial) 0.1 mg IVPUSH Q2M PRN PRN Reason: Respiratory Rate < 10 Nicotine (Nicotine 21 Mg Patch.Td24) 21 mg TRANSDERMA DAILY [facility] Last Admin: 02/01/23 08:41 Dose: 21 mg Nicotine Polacrilex (Nicotine Polacrilex 2 Mg Gum) 2 mg BUCCAL Q2H PRN PRN Reason: Nicotine Cravings Ondansetron HCl (Ondansetron Hcl 4 Mg/2 Ml Vial) 4 mg IVPUSH Q8H PRN PRN Reason: Nausea and Vomiting Last Admin: 01/30/23 19:56 Dose: 4 mg Prednisone (Prednisone 20 Mg Tablet) 60 mg PO DAILY [facility] Last Admin: 02/01/23 08:38 Dose: 60 mg Senna (Sennosides 8.6 Mg Tablet) 17.2 mg PO BEDTIME PRN PRN Reason: Constipation Sodium Chloride (0.9 % Sodium Chloride Flush 3 Ml Syringe) 3 ml IVFLUSH QSHIFT [facility] Last Admin: 02/01/23 08:41 Dose: 3 ml Allergies Allergy/AdvReac Type Severity Reaction Status Date / Time fish derived [FISH] Allergy Unknown UNKNOWN Verified 01/16/23 11:09 Exam Vital signs: Vital Signs Temp 97.6 F 02/01/23 07:48 Pulse 88 02/01/23 07:48 Resp 16 02/01/23 07:48 BP 90/62 02/01/23 07:48 Pulse Ox 97 02/01/23 07:48 O2 Del Method Room Air 02/01/23 07:48 Intake & Output 01/31/23 02/01/23 02/01/23 18:59 06:59 18:59 Intake Total 908.107 / 1748.107 840 / 1748.107 Output Total 400 / 600 200 / 600 Balance 508.107 / 1148.107 640 / 1148.107 Urine Output (Average ml/kg/hr) 0.58 0.29 0.29 Intake: Intake, Oral Amount 600 / 1440 840 / 1440 Intake, IV Amount 308.107 / 308.107 Albumin Human 25 % 100 ml @ 100 196.667 / 196.667 mls/hr IV Q1H [facility] Rx#: [id number] DAPTOmycin 572 mg In 0.9 % 61.44 / 61.44 Sodium Chloride 50 ml @ 100 mls /hr IV Q24H [facility] Rx#:[id number] Magnesium Sulfate/H2O 2 gm In 50 / 50 50 ml @ 25 mls/hr IV ONCE ONE Rx#:[id number] Output: Output, Urine Amount 400 / 600 200 / 600 Other: Breakfast % Eaten 25% Lunch % Eaten 50% Number of Unmeasured Voids 1 Number of Bowel Movements 1 Urine Urinal Urine Color Concentrated Last Bowel Movement 01/31/23 02/01/23 Stool Bathroom Weight 57.2 kg BMI result Body Mass Index 20.4 - Constitutional Present: no acute distress, thin, chronically ill appearing - Routine Respiratory Exam Absent: accessory muscle use - Routine Cardiovascular Exam Cardiovascular: Present: S1, S2 Data - Labs CBC & Chem 7: 02/01/23 06:59 02/01/23 06:59 - Imaging Radiologist's impression: ITS Impressions Foot X-Ray 01/16/23 11:44 IMPRESSION: 1. No acute visible fracture or dislocation. 2. Slight enthesopathy at the Achilles tendon insertion site. 3. Prominent soft tissue swelling along the dorsum of the forefoot. Chest X-Ray 01/16/23 13:48 IMPRESSION: No acute cardiopulmonary findings. Abdomen/Pelvis CT 01/16/23 14:06 IMPRESSION: Colonic distention with gas and fluid. This may represent colitis. Evaluation is limited by motion artifact. Advise clinical correlation. Hepatosplenomegaly. Hepatic steatosis. Enlarged portacaval lymph node is possibly reactive basis. Cholelithiasis. 3 mm nonobstructing right renal calculus. No hydronephrosis. 1.4 cm subpleural density in the left upper lobe. Dedicated chest CT is recommended for further characterization. Venous Duplex 01/16/23 17:00 IMPRESSION: No DVT demonstrated in the left lower extremity. Lower Extremity CT 01/16/23 22:23 IMPRESSION: * No acute osseous abnormalities. * No evidence of osteomyelitis. * Subcutaneous fat stranding along the anterior and lateral aspects of the calf extending inferiorly along the medial and lateral aspects of the ankle and along the dorsum of the foot where the edema becomes coalescent. No drainable collection. * No intermuscular fluid or soft tissue gas to suggest necrotizing fasciitis. Chest CT 01/19/23 18:13 IMPRESSION: 1. Bilateral upper lobe pulmonary nodules as described above. The largest subpleural nodule is 1.4 cm pleural-based and a 5 mm nodule in the right upper lobe. Per the 2017 revised Fleischner Society guidelines, recommend CT follow-up at 3-6 months. If stable, consider CT at 2 and 4 years. 2. Small bilateral pleural effusions with dependent bibasilar atelectasis. 3. Mild splenomegaly. 4. Diffuse fatty infiltration of liver without focal lesion. Fleischner guidelines were followed. Foot X-Ray 01/26/23 15:16 IMPRESSION: Small calcaneal heel enthesophyte. No visible acute fracture or dislocation seen. Assessment and Plan Patient Active problem list reviewed?: Yes (1) Cytopenia Status: Acute Assessment and plan: 1. This is a 47-year-old male, IV drug abuser who has been admitted for cellulitis and MSSA bacteremia. He has been diagnosed with HIV/aids as well as candidiasis and anaplasmosis. He was found to have intracytoplasmic inclusion bodies on review of peripheral smear has been started on doxycycline on 01/19/2023. No confirmatory serological tests have been performed. During this hospitalization he was started on HIV medications. For antibiotics, he was on doxycycline, cefazolin and fluconazole and bactrim. He has developed pancytopenia and worsening anemia/ neutropenia. He does not have adequate marrow response, he has reticulocytopenia. Underlying HIV, drug abuse, malnutrition could be cause of his inadequate marrow response. His CBC was normal in 2020. On presentation to hospital on the current admission he had both anemia and thrombocytopenia. His WBC count was normal. Imaging with CT abdomen/pelvis showed hepatosplenomegaly. He also has bilateral inguinal lymphadenopathy which is probably reactive. Acute worsening could be related to infection and antibiotics. Serial blood work showed rising LDH as well as bilirubin. He also developed worsening anemia requiring multiple units of blood transfusions. He has been taken off of few antibiotics. 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 This can be seen with cephalosporins. Agree with starting steroids. For neutropenia, I have recommended Granix 300 mcg subQ daily until his WBC count is over 1000. His blood counts have improved. DC Granix. Continue steroids as outpatient with slow taper over next 2 weeks. - Time Spent With Patient Time Spent with Patient (in minutes): 15
--- NOTE | 2023-02-01 14:24 | P.DS_ITS ---
DS: Providers Provider Date of Service: 02/01/23 Date of admission: 01/16/23 21:05 Date of discharge: 02/01/23 Primary care physician: Linda Physician Consults: 01/17/23 08:05 Addiction Medicine Routine Consulting Provider: Addiction Covering Reason for consultation: substance abuse 01/17/23 14:17 Consult to Infectious Diseases Routine Consulting Provider[place] [facility] Reason for consultation: new HIV 01/17/23 14:48 Consult to Nephrology Routine Consulting Provider: [facility] Reason for consultation: isaiah 01/17/23 14:54 Consult to Gastroenterology Routine Consulting Provider: Alexa Angel Reason for consultation: anemia 01/21/23 23:07 Consult to Wound Care Routine Reason for consultation: scabes/cellulitis lt>rt legs 01/27/23 07:49 Consult to Hematology / Oncology Routine Consulting Provider: Yudy Alvarez Reason for consultation: anemia,neutropenia; aids Has provider been notified: No DS: Diagnosis Discharge Diagnosis (1) Cytopenia: Status: Acute (2) Anaplasmosis: Status: Acute (3) HIV MAY positive: Status: Acute (4) MSSA bacteremia: Status: Acute DS: Summary Hospital Course Hospital Course: 47-year-old Divehi-speaking man who is an active IV heroin and cocaine abuse and who otherwise has no other medical problems who presented to the emergency room accompanied by his mother and brother complaining of severe pain involving his left leg - from the knee to the foot - for the last 3-4 days. He admits to injecting drugs everyday in all his extremities including the left leg. He describes spontaneous onset of his symptoms that have become progressively worse to a point where he cannot bear weight. He denies any preceding trauma or any associated fever or chills. Initial vital signs obtained on arrival to the emergency room ere notable for tachycardia with a hea rt rate of 104 beats per minute. He however is afebrile. Initial blood work revealed a bandemia of 19%, elevated ESR of >140, CRP of 19.63, elevated lactic acid at 2.3, mild hypokalemia with a serum potassium of 3.5 and severe renal insufficiency a BUN of 75 and serum creatinine of 4.28. Of note, he has no known history of renal injury. A plain x-ray of the affected limb showed prominent soft tissue swelling along the dorsum of the forefoot. He was was started on intravenous vancomycin and Zosyn and admission request. Hospital Course Admitted to general medical floor and continued on vancomycin/ Zosyn. HIV labs done and returned positive. Biktarvy started as well as Keflex and Bactrim. Developed pancytopenia and was seen in consultation by Hematology-Oncology. This was thought to be a secondary consequence to antibiotics of Keflex and Bactrim were DC in favor of dapsone. He did receive unit of packed cells and was followed by oncology. He receive 1 dose a colony stimulating factor with a good response in his white cell count. As per Infectious Disease he will require ongoing treatment with dapsone until 02/16/2023 for treatment of Staph bacteremia. PICC line was placed and patient tolerated the procedure well. At this point time is medically acceptable for discharge Time Attestation Discharge coordination time: Greater than 30 minutes Quality: Safe Use of Opioids Does Pt have an Active Cancer Diagnosis on the Problem List?: No Quality: Stroke Does the patient have a stroke diagnosis?: No Physical Exam Vital Signs: Vital Signs: Last Vital Signs Temp 97.6 F 02/01/23 07:48 Pulse 88 02/01/23 07:48 Resp 16 02/01/23 07:48 BP 90/62 02/01/23 07:48 Pulse Ox 97 02/01/23 07:48 O2 Del Method Room Air 02/01/23 07:48 BMI result Body Mass Index 20.4 Const: Other: Ill-appearing; no acute distress Resp: Other: Clear to auscultation bilaterally no rales rhonchi or wheezes Cardio: Other: No S4; positive S1-S2; no S3 murmurs rubs or gallops GI: Other: Soft nontender nondistended normoactive bowel sounds Extrem: Other: See admission photos DS: Data Data Completed and Pending Labs on day of discharge: Laboratory Results - last 24 hr 02/01/23 06:59 WBC 1.1 L RBC 2.83 L Hgb 8.8 L Hct 25.7 L MCV 90.8 MCH 31.1 MCHC 34.2 RDW 17.2 H Plt Count 72 L MPV 10.4 Immature Gran % (Auto) Cancelled Neut % (Auto) Cancelled Lymph % (Auto) Cancelled Calloway % (Auto) Cancelled Eos % (Auto) Cancelled Baso % (Auto) Cancelled Lymph # (Auto) Cancelled [place]ay # (Auto) Cancelled Eos # (Auto) Cancelled Baso # (Auto) Cancelled Abs Immat Gran (auto) Cancelled Absolute Neuts (auto) Cancelled Absolute Nucleated RBC 0.000 Nucleated RBC % (auto) 0.0 Neutrophils % (Manual) 38 L Band Neutrophils % 32 H Lymphocytes % (Manual) 12 L Atypical Lymphs % (Man) 2 Monocytes % (Manual) 6 Metamyelocytes % 6 Myelocytes % 4 Abs Neuts (Manual) 0.8 L Lymphocytes # (Manual) 0.1 L Monocytes # (Manual) 0.1 Metamyelocytes # 0.1 Dohle Bodies PRESENT Platelet Estimate DECREASED Plt Morphology Comment NORMAL RBC Morphology NOTED Spherocytes 2+ (3-5) [place] Cells 1+ (0-2) Schistocytes 1+ (0-2) Sodium 132 L Potassium 4.2 Chloride 103 Carbon Dioxide 24 Anion Gap 9 L BUN 22 H Creatinine 0.75 Estim Creat Clear Calc 99.5 Estimated GFR > 60 Random Glucose 122 H Calcium 8.0 L Total Bilirubin 1.5 H Direct Bilirubin 0.8 H AST 41 H ALT < 5 Alkaline Phosphatase 575 H Lactate Dehydrogenase 347 H Total Protein 7.0 Albumin 1.8 L Discharge Plan Discharge Anticipated Discharge Date/Time: 02/01/23 14:13 Patient Disposition: Xfer [facility] Discharge Diagnosis: cellulitis left leg with bacteremia Referrals: [facility] [Outside] Physician,None [Primary Care Provider] - 1 Week Discharge Medications: New fluconazole 100 mg Tablet 100 mg PO DAILY Qty: 30 0RF nicotine (polacrilex) 2 mg Gum 2 mg buccal Q2H PRN (Reason: Nicotine Cravings) Qty: 60 0RF prednisone 20 mg Tablet 60 mg PO DAILY Qty: 90 0RF magnesium oxide 400 mg (241.3 mg magnesium) Tablet 800 mg PO BIDPC Qty: 60 0RF nicotine 21 mg/24 hr Patch 24 Hour 21 mg transdermal DAILY Qty: 30 0RF folic acid 1 mg Tablet 1 mg PO DAILY Qty: 30 0RF methadone [Methadose] 10 mg/mL Concentrate 45 mg PO DAILY Qty: 30 0RF Rx Instructions: Partial Fill upon patient request. atovaquone [Mepron] 750 mg/5 mL Suspension 1,500 mg PO DAILY Qty: 300 0RF heparin, porcine (PF) [Heparin LockFlush(Porcine)(PF)] 10 unit/mL Syringe 50 unit IVFLUSH QSHIFT Qty: 30 0RF daptomycin 350 mg Recon Soln 572 mg IV Q24H 16 Days Rx Instructions: last dose 02/16/2023 Biktarvy 50-200-25 mg Tablet 1 tab PO DAILY Qty: 30 0RF Discharge Orders: Discharge Order (Routine); Ordered 02/01/23 Ordered By: Isiah Jiménez Diet: Advance to usual diet Activity on Discharge: As tolerated Stand Alone Forms: Patient Portal Discharge page Care Plan Goals: Daptomycin as ordered. Last dose 02/16/2023 Health Concerns: continue all medications as ordered. Adjustment as per receiving facility Plan of Treatment: On discharge he needs to call Kimberly at [facility] (she is bilingual and at [phone] at [facility] so he can set up there as a new patient and see DR Rich Assessment: as per discharge
[2023-02-02 18:38] LABS: CMV DNA PCR Qn Source BLOOD; CMV DNA Qn PCR 5.65 Log IU/mL (NOT DETECTED)
[2023-02-02 20:19] LABS: Date Viral Load Collected NG; Dolutegravir Resistance NOT PREDICTED; HIV Genotype DETECTED; HIV-1 Bictegravir Resistance NOT PREDICTED; HIV-1 Cabotegravir Resistance NOT PREDICTED; HIV-1 Elvitegravir Resistance NOT PREDICTED; Raltegravir Resistance NOT PREDICTED; Value of Last HIV Viral Load NG copies/mL
[2023-02-04 19:19] LABS: Glucose-6-Phosphate Dehydrogen 13.8 U/g Hgb (7.0-20.5)
[2023-02-07 23:33] LABS: EBV-VCA IgG Ab >750.00 U/mL; EBV-VCA IgM Ab >160.00 U/mL
== END 2023-02-01 16:18 | disposition skilled nursing facility (03) | DRG 890 ==
LOC: HO.ED 18:59 → HO.EDOVER 21:42 → HO.S3 01-17 00:01
PROVIDERS: Family Medicine; Internal Medicine; Internal Medicine Hypertension Specialist; Nurse Practitioner Acute Care; Physician Assistant Medical; Admitting Provider Internal Medicine; Emergency Provider Emergency Medicine; Visit Provider Hospitalist
PROC: 05HC33Z Insertion of Infusion Device into Left Basilic Vein, Percutaneous Approach (ICD-10-PCS; principal; 2023-01-23 10:40)
DX: B20 Human immunodeficiency virus [HIV] disease (principal); A41.01 Sepsis due to Methicillin susceptible Staphylococcus aureus; N17.9 Acute kidney failure, unspecified; D61.811 Other drug-induced pancytopenia; B37.0 Candidal stomatitis; D63.8 Anemia in other chronic diseases classified elsewhere; B37.81 Candidal esophagitis; D59.2 Drug-induced nonautoimmune hemolytic anemia; T36.1X5A Adverse effect of cephalosporins and other beta-lactam antibiotics, initial encounter; E88.A Wasting disease (syndrome) due to underlying condition; L03.116 Cellulitis of left lower limb; B95.61 Methicillin susceptible Staphylococcus aureus infection as the cause of diseases classified elsewhere; E87.6 Hypokalemia; E83.42 Hypomagnesemia; A79.82 Anaplasmosis [A. phagocytophilum]; R91.8 Other nonspecific abnormal finding of lung field; B19.20 Unspecified viral hepatitis C without hepatic coma; T36.8X5A Adverse effect of other systemic antibiotics, initial encounter; E44.1 Mild protein-calorie malnutrition; Z68.20 Body mass index [BMI] 20.0-20.9, adult; F17.200 Nicotine dependence, unspecified, uncomplicated; F14.10 Cocaine abuse, uncomplicated; F11.20 Opioid dependence, uncomplicated; Z79.52 Long term (current) use of systemic steroids; Z79.899 Other long term (current) drug therapy
CPT/HCPCS: 36415; 36573; 70450; 71045; 71250; 73620; 73630; 73700; 74176; 80048; 80053; 80076; 80202; 80307; 81001; 82272; 82550; 82570; 82607; 82728; 82746; 82955; 83010; 83540; 83605; 83615; 83735; 84156; 84300; 85007; 85025; 85027; 85045; 85652; 86140; 86359; 86360; 86403; 86664; 86665; 86701; 86702; 86704; 86706; 86709; 86780; 86803; 86850; 86870; 86880; 86885; 86900; 86901; 86902; 86920; 86922; 86923; 87040; 87077; 87116; 87186; 87205; 87206; 87340; 87389; 87497; 87522; 87536; 87900; 87901; 87906; 93005; 93306; 93971; 99285; C1751; J0690; J0878; J1170; J1447; J1450; J1642; J1644; J1650; J2405; J2543; J2930; J3370; J3371; J3475; P9016; P9047; Q9957

== ENCOUNTER 2023-01-16 21:05 | Outpatient (BNV) | payer MEDICAID, SELFPAY | END 2023-01-22 14:45 | PROVIDERS: Admitting Provider Internal Medicine; Emergency Provider Emergency Medicine; Visit Provider Internal Medicine Cardiovascular Disease | DX: R00.0 Tachycardia, unspecified (principal) | CPT/HCPCS: 93010 ==

== ENCOUNTER 2023-01-16 21:05 | Outpatient (BNV) | payer MEDICAID, SELFPAY | END 2023-01-18 07:00 | PROVIDERS: Admitting Provider Internal Medicine; Emergency Provider Emergency Medicine; Visit Provider Internal Medicine Cardiovascular Disease | DX: R78.81 Bacteremia (principal) | CPT/HCPCS: 93306 ==

== ENCOUNTER 2023-01-16 21:05 | Outpatient (BNV) | payer MEDICAID, SELFPAY | END 2023-01-26 10:33 | PROVIDERS: Admitting Provider Internal Medicine; Emergency Provider Emergency Medicine; Visit Provider Internal Medicine Cardiovascular Disease | DX: R00.0 Tachycardia, unspecified (principal) | CPT/HCPCS: 93010 ==

== ENCOUNTER → 2023-01-16 21:05 | Outpatient (BNV) | payer MEDICAID, SELFPAY | PROVIDERS: Admitting Provider Internal Medicine; Emergency Provider Emergency Medicine; Visit Provider Internal Medicine Hypertension Specialist | DX: N17.9 Acute kidney failure, unspecified (principal) | CPT/HCPCS: 99223; 99232 ==

== ENCOUNTER → 2023-01-16 21:05 | Outpatient (BNV) | payer MEDICAID, SELFPAY | PROVIDERS: Admitting Provider Internal Medicine; Emergency Provider Emergency Medicine; Visit Provider Internal Medicine | DX: L03.116 Cellulitis of left lower limb (principal); N17.9 Acute kidney failure, unspecified; D64.9 Anemia, unspecified; R63.4 Abnormal weight loss; R91.8 Other nonspecific abnormal finding of lung field; F17.200 Nicotine dependence, unspecified, uncomplicated | CPT/HCPCS: 99223; 99232; 99233; 99239; 99499 ==

== ENCOUNTER → 2023-01-16 21:05 | Outpatient (BNV) | payer MEDICAID, SELFPAY | PROVIDERS: Admitting Provider Internal Medicine; Emergency Provider Emergency Medicine; Visit Provider Internal Medicine | DX: D75.9 Disease of blood and blood-forming organs, unspecified (principal); Z21 Asymptomatic human immunodeficiency virus [HIV] infection status; A77.49 Other ehrlichiosis; R78.81 Bacteremia; B95.61 Methicillin susceptible Staphylococcus aureus infection as the cause of diseases classified elsewhere; L03.90 Cellulitis, unspecified; F11.90 Opioid use, unspecified, uncomplicated; F17.200 Nicotine dependence, unspecified, uncomplicated; B20 Human immunodeficiency virus [HIV] disease | CPT/HCPCS: 99222; 99232 ==

== ENCOUNTER → 2023-01-16 21:05 | Outpatient (BNV) | payer OTHER, SELFPAY | PROVIDERS: Admitting Provider Internal Medicine; Emergency Provider Emergency Medicine; Visit Provider Nurse Practitioner Psychiatric/Mental Health | DX: F11.90 Opioid use, unspecified, uncomplicated (principal) | CPT/HCPCS: 99231; 99499 ==

== ENCOUNTER → 2023-01-16 21:05 | Outpatient (BNV) | payer MEDICAID, SELFPAY | PROVIDERS: Admitting Provider Internal Medicine; Emergency Provider Emergency Medicine; Visit Provider Internal Medicine | DX: D64.9 Anemia, unspecified (principal); D75.9 Disease of blood and blood-forming organs, unspecified | CPT/HCPCS: 99221; 99232 ==

== ENCOUNTER → 2023-01-16 21:05 | Outpatient (BNV) | payer MEDICAID, SELFPAY | PROVIDERS: Admitting Provider Internal Medicine; Emergency Provider Emergency Medicine; Visit Provider Internal Medicine Gastroenterology | DX: D64.9 Anemia, unspecified (principal) | CPT/HCPCS: 99223 ==